=== PATIENT | male | born 1955 | race Caucasian/White ===

== ENCOUNTER 2016-06-04 01:34 | Emergency (ER) | payer MEDICARE ==
[2015-11-24 08:19] VITALS: BMI 25.8
[~2016-06-04 01:34] MED LIST: ATARAX 25 MG TA25 MG PO; CARAFATE1 G/10 ML PO; DIFLUCAN100 MG PO; HYDROCODONE-APA1 TAB PO; IPRAT-ALBUT 0.5-3 ML UPD; KENALOG 0.1 % O15 GM TOPICAL; MUCINEX DM ER1 EAC1 PO; NICODERM C1 PATCH .1 TRANSDERM; PERCOCET 10/3251 TA1 PO; PROAIR HFA8.5 GM INH; PROTONIX40 MG PO; SINGULAIR10 MG PO; SORIATANE10 MG PO; SORIATANE25 MG PO; SYMBICORT 16010.2 GM INH; TEMOVATE 0.05%15 G1 TOPICAL; TESSALON PERLE100 MG PO; VIBRAMYCIN 100100 MG PO
[2016-06-04 02:29] LABS: BASOPHILS 0.3 % (0.0-2.0); EOSINOPHILS 1.1 % (0-7); HEMATOCRIT 42.7 % (42.0-54.0); HEMOGLOBIN 13.9 g/dL (13.5-17.5); IMMATURE GRANULOCYTES 0.5 % (0-5); LYMPHOCYTES 20.4 % (15-50); MCH 29.9 pg (26.0-34.0); MCHC 32.6 g/dL (31.0-37.0); MCV 91.8 fL (80.0-100.0); MEAN PLATELET VOLUME 9.1 fL (7.4-10.4); MONOCYTES 7.1 % (2-11); NEUTROPHILS 70.6 % (40-80); PLATELET COUNT 311 10x3/uL (130-400); RBC 4.65 10x6/uL (4.20-6.10); RDW 14.4 % (11.5-14.5); WBC 11.6 10x3/uL (4.8-10.8)
[2016-06-04 02:38] LABS: ALBUMIN 3.4 g/dL (3.4-5.0); ANION GAP 7.5 mmol/L (8-16); BILIRUBIN - TOTAL 0.4 mg/dL (0.2-1.3); CALCIUM 8.6 mg/dL (8.5-10.1); CARBON DIOXIDE 33.4 mmol/L (21.0-32.0); CREATININE - SERUM 1.2 mg/dL (0.6-1.3); POTASSIUM - SERUM 3.9 mmol/L (3.5-5.1); PROTEIN - SERUM 7.8 g/dL (6.4-8.2)
== END 2016-06-04 02:52 | disposition home or self-care (01) ==
LOC: D.ER 01:34
PROVIDERS: Emergency Medicine
DX: J44.1 Chronic obstructive pulmonary disease with (acute) exacerbation (principal); E78.5 Hyperlipidemia, unspecified

== ENCOUNTER 2016-06-18 11:30 | Emergency (ER) | payer MEDICARE ==
[2015-11-24 08:19] VITALS: BMI 25.8
== END 2016-06-18 14:40 | disposition home or self-care (01) ==
LOC: D.ER 11:30
DX: S90.02XA Contusion of left ankle, initial encounter (principal); W20.8XXA Other cause of strike by thrown, projected or falling object, initial encounter; Y93.89 Activity, other specified; Y92.019 Unspecified place in single-family (private) house as the place of occurrence of the external cause; S93.402A Sprain of unspecified ligament of left ankle, initial encounter; J44.9 Chronic obstructive pulmonary disease, unspecified; E78.5 Hyperlipidemia, unspecified

== ENCOUNTER → 2016-07-26 09:09 | Outpatient (CLI) | payer MEDICARE ==
[2015-11-24 08:19] VITALS: BMI 25.8
== END | disposition home or self-care (01) ==
LOC: D.CT 09:00
DX: J44.9 Chronic obstructive pulmonary disease, unspecified (principal); Z87.891 Personal history of nicotine dependence

== ENCOUNTER → 2016-08-13 09:28 | Outpatient (CLI) | payer MEDICARE ==
[2015-11-24 08:19] VITALS: BMI 25.8
== END | disposition home or self-care (01) ==
LOC: D.RT 09:28
DX: J45.909 Unspecified asthma, uncomplicated (principal)

== ENCOUNTER 2016-12-19 10:28 | Day surgery (SDC) | payer MEDICARE ==
[~2016-12-19] VITALS: Ht 177.8 cm; Wt 94.5 kg
[2016-12-19 12:04] VITALS: BP 122/71; Ht 177.8 cm; Wt 94.5 kg
--- NOTE | 2016-12-19 12:58 | NUR ---
DILATED ESOPHAGUS TO 18MM
--- NOTE | 2016-12-19 15:50 | NUR ---
1400 DISCHARGE INSTRUCTIONS COMPLETE. PRESCRIPTIONS FOR PROTONIX, CARAFATE, AND FLUCANZOLE GIVEN. PT HAS NO QUESTIONS OR CONCERNS. ESCORTED OUT BY VOLUNTEER.
--- NOTE | 2016-12-23 08:17 | OP ---
PATIENT NAME: KONRAD ROSENBERG MEDICAL RECORD: [id number] :55 LOCATION:[facility] ADMISSION DATE: SURGEON: RENEA HERBERT DO DATE OF OPERATION: 12/19/2016 PROCEDURE: EGD with biopsies and balloon dilation. INDICATIONS FOR PROCEDURE: Dysphagia, heartburn, hunger pain, nausea. SCOPE: Olympus video gastroscope. MEDICATIONS: Propofol 160 mg IV per anesthesia. ESTIMATED BLOOD LOSS: Minimal. COMPLICATIONS: None. FINDINGS: Informed consent was given. The patient was made comfortable with the above medication. After reaching an adequate level of sedation by slow IV push, the patient was placed on his left side. The endoscope was then advanced under direct visualization through the mouth to the second portion of the duodenum. In the oropharynx and upper esophagus, there was noted to be Summer. The endoscope was advanced beyond this site where the middle esophagus appeared normal. In the distal esophagus down to the GE junction, there was evidence of severe erosive LA class D reflux induced esophagitis with ulcerations present. There was also a stricture associated with the distal esophagus down at the GE junction. The scope was easily passed through this site, but upon withdrawal of the scope, balloon dilation was performed at this site up to a maximum of 18 mm in diameter successfully. The endoscope was advanced beyond the GE junction into the stomach and retroflexed to view the cardia, where a small sliding hiatal hernia was present. The fundus and body of the stomach appeared normal. In the antrum and prepyloric region, there was some erythema and atrophy of the mucosa consistent with possible gastritis. Biopsies were taken to submit for histology and to rule out H. pylori. The endoscope was advanced beyond the pylorus into the duodenum where there was some inflammation, granularity, and erythema. There were also some polypoid appearing sites. Biopsies were taken of this site with cold forceps to submit for histology. The scope was advanced beyond the bulb into the second portion, which appeared normal. The endoscope was then withdrawn from the patient. The patient tolerated the procedure well and there were no complications. IMPRESSION: 1. Oral and esophageal candidiasis. 2. LA class D reflux induced esophagitis with ulcerations present. 3. Esophageal stricture, dilated to 18 mm. 4. Small sliding hiatal hernia. 5. Gastritis. 6. Duodenitis with polypoid lesions, biopsies taken. PLAN AND RECOMMENDATIONS: 1. Discharge home when recovery parameters are met. 2. Continue current diet. 3. Continue current medications. 4. Fluconazole 100 mg daily times 21 days. 5. Protonix or equivalent PPI at 40 mg daily for 8 weeks. OPERATIVE REPORT [id number] KONRAD ROSENBERG 6. Repeat EGD as needed for dysphagia. 7. Follow up biopsy specimen results. 8. Treat if indicated for H. pylori. TRANSINT:[id number] Voice Confirmation ID: [id number] DOCUMENT ID: [id number] RENEA HERBERT DO at 0817 CC: [id number] DICTATION DATE: 12/19/16 1307 HAND II BLOCKER: 12/19/16 1517 [facility] 12/19/16 [id number] [place] [address]
== END 2016-12-19 14:00 | disposition home or self-care (01) ==
LOC: D.OPS 10:28
DX: R13.10 Dysphagia, unspecified (principal); R11.0 Nausea; K21.0 Gastro-esophageal reflux disease with esophagitis; K22.2 Esophageal obstruction; K44.9 Diaphragmatic hernia without obstruction or gangrene; K29.70 Gastritis, unspecified, without bleeding; K29.80 Duodenitis without bleeding; B37.81 Candidal esophagitis; Z01.812 Encounter for preprocedural laboratory examination; J44.9 Chronic obstructive pulmonary disease, unspecified; G47.30 Sleep apnea, unspecified; J45.909 Unspecified asthma, uncomplicated

== ENCOUNTER 2016-12-30 08:36 | Day surgery (SDC) | payer MEDICARE ==
[~2016-12-30] VITALS: Ht 177.8 cm; Wt 95.5 kg
[2016-12-30] MEDS ORDERED: BIAXIN 500 MG500 MG (09:36)
[2016-12-30 09:56] VITALS: BP 106/55; Ht 177.8 cm; Wt 95.5 kg
[2016-12-30 10:53] LABS: BASOPHILS 0.2 % (0-2); EOSINOPHILS 2.3 % (0-7); HEMATOCRIT 41.3 % (42.0-54.0); HEMOGLOBIN 13.7 g/dL (13.5-17.5); IMMATURE GRANULOCYTES 0.7 % (0-5); LYMPHOCYTES 18.3 % (15-50); MCH 29.9 pg (26.0-34.0); MCHC 33.2 g/dL (31.0-37.0); MCV 90.2 fL (80.0-100.0); MEAN PLATELET VOLUME 9.2 fL (7.4-10.4); MONOCYTES 9.9 % (2-11); NEUTROPHILS 68.6 % (40-80); PLATELET COUNT 318 10x3/uL (130-400); RBC 4.58 10x6/uL (4.20-6.10); RDW 14.8 % (11.5-14.5); WBC 11.8 10x3/uL (4.8-10.8)
[2016-12-30 11:08] LABS: CALC OSMOLALITY 280 mosm/kg (275-300); CALCIUM 8.9 mg/dL (8.5-10.1); CARBON DIOXIDE 29.6 mmol/L (21.0-32.0); CHLORIDE - SERUM 104 mmol/L (98-107); GLUCOSE 125 mg/dL (74-106); POTASSIUM - SERUM 4.3 mmol/L (3.5-5.1); SODIUM 140 mmol/L (136-145); UREA NITROGEN 16 mg/dL (7-18); eGFR NON AFRICAN AMERICAN 81 mL/min (90-120)
--- NOTE | 2016-12-30 11:25 | NUR ---
1122-TATTOO COLON WITH 10CC NIKO INK VIA INJECTOR NEEDLE.
--- NOTE | 2016-12-30 12:07 | NUR ---
1150 DR. HERBERT ROUNDS 1155 PT STATES IS CLOSTROPHOBIC AND CANNOT DO CT UNLESS IS KNOCKED OUT. DR. HERBERT NOTIFED OF THIS AND STATES HOLD ON CT UNTILL SEEN BY DR. GABRIEL AND SEE WHAT HE STATES ABOUT THIS. PT INSISTS ON EATING. FL DIET SERVED.
--- NOTE | 2016-12-30 12:09 | NUR ---
1158 DR. CAMARGO OFFICE NOTIFIED OF REFERRAL AND ROOM NUMBER.
--- NOTE | 2016-12-31 16:20 | OP ---
PATIENT NAME: KONRAD ROSENBERG MEDICAL RECORD: [id number] :55 [facility] DATE: SURGEON: RENEA HERBERT DO DATE OF OPERATION: 12/30/2016 PROCEDURE: Colonoscopy with polypectomy, submucosal injection with tattoo and biopsies. INDICATIONS FOR PROCEDURE: Change in bowel habits. SCOPE: [employer] video pediatric colonoscope. MEDICATIONS: Propofol 400 mg IV per anesthesia. Prep quality is inadequate. ESTIMATED BLOOD LOSS: Less than 2 mL. COMPLICATIONS: None. FINDINGS: Informed consent was given. The patient was made comfortable with the above medication. After reaching an adequate level of sedation by slow IV push, the patient was placed on his left side. Digital rectal examination was performed and was normal other than evidence of prior intervention involving the rectum. The endoscope was then advanced under direct visualization through the rectum to the cecum with visualization of the appendiceal orifice and ileocecal valve. As stated above, the prep was inadequate for this examination and the mucosa could not be evaluated fully. Of note, there were 4 separate polyps visualized as well as a larger mass/tumor in the colon. Two of the polyps were located in the transverse colon and were benign-appearing and sessile. They ranged in size from 4-6 mm in diameter and were removed using hot snare. The other 2 polyps were located in the sigmoid colon and were benign-appearing and sessile. They were measured approximately 4-5 mm in diameter and were removed in 1 piece using a hot snare. The tumor itself was located at approximately 15 cm in the rectosigmoid junction. It could be visualized from the anal verge. It was a large infiltrating semi-pedunculated mass, which measured approximately 3 cm in size. It was felt to be too large and infiltrative to remove using a hot snare. For this reason, multiple biopsies were taken and tattoo was placed proximally and distally for localization. The scope was then withdrawn from the patient. The patient tolerated the procedure well and there were no complications. IMPRESSION: 1. Rectosigmoid mass/tumor at 15 cm status post biopsy and submucosal tattooing. 2. Sigmoid polyps times 2 removed with a hot snare. 3. Transverse polyp times 2 removed with a hot snare. 4. Diverticulosis. PLAN AND RECOMMENDATIONS: 1. Discharge home when recovery parameters are met. 2. Follow up biopsy specimen results. 3. CT abdomen and pelvis with contrast. 4. Referral to surgery for resection. 5. A repeat colonoscopy will need to be performed within 6 months of removal of OPERATIVE REPORT [id number] KONRAD ROSENBERG the tumor to clear the rest of colon. TRANSINT:[id number] Voice Confirmation ID: [id number] DOCUMENT ID: [id number] RENEA HERBERT DO at 1620 CC: [id number] DICTATION DATE: 12/30/16 1136 VERTICAL PUNCH OPERATOR: 12/30/16 1742 [facility] 12/30/16 [facility] [address] [place] [address]
== END 2016-12-30 13:25 | disposition home or self-care (01) ==
LOC: D.OPS 08:36
PROVIDERS: Anesthesiology
DX: D12.7 Benign neoplasm of rectosigmoid junction (principal); D12.5 Benign neoplasm of sigmoid colon; K63.5 Polyp of colon; K57.30 Diverticulosis of large intestine without perforation or abscess without bleeding; Z01.812 Encounter for preprocedural laboratory examination

== ENCOUNTER → 2017-01-03 07:34 | Outpatient (CLI) | payer MEDICARE ==
[2016-12-30 09:56] VITALS: BMI 30.1
[~2017-01-03 07:34] MED LIST changes: +BIAXIN 500 MG500 MG
== END | disposition home or self-care (01) ==
LOC: D.CT 07:34
DX: D49.0 Neoplasm of unspecified behavior of digestive system (principal)

== ENCOUNTER → 2017-02-25 08:53 | Day surgery (SDC) | payer MEDICARE ==
[2017-02-25 11:39] VITALS: BP 145/75; BMI 30.1
[2017-02-25 11:41] LABS: HEMATOCRIT 41.7 % (42.0-54.0); HEMOGLOBIN 13.6 g/dL (13.5-17.5); MCH 29.7 pg (26.0-34.0); MCHC 32.6 g/dL (31.0-37.0); MEAN PLATELET VOLUME 9.4 fL (7.4-10.4); RBC 4.58 10x6/uL (4.20-6.10); RDW 14.4 % (11.5-14.5); WBC 9.6 10x3/uL (4.8-10.8)
[2017-02-25 12:25] LABS: CALC OSMOLALITY 273 mosm/kg (275-300); CALCIUM 8.6 mg/dL (8.5-10.1); CARBON DIOXIDE 27.3 mmol/L (21.0-32.0); CHLORIDE - SERUM 103 mmol/L (98-107); GLUCOSE 104 mg/dL (74-106); POTASSIUM - SERUM 3.6 mmol/L (3.5-5.1); SODIUM 138 mmol/L (136-145); UREA NITROGEN 8 mg/dL (7-18); eGFR NON AFRICAN AMERICAN 81 mL/min (90-120)
--- NOTE | 2017-02-25 14:55 | NUR ---
PT REC'D TO ROOM VIA STRETCHER FROM PACU. AWAKE, BUT DROWSY. WATER PROVIDED.
--- NOTE | 2017-02-25 15:16 | NUR ---
O2 DECREASED TO 1L. WILL MONITOR.
--- NOTE | 2017-02-25 15:25 | NUR ---
PT AMBULATED TO BR, PASSED LARGE AMT OF GAS.
--- NOTE | 2017-02-25 15:49 | NUR ---
TOLERATED FULL LIQ DIET.
--- NOTE | 2017-02-25 16:01 | NUR ---
PT C/O ROSA. COFFEE PROVIDED.
--- NOTE | 2017-02-25 16:18 | NUR ---
D/C INSTRUCTIONS EXPLAINED TO PT. VOICED UNDERSTANDING. COPIES OF ALL GIVEN TO PT. D/C'D HOME VIA W/C TO PRIVATE CAR.
--- NOTE | 2017-02-27 14:00 | OP ---
PATIENT NAME: KONRAD ROSENBERG MEDICAL RECORD: [id number] :55 LOCATION:[facility] ADMISSION DATE: SURGEON: RUBIN GABRIEL MD DATE OF OPERATION: 02/25/2017 PREOPERATIVE DIAGNOSIS: Rectosigmoid polypoid mass. POSTOPERATIVE DIAGNOSIS: Mid rectal polypoid mass. PROCEDURES: 1. Total colonoscopy to cecum. 2. Piecemeal snare polypectomy. 3. Epinephrine injection through a sclerotherapy needle. 4. Cold endoscopic biopsies of the base of the polyp. 5. Treatment of the base of the polyp with the argon plasma building construction inspector and then placement of 3 endoscopic clips for hemostasis. OPERATIVE COURSE: The patient was conveyed to the operating room electively on 02/25/2017. General anesthesia was induced by the anesthesia staff. The patient was placed in the Marc position. A digital rectal examination was performed. The area around the anus was macerated and indurated. A colonoscope was inserted through the anus. It was easily advanced to the cecum. Upon withdrawal, I irrigated and aspirated extensively. The prep was adequate. The pullback was greater than a 30-minute pullback. The polypoid mass was identified. It was just above the lowest valve of Castaneda. It was at about 10 or 11 cm from the anal verge. To aid in hemostasis and see if we could get a lift on the polyp, I advanced a sclerotherapy needle. Through the sclerotherapy needle, I injected epinephrine submucosally. I did get a good lift on the entire polyp. The sclerotherapy needle was removed. Utilizing the snare polypectomy device, I performed a piecemeal snare polypectomy, probably taking out 4 or 5 pieces of the polyp and these were all grasped with the endoscopic retrieval net and withdrawn out through the anus. I readvanced the colonoscope. The base of the polyp was removed utilizing the cold endoscopic biopsy forceps. One side eliminated all of the polyp that I could identify. I cauterized the submucosa with the argon plasma building construction inspector utilizing the right colon setting in the forced mode. In order to reinforce the area and also hemostasis, 3 endoscopic clips were placed across this ulcerated area. There was no further bleeding. A retroflexed view was obtained in the rectum. I then unretroflexed the scope and removed it under direct vision. I will see the patient in my office in 2-3 weeks. It is very likely the patient will require another argon plasma coagulation therapy session in 6 months to 1 year unless a full thickness malignancy is identified and then of course he would require chemotherapy and radiation. TRANSINT:[id number] Voice Confirmation ID: [id number] DOCUMENT ID: [id number] OPERATIVE REPORT [id number] KONRAD ROSENBERG, RUBIN CLARK at 1400 CC: MECHELLE WEINSTEIN M.D. and RENEA HERBERT DO [id number] DICTATION DATE: 02/25/17 1432 DIESEL ENGINE SPECIALIST: 02/25/17 1555 [facility] 02/25/17 [facility] [address] [place] [address]
--- NOTE | 2017-02-27 14:00 | HP ---
PATIENT: KONRAD ROSENBERG MEDICAL RECORD: [id number] ACCOUNT: [id number] LOCATION:[facility] : 55 ADMISSION DATE: 02/25/17 HISTORY AND PHYSICAL EXAMINATION PRINCIPLE DIAGNOSIS: Complex colon polyp. HISTORY OF PRESENT ILLNESS: The patient has a rectosigmoid mass, that is tubulovillous adenoma, with high-grade dysplasia. I am going to plan for a polypectomy and if the mass is unable to be removed endoscopically, at least some deep biopsies so that we can determine whether the mass represents a malignancy or not. The risks, possible complications, and alternatives to procedure were explained to the patient. He elects to proceed. ALLERGIES: PENICILLIN AND ASPIRIN. HOME MEDICATIONS: Singulair, Atarax, DuoNeb, [place], Biaxin. SOCIAL HISTORY: Former smoker. PAST MEDICAL AND SURGICAL HISTORY: Gastroesophageal reflux, asthma, COPD. REVIEW OF SYSTEMS: Negative for CVA or seizures. Negative for diabetes or thyroid problems. Negative for renal disease or hepatitis. PHYSICAL EXAMINATION: GENERAL: The patient does not appear acutely ill. He does not appear chronically ill. VITAL SIGNS: Reviewed. HEAD: External ears appear normal. EYES: Extraocular movements are intact. NECK: Trachea is midline. CHEST: No intercostal retractions. PULMONARY: Nonlabored. No stridor. ABDOMEN: Nontender. 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 PLAN: Colonoscopy, polypectomy, and probable use of the argon plasma nurse behavioral health care in this process. TRANSINT:[id number] Voice Confirmation ID: [id number] DOCUMENT ID: [id number] HISTORY AND PHYSICAL [id number] SHAKIRAKONRAD RUBIN GABRIEL MD at 1400 CC: MECHELLE WEINSTEIN M.D. and RENEA HERBERT DO [id number] DICTATION DATE: 02/25/17 1440 MERCANTILE REPORTER: 02/25/17 1517 [facility] 02/25/17 [address] [place] [address]
== END | disposition home or self-care (01) ==
LOC: D.OPS 08:53 → D.PAN 10:00 → D.OPS 10:30
PROVIDERS: Anesthesiology
DX: K63.5 Polyp of colon (principal); J45.909 Unspecified asthma, uncomplicated; J44.9 Chronic obstructive pulmonary disease, unspecified; K21.9 Gastro-esophageal reflux disease without esophagitis; Z01.812 Encounter for preprocedural laboratory examination

== ENCOUNTER 2017-03-05 14:37 | Emergency (ER) | payer MEDICARE ==
[2017-02-25 11:39] VITALS: BMI 30.1
== END 2017-03-05 16:54 | disposition home or self-care (01) ==
LOC: D.ER 14:37
DX: M25.511 Pain in right shoulder (principal); M51.36 Other intervertebral disc degeneration, lumbar region; J44.9 Chronic obstructive pulmonary disease, unspecified; F17.200 Nicotine dependence, unspecified, uncomplicated

== ENCOUNTER → 2017-03-20 13:28 | Outpatient (CLI) | payer MEDICARE ==
[2017-02-25 11:39] VITALS: BMI 30.1
== END | disposition home or self-care (01) ==
LOC: D.CT 03-18 09:00
DX: S46.911A Strain of unspecified muscle, fascia and tendon at shoulder and upper arm level, right arm, initial encounter (principal); X58.XXXA Exposure to other specified factors, initial encounter; Y93.89 Activity, other specified; Y92.029 Unspecified place in mobile home as the place of occurrence of the external cause

== ENCOUNTER 2017-06-09 12:35 | Emergency (ER) | payer MEDICARE ==
[2017-02-25 11:39] VITALS: BMI 30.1
== END 2017-06-09 15:40 | disposition home or self-care (01) ==
LOC: D.ER 12:35
DX: K59.00 Constipation, unspecified (principal); J44.9 Chronic obstructive pulmonary disease, unspecified

== ENCOUNTER → 2017-07-11 09:45 | Outpatient (CLI) | payer MEDICARE ==
[2017-02-25 11:39] VITALS: BMI 30.1
[2017-07-11 10:22] LABS: ALBUMIN 3.1 g/dL (3.4-5.0); BILIRUBIN - DIRECT 0.08 mg/dL (0.00-0.30); BILIRUBIN - INDIRECT 0.4 mg/dL (0.00-1.00); BILIRUBIN - TOTAL 0.48 mg/dL (0.2-1.3); PROTEIN - SERUM 7.6 g/dL (6.4-8.2)
== END | disposition home or self-care (01) ==
LOC: D.LAB 07-07 09:30 → D.US 07-07 10:00
PROVIDERS: Internal Medicine Gastroenterology
DX: K76.0 Fatty (change of) liver, not elsewhere classified (principal)

== ENCOUNTER → 2017-07-28 08:01 | Outpatient (CLI) | payer MEDICARE ==
[2017-02-25 11:39] VITALS: BMI 30.1
[~2017-07-28 08:01] MED LIST changes: +CLEOCIN HCL300 MG PO; +MIRALAX17 GM PO; +NEURONTIN 300300 MG PO; +RESTASIS EYE DR30 EA EACH EYE
== END | disposition home or self-care (01) ==
LOC: D.NM 08:01
DX: K83.8 Other specified diseases of biliary tract (principal); R10.13 Epigastric pain

== ENCOUNTER → 2017-08-14 10:25 | Outpatient (CLI) | payer MEDICARE ==
[2017-02-25 11:39] VITALS: BMI 30.1
== END | disposition home or self-care (01) ==
LOC: D.RT 08-13 13:00 → D.RAD 08-13 14:00 → D.RT 10:25
DX: J45.909 Unspecified asthma, uncomplicated (principal)

== ENCOUNTER 2017-09-08 07:21 | Day surgery (SDC) | payer MEDICARE ==
[~2017-09-08] VITALS: Ht 177.8 cm; Wt 95.3 kg
--- NOTE | ~2017-09-08 | OP ---
PATIENT NAME: KONRAD ROSENBERG MEDICAL RECORD: [id number] :55 LOCATION:D.[facility] ADMISSION DATE: SURGEON: RUBIN GABRIEL MD DATE OF OPERATION: 09/08/2017 PREOPERATIVE DIAGNOSIS: History of tubulovillous adenoma of the rectum with high-grade dysplasia. POSTOPERATIVE DIAGNOSES: 1. 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 2. Active diverticulitis within the sigmoid colon. 3. Inadequate colonic prep; however, the rectum was prepped enough where I could adequately see the area of interest. PROCEDURES: 1. Total colonoscopy to cecum. 2. Biopsies of the polypoid scar and then retreatment with the argon plasma telescope repairer utilizing the right colon setting in the forced mode. OPERATIVE COURSE: The patient was conveyed to the operating room electively on 09/08/2017. General anesthesia was induced by the anesthesia staff. The patient was placed in the Marc position. A digital rectal examination was performed. A colonoscope was inserted through the anus. It was easily advanced to the cecum. The prep was inadequate. I slowly withdrew the endoscope. I irrigated and aspirated extensively. The pullback was greater than a 13-minute pullback. I utilized a normal imaging as well as narrow band imaging. I noted the tattooed areas within the rectum. There were 2 sets of tattoos. This scar was between the 2 sets of tattoos. I biopsied the scar utilizing the cold endoscopic biopsy forceps and then retreated the entire area with the argon plasma telescope repairer utilizing the right colon setting in the forced mode. A retroflexed view was obtained in the rectum. I then unretroflexed the scope and removed it under direct vision. I plan to see the patient in my office in 2-3 weeks. If there has been no regrowth of the polypoid tissue on the biopsies, then I will likely elect to return the patient's endoscopic care back over to his form tamping machine operator. TRANSINT:[id number] Voice Confirmation ID: [id number] DOCUMENT ID: [id number] RUBIN GABRIEL MD at 1158 CC: YVROSE MCGUIRE MD, MECHELLE WEINSTEIN and MINNIE GARDNER [id number] DICTATION DATE: 09/08/17 1251 CLIENT ARCHITECT: 09/08/[address] [facility] 09/08/17 [id number] [place]
[~2017-09-08 07:21] MED LIST changes: -CLEOCIN HCL300 MG PO; -MIRALAX17 GM PO; -NEURONTIN 300300 MG PO; -RESTASIS EYE DR30 EA EACH EYE
[2017-09-08] MEDS ORDERED: NEURONTIN 300300 MG PO (08:32)
[2017-09-08 08:33] VITALS: BP 125/74; Ht 177.8 cm; Wt 95.3 kg
[2017-09-08] MEDS ORDERED: MIRALAX17 GM PO (08:56)
[2017-09-08] MEDS ORDERED: KENALOG 0.1 % O15 GM TOPICAL (08:56)
[2017-09-08] MEDS ORDERED: RESTASIS EYE DR30 EA EACH EYE (08:57)
[2017-09-08] MEDS ORDERED: CLEOCIN HCL300 MG PO (08:58)
[2017-09-08 09:13] LABS: HEMOGLOBIN 14.9 g/dL (13.5-17.5); MCH 29.7 pg (26.0-34.0); MCHC 33.1 g/dL (31.0-37.0); MCV 89.6 fL (80.0-100.0); MEAN PLATELET VOLUME 9.5 fL (7.4-10.4); RBC 5.02 10x6/uL (4.20-6.10); RDW 13.8 % (11.5-14.5); WBC 12.4 10x3/uL (4.8-10.8)
[2017-09-08 09:21] LABS: ANION GAP 15.8 mmol/L (8-16); CALCIUM 8.9 mg/dL (8.5-10.1); CARBON DIOXIDE 27.4 mmol/L (21.0-32.0); CREATININE - SERUM 1.1 mg/dL (0.6-1.3); POTASSIUM - SERUM 4.2 mmol/L (3.5-5.1)
== END 2017-09-08 14:00 | disposition home or self-care (01) ==
LOC: D.OPS 07:21 → D.PAN 10:00 → D.OPS 10:00 → D.PAN 11:00 → D.OPS 14:00
PROVIDERS: Anesthesiology
DX: D12.8 Benign neoplasm of rectum (principal); K57.92 Diverticulitis of intestine, part unspecified, without perforation or abscess without bleeding; I10 Essential (primary) hypertension; J44.9 Chronic obstructive pulmonary disease, unspecified; G47.30 Sleep apnea, unspecified; K21.9 Gastro-esophageal reflux disease without esophagitis; Z01.812 Encounter for preprocedural laboratory examination

== ENCOUNTER 2017-09-15 11:05 | Day surgery (SDC) | payer MEDICARE ==
[~2017-09-15] VITALS: Ht 177.8 cm; Wt 94.1 kg
--- NOTE | ~2017-09-15 | OP ---
PATIENT NAME: KONRAD ROSENBERG MEDICAL RECORD: [id number] :55 LOCATION:[facility] ADMISSION DATE: SURGEON: RENEA HERBERT DO DATE OF OPERATION: 09/15/2017 PROCEDURE: EGD with biopsies and balloon dilation. INDICATIONS FOR PROCEDURE: Dysphagia, hunger pain, heartburn, epigastric pain. SCOPE: Olympus video gastroscope. MEDICATIONS: Propofol 270 mg IV per anesthesia. ESTIMATED BLOOD LOSS: Minimal. COMPLICATIONS: None. FINDINGS: Informed consent was given. The patient was made comfortable with the above medication. After reaching an adequate level of sedation by slow IV push, the patient was placed on his left side. The endoscope was advanced under direct visualization through the mouth to the second portion of the duodenum. The upper third of the esophagus appeared normal. Starting in the middle and distal thirds of the esophagus, there were multiple esophageal ulcers which were mixed superficial type and deeper, cratered type. There was evidence of acid reflux up to the middle third of the esophagus. Multiple biopsies were taken with cold forceps of the ulcers to submit for histopathology. As the endoscope reached the distal esophagus and down to the GE junction, there was some stenosis noted. There was also evidence of LA class C reflux-induced esophagitis. Cold forceps biopsies were taken at the GE junction and a CRE balloon was placed through the endoscope with dilation sequentially from 13-1/2 mm up to 15-1/2 mm successfully. The endoscope was advanced beyond the GE junction and retroflexed to view the cardia and fundus. The patient does have a small sliding hiatal hernia. Throughout the entire stomach, there was patchy erythema, congestion, and friability consistent with gastritis. Multiple cold forceps biopsies were taken to submit for histology and to rule out H. pylori. The endoscope was advanced into the duodenum. The bulb of the duodenum did have some erythema and friability, but the endoscope was passed into the second portion of the duodenum and appearances were normal. The endoscope was then withdrawn from the patient. The patient tolerated the procedure well and there were no complications. IMPRESSION: 1. LA class C, reflux-induced esophagitis. 2. Multiple esophageal ulcerations of mix superficial and deep type. 3. Esophageal stenosis at the GE junction, dilated to 15-1/2 mm. 4. Gastritis with biopsies pending. PLAN AND RECOMMENDATIONS: 1. Discharge home when recovery parameters are met. 2. Follow up biopsy specimen results. 3. GERD diet and reflux precautions. 4. Start Carafate suspension 1 gram per 10 mL p.o. q.a.c. and at bedtime times 2 weeks. 5. Start pantoprazole 40 mg daily times 6 weeks, then reduce to 20 mg daily thereafter. OPERATIVE REPORT [id number] KONRAD ROSENBERG 6. Repeat EGD in 8-10 weeks to document healing of ulcerations with further biopsies and dilation if indicated. TRANSINT:[id number] Voice Confirmation ID: [id number] DOCUMENT ID: [id number] RENEA HERBERT DO at 0911 CC: [id number] DICTATION DATE: 09/15/17 1314 CUSTOMER SECURITY CLERK: 09/15/17 1345 [facility] 09/15/17 [id number] [place] [address]
[~2017-09-15 11:05] MED LIST changes: +CLEOCIN HCL300 MG PO; +MIRALAX17 GM PO; +NEURONTIN 300300 MG PO; +RESTASIS EYE DR30 EA EACH EYE
[2017-09-15 11:41] VITALS: Ht 177.8 cm; Wt 94.1 kg
[2017-09-15 12:25] LABS: BASOPHILS 0.4 % (0-2); EOSINOPHILS 4.5 % (0-7); HEMATOCRIT 39.5 % (42.0-54.0); IMMATURE GRANULOCYTES 1.7 % (0-5); LYMPHOCYTES 27.4 % (15-50); MCH 29.3 pg (26.0-34.0); MCHC 32.9 g/dL (31.0-37.0); MCV 89.2 fL (80.0-100.0); MEAN PLATELET VOLUME 9.1 fL (7.4-10.4); MONOCYTES 9.1 % (2-11); NEUTROPHILS 56.9 % (40-80); PLATELET COUNT 340 10x3/uL (130-400); RBC 4.43 10x6/uL (4.20-6.10); RDW 14.1 % (11.5-14.5); WBC 10.2 10x3/uL (4.8-10.8)
[2017-09-15 12:49] LABS: CALC OSMOLALITY 279 mosm/kg (275-300); CALCIUM 8.6 mg/dL (8.5-10.1); CARBON DIOXIDE 24.1 mmol/L (21.0-32.0); CHLORIDE - SERUM 105 mmol/L (98-107); GLUCOSE 107 mg/dL (74-106); SODIUM 141 mmol/L (136-145); UREA NITROGEN 10 mg/dL (7-18); eGFR NON AFRICAN AMERICAN 80 mL/min (90-120)
== END 2017-09-15 14:04 | disposition home or self-care (01) ==
LOC: D.OPS 11:05
PROVIDERS: Anesthesiology
DX: R13.10 Dysphagia, unspecified (principal); R10.13 Epigastric pain; K21.0 Gastro-esophageal reflux disease with esophagitis; K22.2 Esophageal obstruction; K29.70 Gastritis, unspecified, without bleeding; K22.10 Ulcer of esophagus without bleeding; I10 Essential (primary) hypertension; J44.9 Chronic obstructive pulmonary disease, unspecified; Z01.812 Encounter for preprocedural laboratory examination

== ENCOUNTER → 2017-10-30 07:36 | Outpatient (CLI) | payer MEDICARE ==
[2017-09-15 11:41] VITALS: BMI 29.7
[~2017-10-30 07:36] MED LIST changes: +AUGMENTIN 875-11 TAB PO; +DIFLUCAN200 MG PO; +ELIQUIS2.5 MG PO; +GLUCOPHAGE500 MG PO; +LINEZOLID600 MG PO; +Levaquin PREMIX IV; +MUCINEX600 MG PO; +STERAPRED DS 1010 MG PO; +ZOFRAN ODT4 MG/UDTAB PO; +ZOFRAN4 MG PO
== END | disposition home or self-care (01) ==
LOC: D.MRI 10-24 08:00
DX: M84.351A Stress fracture, right femur, initial encounter for fracture (principal); X58.XXXA Exposure to other specified factors, initial encounter

== ENCOUNTER 2017-10-31 09:21 | Emergency (ER) | payer MEDICARE ==
[~2017-10-31] VITALS: Ht 177.8 cm; Wt 94.1 kg
[~2017-10-31 09:21] MED LIST changes: -AUGMENTIN 875-11 TAB PO; -DIFLUCAN200 MG PO; -ELIQUIS2.5 MG PO; -GLUCOPHAGE500 MG PO; -LINEZOLID600 MG PO; -Levaquin PREMIX IV; -MUCINEX600 MG PO; -STERAPRED DS 1010 MG PO; -ZOFRAN ODT4 MG/UDTAB PO; -ZOFRAN4 MG PO
[2017-10-31 09:35] VITALS: Ht 177.8 cm; Wt 94.1 kg
[2017-10-31 10:32] LABS: BASOPHILS 0.1 % (0-2); HEMATOCRIT 46.9 % (42.0-54.0); HEMOGLOBIN 15.5 g/dL (13.5-17.5); IMMATURE GRANULOCYTES 0.3 % (0-5); LYMPHOCYTES 11.5 % (15-50); MCH 29.4 pg (26.0-34.0); MCV 88.8 fL (80.0-100.0); MONOCYTES 5.7 % (2-11); NEUTROPHILS 75.4 % (40-80); PLATELET COUNT 278 10x3/uL (130-400); RBC 5.28 10x6/uL (4.20-6.10); RDW 14.8 % (11.5-14.5); WBC 11.7 10x3/uL (4.8-10.8)
[2017-10-31 10:51] LABS: ALBUMIN 3.2 g/dL (3.4-5.0); ANION GAP 13.1 mmol/L (8-16); BILIRUBIN - TOTAL 0.52 mg/dL (0.2-1.3); CALCIUM 9.3 mg/dL (8.5-10.1); CARBON DIOXIDE 28.5 mmol/L (21.0-32.0); CREATININE - SERUM 1.2 mg/dL (0.6-1.3); POTASSIUM - SERUM 3.6 mmol/L (3.5-5.1); PROTEIN - SERUM 8.9 g/dL (6.4-8.2)
[2017-10-31] MEDS ORDERED: CLEOCIN HCL300 MG PO (11:13)
[2017-10-31] MEDS ORDERED: ZOFRAN ODT4 MG/UDTAB PO (11:13)
[2017-10-31 12:32] VITALS: BP 117/66
[2017-11-01] MEDS ORDERED: AUGMENTIN 875-11 TAB PO (06:48)
[2017-11-01] MEDS ORDERED: ZOFRAN4 MG PO (06:49)
[2017-11-01] MEDS ORDERED: SORIATANE25 MG PO (09:56)
[2017-11-01] MEDS ORDERED: SORIATANE10 MG PO (09:56)
[2017-11-01] MEDS ORDERED: PROTONIX40 MG PO (11:36)
== END 2017-10-31 12:30 | disposition home or self-care (01) ==
LOC: D.ER 09:21
PROVIDERS: Family Medicine
DX: L03.811 Cellulitis of head [any part, except face] (principal); J44.9 Chronic obstructive pulmonary disease, unspecified; J45.909 Unspecified asthma, uncomplicated; Z99.81 Dependence on supplemental oxygen

== ENCOUNTER 2017-11-01 06:34 | Inpatient (IN) | payer MEDICARE ==
[~2017-11-01] VITALS: Ht 177.8 cm; Wt 92.7 kg
--- NOTE | ~2017-11-01 | EC ---
PATIENT:KONRAD ROSENBERG DATE OF SERVICE: 11/01/17 SEX: M MEDICAL RECORD: [id number] DATE OF : 55 LOCATION:D.M2 D.210 AGE OF PATIENT: 62 ADMISSION DATE: 11/01/17 REFERRING PHYSICIAN: INTERPRETING PHYSICIAN: EVELINA BURCIAGA MD ECHOCARDIOGRAM REPORT ECHO CHARGES 4 ECHO COMPLETE Date: 11/04 CLINICAL DIAGNOSIS: ASSESS FOR VEGATATION, MRSA IN BLOOD ECHOCARDIOGRAPHIC MEASUREMENTS (adult normal given) AC root (d.<3.7cm) 3.8 cm LV Septum d (<1.2 cm> 1.6 cm Valve Excursion 1.9 cm LV Septum (systole) 1.7 cm Left Atria (s.<4.0cm> 3.3 cm LVPW d(<1.2cm) 1.7 cm RV (d.<2.3cm) 4.4 cm LVPW (sytole) 1.8 cm LV diastole(<5.6CM) 5.0 cm MV E-F(>70mm/sec) cm LV systole 3.8 cm LVOT Diameter 2.2 cm MV exc.(>10mm) 1.1 cm Est.ejection fraction (50-75%) % DOPPLER: LVIT cm/sec A 103 cm/sec E 94.0 cm/sec LA cm/sec RVSP 39 mmHg LVOT 126 cm/sec AOP1/2T m/s Asc. Ao 204 cm/sec RVOT 80 cm/sec RA cm/sec PA 150 cm/sec AV Gradient Peak 16.70mmHg AV Mean 8.86 mmHg AV Area 2.8 cm MV Gradient Peak 4.30 mmHg MV Mean 1.72 mmHg MV Area cm COMMENTS: Armoured Car Escort: Alfredo DIAZ Furnace Combination Analyst: 2 Dr. Nowak TAPE# PACS Pericardial Effusion N DATE OF SERVICE: 11/04/2017 Echocardiogram FINDINGS: 1. Left ventricular chamber size is within normal limits. Left ventricular systolic function is normal. Overall ejection fraction estimated at 60%. 2. Left atrium is within normal limits at 3.3 cm. Right atrium and right ventricular chamber sizes are mildly dilated. 3. Valvular structure have normal structure and motion. There is no evidence ECHOCARDIOGRAM REPORT [id number] KONRAD ROSENBERG of endocarditis. 4. Doppler interrogation only reveals mild mitral regurgitation, mild tricuspid regurgitation, no other valvular insufficiency or stenosis and pulmonary systolic pressure is estimated at 39 mmHg. 5. No evidence of pericardial effusion or left ventricular thrombus. TRANSINT:[id number] Voice Confirmation ID: [id number] DOCUMENT ID: [id number] EVELINA BURCIAGA MD at 1710 CC: [id number] DICTATION DATE: 11/04/17 1003 FIREPROOF DOOR MAKER: 11/04/17 1119 ADM [id number] [place] [address]
--- NOTE | ~2017-11-01 | CN ---
PATIENT NAME:KONRAD PEDRO MEDICAL RECORD: [id number] : 55 LOCATION:[facility] D.2103 ADMIT DATE: 11/01/17 ACCOUNT: [id number] CONSULTING PHYSICIAN: RAGHAVENDRA CARRION MD REFERRING PHYSICIAN: ALICIA CUEVAS MD DATE OF CONSULTATION: 11/03/2017 REASON FOR CONSULTATION: Management of care. HISTORY: Mr. 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 He has been managed outpatient with chronic relapses of infections and has received Rocephin shots IM, Cipro, Bactrim, Diflucan intermittently in the past. The patient has also been given cortisone injections to manage inflammation and control. The patient is known to have worst flares in summertime due to lack of air conditioning control and heat management. The patient presented to our clinic flaring and needed hospitalization and came to [facility] for blood cultures and skin cultures. He is currently on pain management with morphine and IV antibiotics, awaiting blood cultures. The patient states minimal improvement in condition and skin is burning on his chest. I believe he presented to the Emergency Room and they thought he could have secondary herpes or zoster infection and was placed on IV acyclovir. 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 IMPRESSION: Darier's with secondary infection. Agree with antibiotic management. I would also add Diflucan IV at this time to cover him for yeast infections. I would change all topical cortisones to ointment formation, not creams; and order him to have clobetasol ointment to use twice to three times a day to affected areas that are raw and burning. We will defer pain management to primary team and we will follow him conservatively. I believe, after he gets infections under control, we will be able to discharge. TRANSINT:[id number] Voice Confirmation ID: [id number] DOCUMENT ID: [id number] RAGHAVENDRA CARRION MD CC: [id number] DICTATION DATE: 11/03/17 1226 COMPUTER SALESPERSON RETAIL: 11/03/17 1406 ADM IN [id number] [place], [place] [id number]
[~2017-11-01 06:34] MED LIST changes: +ZOFRAN ODT4 MG/UDTAB PO
[2017-11-01] MEDS ORDERED: AUGMENTIN 875-11 TAB PO (06:48)
[2017-11-01] MEDS ORDERED: ZOFRAN4 MG PO (06:49)
[2017-11-01 07:46] LABS: BASOPHILS 0.1 % (0-2); EOSINOPHILS 8.6 % (0-7); HEMATOCRIT 43.7 % (42.0-54.0); HEMOGLOBIN 14.5 g/dL (13.5-17.5); IMMATURE GRANULOCYTES 0.3 % (0-5); LYMPHOCYTES 9.6 % (15-50); MCH 29.4 pg (26.0-34.0); MCHC 33.2 g/dL (31.0-37.0); MCV 88.6 fL (80.0-100.0); MEAN PLATELET VOLUME 8.7 fL (7.4-10.4); MONOCYTES 7.2 % (2-11); NEUTROPHILS 74.2 % (40-80); PLATELET COUNT 270 10x3/uL (130-400); RBC 4.93 10x6/uL (4.20-6.10); RDW 14.8 % (11.5-14.5); WBC 10.4 10x3/uL (4.8-10.8)
[2017-11-01 08:02] LABS: BILIRUBIN - TOTAL 0.6 mg/dL (0.2-1.3); CALCIUM 9.2 mg/dL (8.5-10.1); CARBON DIOXIDE 30.9 mmol/L (21.0-32.0); CREATININE - SERUM 1.2 mg/dL (0.6-1.3); PROTEIN - SERUM 7.5 g/dL (6.4-8.2)
[2017-11-01 08:03] LABS: ANION GAP 11.3 mmol/L (8-16); POTASSIUM - SERUM 4.2 mmol/L (3.5-5.1)
[2017-11-01] MEDS ORDERED: SORIATANE25 MG PO (09:56)
[2017-11-01] MEDS ORDERED: SORIATANE10 MG PO (09:56)
[2017-11-01 10:29] VITALS: BP 106/59; BMI 29.7
[2017-11-01] MEDS ORDERED: PROTONIX40 MG PO (11:36)
[2017-11-01 12:11] VITALS: Ht 177.8 cm; Wt 92.7 kg
[2017-11-01 15:47] VITALS: BP 112/63
[2017-11-01 20:30] VITALS: BP 103/52
[2017-11-02 00:30] VITALS: BP 98/56
[2017-11-02 04:30] VITALS: BP 114/59
[2017-11-02 06:33] LABS: ALBUMIN 2.5 g/dL (3.4-5.0); ANION GAP 13.9 mmol/L (8-16); BILIRUBIN - TOTAL 0.3 mg/dL (0.2-1.3); CREATININE - SERUM 1.4 mg/dL (0.6-1.3); POTASSIUM - SERUM 3.9 mmol/L (3.5-5.1); PROTEIN - SERUM 7.6 g/dL (6.4-8.2)
[2017-11-02 07:09] LABS: BASOPHILS 0.1 % (0-2); EOSINOPHILS 0 % (0-7); HEMATOCRIT 39.8 % (42.0-54.0); HEMOGLOBIN 13.1 g/dL (13.5-17.5); IMMATURE GRANULOCYTES 0.4 % (0-5); LYMPHOCYTES 5.1 % (15-50); MCH 28.7 pg (26.0-34.0); MCHC 32.9 g/dL (31.0-37.0); MCV 87.1 fL (80.0-100.0); MONOCYTES 4.3 % (2-11); NEUTROPHILS 90.1 % (40-80); PLATELET COUNT 301 10x3/uL (130-400); RBC 4.57 10x6/uL (4.20-6.10); RDW 14.1 % (11.5-14.5); WBC 10.6 10x3/uL (4.8-10.8)
[2017-11-02 07:49] VITALS: BP 109/52
[2017-11-02 11:50] VITALS: BP 125/53
[2017-11-02 15:56] VITALS: BP 108/53
[2017-11-02 20:30] VITALS: BP 103/50
[2017-11-03 00:30] VITALS: BP 99/45
[2017-11-03 04:30] VITALS: BP 104/60
[2017-11-03 06:46] LABS: BASOPHILS 0.1 % (0-2); EOSINOPHILS 0 % (0-7); HEMATOCRIT 35.2 % (42.0-54.0); HEMOGLOBIN 11.7 g/dL (13.5-17.5); IMMATURE GRANULOCYTES 0.5 % (0-5); MCHC 33.2 g/dL (31.0-37.0); MCV 87.1 fL (80.0-100.0); MEAN PLATELET VOLUME 9.1 fL (7.4-10.4); MONOCYTES 5.5 % (2-11); NEUTROPHILS 88.9 % (40-80); PLATELET COUNT 332 10x3/uL (130-400); RBC 4.04 10x6/uL (4.20-6.10); RDW 14.4 % (11.5-14.5)
[2017-11-03 06:57] LABS: ALBUMIN 2.4 g/dL (3.4-5.0); ANION GAP 13.3 mmol/L (8-16); BILIRUBIN - TOTAL 0.16 mg/dL (0.2-1.3); CALCIUM 9.1 mg/dL (8.5-10.1); CARBON DIOXIDE 27.6 mmol/L (21.0-32.0); CREATININE - SERUM 1.2 mg/dL (0.6-1.3); POTASSIUM - SERUM 3.9 mmol/L (3.5-5.1); PROTEIN - SERUM 6.9 g/dL (6.4-8.2)
[2017-11-03 07:00] LABS: WBC 15.3 10x3/uL (4.8-10.8)
[2017-11-03 09:03] VITALS: BP 110/55
[2017-11-03 12:39] VITALS: BP 113/60
[2017-11-03 16:14] VITALS: BP 98/56
[2017-11-03 20:00] VITALS: BP 122/69
[2017-11-04 05:28] LABS: BASOPHILS 0.1 % (0-2); EOSINOPHILS 0 % (0-7); HEMATOCRIT 36.6 % (42.0-54.0); HEMOGLOBIN 11.8 g/dL (13.5-17.5); IMMATURE GRANULOCYTES 1.3 % (0-5); LYMPHOCYTES 5.5 % (15-50); MCH 28.6 pg (26.0-34.0); MCHC 32.2 g/dL (31.0-37.0); MCV 88.8 fL (80.0-100.0); MEAN PLATELET VOLUME 8.7 fL (7.4-10.4); MONOCYTES 6.9 % (2-11); NEUTROPHILS 86.2 % (40-80); PLATELET COUNT 323 10x3/uL (130-400); RBC 4.12 10x6/uL (4.20-6.10); RDW 14.7 % (11.5-14.5); WBC 14.1 10x3/uL (4.8-10.8)
[2017-11-04 05:50] LABS: ALBUMIN 2.4 g/dL (3.4-5.0); ANION GAP 7.9 mmol/L (8-16); BILIRUBIN - TOTAL 0.1 mg/dL (0.2-1.3); CALCIUM 8.6 mg/dL (8.5-10.1); CARBON DIOXIDE 29.4 mmol/L (21.0-32.0); CREATININE - SERUM 1.1 mg/dL (0.6-1.3); POTASSIUM - SERUM 4.3 mmol/L (3.5-5.1); PROTEIN - SERUM 6.8 g/dL (6.4-8.2)
[2017-11-04 06:17] VITALS: BP 118/73
[2017-11-04 07:00] VITALS: BP 140/69
[2017-11-04 11:00] VITALS: BP 120/71
[2017-11-04 21:53] VITALS: BP 127/52
[2017-11-05 00:49] VITALS: BP 103/56
[2017-11-05 05:06] LABS: BASOPHILS 0.1 % (0-2); EOSINOPHILS 0 % (0-7); HEMATOCRIT 37.2 % (42.0-54.0); IMMATURE GRANULOCYTES 1.1 % (0-5); LYMPHOCYTES 4.1 % (15-50); MCH 28.6 pg (26.0-34.0); MCHC 32.3 g/dL (31.0-37.0); MCV 88.6 fL (80.0-100.0); MEAN PLATELET VOLUME 8.8 fL (7.4-10.4); MONOCYTES 5.3 % (2-11); NEUTROPHILS 89.4 % (40-80); PLATELET COUNT 300 10x3/uL (130-400); RDW 14.8 % (11.5-14.5)
[2017-11-05 05:17] VITALS: BP 119/73
[2017-11-05 05:25] LABS: ALBUMIN 2.3 g/dL (3.4-5.0); ALKALINE PHOSPHATASE 89 U/L (46-116); ALT (SGPT) 13 U/L (10-68); CALC OSMOLALITY 285 mosm/kg (275-300); CALCIUM 8.6 mg/dL (8.5-10.1); CARBON DIOXIDE 31.6 mmol/L (21.0-32.0); CHLORIDE - SERUM 103 mmol/L (98-107); GLUCOSE 256 mg/dL (74-106); POTASSIUM - SERUM 4.7 mmol/L (3.5-5.1); PROTEIN - SERUM 6.6 g/dL (6.4-8.2); SODIUM 138 mmol/L (136-145); UREA NITROGEN 15 mg/dL (7-18); eGFR NON AFRICAN AMERICAN 80 mL/min (90-120)
[2017-11-05 09:11] VITALS: BP 113/72
[2017-11-05 12:35] VITALS: BP 117/89
[2017-11-05 20:00] VITALS: BP 138/78
[2017-11-06] VITALS: BP 142/75
[2017-11-06 04:00] VITALS: BP 150/75
[2017-11-06 05:37] LABS: BASOPHILS 0.2 % (0-2); EOSINOPHILS 0 % (0-7); HEMATOCRIT 35.9 % (42.0-54.0); HEMOGLOBIN 11.7 g/dL (13.5-17.5); IMMATURE GRANULOCYTES 8.1 % (0-5); LYMPHOCYTES 6.7 % (15-50); MCHC 32.6 g/dL (31.0-37.0); MCV 89.1 fL (80.0-100.0); MONOCYTES 5.1 % (2-11); NEUTROPHILS 79.9 % (40-80); PLATELET COUNT 260 10x3/uL (130-400); RBC 4.03 10x6/uL (4.20-6.10); RDW 14.8 % (11.5-14.5); WBC 13.1 10x3/uL (4.8-10.8)
[2017-11-06 06:41] LABS: ALBUMIN 2.2 g/dL (3.4-5.0); ALKALINE PHOSPHATASE 90 U/L (46-116); ALT (SGPT) 14 U/L (10-68); CALC OSMOLALITY 286 mosm/kg (275-300); CALCIUM 8.8 mg/dL (8.5-10.1); CARBON DIOXIDE 29.1 mmol/L (21.0-32.0); CHLORIDE - SERUM 101 mmol/L (98-107); CREATININE - SERUM 0.9 mg/dL (0.6-1.3); GLUCOSE 290 mg/dL (74-106); POTASSIUM - SERUM 4.9 mmol/L (3.5-5.1); PROTEIN - SERUM 6.6 g/dL (6.4-8.2); SODIUM 137 mmol/L (136-145); UREA NITROGEN 18 mg/dL (7-18); eGFR NON AFRICAN AMERICAN > 90 mL/min (90-120)
[2017-11-06 08:06] VITALS: BP 122/73
[2017-11-06 11:44] VITALS: BP 123/65
[2017-11-06 15:39] VITALS: BP 136/61
[2017-11-06 20:00] VITALS: BP 116/59
[2017-11-07] VITALS: BP 139/74
[2017-11-07 04:00] VITALS: BP 153/80
[2017-11-07 08:15] VITALS: BP 141/85
[2017-11-07 11:46] VITALS: BP 127/62
[2017-11-07 11:52] LABS: HEMATOCRIT 36.8 % (42.0-54.0); MCHC 32.6 g/dL (31.0-37.0); MCV 88.9 fL (80.0-100.0); MEAN PLATELET VOLUME 9.1 fL (7.4-10.4); RBC 4.14 10x6/uL (4.20-6.10); RDW 14.9 % (11.5-14.5); WBC 14.8 10x3/uL (4.8-10.8)
[2017-11-07 11:59] LABS: PLATELET COUNT 322 10x3/uL (130-400)
[2017-11-07 12:48] LABS: LYMPHOCYTES 9 % (15-50); MONOCYTES 8 % (2-11); NEUTROPHILS 77 % (40-80); PLATELET ESTIMATE NORMAL
[2017-11-07] MEDS ORDERED: TEMOVATE 0.05%15 G1 TOPICAL (13:48)
[2017-11-07] MEDS ORDERED: STERAPRED DS 1010 MG PO (13:49)
[2017-11-07] MEDS ORDERED: LINEZOLID600 MG PO (14:35)
[2017-11-07] MEDS ORDERED: DIFLUCAN200 MG PO (14:35)
== END 2017-11-07 15:17 | disposition home or self-care (01) | DRG 602 ==
LOC: D.ER 06:34 → D.EDHOLD 07:53 → D.M2 07:53
PROVIDERS: Emergency Medicine; Internal Medicine Nephrology
DX: L03.211 Cellulitis of face (principal); J18.9 Pneumonia, unspecified organism; E87.1 Hypo-osmolality and hyponatremia; N17.9 Acute kidney failure, unspecified; J44.0 Chronic obstructive pulmonary disease with (acute) lower respiratory infection; J44.1 Chronic obstructive pulmonary disease with (acute) exacerbation; M87.851 Other osteonecrosis, right femur; Q82.8 Other specified congenital malformations of skin; G62.9 Polyneuropathy, unspecified; F41.8 Other specified anxiety disorders; K21.9 Gastro-esophageal reflux disease without esophagitis; Z87.891 Personal history of nicotine dependence

== ENCOUNTER → 2017-11-27 18:56 | Outpatient (CLI) | payer MEDICARE ==
[2017-11-01 12:11] VITALS: BMI 29.7
[~2017-11-27 18:56] MED LIST changes: +AUGMENTIN 875-11 TAB PO; +DIFLUCAN200 MG PO; +ELIQUIS2.5 MG PO; +GLUCOPHAGE500 MG PO; +LINEZOLID600 MG PO; +Levaquin PREMIX IV; +MUCINEX600 MG PO; +STERAPRED DS 1010 MG PO; +ZOFRAN4 MG PO
== END | disposition home or self-care (01) ==
LOC: D.LABREF 18:56
DX: M16.11 Unilateral primary osteoarthritis, right hip (principal); Z11.8 Encounter for screening for other infectious and parasitic diseases

== ENCOUNTER 2017-12-03 10:00 | Inpatient (IN) | payer MEDICARE ==
[~2017-12-03] VITALS: Ht 177.8 cm; Wt 92.7 kg
--- NOTE | ~2017-12-03 | MORECARE ---
CASE MANAGEMENT DISCHARGE SUMMARY PATIENT: KONRAD PEDRO UNIT: [id number] ADM DATE: 12/10/17 AGE: 62 : 55 SEX: M ROOM/BED: D.2211 AUTHOR: ESTEBAN, METAL HANDLER PHYSICIAN: REFERRING PHYSICIAN: EMELY PARSONS MD DATE OF SERVICE: 12/10/17 Discharge Plan Patient Name: KONRAD PEDRO Facility: [facility]:[place] : 1955 Planned Disposition: Inpatient Rehab Anticipated Discharge Date: 12/16/17 Discharge Date: 12/16/2017 Expected LOS: 6 Initial Reviewer: [email or web address] Initial Review Date: 12/16/2017 Generated: 12/18/17 10:56 am Comments DCP- Discharge Planning Updated by [email or web address]: Seema Schmid on 12/16/17 11:[address] Patient Name: KONRAD PEDRO Admission Status: Elective Accout number: [id number] Admission Date: 12-10-2017 : 1955 Admission Diagnosis:UNILATERAL PRIMARY OSTEOARTHRITIS, RIGHT HIP Attending: EMELY PARSONS Current LOS: 6 Anticipated DC Date: 12-16-2017 Planned Disposition: Inpatient Rehab Primary Insurance: MEDICARE A & B Discharge Planning Comments: CM met with patient about dc planning. Patient plans to be admitted to inpatient rehab here today and then to home when dc'd from rehab. States home environment is safe. Does not verbalize any needs other than rehab at this time. CM will continue to follow and assist as needed with dc planning/needs. Clinical Data Manager: Seema Schmid DCPIA - Discharge Planning Initial Assessment Updated by [email or web address]: Seema Schmid on 12/16/17 12:24 pm * Is the patient Alert and Oriented? Yes * How many steps to enterexit or inside your home? * PCP [facility] * [facility] * Preadmission Environment Home with Family * ADLs Independent * Equipment Oxygen * List name and contact numbers for known caregivers / representatives who currently or will assist patient after discharge: Kemi Pedro, Son, [phone] * Verbal permission to speak to the caregivers and representatives has been obtained from the patient. Yes * Community resources currently utilized None * Additional services required to return to the preadmission environment? Yes * Can the patient safely return to the preadmission environment? No * Has this patient been hospitalized within the prior 30 days at any hospital? No Coverage Notice Reviewer: [email or web address] Mikayla Schmid Notice Issued Date-Time: 12/16/2017 12:19 Notice Type: IM Discharge Notice Notice Delivered To: Patient Relationship to Patient: Self Breakdown Mill Operator Name: Delivery Method: HAND - Hand Delivered Martha Days: Prior Verbal Notification: Recipient Understood Notice: Yes Recipient Signature: Yes Med Rec Note Co-signed by Attending: Coverage Notice Comment: Patient Name: KONRAD PEDRO Page [phone] All edits/amendments must be made on the electronic document DICTATION DATE: 12/18/17954 CLINICAL SPECIALIST VASCULAR: 12/18/1755 RPT#: [id number] DC DATE:12/16/17 STATUS: DIS IN [facility] [address] [place] [address] END OF REPORT
[~2017-12-03 10:00] MED LIST changes: -ELIQUIS2.5 MG PO; -GLUCOPHAGE500 MG PO; -Levaquin PREMIX IV; -MUCINEX600 MG PO
[2017-12-03 11:32] LABS: BASOPHILS 0.5 % (0-2); EOSINOPHILS 1.8 % (0-7); HEMATOCRIT 33.6 % (42.0-54.0); HEMOGLOBIN 11.4 g/dL (13.5-17.5); IMMATURE GRANULOCYTES 0.3 % (0-5); LYMPHOCYTES 16.2 % (15-50); MCH 31.8 pg (26.0-34.0); MCHC 33.9 g/dL (31.0-37.0); MCV 93.6 fL (80.0-100.0); MEAN PLATELET VOLUME 11.3 fL (7.4-10.4); MONOCYTES 7.9 % (2-11); NEUTROPHILS 73.3 % (40-80); PLATELET COUNT 138 10x3/uL (130-400); RBC 3.59 10x6/uL (4.20-6.10); RDW 17.5 % (11.5-14.5); WBC 6.1 10x3/uL (4.8-10.8)
[2017-12-03 11:41] LABS: CALC OSMOLALITY 278 mosm/kg (275-300); CARBON DIOXIDE 30.4 mmol/L (21.0-32.0); CHLORIDE - SERUM 100 mmol/L (98-107); CREATININE - SERUM 0.9 mg/dL (0.6-1.3); POTASSIUM - SERUM 3.7 mmol/L (3.5-5.1); SODIUM 137 mmol/L (136-145); UREA NITROGEN 14 mg/dL (7-18); eGFR NON AFRICAN AMERICAN > 90 mL/min (90-120)
[2017-12-03 11:43] LABS: GLUCOSE 168 mg/dL (74-106)
[2017-12-03 11:56] LABS: APTT 24.3 SECONDS (22.8-39.4); INR 0.95 (0.85-1.17); PROTIME 12.3 SECONDS (11.6-15.0)
[2017-12-03 11:58] LABS: APPEARANCE CLEAR (CLEAR); COLOR YELLOW (YELLOW)
[2017-12-03 11:59] LABS: BACTERIA NONE SEEN /hpf (NONE SEEN); BILIRUBIN NEGATIVE (NEGATIVE); EPITHELIAL CELLS 0-5 /hpf (0-5); GLUCOSE 500 mg/dL (NEGATIVE); HYALINE CAST 0-5 /lpf (NONE SEEN); KETONE NEGATIVE (NEGATIVE); MUCUS <1+ /lpf (NONE SEEN); NITRITE NEGATIVE (NEGATIVE); PROTEIN TRACE mg/dL (NEGATIVE); RED CELLS - URINE OCC /hpf (0-5); UROBILINOGEN NORMAL (NORMAL); WHITE CELLS - URINE OCC /hpf (0-5)
[2017-12-10 09:45] VITALS: BP 134/87; BMI 29.3
[2017-12-10 15:41] VITALS: BP 139/95
[2017-12-10 16:06] VITALS: BP 144/74; Ht 177.8 cm; Wt 92.7 kg
[2017-12-10 19:48] VITALS: BP 124/72
[2017-12-10 23:54] VITALS: BP 121/73
[2017-12-11 04:00] VITALS: BP 121/66
[2017-12-11 06:05] LABS: HEMATOCRIT 36.9 % (42.0-54.0); HEMOGLOBIN 11.9 g/dL (13.5-17.5); MCH 29.2 pg (26.0-34.0); MCHC 32.2 g/dL (31.0-37.0); MCV 90.7 fL (80.0-100.0); MEAN PLATELET VOLUME 9.6 fL (7.4-10.4); RBC 4.07 10x6/uL (4.20-6.10); RDW 15.9 % (11.5-14.5); WBC 14.6 10x3/uL (4.8-10.8)
[2017-12-11 09:50] VITALS: BP 125/74
[2017-12-11 13:45] VITALS: BP 123/80
[2017-12-11 18:26] VITALS: BP 141/66
[2017-12-11 22:24] VITALS: BP 146/80
[2017-12-12 06:19] VITALS: BP 111/45
[2017-12-12 06:37] LABS: HEMATOCRIT 35.4 % (42.0-54.0); HEMOGLOBIN 11.1 g/dL (13.5-17.5); MCH 28.9 pg (26.0-34.0); MCHC 31.4 g/dL (31.0-37.0); MCV 92.2 fL (80.0-100.0); MEAN PLATELET VOLUME 9.5 fL (7.4-10.4); RBC 3.84 10x6/uL (4.20-6.10); RDW 16.1 % (11.5-14.5); WBC 15.8 10x3/uL (4.8-10.8)
[2017-12-12 08:09] VITALS: BP 109/71
[2017-12-12 08:36] LABS: CALC OSMOLALITY 273 mosm/kg (275-300); CALCIUM 8.6 mg/dL (8.5-10.1); CARBON DIOXIDE 34.8 mmol/L (21.0-32.0); CHLORIDE - SERUM 97 mmol/L (98-107); GLUCOSE 176 mg/dL (74-106); POTASSIUM - SERUM 4.4 mmol/L (3.5-5.1); SODIUM 135 mmol/L (136-145); UREA NITROGEN 12 mg/dL (7-18); eGFR NON AFRICAN AMERICAN 80 mL/min (90-120)
[2017-12-12 12:47] VITALS: BP 107/70
[2017-12-12 12:48] LABS: CKMB 1.7 U/L (0.0-3.6); TROPONIN-I < 0.017 ng/mL (0.000-0.060)
[2017-12-12 12:52] LABS: CREATINE KINASE 2975 UL (21-232)
[2017-12-12 15:58] VITALS: BP 119/66
[2017-12-12 17:46] LABS: CKMB 0.9 U/L (0.0-3.6)
[2017-12-12 17:53] LABS: CREATINE KINASE 2468 UL (21-232); TROPONIN-I < 0.017 ng/mL (0.000-0.060)
[2017-12-12 18:17] LABS: APPEARANCE HAZY (CLEAR); BILIRUBIN NEGATIVE (NEGATIVE); COLOR DK YELLOW (YELLOW); GLUCOSE 100 mg/dL (NEGATIVE); KETONE NEGATIVE (NEGATIVE); NITRITE NEGATIVE (NEGATIVE); PROTEIN 1+ mg/dL (NEGATIVE); UROBILINOGEN NORMAL (NORMAL)
[2017-12-12 18:19] LABS: BACTERIA FEW /hpf (NONE SEEN); WHITE CELLS - URINE 0-5 /hpf (0-5)
[2017-12-12 20:54] VITALS: BP 131/79
[2017-12-12 23:40] LABS: CKMB 0.7 U/L (0.0-3.6); CREATINE KINASE 1952 UL (21-232); TROPONIN-I < 0.017 ng/mL (0.000-0.060)
[2017-12-13 00:33] VITALS: BP 130/64
[2017-12-13 03:52] VITALS: BP 124/70
[2017-12-13 05:28] LABS: BASOPHILS 0.2 % (0-2); EOSINOPHILS 0.3 % (0-7); HEMATOCRIT 33.3 % (42.0-54.0); HEMOGLOBIN 10.7 g/dL (13.5-17.5); IMMATURE GRANULOCYTES 1.8 % (0-5); LYMPHOCYTES 8.1 % (15-50); MCH 29.2 pg (26.0-34.0); MCHC 32.1 g/dL (31.0-37.0); MEAN PLATELET VOLUME 9.1 fL (7.4-10.4); MONOCYTES 7.4 % (2-11); NEUTROPHILS 82.2 % (40-80); PLATELET COUNT 223 10x3/uL (130-400); RBC 3.66 10x6/uL (4.20-6.10); RDW 15.7 % (11.5-14.5); WBC 13.1 10x3/uL (4.8-10.8)
[2017-12-13 05:48] LABS: ALKALINE PHOSPHATASE 104 U/L (46-116); ALT (SGPT) 40 U/L (10-68); BILIRUBIN - TOTAL 0.51 mg/dL (0.2-1.3); CALC OSMOLALITY 266 mosm/kg (275-300); CALCIUM 8.7 mg/dL (8.5-10.1); CARBON DIOXIDE 32.7 mmol/L (21.0-32.0); CHLORIDE - SERUM 96 mmol/L (98-107); CREATININE - SERUM 0.8 mg/dL (0.6-1.3); GLUCOSE 195 mg/dL (74-106); POTASSIUM - SERUM 3.9 mmol/L (3.5-5.1); PROTEIN - SERUM 6.5 g/dL (6.4-8.2); SODIUM 131 mmol/L (136-145); UREA NITROGEN 10 mg/dL (7-18); eGFR NON AFRICAN AMERICAN > 90 mL/min (90-120)
[2017-12-13 08:49] VITALS: BP 116/69
[2017-12-13 11:28] VITALS: BP 110/65
[2017-12-13 20:30] VITALS: BP 117/57
[2017-12-14 04:30] VITALS: BP 107/71
[2017-12-14 05:31] LABS: BASOPHILS 0.2 % (0-2); EOSINOPHILS 0.6 % (0-7); HEMATOCRIT 31.7 % (42.0-54.0); HEMOGLOBIN 10.1 g/dL (13.5-17.5); IMMATURE GRANULOCYTES 1.5 % (0-5); LYMPHOCYTES 7.7 % (15-50); MCH 29.1 pg (26.0-34.0); MCHC 31.9 g/dL (31.0-37.0); MCV 91.4 fL (80.0-100.0); MEAN PLATELET VOLUME 9.1 fL (7.4-10.4); MONOCYTES 9.5 % (2-11); NEUTROPHILS 80.5 % (40-80); PLATELET COUNT 237 10x3/uL (130-400); RBC 3.47 10x6/uL (4.20-6.10); RDW 15.6 % (11.5-14.5); WBC 10.8 10x3/uL (4.8-10.8)
[2017-12-14 06:09] LABS: ALKALINE PHOSPHATASE 98 U/L (46-116); ALT (SGPT) 34 U/L (10-68); CALC OSMOLALITY 276 mosm/kg (275-300); CALCIUM 8.5 mg/dL (8.5-10.1); CARBON DIOXIDE 32.5 mmol/L (21.0-32.0); CHLORIDE - SERUM 99 mmol/L (98-107); CREATININE - SERUM 0.7 mg/dL (0.6-1.3); GLUCOSE 190 mg/dL (74-106); POTASSIUM - SERUM 4.2 mmol/L (3.5-5.1); PROTEIN - SERUM 5.6 g/dL (6.4-8.2); SODIUM 137 mmol/L (136-145); UREA NITROGEN 8 mg/dL (7-18); VANCOMYCIN - TROUGH 8.8 ug/mL (10.0-20.0); eGFR NON AFRICAN AMERICAN > 90 mL/min (90-120)
[2017-12-14 09:10] VITALS: BP 104/70
[2017-12-14 14:32] VITALS: BP 118/76
[2017-12-14 17:00] VITALS: BP 115/72
[2017-12-14 20:42] VITALS: BP 127/76
[2017-12-15 05:02] VITALS: BP 1300/78
[2017-12-15 05:48] LABS: BASOPHILS 0.4 % (0-2); EOSINOPHILS 0.4 % (0-7); HEMATOCRIT 31.8 % (42.0-54.0); HEMOGLOBIN 10.2 g/dL (13.5-17.5); IMMATURE GRANULOCYTES 3.5 % (0-5); LYMPHOCYTES 11.1 % (15-50); MCH 29.1 pg (26.0-34.0); MCHC 32.1 g/dL (31.0-37.0); MCV 90.9 fL (80.0-100.0); MEAN PLATELET VOLUME 9.2 fL (7.4-10.4); MONOCYTES 11.6 % (2-11); WBC 10.3 10x3/uL (4.8-10.8)
[2017-12-15 05:56] LABS: PLATELET COUNT 287 10x3/uL (130-400)
[2017-12-15 06:09] LABS: ALKALINE PHOSPHATASE 100 U/L (46-116); ALT (SGPT) 28 U/L (10-68); BILIRUBIN - TOTAL 0.43 mg/dL (0.2-1.3); CHLORIDE - SERUM 99 mmol/L (98-107); CREATININE - SERUM 0.7 mg/dL (0.6-1.3); GLUCOSE 166 mg/dL (74-106); POTASSIUM - SERUM 4.4 mmol/L (3.5-5.1); SODIUM 134 mmol/L (136-145); eGFR NON AFRICAN AMERICAN > 90 mL/min (90-120)
[2017-12-15 06:21] LABS: CALC OSMOLALITY 270 mosm/kg (275-300); UREA NITROGEN 11 mg/dL (7-18)
[2017-12-15 09:12] VITALS: BP 115/68
[2017-12-15 22:19] VITALS: BP 121/71
[2017-12-16 05:00] VITALS: BP 118/87
[2017-12-16 06:24] LABS: BASOPHILS 0.4 % (0-2); EOSINOPHILS 0.3 % (0-7); HEMATOCRIT 32.2 % (42.0-54.0); HEMOGLOBIN 10.4 g/dL (13.5-17.5); IMMATURE GRANULOCYTES 4.6 % (0-5); LYMPHOCYTES 12.8 % (15-50); MCH 29.2 pg (26.0-34.0); MCHC 32.3 g/dL (31.0-37.0); MCV 90.4 fL (80.0-100.0); MEAN PLATELET VOLUME 8.7 fL (7.4-10.4); MONOCYTES 11.6 % (2-11); NEUTROPHILS 70.3 % (40-80); PLATELET COUNT 304 10x3/uL (130-400); RBC 3.56 10x6/uL (4.20-6.10); RDW 16.1 % (11.5-14.5)
[2017-12-16 06:28] LABS: WBC 12.9 10x3/uL (4.8-10.8)
[2017-12-16 06:52] LABS: ALBUMIN 2.2 g/dL (3.4-5.0); ALKALINE PHOSPHATASE 86 U/L (46-116); ALT (SGPT) 26 U/L (10-68); BILIRUBIN - TOTAL 0.35 mg/dL (0.2-1.3); CALCIUM 8.9 mg/dL (8.5-10.1); CARBON DIOXIDE 31.2 mmol/L (21.0-32.0); CHLORIDE - SERUM 99 mmol/L (98-107); CREATININE - SERUM 0.8 mg/dL (0.6-1.3); GLUCOSE 153 mg/dL (74-106); POTASSIUM - SERUM 4.1 mmol/L (3.5-5.1); SODIUM 137 mmol/L (136-145); eGFR NON AFRICAN AMERICAN > 90 mL/min (90-120)
[2017-12-16 06:55] LABS: CALC OSMOLALITY 277 mosm/kg (275-300); UREA NITROGEN 14 mg/dL (7-18)
[2017-12-16 08:37] VITALS: BP 124/70
[2017-12-16] MEDS ORDERED: ELIQUIS2.5 MG PO (09:07)
[2017-12-16] MEDS ORDERED: PERCOCET 10/3251 TA1 PO (09:07)
[2017-12-16] MEDS ORDERED: MUCINEX600 MG PO (11:11)
[2017-12-16] MEDS ORDERED: TESSALON PERLE100 MG PO (11:11)
[2017-12-16] MEDS ORDERED: GLUCOPHAGE500 MG PO (11:11)
[2017-12-16] MEDS ORDERED: PROTONIX40 MG PO (11:13)
[2017-12-16] MEDS ORDERED: Levaquin PREMIX IV (11:14)
[2017-12-16 12:29] VITALS: BP 126/76
== END 2017-12-16 16:32 | DRG 469 ==
LOC: D.SDCHOLD 12-10 10:00 → D.MS 12-10 11:35 → D.SDCHOLD 12-10 11:35 → D.MS 12-10 14:43
PROVIDERS: Anesthesiology; Family Medicine; Orthopaedic Surgery
PROC: 0SR90JA Replacement of Right Hip Joint with Synthetic Substitute, Uncemented, Open Approach (ICD-10-PCS; principal; 2017-12-10 11:00)
DX: M16.11 Unilateral primary osteoarthritis, right hip (principal); J69.0 Pneumonitis due to inhalation of food and vomit; J96.01 Acute respiratory failure with hypoxia; M90.551 Osteonecrosis in diseases classified elsewhere, right thigh; E87.1 Hypo-osmolality and hyponatremia; J44.9 Chronic obstructive pulmonary disease, unspecified; F32.9 Major depressive disorder, single episode, unspecified; F41.9 Anxiety disorder, unspecified; K21.9 Gastro-esophageal reflux disease without esophagitis; G62.9 Polyneuropathy, unspecified; Z87.891 Personal history of nicotine dependence; Z99.81 Dependence on supplemental oxygen; D64.9 Anemia, unspecified; E11.9 Type 2 diabetes mellitus without complications

== ENCOUNTER 2017-12-16 16:56 | Inpatient (IN) | payer MEDICARE ==
[~2017-12-16] VITALS: Ht 177.8 cm; Wt 92.5 kg
--- NOTE | ~2017-12-16 | RHP ---
PATIENT: KONRAD ROSENBERG MEDICAL RECORD: [id number] ACCOUNT: [id number] LOCATION: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 HISTORY OF PRESENT ILLNESS: The patient admitted to inpatient rehab secondary to a joint replacement of his right femoral head, had avascular necrosis and collapse. He is status post a right JIM. He is a 62-year-old gentleman. He is admitted to [facility] for avascular necrosis to his right hip with femoral head collapse and underwent a right JIM on 12/10/2017. PAST MEDICAL HISTORY: Includes pneumonia, COPD, home O2 dependence, ulcers, former tobacco use, depression, anxiety, he had postop complications including postop fever, aspiration pneumonia, hypoxic respiratory failure requiring increased O2, dysphagia with pureed diet, normocytic anemia, UTI, new-onset diabetes with hyperglycemia, increased pain, self-care deficit and immobility, continues on telemetry with 4 liters of O2. He needs further diabetic teaching to offset his hyperglycemia. He lives at home with his , was independent with ADLs and mobility. Currently set up for max assist for ADLs and [id number] assist with mobility. He and his hope for him to return back home at his prior level of functioning or better. COMORBIDITIES: In this patient include UTI, aspiration pneumonia, normocytic anemia, new-onset diabetes, COPD, postop fever, dysphagia, postop pain, avascular necrosis, anxiety, gastroesophageal reflux disease, peripheral neuropathy, chronic obstructive pulmonary disease, hyponatremia, acute kidney injury, nicotine dependence with withdrawal, depression, chronic respiratory failure and hyperglycemia. PAST MEDICAL HISTORY: Significant for numbness and tingling or neuropathy, sinus problems, asthma, pneumonia, home O2 dependence. He has had skin cancer in his left leg, acid reflux, ulcers, depression, anxiety, former tobacco use, arthritis, chronic back pain, multiple fractures to his upper and lower extremities, keratosis and follicularis. PAST SURGICAL HISTORY: Includes colon resection; foot, arm and extremity surgery, and he had neck surgery, skin cancer and a gangrenous area to his stomach. ALLERGIES: PENICILLIN AND ASPIRIN. CURRENT MEDICATIONS: He is on Levaquin 750 every 24 hours, Protonix 40 mg daily, metformin 500 mg b.i.d. with meals, he is on a low-resistant sliding scale Humalog, he is on Ventolin updrafts as needed, Mucinex 1200 mg b.i.d., Neurontin 300 mg b.i.d., he is on clobetasol as needed, he is on Advair 2 puffs b.i.d. of the /, he is on Tessalon Perles 100 mg t.i.d., Eliquis 2.5 mg b.i.d., Kenalog p.r.n., Percocet 10/325 one tab every 4 hours p.r.n., and hydroxyzine or Atarax 25 mg q.i.d. p.r.n. itch or rash. HABITS: Does have a history of tobacco use. HISTORY AND PHYSICAL [id number] KONRAD ROSENBERG FAMILY HISTORY: Noncontributory. SOCIAL HISTORY: The patient hopes to return back home and get back to his prior level of functioning. REVIEW OF SYSTEMS: GENERAL: He does complain of little weakness and fatigue. HEENT: Denies cold, cough, or congestion. CARDIOVASCULAR: Denies chest pain. PHYSICAL EXAMINATION: VITAL SIGNS: Stable, afebrile. GENERAL: An elderly gentleman in no acute distress, alert upon exam. HEENT: Normocephalic and atraumatic. Mucosa moist. NECK: Supple. No lymphadenopathy. LUNGS: Clear at this time. HEART: Regular rate and rhythm. ABDOMEN: Benign. EXTREMITIES: No clubbing, cyanosis or edema. Postop swelling appears normal. NEUROLOGIC: He does have noted neuropathy. LABORATORY DATA: Admit UA did show trace blood and some trace leukocyte esterase. ASSESSMENT: This 62-year-old gentleman admitted to the rehab with a working diagnosis of avascular necrosis of his hip, status post total hip arthroplasty. The patient has potential to make improvement. We instituted the following multidisciplinary therapies including, but not limited to physical, occupational, respiratory, speech, nutritional services, prosthetics and orthotics. Given his complex medical condition as well as risks for more complications, rehabilitation services cannot be provided at a low level of care such as retirement facility. PLAN: 1. Admit to [facility] for intensive inpatient therapy to include the following disciplines: A. Physical therapy to improve gait, all transfer skills and bed mobility to a modified independent level. B. Occupational therapy to a modified independent level. C. Case management to assist with discharge planning and placement options. D. Nutrition to assist with nutritional needs. E. Rehabilitation nursing to assist in monitoring the patient's underlying medical conditions and to assist with any type of bowel or bladder management. 2. The patient current medication and medical care will be continued. 3. The patient will be placed on standard fall precautions. 4. The patient's estimated length of stay is approximately 7 to 10 days. 5. Discuss this patient during care team staff meeting this week. TRANSINT:[id number] Voice Confirmation ID: [id number] DOCUMENT ID: [id number] JELLY notes whether there has been none or any medical/functional change since admission: - No change since prescreen. HISTORY AND PHYSICAL [id number] KONRAD ROSENBERG attests patient continues to be appropriate for IRF: - Continues to be appropriate. TEREZA ANDERSON MD at 1442 CC: [id number] DICTATION DATE: 12/17/17 0907 CHAIN BUILDER LOOM CONTROL: 12/17/[address] [facility] [address] [place] [id number]
[~2017-12-16 16:56] MED LIST changes: +ELIQUIS2.5 MG PO; +GLUCOPHAGE500 MG PO; +Levaquin PREMIX IV; +MUCINEX600 MG PO
[2017-12-16 18:04] VITALS: BP 134/68; BMI 29.3
[2017-12-16 19:00] VITALS: BP 108/67
[2017-12-17 01:09] LABS: APPEARANCE CLEAR (CLEAR); BILIRUBIN NEGATIVE (NEGATIVE); COLOR YELLOW (YELLOW); GLUCOSE NEGATIVE (NEGATIVE); KETONE NEGATIVE (NEGATIVE); NITRITE NEGATIVE (NEGATIVE); PROTEIN NEGATIVE (NEGATIVE); SPECIFIC GRAVITY 1.015 (1.005-1.020); UROBILINOGEN NORMAL (NORMAL)
[2017-12-17 01:11] LABS: BACTERIA NONE SEEN /hpf (NONE SEEN); EPITHELIAL CELLS 0-5 /hpf (0-5); RED CELLS - URINE 0-5 /hpf (0-5); WHITE CELLS - URINE 0-5 /hpf (0-5)
[2017-12-17 08:19] VITALS: BP 102/66
[2017-12-17 10:28] VITALS: Ht 177.8 cm; Wt 92.5 kg
[2017-12-17 19:00] VITALS: BP 112/72
[2017-12-18 08:25] VITALS: BP 111/65
[2017-12-18 19:00] VITALS: BP 126/63
[2017-12-19 06:15] LABS: BASOPHILS 0.5 % (0-2); EOSINOPHILS 1.3 % (0-7); HEMATOCRIT 32.3 % (42.0-54.0); HEMOGLOBIN 10.5 g/dL (13.5-17.5); LYMPHOCYTES 19.1 % (15-50); MCH 29.4 pg (26.0-34.0); MCHC 32.5 g/dL (31.0-37.0); MCV 90.5 fL (80.0-100.0); MEAN PLATELET VOLUME 8.5 fL (7.4-10.4); MONOCYTES 12.4 % (2-11); NEUTROPHILS 60.7 % (40-80); RBC 3.57 10x6/uL (4.20-6.10); RDW 15.7 % (11.5-14.5); WBC 10.3 10x3/uL (4.8-10.8)
[2017-12-19 06:20] LABS: PLATELET COUNT 398 10x3/uL (130-400)
[2017-12-19 06:33] LABS: CALC OSMOLALITY 283 mosm/kg (275-300); CALCIUM 9.1 mg/dL (8.5-10.1); CARBON DIOXIDE 32.3 mmol/L (21.0-32.0); CHLORIDE - SERUM 100 mmol/L (98-107); CREATININE - SERUM 0.8 mg/dL (0.6-1.3); GLUCOSE 135 mg/dL (74-106); POTASSIUM - SERUM 4.2 mmol/L (3.5-5.1); SODIUM 141 mmol/L (136-145); UREA NITROGEN 15 mg/dL (7-18); eGFR NON AFRICAN AMERICAN > 90 mL/min (90-120)
[2017-12-19 08:14] VITALS: BP 116/67
[2017-12-19 19:00] VITALS: BP 118/84
[2017-12-20 07:48] VITALS: BP 114/62
[2017-12-20 21:28] VITALS: BP 143/75
[2017-12-21 10:30] VITALS: BP 94/70
[2017-12-21 20:00] VITALS: BP 131/71
[2017-12-22 07:08] LABS: BASOPHILS 0.2 % (0-2); EOSINOPHILS 1.9 % (0-7); HEMOGLOBIN 10.3 g/dL (13.5-17.5); LYMPHOCYTES 14.3 % (15-50); MCH 29.2 pg (26.0-34.0); MCHC 32.2 g/dL (31.0-37.0); MCV 90.7 fL (80.0-100.0); MEAN PLATELET VOLUME 8.2 fL (7.4-10.4); MONOCYTES 5.8 % (2-11); NEUTROPHILS 76.8 % (40-80); PLATELET COUNT 404 10x3/uL (130-400); RBC 3.53 10x6/uL (4.20-6.10); RDW 15.8 % (11.5-14.5); WBC 10.8 10x3/uL (4.8-10.8)
[2017-12-22 07:22] LABS: CALC OSMOLALITY 274 mosm/kg (275-300); CALCIUM 9.3 mg/dL (8.5-10.1); CARBON DIOXIDE 31.9 mmol/L (21.0-32.0); CHLORIDE - SERUM 101 mmol/L (98-107); CREATININE - SERUM 0.8 mg/dL (0.6-1.3); GLUCOSE 133 mg/dL (74-106); SODIUM 137 mmol/L (136-145); UREA NITROGEN 9 mg/dL (7-18); eGFR NON AFRICAN AMERICAN > 90 mL/min (90-120)
[2017-12-22 08:00] VITALS: BP 115/59
[2017-12-22 19:00] VITALS: BP 132/63
[2017-12-23 08:22] VITALS: BP 107/50
[2017-12-23 19:00] VITALS: BP 128/67
[2017-12-24 07:25] LABS: BASOPHILS 0.5 % (0-2); EOSINOPHILS 1.1 % (0-7); HEMATOCRIT 32.5 % (42.0-54.0); HEMOGLOBIN 10.5 g/dL (13.5-17.5); LYMPHOCYTES 15.5 % (15-50); MCHC 32.3 g/dL (31.0-37.0); MCV 89.8 fL (80.0-100.0); MEAN PLATELET VOLUME 8.4 fL (7.4-10.4); MONOCYTES 6.8 % (2-11); NEUTROPHILS 75.1 % (40-80); PLATELET COUNT 456 10x3/uL (130-400); RBC 3.62 10x6/uL (4.20-6.10); RDW 15.4 % (11.5-14.5); WBC 10.5 10x3/uL (4.8-10.8)
[2017-12-24 07:42] LABS: CALC OSMOLALITY 276 mosm/kg (275-300); CALCIUM 9.3 mg/dL (8.5-10.1); CARBON DIOXIDE 31.1 mmol/L (21.0-32.0); CHLORIDE - SERUM 101 mmol/L (98-107); CREATININE - SERUM 0.8 mg/dL (0.6-1.3); GLUCOSE 129 mg/dL (74-106); SODIUM 138 mmol/L (136-145); UREA NITROGEN 9 mg/dL (7-18); eGFR NON AFRICAN AMERICAN > 90 mL/min (90-120)
[2017-12-24 08:16] VITALS: BP 112/52
[2017-12-24 19:00] VITALS: BP 140/75
[2017-12-25 08:00] VITALS: BP 147/64
[2017-12-25] MEDS ORDERED: PERCOCET 10/3251 TA1 PO (14:57)
== END 2017-12-25 16:00 | disposition home or self-care (01) | DRG 559 ==
LOC: D.REHAB 16:56
PROVIDERS: Emergency Medicine
DX: Z47.1 Aftercare following joint replacement surgery (principal); J69.0 Pneumonitis due to inhalation of food and vomit; M87.9 Osteonecrosis, unspecified; N39.0 Urinary tract infection, site not specified; F17.203 Nicotine dependence unspecified, with withdrawal; N17.9 Acute kidney failure, unspecified; J96.10 Chronic respiratory failure, unspecified whether with hypoxia or hypercapnia; E87.1 Hypo-osmolality and hyponatremia; Z96.641 Presence of right artificial hip joint; D64.9 Anemia, unspecified; J44.9 Chronic obstructive pulmonary disease, unspecified; R13.10 Dysphagia, unspecified; K21.9 Gastro-esophageal reflux disease without esophagitis; G62.9 Polyneuropathy, unspecified; E11.65 Type 2 diabetes mellitus with hyperglycemia; F41.8 Other specified anxiety disorders

== ENCOUNTER → 2018-03-23 08:24 | Outpatient (CLI) | payer MEDICARE ==
[2017-12-17 10:28] VITALS: BMI 29.2
== END | disposition home or self-care (01) ==
LOC: D.MRI 08:24
DX: M54.5 Low back pain (principal)

== ENCOUNTER 2018-05-26 14:34 | Emergency (ER) | payer MEDICARE ==
[~2018-05-26] VITALS: Ht 177.8 cm; Wt 83.9 kg
[2018-05-26 14:42] VITALS: Ht 177.8 cm; Wt 83.9 kg
[2018-05-26] MEDS ORDERED: ROBAXIN500 MG PO (16:54)
[2018-05-26 17:41] VITALS: BP 133/76
== END 2018-05-26 17:42 | disposition home or self-care (01) ==
LOC: D.ER 14:34
DX: J44.1 Chronic obstructive pulmonary disease with (acute) exacerbation (principal); M54.12 Radiculopathy, cervical region

== ENCOUNTER → 2018-08-10 08:51 | Outpatient (CLI) | payer MEDICARE ==
[2018-05-26 14:42] VITALS: BMI 29.2
[~2018-08-10 08:51] MED LIST changes: +ROBAXIN500 MG PO
== END | disposition home or self-care (01) ==
LOC: D.RT 08:51
PROVIDERS: ATTEND Internal Medicine Pulmonary Disease
DX: J45.909 Unspecified asthma, uncomplicated (principal)

== ENCOUNTER → 2018-12-10 09:26 | Outpatient (CLI) | payer MEDICARE ==
[2018-05-26 14:42] VITALS: BMI 29.2
== END | disposition home or self-care (01) ==
LOC: D.MRI 09:26
PROVIDERS: ATTEND Neurological Surgery
DX: M54.16 Radiculopathy, lumbar region (principal)

== ENCOUNTER 2019-03-11 05:40 | Day surgery (SDC) | payer MEDICARE ==
[2019-03-09 11:33] LABS: HEMATOCRIT 41.9 % (42.0-54.0); HEMOGLOBIN 13.7 g/dL (13.5-17.5); MCH 29.4 pg (26.0-34.0); MCHC 32.7 g/dL (31.0-37.0); MCV 89.9 fL (80.0-100.0); MEAN PLATELET VOLUME 8.6 fL (7.4-10.4); RBC 4.66 10x6/uL (4.20-6.10); RDW 13.6 % (11.5-14.5); WBC 6.7 10x3/uL (4.8-10.8)
[~2019-03-11] VITALS: Ht 177.8 cm; Wt 82.6 kg
[~2019-03-11 05:40] MED LIST changes: +HYDROCODON-ACE1 EA10 PO; +VITAMIN D250000 UNIT PO
[2019-03-11] MEDS ORDERED: FLUTICASONE PRO16 GM NASAL (05:58)
[2019-03-11] MEDS ORDERED: ZANAFLEX4 MG PO (05:58)
[2019-03-11] MEDS ORDERED: CIPRO500 MG PO (05:59)
[2019-03-11 06:19] VITALS: BP 97/57; Ht 177.8 cm; Wt 82.6 kg
--- NOTE | 2019-03-11 10:21 | NUR ---
MEETS ANESTHESIA DISCHAGE CRITERIA
--- NOTE | 2019-03-11 16:02 | NUR ---
1032 PT ARRIVED TO ROOM 2511 ON ROOM AIR FROM PACU. BNC 2L/MIN STARTED AND O2 SAT CAME UP TO 94%. 1202 PT HAS RECEIVED UPDRAFT FROM RESPIRATORY THERAPIST. O2 SAT IS CURRENTLY AT 97% ON BNC 2L. TURNED OXYGEN OFF TO MONITOR OXYGEN SATS. 1225 O2 SAT IS 87%. BNC 2L/MIN BACK ON AND SAT INCREASED TO 95% PT C/O INCREASE BACK PAIN. 1226 NORCO GIVEN TO PT PER LAUREN BARRERA,RN 1315 PT RESTING AND STATES PAIN LEVEL HAS DECREASED FROM 7 OUT OF 10 TO 6 OUT OF 10 ON THE PAIN SCALE. BNC TURNED OFF AGAIN AND WILL MONITOR SATS. PT ASSISTED TO SITTING ON SIDE OF BED. ENCOURAGE TO COUGH AND DEEP BREATH. 1330 VSS AND O2 SAT AT 95% ON ROOM AIR. PT LUNGS HAVE MILD EXPIRATORY WHEEZING BILATERALLY. DENIES SOB AND STATES HE IS READY TO GO HOME. IV DC'D. CATHETER TIP INTACT. NO BLEEDING AT SITE. BANDAID APPLIED. PT STATES HE DOES WEAR OXYGEN AT HOME PRN. TAKES BREATHING TREATMENTS 4 TIMES PER DAY. HE WILL RESUME HOME INHALATION TREATMENTS.
--- NOTE | 2019-04-07 08:07 | OP ---
PATIENT NAME: KONRAD ROSENBERG MEDICAL RECORD: [id number] :55 LOCATION:[facility] ADMISSION DATE: SURGEON: AYAAN BENDER MD DATE OF OPERATION: 03/11/2019 PREOPERATIVE DIAGNOSES: Lumbar spinal stenosis and foraminal stenosis at left L4-L5. PROCEDURES: Lumbar laminotomy, medial facetectomy and foraminotomy L4-L5 left with METRx retractor. SURGEON: Ayaan Bender MD DESCRIPTION AND TECHNIQUE: After induction of general endotracheal anesthesia, the patient was rolled prone on Morris frame. Lumbar spine was prepped and draped in usual sterile fashion. Fluoroscopic x-ray and spinal needle localized the L4-L5 interspace on the left side. After infiltration of 1:100,000 epinephrine and 1% lidocaine, a stab incision was created with a #11 blade and series of dilators were used to advance a METRx retractor at the L4-L5 interspace on the left side. That was confirmed with fluoroscopic x-ray. A microscope and Midas Vamsi drill were used to perform a laminotomy, medial facetectomy and foraminotomy L4-L5 on the left. Hypertrophied ligamentum flavum was removed with Cloward rongeurs. Foraminotomy was extended further with Cloward rongeurs as well. Following this, the L4 and L5 nerve roots were decompressed well. Meticulous hemostasis was maintained throughout the wound. The wound was irrigated with copious amounts of Ancef irrigant solution. The retractor was removed. The fascia was closed with 2-0 Vicryl suture, the subdermal layer was closed with 3-0 Vicryl suture. The skin was closed with sue. A sterile dressing was applied to the wound. The patient was awakened in good condition, taken to recovery. All counts were reported as correct. Estimated blood loss was minimal. TRANSINT:[id number] Voice Confirmation ID: [id number] DOCUMENT ID: [id number] AYAAN BENDER MD at 0807 CC: [id number] DICTATION DATE: 04/01/19 1443 INVENTORY REPRESENTATIVE: 04/01/19 1528 [facility] 03/11/19 [place] [address]
== END 2019-03-11 13:38 | disposition home or self-care (01) ==
LOC: D.OPS 05:40 → D.PAN 07:30 → D.OPS 11:00
PROVIDERS: Anesthesiology; ATTEND Neurological Surgery
DX: M48.061 Spinal stenosis, lumbar region without neurogenic claudication (principal)

== ENCOUNTER 2019-04-18 19:22 | Inpatient (IN) | payer MEDICARE ==
[~2019-04-18] VITALS: Ht 177.8 cm; Wt 81.6 kg
--- NOTE | ~2019-04-18 | HEMODYNAMI ---
PATIENT:KONRAD ROSENBERG MEDICAL RECORD: [id number] : 55 [facility] [place] ADMISSION DATE: 04/18/19 Generatedon:04/22/201914:42 Patient name: KONRAD ROSENBERG Patient #: [id number] SSN: DO B: 1955 Date of study: 04/22/2019 Page: Of Hemodynamic Procedure Report Patient Data Patient Demographics Procedure consent was obtained First Name: KONRAD Gender: Male Last Name: SHAKIRA : 1955 [facility] Initial: JARRETT Age: 63 year(s) Patient #: [id number] Race: Unknown Additional ID: [id number] Contact details [address]: [address] [place] [address] State: [place] City: [place] Zip code: [address] Past Medical History Allergies Allergen Reaction Date Comments Reported Aspirin 04/22/2019 Penicillins 04/22/2019 Admission Admission Data Admission Date: 04/18/2019 Admission Time: 21:08 Room #: D.2214 Height (in.): 70 BSA: 2 (m2) Height (cm.): 177.8 BMI: 25.83 (kg/m2) Weight (lbs.): 180 Weight (kg.): 81.65 Procedure Procedure Types Cath Procedure Peripheral Cath Diagnostic Procedure Log Roller Peripheral Procedures Miscellaneous Aspiration/Injection (Joint) Procedure Description Procedure Date Procedure Date: 04/22/2019 Procedure Start Time: 14:26 Procedure Staff Name Function Jaleesa Erickson RT Bread Molder Davey Lopez MD Performing Physician KAITLIN MCGOVERN RT Bread Molder Procedure Data Cath Procedure Fluoroscopy Diagnostic fluoroscopy Total fluoroscopy Time: 0.4 time: 0.4 min min Diagnostic fluoroscopy Total fluoroscopy dose: 5 dose: 5 mGy mGy Hemodynamics Rest BSA: 2 (m2) O2 Consumption: Estimated: 272 (ml/min) O2 Consumption indexed: Estimated:136 (ml/min/m) Pre Cath Intra NCS Post Cath Procedure Log Time Note 14:06:40 Patient Height : 70 inches 14:06:45 Patient Weight : 180 lbs 14:07:14 Time tracking: Regular hours (M-F 7:00 - 5:00) 14:07:18 Signed procedure consent form obtained from patient. 14:: Pre-procedure instructions explained to patient. :: Pre-op teaching completed and patient verbalized understanding. 14:: Family unavailable. 14:07:30 Patient NPO since Lunch. 14:07:39 Is patient on blood thinner?Yes 14:07:44 ACC The patient was administered the following blood thiners within the last 24 hours: ACCLovenox 14:07:47 - 14:08:00 Left Hip was prepped with betadine and draped in sterile fashion. 14:08:02 - 14:08:17 Patient allergic to Aspirin 14:08:23 Patient allergic to Penicillins 14:08:28 - 14:08:38 SAFE-T PLUS MYELOGRAM TRAY opened to sterile field. 14:09:48 - 14:25:03 Physician arrived 14:25:04 --------ALL STOP TIME OUT------ 14:25:05 Final Timeout: patient, procedure, and site verified with staff and physician. All members of the team are in agreement. 14:26:03 Procedure started. 14:26:04 Full Disclosure recording started 14:26:13 Local anesthetic to Left Hip with Lidocaine 1% by Davey Lopez MD.INITIAL ACCESS ONLY 14:37:29 Procedure ended.(Physican Out) 14:39:12 Fluoroscopy time 00.40 minutes. 14:39:15 Fluoroscopy dose: 5 mGy 14:39:15 Flurop Dose total: 5 14:39:37 Post procedure instruction explained to patient.Patient verbalizes understanding. 14:39:39 Procedure and supply charges have been captured, reviewed, submitted an d are correct. 14:40:51 Post-op/insertion site Hip dressed using a Bandaid. 14:41:32 Patient transfered to Med/Surg with Bed. 14:41:33 End room use (Document Last) 14:41:47 Full Disclosure recording stopped Device Usage Item Name Manufacture Quantity Catalog Hospital Part Current Minimal Lot# / Number Charge Number Stock Stock Serial# Code SAFE-T CareFusion 1 [id number] PLUS MYELOGRAM TRAY Signature Audit [place] Stage Time Signature Unsigned Intra-Procedure 04/22/2019 KAITLIN MCGOVERN RT 2:42:37 PM (R) [facility] [address] [place] [address]
[~2019-04-18 19:22] MED LIST changes: +CIPRO500 MG PO; +FLUTICASONE PRO16 GM NASAL; +ZANAFLEX4 MG PO
[2019-04-18 20:21] LABS: HEMATOCRIT 50.1 % (42.0-54.0); HEMOGLOBIN 17.4 g/dL (13.5-17.5); MCH 29.1 pg (26.0-34.0); MCHC 34.7 g/dL (31.0-37.0); MCV 83.9 fL (80.0-100.0); MEAN PLATELET VOLUME 8.3 fL (7.4-10.4); PLATELET COUNT 472 10x3/uL (130-400); RBC 5.97 10x6/uL (4.20-6.10); RDW 12.8 % (11.5-14.5)
[2019-04-18 20:29] LABS: INR 1.09 (0.85-1.17); PROTIME 13.6 SECONDS (11.6-15.0)
[2019-04-18 20:30] LABS: APTT 41.2 SECONDS (22.8-39.4)
[2019-04-18 20:44] LABS: EOSINOPHILS 1 % (0-7); LYMPHOCYTES 6 % (15-50); MONOCYTES 8 % (2-11); NEUTROPHILS 84 % (40-80); PLATELET ESTIMATE NORMAL
[2019-04-18 20:49] VITALS: BP 119/77
[2019-04-18 20:50] LABS: ALBUMIN 3.9 g/dL (3.4-5.0); ALKALINE PHOSPHATASE 151 U/L (46-116); ALT (SGPT) 16 U/L (10-68); BILIRUBIN - TOTAL 0.77 mg/dL (0.2-1.3); CALCIUM 10.2 mg/dL (8.5-10.1); CARBON DIOXIDE 27.2 mmol/L (21.0-32.0); CKMB 1.3 U/L (0.0-3.6); CREATINE KINASE 102 UL (21-232); CREATININE - SERUM 0.9 mg/dL (0.6-1.3); GLUCOSE 130 mg/dL (74-106); LIPASE 605 U/L (73-393); POTASSIUM - SERUM 3.8 mmol/L (3.5-5.1); PRO BNP 291 pg/mL (0-125); PROTEIN - SERUM 9.4 g/dL (6.4-8.2); UREA NITROGEN 19 mg/dL (7-18); eGFR NON AFRICAN AMERICAN > 90 mL/min (90-120)
[2019-04-18 20:52] LABS: CALC OSMOLALITY 245 mosm/kg (275-300); TROPONIN-I < 0.017 ng/mL (0.000-0.060)
[2019-04-18 20:54] LABS: CHLORIDE - SERUM 81 mmol/L (98-107); SODIUM 120 mmol/L (136-145)
--- NOTE | 2019-04-18 23:00 | NUR ---
RECEIVED PT TO FLOOR FROM ER VIA STRETCHER. PT C/O RIGHT CHEST PAIN AND WANTED TO KNOW WHEN HE COULD HAVE PAIN MEDICINE. HOOKED PT UP TO OXYGEN AND IV FLUIDS. REVIEWED HOME MEDS AND HISTORY. NO OTHER NEEDS. WILL CONTINUE TO MONITOR.
[2019-04-19 00:30] VITALS: BP 135/89
--- NOTE | 2019-04-19 01:12 | NUR ---
PT C/O PAIN 8/10 AND NAUSEA. GAVE MORPHINE 2 MG AND ZOFRAN 4 MG IV PUSH. NO OTHER NEEDS. WILL REASSESS AND CONTINUE TO MONITOR.
[2019-04-19 01:23] VITALS: BP 135/89; BMI 25.8
[2019-04-19 08:45] VITALS: BP 133/84
--- NOTE | 2019-04-19 09:44 | NUR ---
MEDICATED AT THIS TIME WITH MORPHINE AND ZOFRAN FOR C/O PAIN AND NAUSEAT WITH PAIN RATING 9/10 ON PAIN SCALE. AND C/L IN REACH AT BEDSIDE.
[2019-04-19 10:43] LABS: BASOPHILS 0.1 % (0-2); EOSINOPHILS 0.4 % (0-7); HEMATOCRIT 45.3 % (42.0-54.0); HEMOGLOBIN 15.5 g/dL (13.5-17.5); IMMATURE GRANULOCYTES 0.4 % (0-5); LYMPHOCYTES 8.1 % (15-50); MCH 28.8 pg (26.0-34.0); MCHC 34.2 g/dL (31.0-37.0); MCV 84.2 fL (80.0-100.0); MEAN PLATELET VOLUME 8.3 fL (7.4-10.4); PLATELET COUNT 418 10x3/uL (130-400); RBC 5.38 10x6/uL (4.20-6.10); WBC 16.1 10x3/uL (4.8-10.8)
[2019-04-19 11:09] LABS: CALC OSMOLALITY 257 mosm/kg (275-300); CALCIUM 9.1 mg/dL (8.5-10.1); CHLORIDE - SERUM 91 mmol/L (98-107); CREATININE - SERUM 0.9 mg/dL (0.6-1.3); GLUCOSE 109 mg/dL (74-106); POTASSIUM - SERUM 3.8 mmol/L (3.5-5.1); PRO BNP 199 pg/mL (0-125); SODIUM 128 mmol/L (136-145); THYROID STIMULATING HORMONE 0.82 uIU/mL (0.36-3.74); eGFR NON AFRICAN AMERICAN > 90 mL/min (90-120)
[2019-04-19 11:10] LABS: UREA NITROGEN 12 mg/dL (7-18)
[2019-04-19 12:41] LABS: UDS - AMPHET NEGATIVE QUAL (NEGATIVE); UDS - BARB NEGATIVE QUAL (NEGATIVE); UDS - BENZO NEGATIVE QUAL (NEGATIVE); UDS - COCAINE NEGATIVE QUAL (NEGATIVE); UDS - OPIATE POSITIVE QUAL (NEGATIVE); UDS - PCP NEGATIVE QUAL (NEGATIVE); UDS - THC NEGATIVE QUAL (NEGATIVE)
[2019-04-19 13:05] VITALS: Ht 177.8 cm; Wt 81.6 kg
[2019-04-19 13:23] VITALS: BP 123/75
[2019-04-19 14:29] LABS: APPEARANCE CLEAR (CLEAR); BILIRUBIN NEGATIVE (NEGATIVE); COLOR YELLOW (YELLOW); GLUCOSE NEGATIVE (NEGATIVE); KETONE LARGE mg/dL (NEGATIVE); NITRITE NEGATIVE (NEGATIVE); PROTEIN 1+ mg/dL (NEGATIVE); SPECIFIC GRAVITY 1.025 (1.005-1.020); UROBILINOGEN NORMAL (NORMAL)
[2019-04-19 14:30] LABS: AMORPHOUS SEDIMENT <1+ /lpf (NONE SEEN); BACTERIA MODERATE /hpf (NEGATIVE); EPITHELIAL CELLS 0-5 /hpf (0-5); GRANULAR CAST OCC /lpf (NONE SEEN); HYALINE CAST 0-5 /lpf (NONE SEEN); MUCUS <1+ /lpf (NONE SEEN); RED CELLS - URINE NONE SEEN /hpf (0-5); WHITE CELLS - URINE OCC /hpf (NEGATIVE)
--- NOTE | 2019-04-19 14:38 | NUR ---
I have reviewed this patient and I concur with the Shift Assessment completed by the Licensed Practical Nurse today this shift.
[2019-04-19 16:46] VITALS: BP 138/78
--- NOTE | 2019-04-19 19:20 | NUR ---
PT SITTING UP IN BED WITHOUT DISTRESS, AOX4. IV LEFT AC INFUSING NS @ 50. O2 2L/NC. INFORMED PT HE IS NPO, VERBALIZED UNDERSTANDING. DENIES NEEDS AT THIS TIME. CL IN REACH, WILL CTM
[2019-04-19 19:30] VITALS: BP 119/65
--- NOTE | 2019-04-19 21:40 | NUR ---
CALLED [facility]U AMEZQUITA APN WITH POSITIVE BC. ORDER FOR LEVAQUIN CHANGE FROM PO TO IV
--- NOTE | 2019-04-19 22:30 | NUR ---
PT STATES HE IS HAVING NAUSEA WITH PAIN IN ABD 01/26. GAVE MORPHINE AND ZOFRAN. DENIES OTHER NEEDS. CL IN REACH, WILL CTM
[2019-04-20 00:30] VITALS: BP 117/70
--- NOTE | 2019-04-20 02:40 | NUR ---
PT STATES HE IS HAVING NAUSEA AND ABD PAIN 9/10. GAVE ZOFRAN AND MORPHINE ORDERED. DENIES OTHER NEEDS. CL IN REACH, WILL CTM
[2019-04-20 05:00] VITALS: BP 130/78
--- NOTE | 2019-04-20 07:39 | NUR ---
PATIENT RECIEVED FROM PREVIOUS NURSE RESTING WITH NO NEEDS VOICED, RESPIRATIONS NONLABORED, NAUSEA WITH VOMITING, NPO FOR NOW. CL IN REACH
[2019-04-20 08:05] VITALS: BP 117/59
[2019-04-20 08:19] LABS: BASOPHILS 0.1 % (0-2); EOSINOPHILS 0.1 % (0-7); HEMATOCRIT 47.5 % (42.0-54.0); HEMOGLOBIN 15.8 g/dL (13.5-17.5); IMMATURE GRANULOCYTES 0.3 % (0-5); LYMPHOCYTES 3.3 % (15-50); MCH 28.4 pg (26.0-34.0); MCHC 33.3 g/dL (31.0-37.0); MCV 85.3 fL (80.0-100.0); MEAN PLATELET VOLUME 8.7 fL (7.4-10.4); MONOCYTES 2.6 % (2-11); NEUTROPHILS 93.6 % (40-80); PLATELET COUNT 375 10x3/uL (130-400); RBC 5.57 10x6/uL (4.20-6.10); RDW 13.2 % (11.5-14.5); WBC 13.3 10x3/uL (4.8-10.8)
[2019-04-20 08:43] LABS: CALC OSMOLALITY 271 mosm/kg (275-300); CALCIUM 9.8 mg/dL (8.5-10.1); CHLORIDE - SERUM 97 mmol/L (98-107); GLUCOSE 139 mg/dL (74-106); SODIUM 135 mmol/L (136-145); UREA NITROGEN 12 mg/dL (7-18)
[2019-04-20 08:45] LABS: CREATININE - SERUM 0.6 mg/dL (0.6-1.3); POTASSIUM - SERUM 4.7 mmol/L (3.5-5.1); eGFR NON AFRICAN AMERICAN > 90 mL/min (90-120)
--- NOTE | 2019-04-20 11:47 | NUR ---
PATIENT REFUSES MRI AND CT OF HEAD AND NECK DUE TO FEAR OF SMALL SPACES. EXPLAINED IN DETAIL WHAT WOULD OCCUR DURING SCAN AND PATIENT CONTINUES TO REFUSE
[2019-04-20 12:27] VITALS: BP 129/74
--- NOTE | 2019-04-20 14:40 | MORECARE ---
CASE MANAGEMENT DISCHARGE SUMMARY PATIENT: KONRAD ROSENBERG UNIT: [id number] ADM DATE: 04/18/19 AGE: 63 : 55 SEX: M ROOM/BED: D.2214 AUTHOR: ZEENAT,DOC PHYSICIAN: REFERRING PHYSICIAN: ASHU BASSETT MD DATE OF SERVICE: 04/20/19 Discharge Plan Patient Name: KONRAD ROSENBERG Facility: [facility]:[place] : 1955 Planned Disposition: Home Anticipated Discharge Date: Discharge Date: Expected LOS: Initial Reviewer: [email or web address] Initial Review Date: 04/18/2019 Generated: 04/20/19 3:40 pm Comments DCP- Discharge Planning Updated by [email or web address]: Chelo Casarez on 04/20/19 1:[address] Patient Name: KONRAD ROSENBERG Admission Status: ER Accout number: [id number] Admission Date: 04-18-2019 : 1955 Admission Diagnosis: Attending: ASHU BASSETT Current LOS: 2 Anticipated DC Date: Planned Disposition: Home Primary Insurance: MEDICARE A & B Discharge Planning Comments: CM met with patient to complete initial dc planning assessment. CM educated patient on the CM role and verbal consent given by patient to complete assessment. Patient lives at home with his girlfriend where he is independent with his care. At discharge patient plans to return home and feels this is a safe discharge. Carola will be his after school driver home. CM discussed availability of home health, rehab services, and medical equipment. He has O2 at night and a nebulizer that he gets from [facility]. MARCO A for [facility] signed and placed in chart. Patient denied known discharge needs at this time. CM will continue to follow and will assist as needed with dc plans/needs. Superintendent Quarry: Chelo Casarez DCPIA - Discharge Planning Initial Assessment Updated by [email or web address]: Chelo Casarez on 04/20/19 2:31 pm * Is the patient Alert and Oriented? Yes * How many steps to enter\exit or inside your home? * PCP [facility] * Pharmacy [facility] * Preadmission Environment Home with Family * ADLs Independent * Equipment Nebulizer Oxygen * List name and contact numbers for known caregivers / representatives who currently or will assist patient after discharge: CAROLA (YOGHURT MAKER)- * Verbal permission to speak to the caregivers and representatives has been obtained from the patient. N/A * Community resources currently utilized None * Additional services required to return to the preadmission environment? No * Can the patient safely return to the preadmission environment? Yes * Has this patient been hospitalized within the prior 30 days at any hospital? No Coverage Notice Reviewer: [email or web address] Mikayla Casarez Notice Issued Date-Time: 04/20/2019 9:15 Notice Type: Patient Choice Letter Notice Delivered To: Patient Relationship to Patient: Director Of Pediatric Rehabilitation Name: Delivery Method: HAND - Hand Delivered Martha Days: Prior Verbal Notification: Recipient Understood Notice: Yes Recipient Signature: Yes Med Rec Note Co-signed by Attending: Coverage Notice Comment: Patient Name: KONRAD ROSENBERG Page [phone] at 1440 All edits/amendments must be made on the electronic document DICTATION DATE: 04/20/19 1440 LOGGING CREW FOREMAN: ANNY 04/20/19 1440 RPT#: [id number] DC DATE: STATUS: ADM IN [facility] [address] [place] [address] END OF REPORT
--- NOTE | 2019-04-20 15:50 | NUR ---
IV RESITED TO RIGHT FOREARM X1 STICK 22G, PATIENT TOLERATED WELL.
--- NOTE | 2019-04-20 15:56 | NUR ---
PATIENT TO GI LAB FOR EGD AT THIS TIME
--- NOTE | 2019-04-20 17:20 | NUR ---
1719 BALLOON DILITATION 11 TO 12
--- NOTE | 2019-04-20 17:32 | NUR ---
1732 REPORT PHONED TO ALICIA REPORT TO ORDER FL DIET FOR TODAY SINCE DILATION OCCURED.
--- NOTE | 2019-04-20 17:57 | NUR ---
PATIENT RECIEVED FROM GI WITH V/S STABLE AWAKE AND ORIENTED.
[2019-04-20 18:02] VITALS: BP 149/82
[2019-04-20 19:30] VITALS: BP 123/65
--- NOTE | 2019-04-20 19:30 | NUR ---
PT SITTING UP IN BED WITHOUT DISTRESS, AOX4. IV RIGHT FA INFUSING NS @ 50. O2 2L/NC. STATES PAIN IN ABD IS MUCH BETTER TODAY. TOLERATING FULL LIQUIDS. DENIES NEEDS AT THIS TIME. CL IN REACH, WILL CTM
[2019-04-21 00:30] VITALS: BP 130/70
[2019-04-21 05:00] VITALS: BP 116/71
[2019-04-21 05:03] LABS: BASOPHILS 0.1 % (0-2); EOSINOPHILS 0.1 % (0-7); HEMOGLOBIN 14.5 g/dL (13.5-17.5); IMMATURE GRANULOCYTES 0.4 % (0-5); LYMPHOCYTES 9.5 % (15-50); MCH 28.6 pg (26.0-34.0); MCV 86.8 fL (80.0-100.0); MEAN PLATELET VOLUME 8.6 fL (7.4-10.4); MONOCYTES 11.9 % (2-11); RBC 5.07 10x6/uL (4.20-6.10); RDW 13.3 % (11.5-14.5); WBC 13.5 10x3/uL (4.8-10.8)
[2019-04-21 05:16] LABS: PLATELET COUNT 488 10x3/uL (130-400)
[2019-04-21 05:19] LABS: CALC OSMOLALITY 281 mosm/kg (275-300); CALCIUM 9.7 mg/dL (8.5-10.1); CHLORIDE - SERUM 101 mmol/L (98-107); GLUCOSE 125 mg/dL (74-106); MAGNESIUM - SERUM 2.2 mg/dL (1.8-2.4); PHOSPHOROUS 2.5 mg/dL (2.5-4.9); SODIUM 141 mmol/L (136-145); UREA NITROGEN 13 mg/dL (7-18)
[2019-04-21 05:20] LABS: POTASSIUM - SERUM 3.6 mmol/L (3.5-5.1); eGFR NON AFRICAN AMERICAN 80 mL/min (90-120)
[2019-04-21 08:11] VITALS: BP 125/80
--- NOTE | 2019-04-21 09:59 | NUR ---
NUTRITION F/U PT TOLERATING FULL LIQUID DIET. SWALLOW STUDY TODAY. WILL PROVIDE DIET PER SPEECH THERAPY RECS, MONITOR PO INTAKE. RD FOLLOWING
[2019-04-21 12:30] VITALS: BP 16/79
--- NOTE | 2019-04-21 14:53 | NUR ---
PATIENT ASSISTED TO RESTROOM WITH BM NOTED. PATIENT IS TOLERATING FULL LIQUID DIET AND WILL ADVANCE TO REGULAR AT DINNER. PAIN CONTROLED WITH MORPHINE.
[2019-04-21 17:10] VITALS: BP 139/62
[2019-04-21 21:57] VITALS: BP 126/71
--- NOTE | 2019-04-22 02:26 | NUR ---
alert and orented able to voice needs and want sto staff. IV to right fa with ns at 50ml/hr. telemetry in place. call light and water in reach no s/s of distress.
[2019-04-22 06:49] VITALS: BP 162/80
[2019-04-22 07:15] LABS: CALC OSMOLALITY 276 mosm/kg (275-300); CALCIUM 9.3 mg/dL (8.5-10.1); CARBON DIOXIDE 31.5 mmol/L (21.0-32.0); CHLORIDE - SERUM 102 mmol/L (98-107); CREATININE - SERUM 0.8 mg/dL (0.6-1.3); GLUCOSE 126 mg/dL (74-106); PHOSPHOROUS 2.8 mg/dL (2.5-4.9); SODIUM 138 mmol/L (136-145); UREA NITROGEN 11 mg/dL (7-18); eGFR NON AFRICAN AMERICAN > 90 mL/min (90-120)
[2019-04-22 08:30] LABS: HEMATOCRIT 41.6 % (42.0-54.0); HEMOGLOBIN 13.6 g/dL (13.5-17.5); LYMPHOCYTES 7.5 % (15-50); MCH 28.1 pg (26.0-34.0); MCHC 32.7 g/dL (31.0-37.0); MEAN PLATELET VOLUME 8.6 fL (7.4-10.4); NEUTROPHILS 88.4 % (40-80); PLATELET COUNT 405 10x3/uL (130-400); RBC 4.84 10x6/uL (4.20-6.10); RDW 12.6 % (11.5-14.5)
[2019-04-22 08:31] LABS: WBC 6.6 10x3/uL (4.8-10.8)
[2019-04-22 09:32] VITALS: BP 120/89
--- NOTE | 2019-04-22 10:00 | NUR ---
ALERT AND ORIENTED. LUNGS CLEAR BILATERALLY. HEART SOUNDS S1 AND S2 HEARD IN ALL BRUSH. BOWEL SOUNDS ACTIVE X 4. SKIN INTACT WITHOUT REDNESS. IV TO RFA PATENT WITHOUT REDNESS. TELEMETRY IN PLACE SHOWING 87 NORMAL SINUS. DENIES NEEDS. BED LOW. CALL FARRIS AND PERSONAL ITEMS IN REACH. WILL CONTINUE TO MONITOR.
--- NOTE | 2019-04-22 13:31 | NUR ---
Nutrition follow-up: Diet advanced to mechanical soft diet PO intake good; pt tolerating at this time. RDN following.
--- NOTE | 2019-04-22 13:37 | NUR ---
SPOKE WITH PERLA IN SPECIALS WHO STATES TAKING PATIENT FOR I AND D OF LEFT HIP. STATES WILL PUT IN ORDERS FOR CONSENT.
--- NOTE | 2019-04-22 13:55 | NUR ---
CONSENTS SIGNED FOR LEFT HIP ASPIRATION. PATIENT TAKEN FOR PROCEDURE.
[2019-04-22 14:02] VITALS: BP 104/76
--- NOTE | 2019-04-22 14:45 | NUR ---
PATIENT RETURNED FROM LEFT HIP ASPIRATION. NO SEDATION WAS USED. ONLY LIDOCAINE.
--- NOTE | 2019-04-22 15:34 | NUR ---
RESTING IN BED. DENIES NEEDS. WILL CONTINUE TO MONITOR.
--- NOTE | 2019-04-22 16:51 | NUR ---
SITTING IN CHAIR AT BEDSIDE. DENIES NEEDS. WILL CONTINUE TO MONITOR.
--- NOTE | 2019-04-22 18:06 | NUR ---
SITTING IN CHAIR AT BEDSIDE. DENIES NEEDS. IV TO RFA PATENT WITHOUT REDNESS. CALL FARRIS AND PERSONAL ITEMS IN REACH.
[2019-04-22 18:48] VITALS: BP 113/69
[2019-04-22 20:00] VITALS: BP 112/57
--- NOTE | 2019-04-22 23:36 | NUR ---
PT RESTING IN BED. ALERT AND ORIENTED. NO SIGNS OF DISTRESS. BREATHING EVEN AND UNLABORED. IV SITE RT FA DRESSING CLEAN DRY AND INTACT. NO SIGNS OF INFECTON. BOWEL SOUNDS ACTIVE. LUNG SOUNDS DIMINISHED. GENERLIZED DRY SCALY RED CHRONIC RASH. 2LO2 NASAL CANNULA. WILL CONTINUE PLAN OF CARE. CALL LIGHT IN REACH. BED LOWERED AND LOCKED. BED RAILS UPX1.
[2019-04-23] VITALS: BP 127/69
--- NOTE | 2019-04-23 02:08 | NUR ---
I have reviewed this patient and I concur with the Shift Assessment completed by the Licensed Practical Nurse today this shift.
[2019-04-23 04:00] VITALS: BP 122/67
[2019-04-23 07:06] LABS: CALC OSMOLALITY 279 mosm/kg (275-300); CALCIUM 8.9 mg/dL (8.5-10.1); CARBON DIOXIDE 31.4 mmol/L (21.0-32.0); CHLORIDE - SERUM 104 mmol/L (98-107); CREATININE - SERUM 0.7 mg/dL (0.6-1.3); GLUCOSE 105 mg/dL (74-106); MAGNESIUM - SERUM 1.9 mg/dL (1.8-2.4); PHOSPHOROUS 3.5 mg/dL (2.5-4.9); POTASSIUM - SERUM 3.5 mmol/L (3.5-5.1); SODIUM 141 mmol/L (136-145); UREA NITROGEN 11 mg/dL (7-18); eGFR NON AFRICAN AMERICAN > 90 mL/min (90-120)
--- NOTE | 2019-04-23 07:29 | NUR ---
ALERT AND ORIENTED. LUNGS CLEAR BILATERALLY. O2 IN PLACE AT 2L NC. HEART SOUNDS S1 AND S2 HEARD IN ALL BRUSH. BOWEL SOUNDS ACTIVE X 4. SKIN INTACT WITHOUT REDNESS. IV TO RFA PATENT WITHOUT REDNESS. BED LOW. CALL FARRIS AND PERSONAL ITEMS IN REACH. WILL CONTINUE TO MONITOR.
[2019-04-23 08:12] VITALS: BP 125/65
[2019-04-23 08:37] LABS: BASOPHILS 0.2 % (0-2); EOSINOPHILS 0.8 % (0-7); HEMATOCRIT 26.8 % (42.0-54.0); HEMOGLOBIN 8.5 g/dL (13.5-17.5); IMMATURE GRANULOCYTES 0.4 % (0-5); LYMPHOCYTES 26.9 % (15-50); MCH 27.7 pg (26.0-34.0); MCHC 31.7 g/dL (31.0-37.0); MCV 87.3 fL (80.0-100.0); MEAN PLATELET VOLUME 8.5 fL (7.4-10.4); MONOCYTES 13.4 % (2-11); NEUTROPHILS 58.3 % (40-80); PLATELET COUNT 170 10x3/uL (130-400); RBC 3.07 10x6/uL (4.20-6.10); RDW 13.2 % (11.5-14.5); WBC 5.2 10x3/uL (4.8-10.8)
[2019-04-23 10:01] LABS: BASOPHILS 0.2 % (0-2); EOSINOPHILS 0.8 % (0-7); IMMATURE GRANULOCYTES 0.4 % (0-5); LYMPHOCYTES 26.1 % (15-50); MCH 28.4 pg (26.0-34.0); MCHC 32.6 g/dL (31.0-37.0); MEAN PLATELET VOLUME 8.5 fL (7.4-10.4); MONOCYTES 11.2 % (2-11); NEUTROPHILS 61.3 % (40-80); RDW 13.3 % (11.5-14.5)
[2019-04-23 10:03] LABS: HEMATOCRIT 39.6 % (42.0-54.0); HEMOGLOBIN 12.9 g/dL (13.5-17.5); PLATELET COUNT 438 10x3/uL (130-400); RBC 4.55 10x6/uL (4.20-6.10)
--- NOTE | 2019-04-23 13:06 | NUR ---
RESTING IN BED. AT BEDSIDE. DENIES NEEDS. WILL CONTINUE TO MONITOR.
[2019-04-23 13:11] VITALS: BP 118/65
--- NOTE | 2019-04-23 13:20 | MORECARE ---
CASE MANAGEMENT DISCHARGE SUMMARY PATIENT: KONRAD ROSENBERG UNIT: [id number] ADM DATE: 04/18/19 AGE: 63 : 55 SEX: M ROOM/BED: D.2214 AUTHOR: ZEENATDOC PHYSICIAN: REFERRING PHYSICIAN: ASHU BASSETT MD DATE OF SERVICE: 04/23/19 Discharge Plan Patient Name: KONRAD ROSENBERG Facility: [facility]:[place] : 1955 Planned Disposition: Home Anticipated Discharge Date: Discharge Date: Expected LOS: Initial Reviewer: [email or web address] Initial Review Date: 04/18/2019 Generated: 04/23/19 2:20 pm Comments DCP- Discharge Planning Updated by [email or web address]: Chelo Casarez on 04/23/19 12:[address] PATIENT TO BE DSICHARGED HOME TODAY, IMM SERVED AND EXPLAINED. HE HAS A WALKER AT BEDSIDE AND STATED HE HAS ALL DME HE NEEDS. HE DECLINED HH AND THE DECLINATION WAS SIGNED. CM TO FOLLOW AND ASSIST NEEDED. AT BEDSIDE DCP- Discharge Planning Updated by [email or web address]: Chelo Casarez on 04/20/19 1:[address] Patient Name: KONRAD ROSENBERG Admission Status: ER Accout number: [id number] Admission Date: 04-18-2019 : 1955 Admission Diagnosis: Attending: ASHU BASSETT Current LOS: 2 Anticipated DC Date: Planned Disposition: Home Primary Insurance: MEDICARE A & B Discharge Planning Comments: CM met with patient to complete initial dc planning assessment. CM educated patient on the CM role and verbal consent given by patient to complete assessment. Patient lives at home with his girlfriend where he is independent with his care. At discharge patient plans to return home and feels this is a safe discharge. Carola will be his armored car guard and driver home. CM discussed availability of home health, rehab services, and medical equipment. He has O2 at night and a nebulizer that he gets from [facility]. Patient denied known discharge needs at this time. CM will continue to follow and will assist as needed with dc plans/needs. Power System Engineer: Chelo Casarez DCPIA - Discharge Planning Initial Assessment Updated by [id number]: Chelo Casarez on 04/20/19 2:31 pm * Is the patient Alert and Oriented? Yes * How many steps to enter\exit or inside your home? * PCP JS * Pharmacy [facility] * Preadmission Environment Home with Family * ADLs Independent * Equipment Nebulizer Oxygen * List name and contact numbers for known caregivers / representatives who currently or will assist patient after discharge: CAROLA (SHIPPING AND RECEIVING ASSOCIATE)- * Verbal permission to speak to the caregivers and representatives has been obtained from the patient. N/A * Community resources currently utilized None * Additional services required to return to the preadmission environment? No * Can the patient safely return to the preadmission environment? Yes * Has this patient been hospitalized within the prior 30 days at any hospital? No Coverage Notice Reviewer: [email or web address] Mikayla Casarez Notice Issued Date-Time: 04/20/2019 9:15 Notice Type: Patient Choice Letter Notice Delivered To: Patient Relationship to Patient: Ms Sql Server Developer Name: Delivery Method: HAND - Hand Delivered Martha Days: Prior Verbal Notification: Recipient Understood Notice: Yes Recipient Signature: Yes Med Rec Note Co-signed by Attending: Coverage Notice Comment: Reviewer: [email or web address] Mikayla Casarez Notice Issued Date-Time: 04/23/2019 13:10 Notice Type: IM Discharge Notice Notice Delivered To: Patient Relationship to Patient: Ms Sql Server Developer Name: Delivery Method: HAND - Hand Delivered Martha Days: Prior Verbal Notification: Recipient Understood Notice: Yes Recipient Signature: Yes Med Rec Note Co-signed by Attending: Coverage Notice Comment: Last DP export: 04/20/19 1:40 p Patient Name: KONRAD ROSENBERG Page 45788 at 1320 All edits/amendments must be made on the electronic document DICTATION DATE: 04/23/19 1320 PURCHASE PRICE ANALYST: ANNY 04/23/19 1320 RPT#: [id number] DC DATE: STATUS: ADM IN [facility] [address] [place] [address] END OF REPORT
[2019-04-23] MEDS ORDERED: LEVOFLOXACIN500 MG PO (14:44)
[2019-04-23] MEDS ORDERED: PROTONIX40 MG PO ×2 (14:45→14:48)
[2019-04-23] MEDS ORDERED: CARAFATE1 G PO (14:46)
--- NOTE | 2019-04-23 15:45 | NUR ---
DISCHARGE EDUCATION PROVIDED BOTH WRITTEN AND VERBAL. VERBALIZED UNDERSTANDING. AT BEDSIDE. VERBALIZED UNDERSTANDING. FLU SHOT GIVEN PER REQUEST. IV REMOVED FROM RFA WITH TIP INTACT. PATIENT DISCHARGED HOME WITH WITH ALL BELONGINGS.
--- NOTE | 2019-04-25 16:22 | MORECARE ---
CASE MANAGEMENT DISCHARGE SUMMARY PATIENT: KONRAD ROSENBERG UNIT: [id number] ADM DATE: 04/18/19 AGE: 63 : 55 SEX: M ROOM/BED: D.2214 AUTHOR: ZEENATDOC PHYSICIAN: REFERRING PHYSICIAN: ASHU BASSETT MD DATE OF SERVICE: 04/25/19 Discharge Plan Patient Name: KONRAD ROSENBERG Facility: [facility]:[place] : 1955 Planned Disposition: Home Anticipated Discharge Date: Discharge Date: 04/23/2019 Expected LOS: Initial Reviewer: [email or web address] Initial Review Date: 04/18/2019 Generated: 04/25/19 5:22 pm DCP- Discharge Planning Updated by [email or web address]: Chelo Casarez on 04/23/19 12:[address] PATIENT TO BE DSICHARGED HOME TODAY, IMM SERVED AND EXPLAINED. HE HAS A WALKER AT BEDSIDE AND STATED HE HAS ALL DME HE NEEDS. HE DECLINED HH AND THE DECLINATION WAS SIGNED. CM TO FOLLOW AND ASSIST NEEDED. AT BEDSIDE DCP- Discharge Planning Updated by [id number]: Chelo Casarez on 04/20/19 1:[address] Patient Name: KONRAD ROSENBERG Admission Status: ER Accout number: [id number] Admission Date: 04-18-2019 : 1955 Admission Diagnosis: Attending: ASHU BASSETT Current LOS: 2 Anticipated DC Date: Planned Disposition: Home Primary Insurance: MEDICARE A & B Discharge Planning Comments: CM met with patient to complete initial dc planning assessment. CM educated patient on the CM role and verbal consent given by patient to complete assessment. Patient lives at home with his girlfriend where he is independent with his care. At discharge patient plans to return home and feels this is a safe discharge. Carola will be his jeep driver home. CM discussed availability of home health, rehab services, and medical equipment. He has O2 at night and a nebulizer that he gets from [facility]. MARCO A for [employer] signed and placed in chart. Patient denied known discharge needs at this time. CM will continue to follow and will assist as needed with dc plans/needs. Reinsurance Accountant: Chelo Casarez DCPIA - Discharge Planning Initial Assessment Updated by [email or web address]: Chelo Casarez on 04/20/19 2:31 pm * Is the patient Alert and Oriented? Yes * How many steps to enter\exit or inside your home? * PCP JS * Pharmacy [facility] * Preadmission Environment Home with Family * ADLs Independent * Equipment Nebulizer Oxygen * List name and contact numbers for known caregivers / representatives who currently or will assist patient after discharge: CAROLA (SOCK DRIER)- * Verbal permission to speak to the caregivers and representatives has been obtained from the patient. N/A * Community resources currently utilized None * Additional services required to return to the preadmission environment? No * Can the patient safely return to the preadmission environment? Yes * Has this patient been hospitalized within the prior 30 days at any hospital? No Coverage Notice Reviewer: [email or web address] Mikayla Casarez Notice Issued Date-Time: 04/20/2019 9:15 Notice Type: Patient Choice Letter Notice Delivered To: Patient Relationship to Patient: Crack Off Person Name: Delivery Method: HAND - Hand Delivered Martha Days: Prior Verbal Notification: Recipient Understood Notice: Yes Recipient Signature: Yes Med Rec Note Co-signed by Attending: Coverage Notice Comment: Reviewer: [email or web address] Mikayla Casarez Notice Issued Date-Time: 04/23/2019 13:10 Notice Type: IM Discharge Notice Notice Delivered To: Patient Relationship to Patient: Crack Off Person Name: Delivery Method: HAND - Hand Delivered Martha Days: Prior Verbal Notification: Recipient Understood Notice: Yes Recipient Signature: Yes Med Rec Note Co-signed by Attending: Coverage Notice Comment: Last DP export: 04/23/19 12:20 p Patient Name: KONRAD ROSENBERG Page 13220 at 1622 All edits/amendments must be made on the electronic document DICTATION DATE: 04/25/191621 DRY WALL INSTALLER: ANNY 04/25/19 1622 RPT#: [id number] DC DATE:04/23/19 STATUS: DIS IN [facility] [address] [place] [address] END OF REPORT
--- NOTE | 2019-04-29 10:39 | EC ---
PATIENT:KONRAD ROSENBERG DATE OF SERVICE: 04/18/19 SEX: M MEDICAL RECORD: [id number] DATE OF : [birth year] LOCATION:D.MS [place] AGE OF PATIENT: 63 ADMISSION DATE: 04/18/19 REFERRING PHYSICIAN: INTERPRETING PHYSICIAN: EVELINA HOLLAND MD ECHOCARDIOGRAM REPORT ECHO CHARGES 4 ECHO COMPLETE Date: 04/19/19 CLINICAL DIAGNOSIS: LVF ECHOCARDIOGRAPHIC MEASUREMENTS (adult normal given) AC root (d.<3.7cm) 2.6 cm LV Septum d (<1.2 cm> 1.6 cm Valve Excursion 1.6 cm LV Septum (systole) 1.7 cm Left Atria (s.<4.0cm> 3.3 cm LVPW d(<1.2cm) 1.0 cm RV (d.<2.3cm) 3.6 cm LVPW (sytole) 1.2 cm LV diastole(<5.6CM) 4.3 cm MV E-F(>70mm/sec) cm LV systole 3.3 cm LVOT Diameter 1.9 cm MV exc.(>10mm) cm Est.ejection fraction (50-75%) % DOPPLER: LVIT cm/sec A 71 cm/sec E 55 cm/sec LA cm/sec RVSP 32.2 mmHg LVOT 105 cm/sec AOP1/2T m/s Asc. Ao 144 cm/sec RVOT 49 cm/sec RA cm/sec PA 65 cm/sec AV Gradient Peak 8.3 mmHg AV Mean 3.7 mmHg AV Area 1.9 cm MV Gradient Peak 2.6 mmHg MV Mean 1.5 mmHg MV Area cm COMMENTS: Geological Engineering Teacher: Mirela [facility] Director New Product: 1 Dr. Holland TAPE# PACS Pericardial Effusion N DATE OF SERVICE: 04/19/2019 ECHOCARDIOGRAM FINDINGS: 1. Left ventricular chamber size is within normal limits. Left ventricular systolic function is normal. Overall ejection fraction estimated at 55%. 2. Left atrium is within normal limits. Right atrium and right ventricular chamber sizes are mildly dilated. 3. Valvular structures have normal structure and motion. ECHOCARDIOGRAM REPORT [id number] KONRAD ROSENBERG 4. Doppler interrogation reveals no significant valvular insufficiency or stenosis. Pulmonary systolic pressure is normal estimated at 32 mmHg. 5. No evidence of pericardial effusion or left ventricular thrombus. TRANSINT:[id number] Voice Confirmation ID: [id number] DOCUMENT ID: [id number] EVELINA HOLLAND MD at 1039 CC: [id number] DICTATION DATE: 04/19/191737 SIX HORSE HITCH DRIVER: 04/19/19 1844 DIS IN 04/23/19 [place] [id number] [place] [id number]
== END 2019-04-23 15:59 | disposition home or self-care (01) | DRG 380 ==
LOC: D.ER 19:22 → D.MS 21:08 → D.SDCHOLD 04-19 11:08 → D.MS 04-19 11:08
PROVIDERS: Emergency Medicine; Internal Medicine Gastroenterology; ADMIT Internal Medicine Nephrology; ATTEND Internal Medicine Nephrology
PROC: 0DB48ZX Excision of Esophagogastric Junction, Via Natural or Artificial Opening Endoscopic, Diagnostic (ICD-10-PCS; 2019-04-20)
PROC: 0D748ZZ Dilation of Esophagogastric Junction, Via Natural or Artificial Opening Endoscopic (ICD-10-PCS; 2019-04-20)
PROC: 0DB98ZX Excision of Duodenum, Via Natural or Artificial Opening Endoscopic, Diagnostic (ICD-10-PCS; principal; 2019-04-20 16:00)
DX: K22.10 Ulcer of esophagus without bleeding (principal); E43 Unspecified severe protein-calorie malnutrition; J44.1 Chronic obstructive pulmonary disease with (acute) exacerbation; E87.1 Hypo-osmolality and hyponatremia; N39.0 Urinary tract infection, site not specified; J96.11 Chronic respiratory failure with hypoxia; M87.850 Other osteonecrosis, pelvis; K21.0 Gastro-esophageal reflux disease with esophagitis; Z99.81 Dependence on supplemental oxygen; R63.4 Abnormal weight loss; Z68.25 Body mass index [BMI] 25.0-25.9, adult; Q82.8 Other specified congenital malformations of skin; E86.0 Dehydration; K29.70 Gastritis, unspecified, without bleeding; K29.80 Duodenitis without bleeding; K22.2 Esophageal obstruction

== ENCOUNTER 2019-04-27 11:57 | Inpatient (IN) | payer MEDICARE ==
[~2019-04-27] VITALS: Ht 177.8 cm; Wt 82.7 kg
[~2019-04-27 11:57] MED LIST changes: +CARAFATE1 G PO; +LEVOFLOXACIN500 MG PO
[2019-04-28] MEDS ORDERED: CIPRO500 MG PO (10:49)
[2019-04-28 11:31] LABS: BASOPHILS 0.3 % (0-2); EOSINOPHILS 4.2 % (0-7); HEMATOCRIT 42.1 % (42.0-54.0); HEMOGLOBIN 13.5 g/dL (13.5-17.5); IMMATURE GRANULOCYTES 1.3 % (0-5); LYMPHOCYTES 14.5 % (15-50); MCH 28.2 pg (26.0-34.0); MCHC 32.1 g/dL (31.0-37.0); MCV 88.1 fL (80.0-100.0); MEAN PLATELET VOLUME 8.1 fL (7.4-10.4); MONOCYTES 13.1 % (2-11); NEUTROPHILS 66.6 % (40-80); PLATELET COUNT 450 10x3/uL (130-400); RBC 4.78 10x6/uL (4.20-6.10); RDW 13.3 % (11.5-14.5); WBC 11.1 10x3/uL (4.8-10.8)
[2019-04-28 11:44] LABS: CALC OSMOLALITY 279 mosm/kg (275-300); CALCIUM 9.5 mg/dL (8.5-10.1); CHLORIDE - SERUM 101 mmol/L (98-107); CREATININE - SERUM 0.8 mg/dL (0.6-1.3); GLUCOSE 112 mg/dL (74-106); POTASSIUM - SERUM 4.3 mmol/L (3.5-5.1); SODIUM 139 mmol/L (136-145); UREA NITROGEN 16 mg/dL (7-18); eGFR NON AFRICAN AMERICAN > 90 mL/min (90-120)
[2019-04-28 12:20] LABS: APTT 30.5 SECONDS (22.8-39.4); INR 1.05 (0.85-1.17); PROTIME 13.2 SECONDS (11.6-15.0)
[2019-04-28 12:29] LABS: APPEARANCE CLEAR (CLEAR); BILIRUBIN NEGATIVE (NEGATIVE); COLOR DK YELLOW (YELLOW); GLUCOSE NEGATIVE (NEGATIVE); KETONE NEGATIVE (NEGATIVE); NITRITE NEGATIVE (NEGATIVE); PROTEIN TRACE mg/dL (NEGATIVE); UROBILINOGEN NORMAL (NORMAL)
[2019-05-05 05:42] VITALS: BMI 25.8
--- NOTE | 2019-05-05 07:58 | NUR ---
NOTIFIED FAMILY THAT SURGERY HAS NOT STARTED YET DUE TO SURGEON DELAY. WILL NOTIFY WHEN PROCEDURE STARTS.
--- NOTE | 2019-05-05 09:16 | NUR ---
PATIENT PRESENTED TO OR WITH SKIN BREAKDOWN ON LEFT FLANK, LEFT INNER GROIN REGION, SCALP, AND TOPS OF EARS BILAT. UNKNOWN ORIGIN OF BREAKDOWN. MINIMAL BLOOD PRESENT AND SKIN IS CRACKED AND APPEARS DRY AND FLAKING.
--- NOTE | 2019-05-05 10:23 | NUR ---
POSTOPERATIVE, ASSESMENT WAS PERFORMED AND ADDITIONAL SKIN BREAKDOWN NOTED ON SACRAL REGION. ASSESSMENT PERFORMED WITH PACU NURSE AND SHE STATED THAT SHE WOULD CONSULT WOUNDCARE ONCE PATIENT WAS TRANSFERED TO THE FLOOR.
--- NOTE | 2019-05-05 10:28 | NUR ---
PT HAS MULTIPLE SKIN BROKE DOWN AREAS. BUTTOCKS HAS STAGE 2 PRESSURE ULCER. BACK HAS SKIN TEAR THAT APPEARS TO BE A TYPE OF RASH OR MAYBE POSSIBLE PRESSURE ULCER WELL. L.GROIN SLIGHT SKIN IRRITATION. HEELS BOGGY AND RED. WILL PASS ON IN REPORT FOR WOUND CARE NURSE TO ASSESS AND TREAT PER RECCOMENDATIONS.
[2019-05-05 11:13] VITALS: BP 116/71
--- NOTE | 2019-05-05 11:19 | NUR ---
RECEIVED PATIENT FROM RECOVERY, VIA BED ACCOMPANIED BY FAMILY AND STAFF. ALERT AND ORIENTED. C/O PAIN. NO S/S OF ACUTE DISTRESS NOTED. LEFT TOTAL HIP REPLACEMENT, DRESSING C/D/I. VITALS STABLE. OXYGEN ON 4L NC. IV TO RIGHT AC, SL. SITE PATENT WITHOUT REDNESS OR SWELLING. DENIES ANY NEEDS AT THIS TIME. CALL LIGHT IN REACH. WILL CONTINUE TO MONITOR.
[2019-05-05 12:00] VITALS: BP 113/71
--- NOTE | 2019-05-05 16:32 | OP ---
PATIENT NAME: KONRAD ROSENBERG MEDICAL RECORD: [id number] :55 LOCATION:D.MS [place]11 ADMISSION DATE:05/05/19 SURGEON: EVITA COBB MD DATE OF OPERATION: 05/05/2019 PREOPERATIVE DIAGNOSIS: Avascular necrosis of the left hip. POSTOPERATIVE DIAGNOSIS: Avascular necrosis of the left hip. PROCEDURE: Left total hip arthroplasty. SURGEON: Evita Cobb MD CREATIVE ART THERAPIST: PRIYANKA Dixon INTRAOPERATIVE COMPLICATIONS: None. SUMMARY OF PATHOLOGIC FINDINGS: The patient had complete collapse of the left femoral head consistent with preoperative radiographs and MRIs. IMPLANTS USED: Marmarth Trident II cup size 56, Accolade II stem size 6, standard Biolox ceramic with a Trident X3 0 degree polyethylene insert, alpha code F 36 mm. ESTIMATED BLOOD LOSS: 100 cc. OPERATIVE SUMMARY IN DETAIL: After obtaining the appropriate preoperative orthopedic surgery consent as well as anesthetic consultation, evaluation and clearance, the patient was brought to the operating room and placed on the operating table in supine position. After the appropriate timeout was taken and agreed upon by all, the hip was prepped and draped in routine sterile fashion. Curvilinear incision made over the greater trochanter, taken down along the IT band, which was split in line with the fibers of IT band to reveal the gluteus medius and minimus. These were reflected anteriorly and a T-type incision was made and the hip capsule saved for later reapproximation. Hip was dislocated. Femoral neck cut was made using the femoral neck cutting guide for the Accolade system. The head was extracted and the acetabulum was exposed. Circumferential labrectomy was followed by reaming to a size 55 for a size 56 Trident cup. A 56 Trident II cup was put in the appropriate position with excellent capture and no need for further fixation. Polyethylene was snapped into place and checked to be sure it was secure. Attention was then turned to the proximal femur. Serial and sequential reaming and broaching were done to a size 6, size 6 Accolade TMZF stem was put into place. Trials were undertaken. It was felt that the standard was the most appropriate. Biolox was tamped into place on the Hernandez taper. The hip was then reduced, taken through range of motion and found to be stable in all planes. Intraoperative radiographs were taken and showed good position and placement with good limb length equality. Wound was copiously irrigated, filled with a gram of vancomycin and a gram of tobramycin. Hip capsule was closed with #2 Ethibond followed by reapproximation of gluteus medius minimus back to the greater trochanter in a transosseous fashion using #5 Ethibond. IT band was closed with #2 Ethibond done by Santhosh Holloway followed by irrigation and closure of the skin with #1 Vicryl followed by skin sue. Sterile dressings were applied. The patient was awakened and taken to recovery room in stable condition. All final needle and sponge counts were correct. OPERATIVE REPORT [id number] KONRAD ROSENBERG TRANSINT:[id number] Voice Confirmation ID: [id number] DOCUMENT ID: [id number] JORDYN CLARK, EVITA IMN at 1632 CC: [id number] DICTATION DATE: 05/05/19 1042 SCALPING MACHINE OPERATOR: 05/05/19 1402 ADM IN [facility] [address] [place] [id number]
[2019-05-05 17:03] VITALS: BP 127/68
--- NOTE | 2019-05-05 19:46 | NUR ---
LYING IN BED WITH TV ON, ABLE TO VOICE ALL NEEDS. DENIES PAIN AT THIS TIME. WILL NOTE ANY CHANGE.
--- NOTE | 2019-05-05 19:55 | NUR ---
REQUESTED PAIN MEDICATION. GIVEN PER MAR. WILL NOTE ANY CHANGE.
[2019-05-05 20:00] VITALS: BP 135/77
[2019-05-06] VITALS: BP 119/69
--- NOTE | 2019-05-06 01:30 | NUR ---
I have reviewed this patient and I concur with the Shift Assessment completed by the Licensed Practical Nurse today this shift.
[2019-05-06 04:00] VITALS: BP 117/61
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
[2019-05-06 06:31] LABS: HEMATOCRIT 38.6 % (42.0-54.0); HEMOGLOBIN 12.1 g/dL (13.5-17.5); MCH 27.6 pg (26.0-34.0); MCHC 31.3 g/dL (31.0-37.0); MCV 88.1 fL (80.0-100.0); MEAN PLATELET VOLUME 8.4 fL (7.4-10.4); RBC 4.38 10x6/uL (4.20-6.10); RDW 13.4 % (11.5-14.5); WBC 18.5 10x3/uL (4.8-10.8)
--- NOTE | 2019-05-06 07:10 | NUR ---
ALERT AND ORIENTED, RESTING IN BED EYES OPEN. NO C/O PAIN. NO S/S OF ACUTE DISTRESS NOTED. POD #1 LEFT HIP, DRESSING C/D/I. ON 2L O2, NC. IV TO RIGHT AC, 1/2 NS INFUSING @ 100ML/HR. SITE PATENT WITHOUT REDNESS OR SWELLING. UP WITH PHYSICAL THERAPY. DENIES ANY NEEDS AT THIS TIME. CALL LIGHT IN REACH. WILL CONTINUE TO MONITOR.
[2019-05-06 08:00] VITALS: BP 124/50
[2019-05-06 12:00] VITALS: BP 99/54
--- NOTE | 2019-05-06 16:42 | NUR ---
Rehab Note- Acute Inpatient Rehab prescreen order received. The patient is a good inpatient rehab candidate. He is POD #1, will follow at this time. Will accept the patient when he is medically stable and ready for discharge from the acute hospital to [facility] Acute INpatient Rehab if in agreeance. Will follow at this time. Thank you for this referral! Mary Lou Becerril RN Clinical Liaison, [facility] Rehab
[2019-05-06 17:04] VITALS: BP 102/58
--- NOTE | 2019-05-06 18:52 | NUR ---
ALERT AND ORIENTED, RESTING IN BED WITH EYES OPEN. NO C/O PAIN. NO S/S OF ACUTE DISTRESS NOTED. CALL LIGHT IN REACH. WILL CONTINUE TO MONITOR.
--- NOTE | 2019-05-06 19:16 | NUR ---
LYING IN BED WITH MUSIC PLAYING, PLEASANT MOOD AND AFFECT. ASKS FOR PAIN MEDICINE WHEN ITS AVAILABLE. ABLE TO VOICE ALL NEEDS. WILL NOTE ANY CHANGE.
[2019-05-06 20:00] VITALS: BP 127/72
[2019-05-07] VITALS: BP 131/64
--- NOTE | 2019-05-07 02:33 | NUR ---
I have reviewed this patient and I concur with the Shift Assessment completed by the Licensed Practical Nurse today this shift.
[2019-05-07 04:00] VITALS: BP 96/50
--- NOTE | 2019-05-07 04:23 | NUR ---
HAS RESTED WELL THIS SHIFT, REQUESTED PAIN MEDICATION AT 2100 AND 0000, BOTH ADMINISTRATIONS PER MAR WERE DEEMED EFFECTIVE. NO S/S OF ANY ACUTE DISTRESS NOTED. WILL NOTE ANY CHANGE.
[2019-05-07 06:34] LABS: HEMATOCRIT 34.6 % (42.0-54.0); HEMOGLOBIN 10.7 g/dL (13.5-17.5); MCH 27.4 pg (26.0-34.0); MCHC 30.9 g/dL (31.0-37.0); MCV 88.7 fL (80.0-100.0); MEAN PLATELET VOLUME 8.3 fL (7.4-10.4); RBC 3.9 10x6/uL (4.20-6.10); RDW 13.9 % (11.5-14.5)
[2019-05-07 07:02] LABS: WBC 11.7 10x3/uL (4.8-10.8)
--- NOTE | 2019-05-07 07:45 | NUR ---
OT NOTE: DOS 05/06/19 PT COMPLETED BED MOB TASKS WITH MIN-MOD A. PT COMPLETED HYGIENE TASKS WITH MOD A. ALEXX BETH COTA
[2019-05-07 09:02] VITALS: BP 102/60
--- NOTE | 2019-05-07 12:54 | NUR ---
OT NOTE: PT COMPLETED SUPINE TO SIT WITH CGA-MIN A, PT COMPLETED SIT TO STAND WITH CGA-MIN A. PT COMPLETED ADL MOB TO CHAIR WITH CGA. PT COMPLETED MOB WITH CGA. PT COMPLETED UE AROM AX FOR INCREASED I WITH WALKER MANAGEMENT. PT COMPLETED FACE WASH AND SELF FEEDING WITH SET UP. [phone] ; [phone] ALEXX BETH COTA
[2019-05-07 13:25] VITALS: BP 119/74
--- NOTE | 2019-05-07 15:26 | MORECARE ---
CASE MANAGEMENT DISCHARGE SUMMARY PATIENT: KONRAD ROSENBERG JARRETT UNIT: [id number] ADM DATE: 05/05/19 AGE: 63 : 55 SEX: M ROOM/BED: D.2211 AUTHOR: MIKO EPPERSON PHYSICIAN: REFERRING PHYSICIAN: EVITA COBB MD DATE OF SERVICE: 05/07/19 Discharge Plan Patient Name: KONRAD ROSENBERG [facility] : 1955 Planned Disposition: Inpatient Rehab Anticipated Discharge Date: Discharge Date: Expected LOS: Initial Reviewer: [email or web address] Initial Review Date: 05/05/2019 Generated: 05/07/19 4:25 pm DCPIA - Discharge Planning Initial Assessment Updated by [email or web address]: Chelo Casarez on 05/07/19 3:24 pm * Is the patient Alert and Oriented? Yes * PCP JS * Pharmacy [facility] * Preadmission Environment Home with Family * ADLs Independent * Equipment Nebulizer Oxygen Walker * List name and contact numbers for known caregivers / representatives who currently or will assist patient after discharge: HAN * Verbal permission to speak to the caregivers and representatives has been obtained from the patient. N/A * Community resources currently utilized None * Additional services required to return to the preadmission environment? Yes * Can the patient safely return to the preadmission environment? No * Has this patient been hospitalized within the prior 30 days at any hospital? Yes Patient Name: KONRAD ROSENBERG Page 20462 at 1526 All edits/amendments must be made on the electronic document DICTATION DATE: 05/07/191525 ENROLLMENT SERVICES DEAN: ANNY 05/07/19 152 RPT#: [id number] DC DATE: STATUS: ADM IN [facility] [address] [place] [address] END OF REPORT
--- NOTE | 2019-05-07 15:34 | MORECARE ---
CASE MANAGEMENT DISCHARGE SUMMARY PATIENT: KONRAD ROSENBERG UNIT: [id number] ADM DATE: 05/05/19 AGE: 63 : 55 SEX: M ROOM/BED: D.2211 AUTHOR: MIKO EPPERSON PHYSICIAN: REFERRING PHYSICIAN: EVITA COBB MD DATE OF SERVICE: 05/07/19 Discharge Plan Patient Name: KONRAD ROSENBERG Facility: [facility]:[place] : 1955 Planned Disposition: Inpatient Rehab Anticipated Discharge Date: Discharge Date: Expected LOS: Initial Reviewer: [email or web address] Initial Review Date: 05/05/2019 Generated: 05/07/19 4:34 pm Comments DCP- Discharge Planning Updated by [email or web address]: Chelo Casarez on 05/07/19 2:[address] Patient Name: KONRAD ROSENBERG Admission Status: Elective Accout number: [id number] Admission Date: 05-05-2019 : 1955 Admission Diagnosis: Attending: EVITA COBB Current LOS: 2 Anticipated DC Date: Planned Disposition: Inpatient Rehab Primary Insurance: MEDICARE A & B Discharge Planning Comments: CM met with patient to complete initial dc planning assessment. CM educated patient on the CM role and verbal consent given by patient to complete assessment. Patient lives at home with his girlfriend where he is independent with his care. At discharge patient plans to go to inpatient rehab at [facility] and feels this is a safe discharge. CM discussed medical equipment. He has a walker, home O2, nebulizer ([facility]) MARCO A signed for inpatient rehab at [facility]. Patient denied known discharge needs at this time. CM will continue to follow and will assist as needed with dc plans/needs Agricultural Lender: Chelo Casarez DCPIA - Discharge Planning Initial Assessment Updated by [email or web address]: Chelo Casarez on 05/07/19 3:24 pm * Is the patient Alert and Oriented? Yes * PCP JS * Pharmacy [facility] * Preadmission Environment Home with Family * ADLs Independent * Equipment Nebulizer Oxygen Walker * List name and contact numbers for known caregivers / representatives who currently or will assist patient after discharge: HAN * Verbal permission to speak to the caregivers and representatives has been obtained from the patient. N/A * Community resources currently utilized None * Additional services required to return to the preadmission environment? Yes * Can the patient safely return to the preadmission environment? No * Has this patient been hospitalized within the prior 30 days at any hospital? Yes Coverage Notice Reviewer: [id number] Mikayla Casarez Notice Issued Date-Time: 05/07/2019 15:15 Notice Type: Patient Choice Letter Notice Delivered To: Patient Relationship to Patient: Director Of Dance Name: Delivery Method: - Martha Days: Prior Verbal Notification: Recipient Understood Notice: Recipient Signature: Med Rec Note Co-signed by Attending: Coverage Notice Comment: Last DP export: 05/07/19 2:26 Patient Name: KONRAD ROSENBERG Page [phone] at 1534 All edits/amendments must be made on the electronic document DICTATION DATE: 05/07/194 IN HOME SALES REPRESENTATIVE: ANNY 05/07/19 1534 RPT#: [id number] DC DATE: STATUS: ADM IN [facility] [address] [place] [address] END OF REPORT
[2019-05-07] MEDS ORDERED: PERCOCET 10-321 EAC1 PO (15:44)
[2019-05-07] MEDS ORDERED: ELIQUIS2.5 MG PO (15:44)
[2019-05-07 16:28] VITALS: Ht 177.8 cm; Wt 82.7 kg
--- NOTE | 2019-05-07 17:13 | NUR ---
REPORT CALLED TO QUIQUE HESTER ON REHAB. PATIENT EATING AND THEN WILL GO DONE. CALL MARIA DEL CARMEN HAJI.
--- NOTE | 2019-05-10 12:24 | MORECARE ---
CASE MANAGEMENT DISCHARGE SUMMARY PATIENT: KONRAD ROSENBERG UNIT: [id number] ADM DATE: 05/05/19 AGE: 63 : 55 SEX: M ROOM/BED: D.2211 AUTHOR: ZEENATDOC PHYSICIAN: REFERRING PHYSICIAN: EVITA COBB MD DATE OF SERVICE: 05/10/19 Discharge Plan Patient Name: KONRAD ROSENBERG Facility: [facility]:[place] : 1955 Planned Disposition: Inpatient Rehab Anticipated Discharge Date: Discharge Date: 05/07/2019 Expected LOS: Initial Reviewer: [email or web address] Initial Review Date: 05/05/2019 Generated: 05/10/19 1:24 pm Comments DCP- Discharge Planning Updated by [id number]: Chelo Casarez on 05/07/19 2:[address] Patient Name: KONRAD ROSENBERG Admission Status: Elective Accout number: [id number] Admission Date: 05-05-2019 : 1955 Admission Diagnosis: Attending: EVITA OCBB Current LOS: 2 Anticipated DC Date: Planned Disposition: Inpatient Rehab Primary Insurance: MEDICARE A & B Discharge Planning Comments: CM met with patient to complete initial dc planning assessment. CM educated patient on the CM role and verbal consent given by patient to complete assessment. Patient lives at home with his girlfriend where he is independent with his care. At discharge patient plans to go to inpatient rehab at [facility] and feels this is a safe discharge. CM discussed medical equipment. He has a walker, home O2, nebulizer ([facility]) MARCO A signed for inpatient rehab at [facility]. Patient denied known discharge needs at this time. CM will continue to follow and will assist as needed with dc plans/needs Cable Splicer Helper: Chelo Casarez DCPIA - Discharge Planning Initial Assessment Updated by [email or web address]: Chelo Casarez on 05/07/19 3:24 pm * Is the patient Alert and Oriented? Yes * PCP JS * Pharmacy [facility] * Preadmission Environment Home with Family * ADLs Independent * Equipment Nebulizer Oxygen Walker * List name and contact numbers for known caregivers / representatives who currently or will assist patient after discharge: HAN * Verbal permission to speak to the caregivers and representatives has been obtained from the patient. N/A * Community resources currently utilized None * Additional services required to return to the preadmission environment? Yes * Can the patient safely return to the preadmission environment? No * Has this patient been hospitalized within the prior 30 days at any hospital? Yes Coverage Notice Reviewer: [id number] Mikayla Casarez Notice Issued Date-Time: 05/07/2019 15:15 Notice Type: Patient Choice Letter Notice Delivered To: Patient Relationship to Patient: Dry Paste Supervisor Name: Delivery Method: - Martha Days: Prior Verbal Notification: Recipient Understood Notice: Recipient Signature: Med Rec Note Co-signed by Attending: Coverage Notice Comment: Last DP export: 05/07/19 2:34 Patient Name: KONRAD ROSENBERG Page [phone] at 1224 All edits/amendments must be made on the electronic document DICTATION DATE: 05/10/194 SURFACE MOUNT TECHNOLOGY OPERATOR: ANNY 05/10/19 1224 RPT#: [id number] DC DATE:05/07/19 STATUS: DIS IN [facility] [address] [place] [address] END OF REPORT
== END 2019-05-07 17:44 | DRG 470 ==
LOC: D.SDCHOLD 05-03 10:00 → D.MS 05-05 05:00 → D.SDCHOLD 05-05 07:30 → D.MS 05-05 10:29
PROVIDERS: ADMIT Orthopaedic Surgery; ATTEND Orthopaedic Surgery
PROC: 0SRB0J9 Replacement of Left Hip Joint with Synthetic Substitute, Cemented, Open Approach (ICD-10-PCS; principal; 2019-05-05 07:30)
DX: M87.852 Other osteonecrosis, left femur (principal); M25.552 Pain in left hip; J44.9 Chronic obstructive pulmonary disease, unspecified

== ENCOUNTER 2019-05-07 16:25 | Inpatient (IN) | payer MEDICARE ==
[~2019-05-07] VITALS: Ht 177.8 cm; Wt 79.4 kg
[~2019-05-07 16:25] MED LIST changes: +PERCOCET 10-321 EAC1 PO
--- NOTE | 2019-05-07 18:45 | NUR ---
BEDSIDE REPORT COMPLETE. PT LYING IN BED WATCHING TV. DENIES ANY NEEDS. C/O LEFT HIP PAIN WILL ADMINISTER NEXT AVAILABLE PAIN MEDICATION AT 2100. ORIENTED TO ROOM, BATHROOM, FUNCTIONS OF REMOTE. LEFT HIP DRESSING C/D/I. CONTINUES ON 2L VIA NC AT HS. CL IN REACH. FALL PRECAUTIONS IN PLACE. WILL CONTINUE TO MONITOR
[2019-05-08 01:12] VITALS: BP 110/62; BMI 25.1
--- NOTE | 2019-05-08 01:24 | NUR ---
QUIET HOURS. PT LYING IN BED SUPINE EYES CLOSED RESTING QUIETLY. RR EVEN AND UNLABORED. CL IN REACH
--- NOTE | 2019-05-08 04:22 | NUR ---
PT LYING IN BED ON RIGHT SIDE EYES CLOSED RESTING. RR EVEN AND UNLABORED. CL IN REACH
[2019-05-08 07:40] LABS: BASOPHILS 0.3 % (0-2); EOSINOPHILS 4.7 % (0-7); HEMOGLOBIN 11.3 g/dL (13.5-17.5); IMMATURE GRANULOCYTES 0.5 % (0-5); LYMPHOCYTES 14.7 % (15-50); MCH 27.8 pg (26.0-34.0); MCHC 31.4 g/dL (31.0-37.0); MCV 88.7 fL (80.0-100.0); MEAN PLATELET VOLUME 8.4 fL (7.4-10.4); NEUTROPHILS 68.8 % (40-80); PLATELET COUNT 353 10x3/uL (130-400); RBC 4.06 10x6/uL (4.20-6.10); RDW 13.9 % (11.5-14.5); WBC 10.8 10x3/uL (4.8-10.8)
[2019-05-08 07:48] LABS: CALC OSMOLALITY 275 mosm/kg (275-300); CALCIUM 9.4 mg/dL (8.5-10.1); CARBON DIOXIDE 34.9 mmol/L (21.0-32.0); CHLORIDE - SERUM 98 mmol/L (98-107); CREATININE - SERUM 0.8 mg/dL (0.6-1.3); GLUCOSE 108 mg/dL (74-106); POTASSIUM - SERUM 4.1 mmol/L (3.5-5.1); SODIUM 138 mmol/L (136-145); UREA NITROGEN 10 mg/dL (7-18); eGFR NON AFRICAN AMERICAN > 90 mL/min (90-120)
[2019-05-08 08:00] VITALS: BP 108/68
--- NOTE | 2019-05-08 08:00 | NUR ---
PATIENT IS ALERT/ORIENT. CALL LIGHT WITHIN REACH. VOICES NO NEEDS AT THIS TIME. WILL CONTINUE WITH PLAN OF CARE
--- NOTE | 2019-05-08 10:52 | NUR ---
PATIENT WORKING WITH OCCUPATIONAL THERAPIST. BEING ASST WITH A SHOWER. LINENS ON BED CHANGED WHILE PATIENT IN SHOWER
[2019-05-08 12:19] VITALS: Ht 177.8 cm; Wt 79.4 kg
--- NOTE | 2019-05-08 13:06 | NUR ---
PRN PAIN MEDICATION GIVEN PER PATIENT REQUEST
[2019-05-08 18:45] VITALS: BP 116/60
--- NOTE | 2019-05-08 18:45 | NUR ---
BEDSIDE REPORT COMPLETE. PT LYING IN BED WATCHING TV. ALERT AND ORIENTED X4. DENIES ANY NEEDS OR PAIN. RR EVEN AND UNLABORED. VS STABLE. SHIFT ASSESSMENT COMPLETE. CL IN REACH. FALL PRECAUTIONS IN PLACE. WILL CONTINUE TO MONITOR
--- NOTE | 2019-05-09 01:08 | NUR ---
QUIET HOURS. PT LYING IN BED SUPINE EYES CLOSED RESTING QUIETLY. RR EVEN AND UNLABORED. CONTINUES ON 2L VIA NC. CL IN REACH
--- NOTE | 2019-05-09 06:28 | NUR ---
PT LYING IN BED EYES CLOSED RESTING QUIETLY. RR EVEN AND UNLABORED. CL IN REACH.
[2019-05-09 08:00] VITALS: BP 112/65
--- NOTE | 2019-05-09 08:00 | NUR ---
SHIFT ASSMT COMPLETED.STATES PAIN LEVEL INCREASING .BREAKFAST GIVEN.
--- NOTE | 2019-05-09 12:00 | NUR ---
EATING LUNCH.CL IN REACH.
--- NOTE | 2019-05-09 16:00 | NUR ---
MAURICIO THERAPY TODAY.RESTING QUIETLY.
[2019-05-09 19:10] VITALS: BP 107/66
--- NOTE | 2019-05-09 19:10 | NUR ---
BEDSIDE REPORT COMPLETE. PT LYING IN BED EYES CLOSED RESTING. EASILY AROUSED WITH VERBAL STIMULI. DENIES ANY NEEDS OR PAIN. RR EVEN AND UNLABORED. VS STABLE. SHIFT ASSESSMENT COMPLETE. CL IN REACH. FALL PRECAUTIONS IN PLACE. WILL CONTINUE TO MONITOR
--- NOTE | 2019-05-09 23:36 | NUR ---
QUIET HOURS. PT LYING IN BED SUPINE EYES CLOSED RESTING QUIETLY. RR EVEN AND UNLABORED. CONTINUES ON 2L VIA NC. CL IN REACH
--- NOTE | 2019-05-10 03:37 | NUR ---
PT LYING IN BED EYES CLOSED RESTING QUIETLY. RR EVEN AND UNLABORED. CL IN REACH
--- NOTE | 2019-05-10 06:39 | NUR ---
SITTING UP IN BED AWAKE AND ALERT. DENIES ANY NEEDS. CL IN REACH
--- NOTE | 2019-05-10 08:27 | NUR ---
ALERT AND ORIENTED. SITTING IN WC EATING BREAKFAST. NO C/O PAIN CL IN REACH.
[2019-05-10 09:12] VITALS: BP 145/84
--- NOTE | 2019-05-10 13:05 | NUR ---
PARTICIPATED IN THERAPY TODAY. SITTING IN WC FOR LUNCH. FAMILY IN ROOM. CL IN REACH. NO C/O PAIN AT THIS TIME.
--- NOTE | 2019-05-10 14:00 | NUR ---
Nutrition Follow-up: Diet: Regular PO intake: 75-100% x last 6 meals. Reports good appetite. Last BM: 05/10/19. WT: 175# (05/08/19) Meds reviewed. No new labs. Continue current nutrition regimen. RD following.
--- NOTE | 2019-05-10 14:24 | NUR ---
SHOWER GIVEN TODAY PER OT.
--- NOTE | 2019-05-10 15:57 | NUR ---
NO CHANGE IN ASSESSMENT. VISITOR AT BS. CL IN REACH.
[2019-05-10 19:25] VITALS: BP 131/75
--- NOTE | 2019-05-10 19:26 | NUR ---
PT RESTING IN BED WITH EYES OPEN. ALERT AND ORIENTED X 3. DRESSING TO LEFT HIP IS CDI. NO DRAINAGE NOTED. SR'S ARE UP X 2 IN BED. CALL LIGHT AND BEDSIDE TABLE ARE WITHIN EASY REACH.
--- NOTE | 2019-05-10 22:07 | NUR ---
RESTING IN BED WITH EYES CLOSED.
--- NOTE | 2019-05-11 01:36 | NUR ---
I have reviewed this patient and I concur with the Shift Assessment completed by the Licensed Practical Nurse today this shift.
--- NOTE | 2019-05-11 04:28 | NUR ---
RESTING IN BED WITH EYES CLOSED.
--- NOTE | 2019-05-11 08:05 | NUR ---
IN THERAPY EATING BREAKFAST IN WC.
--- NOTE | 2019-05-11 10:36 | NUR ---
PATIENT ADMITTED TO REHAB FROM ACUTE FLOOR. DR. WEINSTEIN IS HIS PCP. DME AT HOME IS A WALKER, O2 AND A NEBULIZER FROM [facility]. DISCHARGE PLANS ARE FOR PATIENT TO RETURN HOME WITH HIS FAMILY. WILL CONTINUE TO FOLLOW WITH PATIENT.
--- NOTE | 2019-05-11 11:00 | NUR ---
CARE TEAM MEETING : PATIENT IS NEW TO UNIT AND WILL BE RA AT NEXT MEETING. WILL CONTINUE TO FOLLOW WITH PATIENT
--- NOTE | 2019-05-11 16:21 | NUR ---
RESTING WO DISTRESS. C/O BACK, L ABD PAIN. MESSAGE LEFT FOR DR ANDERSON.
--- NOTE | 2019-05-11 19:52 | NUR ---
GREETED PATIENT AND CLEANED PATIENTS BED FROM EMESIS. O2 AT 2L VIA NC. RESPIRATIONS EVEN. NO S/S OF DISTRESS. CALL LIGHT IN REACH. DENIES ANY NEEDS AT THIS TIME.
[2019-05-11 20:00] VITALS: BP 72/44
--- NOTE | 2019-05-11 20:26 | NUR ---
RAPID RESPONSE CALLED DUE TO PATIENTS CONDITION.
--- NOTE | 2019-05-11 20:53 | NUR ---
SPOKE WITH DR. ANDERSON CONCERNING PATIENTS STATUS. DR. ANDERSON SPOKE WITH LANG LOMBARDO ICU NURSE ABOUT PATIENTS STATUS AND GAVE TELEPHONIC ORDERS.
--- NOTE | 2019-05-11 20:59 | NUR ---
RAPID RESPONSE CALLED. STAT LABS OBTAINED. ABG. CHEST XR. DR ANDERSON NOTIFIED. CTA CHEST ORDER OBTAINED. WILL NOTIFY WITH RESULTS. DR ANDERSON OKAYED BP LOW LONG A SYMPTOMATIC. WILL CONTINUE TO MONITOR.
[2019-05-11 21:05] LABS: BASOPHILS 0.2 % (0-2); EOSINOPHILS 0.4 % (0-7); HEMATOCRIT 37.1 % (42.0-54.0); HEMOGLOBIN 11.9 g/dL (13.5-17.5); IMMATURE GRANULOCYTES 1.1 % (0-5); LYMPHOCYTES 6.5 % (15-50); MCH 27.7 pg (26.0-34.0); MCHC 32.1 g/dL (31.0-37.0); MCV 86.5 fL (80.0-100.0); MEAN PLATELET VOLUME 8.4 fL (7.4-10.4); MONOCYTES 8.6 % (2-11); NEUTROPHILS 83.2 % (40-80); PLATELET COUNT 390 10x3/uL (130-400); RBC 4.29 10x6/uL (4.20-6.10); RDW 13.7 % (11.5-14.5); WBC 18.8 10x3/uL (4.8-10.8)
[2019-05-11 21:14] LABS: ANION GAP 14.7 mmol/L (8-16); CALCIUM 9.6 mg/dL (8.5-10.1); CARBON DIOXIDE 29.6 mmol/L (21.0-32.0); CREATININE - SERUM 1.8 mg/dL (0.6-1.3); POTASSIUM - SERUM 4.3 mmol/L (3.5-5.1)
[2019-05-11 21:20] LABS: ALBUMIN 2.8 g/dL (3.4-5.0); BILIRUBIN - TOTAL 0.88 mg/dL (0.2-1.3); PROTEIN - SERUM 6.9 g/dL (6.4-8.2)
--- NOTE | 2019-05-11 21:37 | NUR ---
PT. TAKEN FROM UNIT FOR CT SCAN.
--- NOTE | 2019-05-11 22:00 | NUR ---
PT. BACK TO UNIT FROM CT. WAITING FOR RESULTS. PT. ALERT AND ORIENTATED X 4.
[2019-05-11 22:20] VITALS: BP 94/54
--- NOTE | 2019-05-11 22:26 | NUR ---
PTS. CURRENT VITALS - T-98.3, BP 94/54, RR-19, P-121, SPO2 88. RESPIRATORY ON UNIT TO GIVE BREATHING TREATMENT.
[2019-05-12] MEDS ORDERED: LUNESTA1 MG PO (01:35)
[2019-05-12] MEDS ORDERED: ZOFRAN4 MG PO (01:36)
[2019-05-12] MEDS ORDERED: MIRALAX17 GM PO (01:37)
[2019-05-12] MEDS ORDERED: SORIATANE10 MG PO (01:41)
--- NOTE | 2019-05-12 04:45 | NUR ---
SPOKE WITH PTS. SON AND INFORMED HIM THAT PATIENT HAD BEEN TRANSFERRED TO ACUTE FLOOR ROOM 2229.
--- NOTE | 2019-05-13 10:07 | NUR ---
DUE TO SHARIF IN MEDICAL CONDITION PATIENT DISCHARGED FROM REHAB AND ADMITTED TO ACUTE FLOOR ON 05/12/19
--- NOTE | 2019-05-17 10:22 | RHP ---
PATIENT: KONRAD ROSENBERG MEDICAL RECORD: [id number] ACCOUNT: [id number] LOCATION:[facility] : 55 ADMISSION DATE: 05/07/19 REHABILITATION HISTORY AND PHYSICAL EXAMINATION POST ADMISSION PHYSICIAN EXAMINATION The patient was seen and evaluated on 05/08/2019, but no H&P was left at that time. HISTORY OF PRESENT ILLNESS: The patient is a 63-year-old gentleman admitted secondary to left hip avascular necrosis and arthroplasty. 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 He had arthroplasty done on 05/05/2019. The patient had routine followup, progressed with ortho pathways, Eliquis for DVT prophylaxis, did have some leukocytosis during his stay. He has been followed in the past for COPD. He is O2 dependent. He has had extensive abdominal surgery secondary to gangrenous type problems. He did have an EGD done on 04/20/2019, which showed a severe erosive esophagitis with ulcerations of esophageal stenosis at the GE junction. He is a former tobacco user. Denies any alcohol or illicit drugs, got a pretty bad history of dysphagia, MRSA bacteremia. Prior to surgery, he was living independently with a girlfriend, who is disabled and he will not be able to care for her during this time. He has been in the rehab previously with his right hip replacement and had a very good outcome, requiring intensive therapy to get back there. COMORBIDITIES: Include COPD, peripheral neuropathy, cervical radiculopathy at C5 and C7, dysphagia, and leukocytosis. PAST MEDICAL HISTORY: Significant for dysphagia, MRSA bacteremia, immune disorders, cataracts, gastrectomy, hip replacement in the past. PAST SURGICAL HISTORY: Includes partial gastrectomy. He has had some colon surgery in the past. He has had a debridement of the left leg cancer and some abdominal surgeries. ALLERGIES: PENICILLIN AND ASPIRIN. CURRENT MEDICATIONS: Include vitamin D 50,000 units weekly. He is on Protonix 40 mg b.i.d., Kenalog to apply b.i.d. p.r.n., Carafate 1 g q.a.c. and at bedtime, Singulair 10 mg at bedtime, Neurontin 300 mg q.i.d., Eliquis 2.5 mg b.i.d., polyethylene glycol 17 grams in 8 ounces of water daily, Zanaflex 4 mg q.6 hours p.r.n., Percocet 10/325 one tab q.4 hours p.r.n., DuoNeb updrafts as needed and Flonase nasal spray daily. HABITS: No current alcohol or tobacco use. FAMILY HISTORY: Noncontributory. SOCIAL HISTORY: The patient hopes to return back home and get back to his prior level of functioning. REVIEW OF SYSTEMS: GENERAL: Does complain of some weakness and fatigue. HEENT: Denies cold, cough, or congestion. CARDIOVASCULAR: He denies chest pain. HISTORY AND PHYSICAL [id number] KONRAD ROSENBERG PHYSICAL EXAMINATION: VITAL SIGNS: Stable, afebrile. GENERAL: A well-developed elderly gentleman, in no acute distress, alert upon exam. HEENT: Normocephalic and atraumatic. Mucosa moist. NECK: Supple. No lymphadenopathy. LUNGS: Clear at this time with no wheeze, rhonchi or rales. HEART: Regular rate and rhythm. No murmurs, rubs or gallops. ABDOMEN: Soft, benign, and nondistended. Positive bowel sounds times 4. He does have noted surgical excoriations and changes from previous abdominal surgeries. EXTREMITIES: No clubbing, cyanosis or edema. His postop area appears good. NEUROLOGIC: Mainly intact. LABORATORY DATA: Admit white count is 10.8, H&H of 11 and 36, and platelet count was noted to be 353. Sodium is 138, potassium 4.1, BUN and creatinine of 10 and 0.8, and blood sugar is noted to be 108. ASSESSMENT: This is a 63-year-old gentleman admitted to the rehab with a working diagnosis of status post arthroplasty after avascular necrosis of his left hip. The patient continued to make improvement. We instituted the following multidisciplinary therapies including, but not limited to physical, occupational, respiratory, speech, nutritional services, prosthetics and orthotics. Given his complex medical condition and risk for more complications, rehabilitation services cannot be provided at a low level of care such as skilled nurse facility. PLAN: 1. Admit to [facility] rehab for an intensive inpatient therapy to include the following disciplines: A. Physical therapy to improve gait, all transfer skills and bed mobility to a modified independent level. B. Occupational therapy to improve activities of daily living to a modified independent level. C. Case management to assist with discharge planning and placement options. D. Nutrition to assist with nutritional needs. E. Rehabilitation nursing to assist in monitoring the patient's underlying medical conditions and to assist with any type of bowel or bladder management. 2. The patient's current medication and medical care will be continued. 3. The patient will be placed on standard fall precautions. 4. The patient's estimated length of stay is approximately 7-10 days. 5. We will discuss this patient during care team staff meeting this week, which will be tomorrow and I will see again in the a.m. TRANSINT:[id number] Voice Confirmation ID: [id number] DOCUMENT ID: [id number] JELLY notes whether there has been none or any medical/functional change since admission: - JELLY attests patient continues to be appropriate for IRF: - HISTORY AND PHYSICAL [id number] KONRAD ROSENBERG,AYAAN STARKS MD at 1022 CC: [id number] DICTATION DATE: 05/10/19 0848 CORE DRILLER HELPER: 05/10/19 1005 DIS IN 05/12/19 [facility] [address] [place] [address]
== END 2019-05-12 01:46 | disposition short-term general hospital (02) | DRG 560 ==
LOC: D.REHAB 16:25
PROVIDERS: ADMIT Emergency Medicine; ATTEND Emergency Medicine
DX: Z47.1 Aftercare following joint replacement surgery (principal); M87.9 Osteonecrosis, unspecified; Z96.642 Presence of left artificial hip joint; J44.9 Chronic obstructive pulmonary disease, unspecified; G62.9 Polyneuropathy, unspecified; M54.12 Radiculopathy, cervical region; R13.10 Dysphagia, unspecified; D72.829 Elevated white blood cell count, unspecified

== ENCOUNTER 2019-05-11 23:38 | Inpatient (IN) | payer MEDICARE ==
[~2019-05-11] VITALS: Ht 177.8 cm; Wt 81.6 kg
[2019-05-12] MEDS ORDERED: LUNESTA1 MG PO (01:35)
[2019-05-12] MEDS ORDERED: ZOFRAN4 MG PO (01:36)
[2019-05-12] MEDS ORDERED: MIRALAX17 GM PO (01:37)
[2019-05-12] MEDS ORDERED: SORIATANE10 MG PO (01:41)
[2019-05-12 03:08] VITALS: BP 117/55; BMI 25.8
[2019-05-12 06:08] LABS: BASOPHILS 0.2 % (0-2); EOSINOPHILS 0.6 % (0-7); HEMATOCRIT 34.1 % (42.0-54.0); HEMOGLOBIN 11.1 g/dL (13.5-17.5); IMMATURE GRANULOCYTES 1.3 % (0-5); LYMPHOCYTES 6.6 % (15-50); MCHC 32.6 g/dL (31.0-37.0); MCV 85.9 fL (80.0-100.0); MEAN PLATELET VOLUME 8.3 fL (7.4-10.4); MONOCYTES 7.5 % (2-11); NEUTROPHILS 83.8 % (40-80); PLATELET COUNT 382 10x3/uL (130-400); RBC 3.97 10x6/uL (4.20-6.10); RDW 13.9 % (11.5-14.5); WBC 19.4 10x3/uL (4.8-10.8)
[2019-05-12 06:30] LABS: ANION GAP 11.8 mmol/L (8-16); CALCIUM 9.4 mg/dL (8.5-10.1); CARBON DIOXIDE 30.8 mmol/L (21.0-32.0); MAGNESIUM - SERUM 1.9 mg/dL (1.8-2.4); POTASSIUM - SERUM 4.6 mmol/L (3.5-5.1)
[2019-05-12 06:32] LABS: CREATININE - SERUM 1.3 mg/dL (0.6-1.3)
[2019-05-12 11:37] VITALS: BP 84/44
[2019-05-12 17:29] VITALS: BP 115/54
[2019-05-12 20:37] LABS: APPEARANCE CLEAR (CLEAR); BILIRUBIN NEGATIVE (NEGATIVE); COLOR YELLOW (YELLOW); GLUCOSE NEGATIVE (NEGATIVE); KETONE NEGATIVE (NEGATIVE); NITRITE NEGATIVE (NEGATIVE); PROTEIN NEGATIVE (NEGATIVE); UROBILINOGEN NORMAL (NORMAL)
[2019-05-13] VITALS: BP 102/55
[2019-05-13 06:52] LABS: CALC OSMOLALITY 276 mosm/kg (275-300); CALCIUM 9.6 mg/dL (8.5-10.1); CARBON DIOXIDE 30.2 mmol/L (21.0-32.0); CHLORIDE - SERUM 101 mmol/L (98-107); GLUCOSE 101 mg/dL (74-106); MAGNESIUM - SERUM 2.1 mg/dL (1.8-2.4); POTASSIUM - SERUM 4.1 mmol/L (3.5-5.1); SODIUM 138 mmol/L (136-145); eGFR NON AFRICAN AMERICAN 80 mL/min (90-120)
[2019-05-13 06:53] LABS: UREA NITROGEN 15 mg/dL (7-18)
[2019-05-13 07:28] LABS: BASOPHILS 0.1 % (0-2); EOSINOPHILS 2.1 % (0-7); HEMATOCRIT 32.7 % (42.0-54.0); HEMOGLOBIN 10.4 g/dL (13.5-17.5); IMMATURE GRANULOCYTES 0.5 % (0-5); LYMPHOCYTES 5.2 % (15-50); MCH 27.5 pg (26.0-34.0); MCHC 31.8 g/dL (31.0-37.0); MCV 86.5 fL (80.0-100.0); MEAN PLATELET VOLUME 8.3 fL (7.4-10.4); MONOCYTES 6.3 % (2-11); NEUTROPHILS 85.8 % (40-80); PLATELET COUNT 415 10x3/uL (130-400); RBC 3.78 10x6/uL (4.20-6.10); RDW 13.7 % (11.5-14.5); WBC 15.5 10x3/uL (4.8-10.8)
--- NOTE | 2019-05-13 08:00 | NUR ---
ASSESSMENT PER FLOW SHEET. PT IS WITHOUT DISTRESS.CALL LIGHT IN REACH
[2019-05-13 08:49] VITALS: BP 109/76
[2019-05-13 12:47] VITALS: BP 101/65
[2019-05-13 13:27] VITALS: Ht 177.8 cm; Wt 81.6 kg
[2019-05-13 16:48] VITALS: BP 106/68
--- NOTE | 2019-05-13 17:01 | NUR ---
OT NOTE: PT COMPLETED UB HYGIENE TASKS WITH SETUP. PT COMPLETED BED MOB TASKS WITH MIN A. PT COMPLETED UE AROM EXS. [phone] THANK YOU, WILLIAM FONTAINE
--- NOTE | 2019-05-13 19:32 | NUR ---
REMAINS WITHOUT DISTRESS.WITHOUT CHANGE.CONT PLAN OF CARE
--- NOTE | 2019-05-13 20:00 | NUR ---
ALET RESTING IN BED, DENIES PAIN OR NEEDS AT THIS TIME, SEE SHIFT ASSESSMENT, CALL LIGHT IN REACH
[2019-05-14 00:30] VITALS: BP 110/64
[2019-05-14 05:00] VITALS: BP 118/70
[2019-05-14 06:15] LABS: BASOPHILS 0.1 % (0-2); HEMATOCRIT 33.9 % (42.0-54.0); IMMATURE GRANULOCYTES 0.4 % (0-5); LYMPHOCYTES 5.3 % (15-50); MCH 28.3 pg (26.0-34.0); MCHC 32.4 g/dL (31.0-37.0); MCV 87.1 fL (80.0-100.0); MEAN PLATELET VOLUME 8.4 fL (7.4-10.4); MONOCYTES 5.2 % (2-11); PLATELET COUNT 478 10x3/uL (130-400); RBC 3.89 10x6/uL (4.20-6.10); RDW 13.7 % (11.5-14.5); WBC 13.7 10x3/uL (4.8-10.8)
[2019-05-14 06:42] LABS: CALC OSMOLALITY 278 mosm/kg (275-300); CARBON DIOXIDE 29.3 mmol/L (21.0-32.0); CHLORIDE - SERUM 102 mmol/L (98-107); CREATININE - SERUM 0.8 mg/dL (0.6-1.3); GLUCOSE 122 mg/dL (74-106); MAGNESIUM - SERUM 2.1 mg/dL (1.8-2.4); POTASSIUM - SERUM 4.3 mmol/L (3.5-5.1); SODIUM 140 mmol/L (136-145); eGFR NON AFRICAN AMERICAN > 90 mL/min (90-120)
[2019-05-14 06:43] LABS: UREA NITROGEN 11 mg/dL (7-18)
[2019-05-14 08:51] VITALS: BP 117/71
--- NOTE | 2019-05-14 09:28 | NUR ---
PT RESTING IN BED WATCHING TV. RESP EVEN AND UNLABORED. DOES BECOME SOB WITH EXERTION. REPORTS PAIN 5/10 AT THIS TIME. DISCUSSED NEXT DOSE DUE WITH PAIN MEDICATION. PT VOICES UNDERSTANDING. IV TO RIGHT FOREARM WITH NS @ KVO INFUSING VIA PUMP. SITE WITHOUT REDNESS OR EDEMA. O2 @ 7L HI [place] NC IN PLACE. DENIES FURTHER NEEDS AT THIS TIME. CL WITHIN REACH. ENCOURAGED TO CALL WITH NEEDS. CONTINUE POC
--- NOTE | 2019-05-14 10:49 | MORECARE ---
CASE MANAGEMENT DISCHARGE SUMMARY PATIENT: KONRAD ROSENBERG JARRETT UNIT: [id number] ADM DATE: 05/12/19 AGE: 63 : 55 SEX: M ROOM/BED: D.2230 AUTHOR: MIKO EPPERSON PHYSICIAN: REFERRING PHYSICIAN: AYAAN ANDERSON MD DATE OF SERVICE: 05/14/19 Discharge Plan Patient Name: KONRAD ROSENBERG [facility] [facility] 1955 Planned Disposition: Inpatient Rehab Anticipated Discharge Date: Discharge Date: Expected LOS: Initial Reviewer: [email or web address] Initial Review Date: 05/12/2019 Generated: 05/14/19 11:49 am DCPIA - Discharge Planning Initial Assessment Updated by [email or web address]: Chelo Casarez on 05/14/19 10:48 am * Is the patient Alert and Oriented? Yes * PCP JS * Pharmacy [facility] * Preadmission Environment Home with Family * ADLs Independent * Equipment Nebulizer Oxygen Walker * List name and contact numbers for known caregivers / representatives who currently or will assist patient after discharge: HAN * Verbal permission to speak to the caregivers and representatives has been obtained from the patient. N/A * Community resources currently utilized None * Additional services required to return to the preadmission environment? Yes * Can the patient safely return to the preadmission environment? No * Has this patient been hospitalized within the prior 30 days at any hospital? Yes Coverage Notice Reviewer: [id number] - Chelo Casarez Notice Issued Date-Time: 05/14/2019 8:45 Notice Type: Patient Choice Letter Notice Delivered To: Patient Relationship to Patient: Couture Dressmaker Name: Delivery Method: HAND - Hand Delivered Martha Days: Prior Verbal Notification: Recipient Understood Notice: Yes Recipient Signature: Yes Med Rec Note Co-signed by Attending: Coverage Notice Comment: lela [facility] and inpatient rehab at [facility] Patient Name: KONRAD ROSEBNERG Page [phone] at 1049 All edits/amendments must be made on the electronic document DICTATION DATE: 05/14/19 1049 ENTERPRISE RESOURCE PLANNER: ANNY 05/14/19 1049 RPT#: [id number] DC DATE: STATUS: ADM IN [facility] [address] [place] [address] END OF REPORT
--- NOTE | 2019-05-14 10:59 | MORECARE ---
CASE MANAGEMENT DISCHARGE SUMMARY PATIENT: KONRAD ROSENBERG UNIT: [id number] ADM DATE: 05/12/19 AGE: 63 : 55 SEX: M ROOM/BED: D.2230 AUTHOR: MIKO EPPERSON PHYSICIAN: REFERRING PHYSICIAN: AYAAN ANDERSON MD DATE OF SERVICE: 05/14/19 Discharge Plan Patient Name: KONRAD ROSENBERG Facility: [facility]:[place] : 1955 Planned Disposition: Inpatient Rehab Anticipated Discharge Date: Discharge Date: Expected LOS: Initial Reviewer: [email or web address] Initial Review Date: 05/12/2019 Generated: 05/14/19 11:58 am Comments DCP- Discharge Planning Updated by [id number]: Chelo Casarez on 05/14/19 9:[address] Patient Name: KONRAD ROSENBERG Admission Status: Elective Accout number: [id number] Admission Date: 05-12-2019 : 1955 Admission Diagnosis:SEPSIS, UNSPECIFIED ORGANISM Attending: TEREZA ANDERSON Current LOS: 2 Anticipated DC Date: Planned Disposition: Inpatient Rehab Primary Insurance: MEDICARE A & B Discharge Planning Comments: CM met with patient to complete initial dc planning assessment. CM educated patient on the CM role and verbal consent given by patient to complete assessment. Patient lives at home with his girlfriend. He was currently admitted in [facility] Inpatient rehab, and plans to return there at hi. When discharged from inpatient rehab patient plans to return home and feels this is a safe discharge. CM discussed availability medical equipment. Patient has a walker, home o2 and nebulizer from [facility]. LELA was signed for both inpatient rehab and [facility]. Patient denied known discharge needs at this time. CM will continue to follow and will assist as needed with dc plans/needs. Digital Learning Platforms Manager: Chelo Casarez DCPIA - Discharge Planning Initial Assessment Updated by [email or web address]: Chelo Casarez on 05/14/19 10:48 am * Is the patient Alert and Oriented? Yes * PCP JS * Pharmacy [facility] * Preadmission Environment Home with Family * ADLs Independent * Equipment Nebulizer Oxygen Walker * List name and contact numbers for known caregivers / representatives who currently or will assist patient after discharge: HAN * Verbal permission to speak to the caregivers and representatives has been obtained from the patient. N/A * Community resources currently utilized None * Additional services required to return to the preadmission environment? Yes * Can the patient safely return to the preadmission environment? No * Has this patient been hospitalized within the prior 30 days at any hospital? Yes Coverage Notice Reviewer: [email or web address] Mikayla Casarez Notice Issued Date-Time: 05/14/2019 8:45 Notice Type: Patient Choice Letter Notice Delivered To: Patient Relationship to Patient: Epidemiology Intern Name: Delivery Method: HAND - Hand Delivered Martha Days: Prior Verbal Notification: Recipient Understood Notice: Yes Recipient Signature: Yes Med Rec Note Co-signed by Attending: Coverage Notice Comment: lela anguiano and inpatient rehab at [facility] Last DP export: 05/14/19 9:50 Patient Name: KONRAD ROSENBERG Page [phone] at 1059 All edits/amendments must be made on the electronic document DICTATION DATE: 05/14/191057 SALES ENGINEER ACCOUNT MANAGER: ANNY 05/14/19 1058 RPT#: [id number] DC DATE: STATUS: ADM IN [facility] [address] [place] [address] END OF REPORT
--- NOTE | 2019-05-14 11:37 | NUR ---
OT NOTE: ASSISTED PT WITH COMPLETING SHOWER. REQUIRED USE OF SHOWER BENCH AND GRAB BARS. PT WAS ABLE TO MANIPULATE HH SHOWER AFTER TEMP SETTING WAS PERFORMED. PT ABLE TO WASH ALL OF UPPER BODY AND PERINEAL AREA.. REQUIRED ASSIST WITH BACK, LOWER LEGS, AND FEET. MIN ASSIST TO DRY BODY. AFTER THOROUGH DRYING, APPLIED RX CREAM TO BACK. REQUIRED MOD ASSIST WITH LE DRESSING PT DID NOT HAVE ASSISTIVE DEVICE. SET UP WITH UE DRESSING. ABLE TO AMB IN ROOM WITH 02 AND USE OF RW. BALANCE WAS FAIR+..ENDURANCE IS FAIR WITH USE OF 02. PT MOTIVATED TO IMPROVE AND RETURN TO REHAB IN ORDER TO GO HOME. ZULEIKA COBURN, OTR/L
--- NOTE | 2019-05-14 11:43 | NUR ---
OT NOTE: ADDENDUM: [id number]
[2019-05-14 12:22] VITALS: BP 112/60
--- NOTE | 2019-05-14 16:57 | NUR ---
OT NOTE: PT COMPLETED BED MOB TASKS WITH CGA. PT COMPLETED EOB SITTING WITH SBA. PT COMPLETED HAND HYGIENE WITH SET UP. PT COMPLETED UE AROM AXS. [phone] THANK YOU,WILLIAM FONTAINE
[2019-05-14 17:02] VITALS: BP 121/65
--- NOTE | 2019-05-14 19:00 | NUR ---
BEDSIDE REPORT RECEIVED AND CARE OF PT ASSUMED. PT LYING IN LOW BENOIT'S POSITION WATCHING TV. IV TO LEFT FA PATENT WITH NS INFUSING AT KVO. TELEMETRY IN PLACE AND READING 108 SR W/ PVC'S. AT THIS ASSESSMENT. WILL MONITOR FOR NEEDS.
--- NOTE | 2019-05-14 20:41 | NUR ---
HS MEDICATIONS GIVEN. WILL CONTINUE TO MONITOR FOR NEEDS.
[2019-05-14 21:00] VITALS: BP 134/74
--- NOTE | 2019-05-14 22:23 | NUR ---
GAVE PERCOCET PO PER REQUEST FOR PAIN. WILL MONITOR FOR EFFECTIVENESS.
[2019-05-15 01:17] VITALS: BP 118/67
--- NOTE | 2019-05-15 02:25 | NUR ---
GAVE PERCOCET PER REQUEST FOR PAIN. ALSO GAVE SANDWICH TRAY PER REQUST. FAMILY MEMBER IS AT BEDSIDE.
[2019-05-15 04:50] VITALS: BP 108/60
[2019-05-15 06:21] LABS: BASOPHILS 0.1 % (0-2); EOSINOPHILS 0 % (0-7); HEMATOCRIT 34.3 % (42.0-54.0); IMMATURE GRANULOCYTES 0.9 % (0-5); LYMPHOCYTES 5.3 % (15-50); MCH 27.6 pg (26.0-34.0); MCHC 32.1 g/dL (31.0-37.0); MCV 86.2 fL (80.0-100.0); MEAN PLATELET VOLUME 8.3 fL (7.4-10.4); MONOCYTES 3.3 % (2-11); NEUTROPHILS 90.4 % (40-80); PLATELET COUNT 558 10x3/uL (130-400); RBC 3.98 10x6/uL (4.20-6.10); RDW 13.7 % (11.5-14.5)
[2019-05-15 06:48] LABS: CALC OSMOLALITY 279 mosm/kg (275-300); CALCIUM 9.7 mg/dL (8.5-10.1); CARBON DIOXIDE 29.1 mmol/L (21.0-32.0); CHLORIDE - SERUM 101 mmol/L (98-107); CREATININE - SERUM 0.9 mg/dL (0.6-1.3); GLUCOSE 166 mg/dL (74-106); MAGNESIUM - SERUM 2.1 mg/dL (1.8-2.4); POTASSIUM - SERUM 4.2 mmol/L (3.5-5.1); SODIUM 138 mmol/L (136-145); UREA NITROGEN 13 mg/dL (7-18); eGFR NON AFRICAN AMERICAN > 90 mL/min (90-120)
--- NOTE | 2019-05-15 09:00 | NUR ---
ALERT AND ORIENTED X4 WITH DYSPNEA NOTED WITH MINIMAL EXERTION. O2 4L HIFLOW N/C WITH CRACKLES NOTED TO BLQ POSTIOR AND WHEEZES TO BUQ POSTERIOR WITH NON PRODUCTIVE COUGH. PT. UP IN CHAIR AT THIS TIME AND ENCOURAGED TO USE CALL LIGHT FOR ASSSIT. TELEMETRY INTACT. RASH NOTED TO TRUNK AREA WITH KENALIG CREAM APPLIED.
[2019-05-15 09:01] VITALS: BP 120/71
[2019-05-15 12:51] VITALS: BP 101/55
[2019-05-15 17:01] VITALS: BP 118/77
--- NOTE | 2019-05-15 19:00 | NUR ---
BEDSIDE REPORT RECEIVED AND CARE OF PT ASSUMED. PT LYING IN SUPINE POSITION WATCHING TV. IV TO LEFT FA PATENT WITH NS INFUSING AT KVO. TELEMETRY IN USE. O2 IN USE VIA NC AT 4L. WILL MONITOR FOR NEEDS.
--- NOTE | 2019-05-15 21:01 | NUR ---
HS MEDICATIONS GIVEN. WILL CONTINUE TO MONITOR FOR NEEDS.
[2019-05-16 00:29] VITALS: BP 126/60
[2019-05-16 05:30] VITALS: BP 131/68
[2019-05-16 07:12] LABS: BASOPHILS 0.2 % (0-2); EOSINOPHILS 0 % (0-7); HEMATOCRIT 33.5 % (42.0-54.0); HEMOGLOBIN 10.6 g/dL (13.5-17.5); IMMATURE GRANULOCYTES 1.7 % (0-5); MCH 27.1 pg (26.0-34.0); MCHC 31.6 g/dL (31.0-37.0); MCV 85.7 fL (80.0-100.0); MEAN PLATELET VOLUME 8.2 fL (7.4-10.4); MONOCYTES 8.7 % (2-11); NEUTROPHILS 80.4 % (40-80); PLATELET COUNT 561 10x3/uL (130-400); RBC 3.91 10x6/uL (4.20-6.10); RDW 13.7 % (11.5-14.5); WBC 11.6 10x3/uL (4.8-10.8)
[2019-05-16 07:24] LABS: CALC OSMOLALITY 282 mosm/kg (275-300); CALCIUM 9.2 mg/dL (8.5-10.1); CARBON DIOXIDE 29.6 mmol/L (21.0-32.0); CHLORIDE - SERUM 103 mmol/L (98-107); CREATININE - SERUM 0.8 mg/dL (0.6-1.3); GLUCOSE 137 mg/dL (74-106); POTASSIUM - SERUM 4.6 mmol/L (3.5-5.1); SODIUM 140 mmol/L (136-145); UREA NITROGEN 18 mg/dL (7-18); eGFR NON AFRICAN AMERICAN > 90 mL/min (90-120)
--- NOTE | 2019-05-16 07:30 | NUR ---
AWAKE AND ALERT. ORIENTED X3. NO C/O AT THIS TIME. LUNGS ARE CLEAR BUT DIMINISHED IN LEFT SIDE. PRODUCTIVE COUGH NOTED. SKIN IS INTACT WTIHOUT REDNESS EXCEPT INCISION TO LEFT HIP WHICH IS CLEAN DRY AND WELL APPROXIMATED WITH CLIPS INTACT. IV TO LEFT FOREARM IS PATENT WTIHOUT REDNESS AT INSERTION SITE. DENIES NEEDS.
--- NOTE | 2019-05-16 08:18 | NUR ---
REQUESTED AND GIVEN ONE PERCOCET PO FOR C/O LEFT HIP PAIN LEVEL 7. WILL MONITOR.
[2019-05-16 09:06] VITALS: BP 119/74
--- NOTE | 2019-05-16 09:47 | NUR ---
ATE MOST OF BREAKFAST. KENALOG APPLIED TO RASH ON BACK. APPEARS TO BE DRYING AND LESS ANGRY LOOKING. WILL MONITOR.
--- NOTE | 2019-05-16 10:59 | NUR ---
AMBULATED IN HALLWAY WITH PT USING RW. DENIES NEEDS. UP IN CHIAR AT BEDSIDE.
--- NOTE | 2019-05-16 11:41 | NUR ---
REHAB NOTE - Patient chart reviewed. Dr. Luis notes that patient is not to be discharged to Rehab at this time. Rehab will continue to follow.
--- NOTE | 2019-05-16 12:06 | NUR ---
REQUESTED AND GIVEN ONE PERCOCET PO FOR C/O LEFT HIP PAIN LEVEL 8. WILL MONITOR.
--- NOTE | 2019-05-16 12:40 | NUR ---
SITTING UP ON SIDE OF BED EATING LUNCH. DENIES NEEDS.
[2019-05-16 16:12] VITALS: BP 110/61
--- NOTE | 2019-05-16 18:26 | NUR ---
ATE LESS THAN HALF OF DINNER TRAY. DENIES NEEDS. NO CHANGES NOTED.
--- NOTE | 2019-05-16 19:00 | NUR ---
BEDSIDE REPORT RECEIVED AND CARE OF PT ASSUMED. PT LYING IN SUPINE POSITION WATCHING TV. IV TO LEFT FA SALINE LOCKED. PT ASKING TO TAKE SHOWER TONIGHT. O2 IN USE VIA NC AT 4L HIGH FLOW NC. WILL MONITOR FOR NEEDS.
[2019-05-16 19:30] VITALS: BP 108/63
--- NOTE | 2019-05-16 20:30 | NUR ---
PT ASSISTED WITH TAKING SHOWER, AND ALL BEDDING AND GOWN CHANGED. APPLIED HS DOSE OF KENALOG CREAM TO BACK RASH.
--- NOTE | 2019-05-16 20:59 | NUR ---
HS MEDICATIONS GIVEN TO INCLUDE PERCOCET PO PER REQUEST FOR PAIN. WILL CONTINUE TO MONITOR FOR NEEDS.
[2019-05-17 00:30] VITALS: BP 134/63
[2019-05-17 05:26] LABS: BASOPHILS 0.2 % (0-2); EOSINOPHILS 0 % (0-7); HEMATOCRIT 33.3 % (42.0-54.0); HEMOGLOBIN 10.5 g/dL (13.5-17.5); IMMATURE GRANULOCYTES 4.7 % (0-5); LYMPHOCYTES 9.5 % (15-50); MCH 27.2 pg (26.0-34.0); MCHC 31.5 g/dL (31.0-37.0); MCV 86.3 fL (80.0-100.0); MEAN PLATELET VOLUME 8.3 fL (7.4-10.4); MONOCYTES 7.5 % (2-11); NEUTROPHILS 78.1 % (40-80); PLATELET COUNT 561 10x3/uL (130-400); RBC 3.86 10x6/uL (4.20-6.10); RDW 13.9 % (11.5-14.5); WBC 12.7 10x3/uL (4.8-10.8)
[2019-05-17 05:31] VITALS: BP 134/70
[2019-05-17 06:15] LABS: CALC OSMOLALITY 283 mosm/kg (275-300); CALCIUM 8.6 mg/dL (8.5-10.1); CARBON DIOXIDE 27.7 mmol/L (21.0-32.0); CHLORIDE - SERUM 103 mmol/L (98-107); CREATININE - SERUM 0.8 mg/dL (0.6-1.3); GLUCOSE 153 mg/dL (74-106); MAGNESIUM - SERUM 1.8 mg/dL (1.8-2.4); POTASSIUM - SERUM 4.2 mmol/L (3.5-5.1); SODIUM 140 mmol/L (136-145); UREA NITROGEN 18 mg/dL (7-18); eGFR NON AFRICAN AMERICAN > 90 mL/min (90-120)
--- NOTE | 2019-05-17 07:57 | NUR ---
ALERT AND ORIENTED. LUNGS CLEAR BILATERALLY. HEART SOUNDS S1 AND S2 HEARD IN ALL BRUSH. BOWEL SOUNDS ACTIVE X 4. RASH NOTED TO BACK. PATIENT STATES IS CHRONIC. KENALOG CREAM ON JUL. DENIES NEEDS. BED LOW. CALL FARRIS AND PERSONAL ITEMS IN REACH. WILL CONTINUE TO MONITOR.
[2019-05-17 08:14] VITALS: BP 124/73
--- NOTE | 2019-05-17 10:31 | NUR ---
RESTING IN BED. DENIES NEEDS. WILL CONTINUE TO MONITOR.
--- NOTE | 2019-05-17 11:23 | MORECARE ---
CASE MANAGEMENT DISCHARGE SUMMARY PATIENT: KONRAD ROSENBERG UNIT: [id number] ADM DATE: 05/12/19 AGE: 63 : 55 SEX: M ROOM/BED: D.2230 AUTHOR: MIKO EPPERSON PHYSICIAN: REFERRING PHYSICIAN: AYAAN ANDERSON MD DATE OF SERVICE: 05/17/19 Discharge Plan Patient Name: KONRAD ROSENBERG Facility: [facility]:[place] : 1955 Planned Disposition: Inpatient Rehab Anticipated Discharge Date: Discharge Date: Expected LOS: Initial Reviewer: [email or web address] Initial Review Date: 05/12/2019 Generated: 05/17/19 12:22 pm Comments DCP- Discharge Planning Updated by [email or web address]: Chelo Casarez on 05/17/19 10:[address] PATIENT TO DISCHARGE TO INPATIENT REHAB TODAY AT [facility] TO COMPLETE HIS PT. IMM SERVED AND EXPLAINED. AT BEDSIDE. PATIENT IS READY TO GO DOWN STAIRS DCP- Discharge Planning Updated by [id number]: Chelo Casarez on 05/14/19 9:[address] Patient Name: KONRAD ROSENBERG Admission Status: Elective Accout number: [id number] Admission Date: 05-12-2019 : 1955 Admission Diagnosis:SEPSIS, UNSPECIFIED ORGANISM Attending: TEREZA ANDERSON Current LOS: 2 Anticipated DC Date: Planned Disposition: Inpatient Rehab Primary Insurance: MEDICARE A & B Discharge Planning Comments: CM met with patient to complete initial dc planning assessment. CM educated patient on the CM role and verbal consent given by patient to complete assessment. Patient lives at home with his girlfriend. He was currently admitted in [facility] Inpatient rehab, and plans to return there at [place]. When discharged from inpatient rehab patient plans to return home and feels this is a safe discharge. CM discussed availability medical equipment. Patient has a walker, home o2 and nebulizer from [facility]. LELA was signed for both inpatient rehab and [facility]. Patient denied known discharge needs at this time. CM will continue to follow and will assist as needed with dc plans/needs. Inspector Printed Circuit Boards: Chelo Casarez DCPIA - Discharge Planning Initial Assessment Updated by [email or web address]: Chelo Casarez on 05/14/19 10:48 am * Is the patient Alert and Oriented? Yes * PCP JS * Pharmacy [facility] * Preadmission Environment Home with Family * ADLs Independent * Equipment Nebulizer Oxygen Walker * List name and contact numbers for known caregivers / representatives who currently or will assist patient after discharge: HAN * Verbal permission to speak to the caregivers and representatives has been obtained from the patient. N/A * Community resources currently utilized None * Additional services required to return to the preadmission environment? Yes * Can the patient safely return to the preadmission environment? No * Has this patient been hospitalized within the prior 30 days at any hospital? Yes Coverage Notice Reviewer: [id number] Mikayla Casarez Notice Issued Date-Time: 05/14/2019 8:45 Notice Type: Patient Choice Letter Notice Delivered To: Patient Relationship to Patient: Assembler [employer]aterp[employer] Spider Name: Delivery Method: HAND - Hand Delivered Martha Days: Prior Verbal Notification: Recipient Understood Notice: Yes Recipient Signature: Yes Med Rec Note Co-signed by Attending: Coverage Notice Comment: lela anguiano and inpatient rehab at [facility] Reviewer: [email or web address] Mikayla Casarez Notice Issued Date-Time: 05/17/2019 11:15 Notice Type: IM Discharge Notice Notice Delivered To: Patient Relationship to Patient: Assembler [employer] Spider Name: Delivery Method: HAND - Hand Delivered Martha Days: Prior Verbal Notification: Recipient Understood Notice: Yes Recipient Signature: Yes Med Rec Note Co-signed by Attending: Coverage Notice Comment: Last DP export: 05/14/19 9:59 Patient Name: KONRAD ROSENBERG Page 32377 at 1123 All edits/amendments must be made on the electronic document DICTATION DATE: 05/17/191121 X RAY TECHNICIAN: ANNY 05/17/191121 RPT#: [id number] DC DATE: STATUS: ADM IN [facility] [address] [place] [address] END OF REPORT
[2019-05-17 12:51] VITALS: BP 137/89
--- NOTE | 2019-05-17 13:45 | NUR ---
OT NOTE: PT ABLE TO AMB TO AND FROM BATHROOM WITH WALKER AND CGA; HYGIENE WITH SBA; GROOMING WITH SET UP; MOD ASSIST WITH LE DRESSING. PT EAGER TO RETURN TO IP REHAB IN ORDER TO IMPROVE AND RETURN HOME. EDUCATION ON SAFETY WITH WALKER MGMT WHILE MANEUVERING IN SMALL SPACES. PT REPORTS FEELING MUCH BETTER. ZULEIKA COBURN, OTR/L
--- NOTE | 2019-05-17 13:59 | NUR ---
CANNOT HANG VANC AT THIS TIME D/T 3 HOUR MERREM STILL RUNNING. DARION REYNA INFORMED THAT BED AVAILABLE IN REHAB FOR PATIENT BUT NO DC ORDER IN.
--- NOTE | 2019-05-17 14:30 | NUR ---
OT NOTE: PT DOING WELL AND EXHIBITED INCREASD FUNCTIONAL ABILITY. PT COMPLETED UB HYGIENE TASKS AT EOB WITH SET UP. PT COMPLETED ADL MOB WITH RW WITH CGA. PT COMPLETED BUE AROM AXS. [phone] THANK YOU, WILLIAM FONTAINE
[2019-05-17] MEDS ORDERED: MERREM 1 GM/NS 11 G1 IV (15:45)
[2019-05-17] MEDS ORDERED: PULMICORT0.5 MG/21 UPD (15:46)
[2019-05-17] MEDS ORDERED: VANCOMYCIN 1 GM/1 G1 IV (15:46)
[2019-05-17] MEDS ORDERED: MUCINEX600 MG PO (15:46)
[2019-05-17] MEDS ORDERED: TESSALON PERLE100 MG PO (15:47)
[2019-05-17] MEDS ORDERED: PREDNISONE10 MG PO (15:48)
--- NOTE | 2019-05-17 15:56 | NUR ---
TIME ADJUSTED FOR VANCOMYCIN D/T INTERFERENCE WITH 3 HOUR MERREM.
--- NOTE | 2019-05-17 16:14 | NUR ---
DR COBB PAGED TO SEE IF NEED TO REMOVED NOHELIA FROM LEFT HIP PRIOR TO DC TO REHAB.
--- NOTE | 2019-05-17 16:30 | NUR ---
SPOKE WITH JL ORLANDO WHO STATES REMOVE NOHELIA PRIOR TO DC TO REHAB.
--- NOTE | 2019-05-17 16:40 | NUR ---
DISCHARGE EDUCATION PROVIDED BOTH WRITTEN AND VERBAL. VERBALIZED UNDERSTANDING. DENIES FURTHER QUESTIONS. 11 NOHELIA REMOVED FROM LEFT HIP. REPORT CALLED TO [facility] IN REHAB. DENIES QUESTIONS. WILL TRANSFER TO REHAB UNIT.
--- NOTE | 2019-05-21 13:22 | MORECARE ---
CASE MANAGEMENT DISCHARGE SUMMARY PATIENT: KONRAD ROSENBERG UNIT: [id number] ADM DATE: 05/12/19 AGE: 63 : 55 SEX: M ROOM/BED: D.2230 AUTHOR: MIKO EPPERSON PHYSICIAN: REFERRING PHYSICIAN: AYAAN ANDERSON MD DATE OF SERVICE: 05/21/19 Discharge Plan Patient Name: KONRAD ROSENBERG Facility: [facility]:[place] : 1955 Planned Disposition: Inpatient Rehab Anticipated Discharge Date: Discharge Date: 05/17/2019 Expected LOS: 0 Initial Reviewer: [email or web address] Initial Review Date: 05/12/2019 Generated: 05/21/19 2:21 pm Comments DCP- Discharge Planning Updated by [id number]: Chelo Casarez on 05/17/19 10:[address] PATIENT TO DISCHARGE TO INPATIENT REHAB TODAY AT [facility] TO COMPLETE HIS PT. IMM SERVED AND EXPLAINED. AT BEDSIDE. PATIENT IS READY TO GO DOWN STAIRS DCP- Discharge Planning Updated by [email or web address]: Chelo Casarez on 05/14/19 9:[address] Patient Name: KONRAD ROSENBERG Admission Status: Elective Accout number: [id number] Admission Date: 05-12-2019 : 1955 Admission Diagnosis:SEPSIS, UNSPECIFIED ORGANISM Attending: TEREZA ANDERSON Current LOS: 2 Anticipated DC Date: Planned Disposition: Inpatient Rehab Primary Insurance: MEDICARE A & B Discharge Planning Comments: CM met with patient to complete initial dc planning assessment. CM educated patient on the CM role and verbal consent given by patient to complete assessment. Patient lives at home with his girlfriend. He was currently admitted in [facility] Inpatient rehab, and plans to return there at [place]. When discharged from inpatient rehab patient plans to return home and feels this is a safe discharge. CM discussed availability medical equipment. Patient has a walker, home o2 and nebulizer from [facility]. LELA was signed for both inpatient rehab and [facility]. Patient denied known discharge needs at this time. CM will continue to follow and will assist as needed with dc plans/needs. Chief Console Operator: Chelo Casarez DCPIA - Discharge Planning Initial Assessment Updated by [email or web address]: Chelo Casarez on 05/14/19 10:48 am * Is the patient Alert and Oriented? Yes * PCP JS * Pharmacy [facility] * Preadmission Environment Home with Family * ADLs Independent * Equipment Nebulizer Oxygen Walker * List name and contact numbers for known caregivers / representatives who currently or will assist patient after discharge: HAN * Verbal permission to speak to the caregivers and representatives has been obtained from the patient. N/A * Community resources currently utilized None * Additional services required to return to the preadmission environment? Yes * Can the patient safely return to the preadmission environment? No * Has this patient been hospitalized within the prior 30 days at any hospital? Yes Coverage Notice Reviewer: [email or web address] Mikayla Casarez Notice Issued Date-Time: 05/14/2019 8:45 Notice Type: Patient Choice Letter Notice Delivered To: Patient Relationship to Patient: Vinegar Maker Name: Delivery Method: HAND - Hand Delivered Martha Days: Prior Verbal Notification: Recipient Understood Notice: Yes Recipient Signature: Yes Med Rec Note Co-signed by Attending: Coverage Notice Comment: lela anguiano and inpatient rehab at [facility] Reviewer: [email or web address] Mikayla Casarez Notice Issued Date-Time: 05/17/2019 11:15 Notice Type: IM Discharge Notice Notice Delivered To: Patient Relationship to Patient: Vinegar Maker Name: Delivery Method: HAND - Hand Delivered Mratha Days: Prior Verbal Notification: Recipient Understood Notice: Yes Recipient Signature: Yes Med Rec Note Co-signed by Attending: Coverage Notice Comment: Last DP export: 05/17/19 10:23 Patient Name: KONRAD ROSENBERG Page 70395 at 1322 All edits/amendments must be made on the electronic document DICTATION DATE: 05/21/19 1321 MANAGER SERVICE DESK: ANNY 05/21/19 1321 RPT#: [id number] DC DATE:05/17/19 STATUS: DIS IN [facility] [address] [place] [address] END OF REPORT
== END 2019-05-17 17:01 | DRG 871 ==
LOC: D.MS 23:38
PROVIDERS: Internal Medicine Nephrology; ADMIT Emergency Medicine; ATTEND Emergency Medicine
DX: A41.9 Sepsis, unspecified organism (principal); J18.9 Pneumonia, unspecified organism; J96.21 Acute and chronic respiratory failure with hypoxia; J44.1 Chronic obstructive pulmonary disease with (acute) exacerbation; J44.0 Chronic obstructive pulmonary disease with (acute) lower respiratory infection; E87.1 Hypo-osmolality and hyponatremia; N17.9 Acute kidney failure, unspecified; Z99.81 Dependence on supplemental oxygen; Q82.8 Other specified congenital malformations of skin; I95.9 Hypotension, unspecified; D50.9 Iron deficiency anemia, unspecified

== ENCOUNTER 2019-05-17 13:03 | Inpatient (IN) | payer MEDICARE ==
[~2019-05-17] VITALS: Ht 177.8 cm; Wt 81.6 kg
[~2019-05-17 13:03] MED LIST changes: +LUNESTA1 MG PO
[2019-05-17] MEDS ORDERED: MERREM 1 GM/NS 11 G1 IV (15:45)
[2019-05-17] MEDS ORDERED: VANCOMYCIN 1 GM/1 G1 IV (15:46)
[2019-05-17] MEDS ORDERED: MUCINEX600 MG PO (15:46)
[2019-05-17] MEDS ORDERED: PULMICORT0.5 MG/21 UPD (15:46)
[2019-05-17] MEDS ORDERED: TESSALON PERLE100 MG PO (15:47)
[2019-05-17] MEDS ORDERED: PREDNISONE10 MG PO (15:48)
--- NOTE | 2019-05-17 19:00 | NUR ---
BEDSIDE REPORT COMPLETE. PT SITTING UP IN BED WATCHING TV. LEFT FOREARM IV INFUSING VANCOMYCIN 167ML/HR. NO SIGNS OF INFILTRATION NOTED. DRESSING C/D/I. CL IN REACH. FALL PRECAUTIONS IN PLACE. WILL CONTINUE TO MONITOR
[2019-05-17 21:14] VITALS: BP 131/64
[2019-05-17 23:52] VITALS: BP 131/64; BMI 25.8
--- NOTE | 2019-05-18 00:43 | NUR ---
QUIET HOURS. PT LYING IN BED WATCHING TV. DENIES ANY NEEDS OR PAIN. RR EVEN AND UNLABORED. CL IN REACH
--- NOTE | 2019-05-18 03:47 | NUR ---
PT LYING IN BED EYES CLOSED RESTING. RR EVEN AND UNLABORED. CL IN REACH.
--- NOTE | 2019-05-18 05:48 | NUR ---
PT SITTING UP IN BED VISITING WITH ROOMMATE. DENIES ANY NEEDS OR PAIN. LEFT FOREARM INFUSING MERREM 100ML/HR. NO SIGNS OF INFILTRATION NOTED. CL IN REACH
[2019-05-18 06:38] LABS: CALC OSMOLALITY 280 mosm/kg (275-300); CALCIUM 9.1 mg/dL (8.5-10.1); CARBON DIOXIDE 30.5 mmol/L (21.0-32.0); CHLORIDE - SERUM 103 mmol/L (98-107); CREATININE - SERUM 0.8 mg/dL (0.6-1.3); GLUCOSE 105 mg/dL (74-106); SODIUM 140 mmol/L (136-145); UREA NITROGEN 17 mg/dL (7-18); eGFR NON AFRICAN AMERICAN > 90 mL/min (90-120)
[2019-05-18 06:55] LABS: HEMATOCRIT 35.5 % (42.0-54.0); HEMOGLOBIN 11.2 g/dL (13.5-17.5); MCH 27.3 pg (26.0-34.0); MCHC 31.5 g/dL (31.0-37.0); MCV 86.6 fL (80.0-100.0); MEAN PLATELET VOLUME 8.3 fL (7.4-10.4); PLATELET COUNT 553 10x3/uL (130-400); RDW 14.1 % (11.5-14.5); WBC 11.7 10x3/uL (4.8-10.8)
--- NOTE | 2019-05-18 07:33 | NUR ---
PT RESTING IN BED WITH EYES OPEN CALL LIGHT IN REACH WILL MONITER
[2019-05-18 09:35] LABS: LYMPHOCYTES 21 % (15-50); MONOCYTES 14 % (2-11); NEUTROPHILS 62 % (40-80)
[2019-05-18 09:36] LABS: ANISOCYTOSIS OCC; PLATELET ESTIMATE INCREASED
--- NOTE | 2019-05-18 13:17 | NUR ---
CARE TEAM MEETING: PATIENT IS NEW TO UNIT AND WILL BE RA AT NEXT MEETING. WILL CONTINUE TO FOLLOW WITH PATIENT.
[2019-05-18 13:59] VITALS: Ht 177.8 cm; Wt 81.6 kg
--- NOTE | 2019-05-18 18:15 | NUR ---
PT RESTING IN BED WITH EYES OPEN WATCHING TV CALL LIGHT IN REACH WILL MONITER
--- NOTE | 2019-05-18 19:42 | NUR ---
PATIENT RECEIVED SITTING UP IN BED. ASSESSMENT & VITAL SIGNS DONE. NO C/O PAIN OR DISTRESS. BED LOW. CALL LIGHT WIHTIN REACH. ALARM ON. WILL CONTINUE TO MONITOR.
[2019-05-18 21:13] VITALS: BP 127/65
--- NOTE | 2019-05-19 00:22 | NUR ---
I have reviewed this patient and I concur with the Shift Assessment completed by the Licensed Practical Nurse today this shift.
--- NOTE | 2019-05-19 04:29 | NUR ---
PATIENT AWAKE. IV CATHETER FLUSHED & IS PATENT. VANCOMYCIN IV STARTED. BED LOW. CALL LIGHT WITHIN REACH. WILL CONTINUE TO MONITOR.
[2019-05-19 06:17] LABS: BASOPHILS 0.1 % (0-2); EOSINOPHILS 1.2 % (0-7); HEMOGLOBIN 11.1 g/dL (13.5-17.5); LYMPHOCYTES 27.2 % (15-50); MCH 27.3 pg (26.0-34.0); MCHC 31.7 g/dL (31.0-37.0); MCV 86.2 fL (80.0-100.0); MEAN PLATELET VOLUME 8.6 fL (7.4-10.4); MONOCYTES 13.7 % (2-11); NEUTROPHILS 50.8 % (40-80); PLATELET COUNT 557 10x3/uL (130-400); RBC 4.06 10x6/uL (4.20-6.10); RDW 14.4 % (11.5-14.5); WBC 10.4 10x3/uL (4.8-10.8)
[2019-05-19 06:29] LABS: CALC OSMOLALITY 280 mosm/kg (275-300); CALCIUM 8.8 mg/dL (8.5-10.1); CARBON DIOXIDE 30.2 mmol/L (21.0-32.0); CHLORIDE - SERUM 102 mmol/L (98-107); CREATININE - SERUM 0.8 mg/dL (0.6-1.3); GLUCOSE 114 mg/dL (74-106); POTASSIUM - SERUM 3.6 mmol/L (3.5-5.1); SODIUM 139 mmol/L (136-145); UREA NITROGEN 17 mg/dL (7-18); eGFR NON AFRICAN AMERICAN > 90 mL/min (90-120)
[2019-05-19 08:00] VITALS: BP 145/85
--- NOTE | 2019-05-19 08:00 | NUR ---
PT IN THERAPY GYM EATING BREAKFAST WITH OT TOLERATING WELL WILL MONITER
--- NOTE | 2019-05-19 19:32 | NUR ---
REPORT RECIEVED AND ROUNDING COMPLETE. PATIENT IS LAYING IN LOW FOWLERS POSITION. PAITENT IS WEAR NASAL CANNULA WITH 02 AT 2L. PATIENT HAS A LEFT FOREARM PIV. DAY NURSE ASKED ME TO DC BECAUSE HE NO LONGER HAS IV ABX. WILL DO THIS. PATIENT HAS A FRIEND AT BEDSIDE, PATIENT STATES HE HAS NO NEEDS AT THIS TIME. CALL LIGHT WITHIN REACH AND BED IN LOWEST LOCKED POSITION. PATIENT SHOWS NO S/SX OF DISTRESS AT THIS TIME. WILL CONTINUE TO MONITOR.
[2019-05-19 21:08] VITALS: BP 129/63
--- NOTE | 2019-05-19 21:16 | NUR ---
PIV REMOVED. CATH INTACTED NO BLEEDING NOTED. CALL LIGHT WITHIN REACH AND BED IN LOWEST LOCKED POSITION.
--- NOTE | 2019-05-19 21:32 | NUR ---
PATIENT ASKED FOR 2 VANILLA ICE CREAMS, GAVE THEM TO HIM. NO OTHER NEEDS AT THIS TIME. CALL LIGHT WITHIN REACH AND EBD IN LOWEST LOCKED POSITION.
--- NOTE | 2019-05-20 00:25 | NUR ---
I have reviewed this patient and I concur with the Shift Assessment completed by the Licensed Practical Nurse today this shift.
--- NOTE | 2019-05-20 06:25 | NUR ---
ASSISTED PATIENT WITH TAKING A SHOWER THIS MORNING. CHANGED LINENS, WHOLE BED. PATIENT BACK INTO BED AND RESTLIGN COMFORTABLY.
--- NOTE | 2019-05-20 07:32 | NUR ---
REPORT RECIEVED. PT SITTING UP IN BED. RR EVEN AND UNLABROED ON 2L NC. BED LOCKED AND IN LOWEST POSITION, CALL LIGHT WITHIN REACH. WILL CTM
[2019-05-20 08:00] VITALS: BP 125/70
[2019-05-20] MEDS ORDERED: PERCOCET 10-321 EAC1 PO (08:56)
[2019-05-20] MEDS ORDERED: PREDNISONE20 MG PO (08:58)
--- NOTE | 2019-05-20 08:59 | RHP ---
PATIENT: KONRAD ROSENBERG MEDICAL RECORD: [id number] ACCOUNT: [id number] LOCATION:[facility] : 55 ADMISSION DATE: 05/17/19 REHABILITATION HISTORY AND PHYSICAL EXAMINATION POST ADMISSION PHYSICIAN EXAMINATION DATE OF ADMISSION: 05/17/2019 ADMITTING DIAGNOSIS: Chronic obstructive pulmonary disease exacerbation. HISTORY OF PRESENT ILLNESS: The patient is a 63-year-old gentleman. 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 He presented to the ER with complaints of nausea and vomiting since Thanksgiving in left hip and leg pain, belly discomfort, weight loss. He was admitted to the rehab unit on 05/05/2019, but was discharged to [facility] after declining and pulmonary function on 05/12/2019. On 04/20/2019, he had an EGD that revealed severe erosive esophagitis with ulcerations, multiple superficial esophageal ulcerations. He had esophageal stenosis at his GE junction. He is a former use of tobacco use. He quit about 4 years ago, got a history of dysphagia. He currently required increased oxygen requirements. He is on IV Solu-Medrol, IV antibiotics, decondition, weakness, debility, impaired mobility, gait disturbance, acute pain, high fall risk and self-care deficits. These are all barriers to his discharge home. Prior to this recent surgery, he was living independently with a girlfriend who is disabled. He will not be able to care for him and that is also a barrier to his discharge. He is currently set up for max assist for ADLs, mod to max assist for mobility. He has been seen in the rehab previously with a right hip replacement, had very good outcome. He will require intensive therapy to get back to his prior level of functioning. COMORBIDITIES: In this patient include oropharyngeal dysphagia, microcytic anemia, pulmonary edema, pneumonia, COPD with exacerbation, chronic hypoxic respiratory failure, anemia, hyponatremia, Darier's disease, erosive esophagitis and ulcerations. He has got a history of gastritis, avascular necrosis, unexplained weight loss, esophageal stricture and gangrene. PAST MEDICAL HISTORY: Significant for allergy problems. He has had a history of dysphagia in the past. He has got a history of COPD, home O2 requirements, chronic pain, cataracts. PAST SURGICAL HISTORY: Includes colon surgery, cataract surgery, neck fusion. He has had a shoulder surgery, partial gastrectomy, right hip replaced, bilateral wound debridement and left leg cancer removed. ALLERGIES: PENICILLIN AND ASPIRIN. CURRENT MEDICATIONS: Include vitamin D, he is on 50,000 units weekly. He is on Floranex 460 mg daily, prednisone 40 mg daily. He is on Protonix 40 mg b.i.d. He is on vancomycin. He is on triamcinolone ointment as needed, Carafate 1 gm before every meal and at bedtime, Singulair 10 mg at bedtime, Merrem 1 gm every 8 hours. He is on Mucinex 1200 mg b.i.d., Neurontin 300 mg q.i.d., Lunesta 3 mg at bedtime, Tessalon Perles 100 mg t.i.d., Eliquis 2.5 mg b.i.d. He is on budesonide 0.5 mg b.i.d., albuterol updrafts q.i.d., Zanaflex 4 mg every 6 hours p.r.n., Percocet 10/325 one tab every 4 hours p.r.n., Zofran ODT 4 mg every 6 hours p.r.n., Flonase nasal spray 1 spray b.i.d., and polyethylene glycol 17 HISTORY AND PHYSICAL [id number] KONRAD ROSENBERG grams in 8 ounces of water daily. HABITS: No current alcohol or tobacco use, quit smoking approximately 4 years ago. FAMILY HISTORY: Noncontributory. SOCIAL HISTORY: The patient hopes to return back home and get back to his prior level of functioning. REVIEW OF SYSTEMS: GENERAL: Does complain of some weakness and fatigue. HEENT: Denies cold, cough, or congestion. CARDIOVASCULAR: He denies any chest pain. PHYSICAL EXAMINATION: VITAL SIGNS: Stable, afebrile. GENERAL: A well-developed elderly gentleman in no acute distress, alert upon exam. HEENT: Normocephalic and atraumatic. Mucosa moist. NECK: Supple, with no lymphadenopathy. LUNGS: Decreased breath sounds bilaterally with decreased air movement appreciated. CARDIOVASCULAR: Regular rate and rhythm. He does have a holosystolic murmur. ABDOMEN: Soft, benign, and nondistended. Positive bowel sounds times 4. EXTREMITIES: No clubbing, cyanosis or edema. NEUROLOGIC: He does have noted proximal muscle weakness. LABORATORY DATA: White count 11.7, H&H of 11 and 35, and platelet count is 553. His sodium is 140, potassium 4.0, BUN and creatinine of 17 and 0.8 and blood sugar is noted to be 105. ASSESSMENT: This is a 63-year-old gentleman admitted to the rehab with a working diagnosis of exacerbation of chronic obstructive pulmonary disease with need for IV antibiotics. The patient has potential to make improvement. We instituted the following multidisciplinary therapies including, but not limited to physical, occupational, respiratory, speech, nutritional services, prosthetics and orthotics. Given his complex medical condition and risk for more complications, rehabilitation services cannot be provided at a low level of care such as senior care facility. PLAN: 1. Admit to [facility] for intensive inpatient therapy to include the following disciplines; A. Physical therapy to improve gait, all transfer skills and bed mobility to a modified independent level. B. Occupational therapy to improve daily living to an independent level. C. Case management to assist with discharge planning and placement options. D. Nutrition to assist with nutritional needs. E. Rehabilitation nursing to assist in monitoring the patient's underlying medical conditions and to assist with any type of bowel or bladder management. 2. The patient's current medication and medical care will be continued. 3. The patient will be placed on standard fall precautions. 4. The patient's estimated length of stay is approximately 7-10 days. 5. We will discuss the patient during care team staff meeting at 9 this HISTORY AND PHYSICAL [id number] KONRAD ROSENBERG [facility]. TRANSINT:[id number] Voice Confirmation ID: [id number] DOCUMENT ID: [id number] JELLY notes whether there has been none or any medical/functional change since admission: - No change since prescreen. JELLY attests patient continues to be appropriate for IRF: - Continues to be appropriate. AYAAN ANDERSON MD at 0859 CC: [id number] DICTATION DATE: 05/18/19 0902 NURSE PRACTITIONER PHYSICIAN ASSISTANT: 05/18/19 1058 ADM IN [facility] [id number] [place] [address]
--- NOTE | 2019-05-20 10:55 | NUR ---
PATIENT DSICHARGING HOME TODAY WITH FAMILY. PATIENT DECLINES HOME HEALTH AT THIS TIME. NO NEW DME NEEDED. DR. WEINSTEIN 05/27/19 @ 10:00, DR. GOODMAN 07/06/19 @ 1:00. PATIENT CHOICE FORM DECLINING HOME HEALTH SIGNED, AND [facility]FM FORMS SIGNED, COPY GIVEN TO PATIENT AND FILED IN CHART. DISCHARGE INSTRUCTIONS FAXED TO PCP AND REVIEWED WITH PATIENT.
--- NOTE | 2019-05-20 12:16 | NUR ---
DC PAPERWORK GONE OVER AND SIGNED WITH PT. ALL QUESTIONS ANSWERED. MEDICATIONS CALLED INTO [facility] AT THIS TIME. PT GIVEN PAPER SCRIPT FOR NORCO AND PREDNISONE. ALL VALUBLES REMOVED FROM ROOM AND PT TAKIN TO FRONT ENTRANCE VIA WHEELCHAIR.
== END 2019-05-20 12:18 | disposition home or self-care (01) | DRG 190 ==
LOC: D.REHAB 13:03
PROVIDERS: ADMIT Emergency Medicine; ATTEND Emergency Medicine
DX: J44.1 Chronic obstructive pulmonary disease with (acute) exacerbation (principal); J18.9 Pneumonia, unspecified organism; A41.9 Sepsis, unspecified organism; J96.21 Acute and chronic respiratory failure with hypoxia; J81.1 Chronic pulmonary edema; E87.1 Hypo-osmolality and hyponatremia; K22.10 Ulcer of esophagus without bleeding; N17.9 Acute kidney failure, unspecified; R13.12 Dysphagia, oropharyngeal phase; D50.9 Iron deficiency anemia, unspecified; F41.9 Anxiety disorder, unspecified; R53.81 Other malaise; R53.1 Weakness; I95.9 Hypotension, unspecified

== ENCOUNTER 2019-07-27 16:51 | Inpatient (IN) | payer MEDICARE ==
[~2019-07-27] VITALS: Ht 177.8 cm; Wt 79.1 kg
[~2019-07-27 16:51] MED LIST changes: +MERREM 1 GM/NS 11 G1 IV; +PREDNISONE10 MG PO; +PREDNISONE20 MG PO; +PULMICORT0.5 MG/21 UPD; +VANCOMYCIN 1 GM/1 G1 IV
--- NOTE | 2019-07-27 17:40 | NUR ---
ARRIVES TO ROOM VIA WHEELCHAIR FROM ADMISSIONS. ALERT AND ORIENTED X4. AMBULATES TO BED GAIT STEADY. REFUSE SCDs DUE TO LT LEG PAIN 10/26. DARION LOVELACE NOTIFIED. NO SIGNS OF DISTRESS. O2 @ 2L. CONTINUE ADMISSION PROCESS AND SAFETY PRECAUTIONS. SUPPLIES FOR UA AT BEDSIDE.
[2019-07-27] MEDS ORDERED: HYDROCODON-ACE1 EA10 PO (17:46)
[2019-07-27 18:17] LABS: BASOPHILS 0.3 % (0-2); EOSINOPHILS 1.5 % (0-7); HEMATOCRIT 38.6 % (42.0-54.0); HEMOGLOBIN 12.5 g/dL (13.5-17.5); IMMATURE GRANULOCYTES 0.3 % (0-5); LYMPHOCYTES 16.2 % (15-50); MCH 27.5 pg (26.0-34.0); MCHC 32.4 g/dL (31.0-37.0); MEAN PLATELET VOLUME 8.4 fL (7.4-10.4); MONOCYTES 8.6 % (2-11); NEUTROPHILS 73.1 % (40-80); RBC 4.54 10x6/uL (4.20-6.10); RDW 14.6 % (11.5-14.5); WBC 13.2 10x3/uL (4.8-10.8)
[2019-07-27 18:19] LABS: PLATELET COUNT 330 10x3/uL (130-400)
[2019-07-27 18:23] VITALS: BP 141/72; BMI 25.0
[2019-07-27 18:36] LABS: ALBUMIN 3.2 g/dL (3.4-5.0); ALKALINE PHOSPHATASE 86 U/L (30-120); ALT (SGPT) 11 U/L (10-68); BILIRUBIN - TOTAL 0.47 mg/dL (0.2-1.3); CALC OSMOLALITY 271 mosm/kg (275-300); CHLORIDE - SERUM 98 mmol/L (98-107); GLUCOSE 114 mg/dL (74-106); POTASSIUM - SERUM 3.6 mmol/L (3.5-5.1); PROTEIN - SERUM 7.6 g/dL (6.4-8.2); SODIUM 136 mmol/L (136-145); UREA NITROGEN 10 mg/dL (7-18); eGFR NON AFRICAN AMERICAN 80 mL/min (90-120)
--- NOTE | 2019-07-27 20:00 | NUR ---
PT IN BED, AAO X 3, RESP EVEN AND UNLABORED. SKIN WARM AND DRY TO TOUCH. URINE COLEECTED FOR UA, FLU A AND B COLLECTED AND SENT TO LAB, PT C/O LEFT HIP PAIN AT THIS TIME.
[2019-07-27 21:59] LABS: BILIRUBIN NEGATIVE (NEGATIVE); GLUCOSE NEGATIVE (NEGATIVE); KETONE NEGATIVE (NEGATIVE); NITRITE NEGATIVE (NEGATIVE); UROBILINOGEN NORMAL (NORMAL)
[2019-07-28 00:37] VITALS: BP 138/64
--- NOTE | 2019-07-28 01:38 | NUR ---
I have reviewed this patient and I concur with the Shift Assessment completed by the Licensed Practical Nurse today this shift.
[2019-07-28 05:30] LABS: BASOPHILS 0.2 % (0-2); EOSINOPHILS 0 % (0-7); HEMATOCRIT 38.8 % (42.0-54.0); HEMOGLOBIN 12.6 g/dL (13.5-17.5); IMMATURE GRANULOCYTES 0.2 % (0-5); LYMPHOCYTES 10.2 % (15-50); MCH 27.3 pg (26.0-34.0); MCHC 32.5 g/dL (31.0-37.0); MCV 84.2 fL (80.0-100.0); MEAN PLATELET VOLUME 8.6 fL (7.4-10.4); NEUTROPHILS 88.4 % (40-80); PLATELET COUNT 364 10x3/uL (130-400); RBC 4.61 10x6/uL (4.20-6.10); RDW 14.5 % (11.5-14.5)
[2019-07-28 05:49] LABS: APTT 37.3 SECONDS (22.8-39.4)
[2019-07-28 05:50] LABS: D-DIMER-QUANTITATIVE 0.82 ug/mLFEU (0.20-0.54)
[2019-07-28 05:55] LABS: CARBON DIOXIDE 28.3 mmol/L (21.0-32.0); CREATININE - SERUM 1.2 mg/dL (0.6-1.3); MAGNESIUM - SERUM 1.8 mg/dL (1.8-2.4)
[2019-07-28 06:01] VITALS: BP 129/66
[2019-07-28 06:06] LABS: POTASSIUM - SERUM 4.3 mmol/L (3.5-5.1)
--- NOTE | 2019-07-28 11:50 | NUR ---
PT MADE NPO FOR CT CHEST.
--- NOTE | 2019-07-28 11:56 | NUR ---
I have reviewed this patient and I concur with the Shift Assessment completed by the Licensed Practical Nurse today this shift.
[2019-07-28 12:01] VITALS: BP 131/67
--- NOTE | 2019-07-28 13:30 | NUR ---
SADAF VASCULAR ACCESS NURSE INSERTED. LEFT WRIST 20G IV.
--- NOTE | 2019-07-28 14:22 | NUR ---
PT WAS UNABLE TO DO CT SCAN BECAUSE HE WS TOO CLAUSTRAPHOBIC. PAGED DR. GOODMAN.
[2019-07-28 14:24] VITALS: BMI 24.9
[2019-07-28 15:00] VITALS: Ht 177.8 cm; Wt 79.1 kg
--- NOTE | 2019-07-28 15:00 | NUR ---
DR. GOODMAN STATES PT WILL GO FOR CT [facility] TOMORROW AND GET ATIVAN BEFORE HAND.
[2019-07-28 16:28] VITALS: BP 136/74
[2019-07-28 16:52] LABS: % SATURATION 8 % (15-55); IRON 30 ug/dl (35-150); TOTAL IRON BIND CAPACITY 343 ug/dl (260-445); UNSAT IRON BIND CAPACITY 313 ug/dl (150-375)
[2019-07-28 20:00] VITALS: BP 134/68
[2019-07-29 00:30] VITALS: BP 114/64
--- NOTE | 2019-07-29 03:31 | NUR ---
RESTING WITH EYES CLOSED, RESPERATIONS EVEN, NO S/S DISTRESS NOTED.
--- NOTE | 2019-07-29 03:35 | NUR ---
I have reviewed this patient and I concur with the Shift Assessment completed by the Licensed Practical Nurse today this shift.
[2019-07-29 04:00] VITALS: BP 125/71
[2019-07-29 05:54] LABS: CALC OSMOLALITY 284 mosm/kg (275-300); CALCIUM 9.1 mg/dL (8.5-10.1); CARBON DIOXIDE 26.7 mmol/L (21.0-32.0); CHLORIDE - SERUM 103 mmol/L (98-107); GLUCOSE 184 mg/dL (74-106); MAGNESIUM - SERUM 2.1 mg/dL (1.8-2.4); PHOSPHOROUS 2.8 mg/dL (2.5-4.9); POTASSIUM - SERUM 4.1 mmol/L (3.5-5.1); SODIUM 139 mmol/L (136-145); eGFR NON AFRICAN AMERICAN 80 mL/min (90-120)
[2019-07-29 06:00] LABS: BASOPHILS 0 % (0-2); EOSINOPHILS 0 % (0-7); HEMATOCRIT 38.2 % (42.0-54.0); IMMATURE GRANULOCYTES 0.3 % (0-5); LYMPHOCYTES 5.9 % (15-50); MCH 26.7 pg (26.0-34.0); MCHC 31.4 g/dL (31.0-37.0); MCV 85.1 fL (80.0-100.0); MEAN PLATELET VOLUME 8.7 fL (7.4-10.4); MONOCYTES 5.8 % (2-11); PLATELET COUNT 396 10x3/uL (130-400); RBC 4.49 10x6/uL (4.20-6.10); RDW 14.8 % (11.5-14.5); UREA NITROGEN 19 mg/dL (7-18)
[2019-07-29 06:01] LABS: WBC 11.6 10x3/uL (4.8-10.8)
[2019-07-29 09:35] VITALS: BP 116/58
[2019-07-29 13:42] VITALS: BP 132/69
[2019-07-29 18:32] VITALS: BP 143/67
[2019-07-29 20:00] VITALS: BP 147/64
[2019-07-30] VITALS: BP 145/80
--- NOTE | 2019-07-30 03:05 | NUR ---
I have reviewed this patient and I concur with the Shift Assessment completed by the Licensed Practical Nurse today this shift.
[2019-07-30 04:00] VITALS: BP 94/43
[2019-07-30 06:34] LABS: BASOPHILS 0.1 % (0-2); EOSINOPHILS 0 % (0-7); HEMATOCRIT 35.8 % (42.0-54.0); HEMOGLOBIN 11.5 g/dL (13.5-17.5); IMMATURE GRANULOCYTES 0.5 % (0-5); LYMPHOCYTES 3.7 % (15-50); MCH 27.5 pg (26.0-34.0); MCHC 32.1 g/dL (31.0-37.0); MCV 85.6 fL (80.0-100.0); MEAN PLATELET VOLUME 8.8 fL (7.4-10.4); NEUTROPHILS 88.7 % (40-80); PLATELET COUNT 398 10x3/uL (130-400); RBC 4.18 10x6/uL (4.20-6.10); RDW 15.1 % (11.5-14.5)
[2019-07-30 06:42] LABS: WBC 16.4 10x3/uL (4.8-10.8)
[2019-07-30 07:00] LABS: CALC OSMOLALITY 283 mosm/kg (275-300); CALCIUM 8.8 mg/dL (8.5-10.1); CARBON DIOXIDE 29.1 mmol/L (21.0-32.0); CHLORIDE - SERUM 105 mmol/L (98-107); CREATININE - SERUM 0.9 mg/dL (0.6-1.3); GLUCOSE 177 mg/dL (74-106); MAGNESIUM - SERUM 2.1 mg/dL (1.8-2.4); PHOSPHOROUS 2.8 mg/dL (2.5-4.9); POTASSIUM - SERUM 4.4 mmol/L (3.5-5.1); SODIUM 140 mmol/L (136-145); UREA NITROGEN 16 mg/dL (7-18); eGFR NON AFRICAN AMERICAN > 90 mL/min (90-120)
[2019-07-30 09:10] VITALS: BP 152/79
--- NOTE | 2019-07-30 12:30 | NUR ---
Nutrition Follow-up: Eating well. Diet: Cardiac PO intake: 75-100% Wt: 174# (07/28) Last BM: 07/29 Labs noted: Glu 177 Meds noted: Folate, Protonix, Carafate, Solumedrol -Glu remains elevated; may consider carb consistent diet. -Monitor wt; noted daily wts ordered. -RD following.
[2019-07-30 12:54] VITALS: BP 157/74
--- NOTE | 2019-07-30 17:12 | MORECARE ---
CASE MANAGEMENT DISCHARGE SUMMARY PATIENT: KONRAD ROSENBERG JARRETT UNIT: [id number] ADM DATE: 07/27/19 AGE: 63 : 55 SEX: M ROOM/BED: D.2127 AUTHOR: MIKO EPPERSON PHYSICIAN: REFERRING PHYSICIAN: MECHELLE WEINSTEIN MD DATE OF SERVICE: 07/30/19 Discharge Plan Patient Name: KONRAD ROSENBERG [facility] [facility] 1955 Planned Disposition: Anticipated Discharge Date: Discharge Date: Expected LOS: Initial Reviewer: [email or web address] Initial Review Date: 07/27/2019 Generated: 07/30/19 6:11 pm Patient Name: KONRAD ROSENBERG Page [phone] at 1712 All edits/amendments must be made on the electronic document DICTATION DATE: 07/30/191710 AUTOMOTIVE ELECTRICAL FITTER: ANNY 07/30/191710 RPT#: [id number] DC DATE: STATUS: ADM IN [facility] [address] [place] [address] END OF REPORT
[2019-07-30 17:50] VITALS: BP 152/78
--- NOTE | 2019-07-30 19:15 | NUR ---
RECEIVED REPORT, WILL ASSUME CARE OF PT, COMPLAINS OF PAIN, WILL PROVIDE NORCO ORDER, BED IS LOW, SRX2, CALL LIGHT IN REACH, WILL CONTINUE PLAN OF CARE
[2019-07-30 20:30] VITALS: BP 128/68
[2019-07-31 00:30] VITALS: BP 147/73
[2019-07-31 04:30] VITALS: BP 142/77
[2019-07-31 06:29] LABS: BASOPHILS 0 % (0-2); EOSINOPHILS 0 % (0-7); HEMATOCRIT 34.6 % (42.0-54.0); HEMOGLOBIN 11.1 g/dL (13.5-17.5); IMMATURE GRANULOCYTES 0.6 % (0-5); LYMPHOCYTES 7.3 % (15-50); MCH 27.6 pg (26.0-34.0); MCHC 32.1 g/dL (31.0-37.0); MCV 86.1 fL (80.0-100.0); MEAN PLATELET VOLUME 8.5 fL (7.4-10.4); MONOCYTES 8.8 % (2-11); NEUTROPHILS 83.3 % (40-80); PLATELET COUNT 363 10x3/uL (130-400); RBC 4.02 10x6/uL (4.20-6.10)
[2019-07-31 06:30] LABS: WBC 11.2 10x3/uL (4.8-10.8)
[2019-07-31 06:34] LABS: CALC OSMOLALITY 283 mosm/kg (275-300); CALCIUM 9.2 mg/dL (8.5-10.1); CARBON DIOXIDE 29.9 mmol/L (21.0-32.0); CHLORIDE - SERUM 104 mmol/L (98-107); CREATININE - SERUM 0.9 mg/dL (0.6-1.3); GLUCOSE 156 mg/dL (74-106); MAGNESIUM - SERUM 2.3 mg/dL (1.8-2.4); POTASSIUM - SERUM 4.2 mmol/L (3.5-5.1); SODIUM 139 mmol/L (136-145); eGFR NON AFRICAN AMERICAN > 90 mL/min (90-120)
[2019-07-31 06:41] LABS: UREA NITROGEN 21 mg/dL (7-18)
--- NOTE | 2019-07-31 07:35 | NUR ---
RECIEVED REPORT. PATIENT IS AWAKE AND ALERT. RESTING IN BED. PATIENT DENIES ANY NEEDS AT THIS TIME.
--- NOTE | 2019-07-31 07:37 | NUR ---
RECIEVED REPORT. PATIENT IS ALERT AND AWAKE. DENIES ANY NEEDS AT THIS TIME.
[2019-07-31 08:58] VITALS: BP 122/57
--- NOTE | 2019-07-31 09:55 | NUR ---
IV IN LEFT FOREARM INFILTRATED. REMOVED WITH CATHETER INTACT.
--- NOTE | 2019-07-31 11:27 | NUR ---
22 G PLACED IN LEFT FA, PATIENT TOLERATED. RESPIRATORY STATES THAT PATIENT NEEDS PORTABLE O2, AND DR GOODMAN IS AWARE. PATIENT REFUSED TO HAVE PORTABLE O2.
[2019-07-31 12:20] VITALS: BP 146/66
--- NOTE | 2019-07-31 13:02 | NUR ---
CALLED DARION MOYA FOR SERJIO AND TOLD HER THAT THE PATIENT WANTS TO BE DISCHARGED NOW. SHE SAID SHE WAS CONCERNED ABOUT HIS SKIN AND HIS LEG. I TOLD THE PATIENT, AND HE SAID HE MUST BE DISCHARGED. AND THAT HIS SKIN IS FINE, AND HIS LEG IS FINE. THAT HE HAS KERITOSIS FLICUALOSIS AND THAT HIS SKIN IS FINE. THIS IS HIS NORMAL AND THAT HE DISCUSSED WITH DR BASSETT YESTERDAY AND SERJIO TOLD HIM THAT IF DR GOODMAN SIGNED OFF, HE WOULD LISANDRO OFF. SO I PAGED NITA AGAIN TO DISCUSS FURTHER.
[2019-07-31] MEDS ORDERED: FOLATE0.4 MG PO (15:28)
[2019-07-31] MEDS ORDERED: VIBRAMYCIN 100100 MG PO (15:29)
[2019-07-31] MEDS ORDERED: STERAPRED DS 1010 MG PO (15:29)
--- NOTE | 2019-07-31 15:29 | MORECARE ---
CASE MANAGEMENT DISCHARGE SUMMARY PATIENT: KONRAD ROSENBERG JARRETT UNIT: [id number] ADM DATE: 07/27/19 AGE: 63 : 55 SEX: M ROOM/BED: D.2127 AUTHOR: MIKO EPPERSON PHYSICIAN: REFERRING PHYSICIAN: MECHELLE WEINSTEIN MD DATE OF SERVICE: 07/31/19 Discharge Plan Patient Name: KONRAD ROSENBERG [facility] [facility] 1955 Planned Disposition: Anticipated Discharge Date: Discharge Date: Expected LOS: Initial Reviewer: [email or web address] Initial Review Date: 07/27/2019 Generated: 07/31/19 4:29 pm External Providers External Provider: Cecilia Next Contact Date: Service Request Date: Service Type: Resolution: Reviewer: Comments: Last DP export: 07/30/19 4:11 p Patient Name: KONRAD ROSENBERG Page 16313 at 1529 All edits/amendments must be made on the electronic document DICTATION DATE: 07/31/19 1529 SENIOR SOLUTIONS ENGINEER: DM 07/31/19 1529 RPT#: [id number] DC DATE: STATUS: ADM IN [facility] [address] [place] [address] END OF REPORT
--- NOTE | 2019-07-31 15:42 | MORECARE ---
CASE MANAGEMENT DISCHARGE SUMMARY PATIENT: KONRAD ROSENBERG UNIT: [id number] ADM DATE: 07/27/19 AGE: 63 : 55 SEX: M ROOM/BED: D.0059 AUTHOR: ZEENATDOC PHYSICIAN: REFERRING PHYSICIAN: MECHELLE WEINSTEIN MD DATE OF SERVICE: 07/31/19 Discharge Plan Patient Name: KONRAD ROSENBERG [facility] [facility] 1955 Planned Disposition: Anticipated Discharge Date: Discharge Date: Expected LOS: Initial Reviewer: [id number] Initial Review Date: 07/27/2019 Generated: 07/31/19 4:42 pm Comments DCP- Discharge Planning Updated by [id number]: Seema Schmid on 07/31/19 2:[address] Patient Name: KONRAD ROSENBERG Admission Status: Urgent Accout number: [id number] Admission Date: 07-27-2019 : 1955 Admission Diagnosis: Attending: MECHELLE WEINSTEIN Current LOS: 4 Anticipated DC Date: Planned Disposition: Primary Insurance: MEDICARE A & B Discharge Planning Comments: Catherine ROSENBERG provided verbal consent to discuss current and ongoing needs with/in the presence of his spouse. PATIENT HAS HOME 02 AND NEBS THROUGH [facility]. IMM SIGNED. PATIENT PLANS TO DISCHARGE TO HOME TODAY. CM TO FOLLOW AND ASSIST NEEDED. [facility] WANTS SHOWER CHAIR IF INSURANCE COVERS. I AM FAXING OVER ORDER TO [facility]. Mop Maker: Seema MANLEY - Discharge Planning Initial Assessment Updated by [id number]: Seema Schmid on 07/31/19 3:37 pm * ADLs Independent * Other Equipment 02, nebs, cane, walker-dme South African home patient * Community resources currently utilized None * Additional services required to return to the preadmission environment? No * Can the patient safely return to the preadmission environment? Yes * Has this patient been hospitalized within the prior 30 days at any hospital? No External Providers [facility] Next Contact Date: Service Request Date: Service Type: Resolution: Reviewer: Comments: Coverage Notice Reviewer: [id number] - Seema Schmid Notice Issued Date-Time: 07/31/2019 15:36 Notice Type: IM Discharge Notice Notice Delivered To: Patient Relationship to Patient: Distributor Sales Consultant Name: Delivery Method: HAND - Hand Delivered Martha Days: Prior Verbal Notification: Recipient Understood Notice: Yes Recipient Signature: Yes Med Rec Note Co-signed by Attending: Coverage Notice Comment: Reviewer: [id number] Mikayla Schmid Notice Issued Date-Time: 07/31/2019 15:40 Notice Type: Patient Choice Letter Notice Delivered To: Patient Relationship to Patient: Self Distributor Sales Consultant Name: Delivery Method: HAND - Hand Delivered Martha Days: Prior Verbal Notification: Recipient Understood Notice: Yes Recipient Signature: Med Rec Note Co-signed by Attending: Coverage Notice Comment: DME [facility]. HAS O2 CURRENTLY THROUGH THEM. Last DP export: 07/31/19 2:29 p Patient Name: KONRAD ROSENBERG Page [phone] at 1542 All edits/amendments must be made on the electronic document DICTATION DATE: 07/31/19 154 RN HEMODIALYSIS CHARGE: ANNY 07/31/191541 RPT#: [id number] DC DATE: STATUS: ADM IN [facility] [address] [place] [address] END OF REPORT
--- NOTE | 2019-07-31 15:47 | NUR ---
SPOKE WITH PT RE PRESCRIPTIONS HIS PHARMACY IS CLOSED. HE REPORTS HE HAS ANTIBIOTICS AT HOME. ADVISED HE DIDN'T NEED TO WAIT UNTIL FRIDAY FOR STEROIDS. HE AGREED TO LET ME CALL IN TO [facility] [address].
--- NOTE | 2019-07-31 15:52 | MORECARE ---
CASE MANAGEMENT DISCHARGE SUMMARY PATIENT: KONRAD ROSENBERG UNIT: [id number] ADM DATE: 07/27/19 AGE: 63 : 55 SEX: M ROOM/BED: D.9362 AUTHOR: ZEENATDOC PHYSICIAN: REFERRING PHYSICIAN: MECHELLE WEINSTEIN MD DATE OF SERVICE: 07/31/19 Discharge Plan Patient Name: KONRAD ROSENBERG [facility] [facility] 1955 Planned Disposition: Anticipated Discharge Date: Discharge Date: Expected LOS: Initial Reviewer: [id number] Initial Review Date: 07/27/2019 Generated: 07/31/19 4:51 pm Comments DCP- Discharge Planning Updated by [id number]: Seema Schmid on 07/31/19 2:[address] Patient Name: KONRAD ROSENBERG Admission Status: Urgent Accout number: [id number] Admission Date: 07-27-2019 : 1955 Admission Diagnosis: Attending: MECHELLE WEINSTEIN Current LOS: 4 Anticipated DC Date: Planned Disposition: Primary Insurance: MEDICARE A & B Discharge Planning Comments: Catherine ROSENBERG provided verbal consent to discuss current and ongoing needs with/in the presence of his spouse. PATIENT HAS HOME 02 AND NEBS THROUGH [facility]. IMM SIGNED. PATIENT PLANS TO DISCHARGE TO HOME TODAY. CM TO FOLLOW AND ASSIST NEEDED. [facility] WANTS SHOWER CHAIR IF INSURANCE COVERS. I AM FAXING OVER ORDER TO [facility]. Horologist Apprentice: Seema MANLEY - Discharge Planning Initial Assessment Updated by [email or web address]: Seema Schmid on 07/31/19 3:37 pm * ADLs Independent * Other Equipment 02, nebs, cane, walker-dme Argentine home patient * Community resources currently utilized None * Additional services required to return to the preadmission environment? No * Can the patient safely return to the preadmission environment? Yes * Has this patient been hospitalized within the prior 30 days at any hospital? No Coverage Notice Reviewer: [id number] - Seema Schmid Notice Issued Date-Time: 07/31/2019 15:36 Notice Type: IM Discharge Notice Notice Delivered To: Patient Relationship to Patient: Strategic Client Executive Name: Delivery Method: HAND - Hand Delivered Martha Days: Prior Verbal Notification: Recipient Understood Notice: Yes Recipient Signature: Yes Med Rec Note Co-signed by Attending: Coverage Notice Comment: Reviewer: [id number] Mikayla Schmid Notice Issued Date-Time: 07/31/2019 15:40 Notice Type: Patient Choice Letter Notice Delivered To: Patient Relationship to Patient: Self Strategic Client Executive Name: Delivery Method: HAND - Hand Delivered Martha Days: Prior Verbal Notification: Recipient Understood Notice: Yes Recipient Signature: Med Rec Note Co-signed by Attending: Coverage Notice Comment: DME [facility]. HAS O2 CURRENTLY THROUGH THEM. Last DP export: 07/31/19 2:42 p Patient Name: KONRAD ROSENBERG Page 17143 at 1552 All edits/amendments must be made on the electronic document DICTATION DATE: 07/31/19 155 ELEVATOR MECHANIC: ANNY 07/31/191550 RPT#: [id number] DC DATE: STATUS: ADM IN [facility] [address] [place] [address] END OF REPORT
--- NOTE | 2019-07-31 15:59 | MORECARE ---
CASE MANAGEMENT DISCHARGE SUMMARY PATIENT: KONRAD ROSENBERG UNIT: [id number] ADM DATE: 07/27/19 AGE: 63 : 55 SEX: M ROOM/BED: D.8889 AUTHOR: ZEENATDOC PHYSICIAN: REFERRING PHYSICIAN: MECHELLE WEINSTEIN MD DATE OF SERVICE: 07/31/19 Discharge Plan Patient Name: KONRAD ROSENBERG [facility] : 1955 Planned Disposition: Anticipated Discharge Date: Discharge Date: Expected LOS: Initial Reviewer: [id number] Initial Review Date: 07/27/2019 Generated: 07/31/19 4:59 pm Comments DCP- Discharge Planning Updated by [email or web address]: Seema Schmid on 07/31/19 2:[address] Patient Name: KONRAD ROSENBERG Admission Status: Urgent Accout number: [id number] Admission Date: 07-27-2019 : 1955 Admission Diagnosis: Attending: MECHELLE WEINSTEIN Current LOS: 4 Anticipated DC Date: Planned Disposition: Primary Insurance: MEDICARE A & B Discharge Planning Comments: Catherine ROSENBERG provided verbal consent to discuss current and ongoing needs with/in the presence of his spouse. PATIENT HAS HOME 02 AND NEBS THROUGH [facility]. IMM SIGNED. PATIENT PLANS TO DISCHARGE TO HOME TODAY. CM TO FOLLOW AND ASSIST NEEDED. [facility] WANTS SHOWER CHAIR IF INSURANCE COVERS. I AM FAXING OVER ORDER TO [facility]. Engineering Executive: Seema MANLEY - Discharge Planning Initial Assessment Updated by [id number]: Seema Schmid on 07/31/19 3:37 pm * ADLs Independent * Other Equipment 02, nebs, cane, walker-dme Azerbaijani home patient * Community resources currently utilized None * Additional services required to return to the preadmission environment? No * Can the patient safely return to the preadmission environment? Yes * Has this patient been hospitalized within the prior 30 days at any hospital? No Coverage Notice Reviewer: [id number] - Seema Schmid Notice Issued Date-Time: 07/31/2019 15:36 Notice Type: IM Discharge Notice Notice Delivered To: Patient Relationship to Patient: Supervisor Blood Donor Recruiters Name: Delivery Method: HAND - Hand Delivered Martha Days: Prior Verbal Notification: Recipient Understood Notice: Yes Recipient Signature: Yes Med Rec Note Co-signed by Attending: Coverage Notice Comment: Reviewer: [id number] Mikayla Schmid Notice Issued Date-Time: 07/31/2019 15:40 Notice Type: Patient Choice Letter Notice Delivered To: Patient Relationship to Patient: Self Supervisor Blood Donor Recruiters Name: Delivery Method: HAND - Hand Delivered Martha Days: Prior Verbal Notification: Recipient Understood Notice: Yes Recipient Signature: Med Rec Note Co-signed by Attending: Coverage Notice Comment: DME [facility]. HAS O2 CURRENTLY THROUGH THEM. Last DP export: 07/31/19 2:52 p Patient Name: KONRAD ROSENBERG Page 55815 at 1559 All edits/amendments must be made on the electronic document DICTATION DATE: 07/31/19 155 GIZZARD SKIN REMOVER: ANNY 07/31/19 1559 RPT#: [id number] DC DATE: STATUS: ADM IN [facility] [address] [place] [address] END OF REPORT
--- NOTE | 2019-07-31 16:13 | MORECARE ---
CASE MANAGEMENT DISCHARGE SUMMARY PATIENT: KONRAD ROSENBERG UNIT: [id number] ADM DATE: 07/27/19 AGE: 63 : 55 SEX: M ROOM/BED: D.3386 AUTHOR: ZEENATDOC PHYSICIAN: REFERRING PHYSICIAN: MECHELLE WEINSTEIN MD DATE OF SERVICE: 07/31/19 Discharge Plan Patient Name: KONRAD ROSENBERG [facility] [facility] 1955 Planned Disposition: Anticipated Discharge Date: Discharge Date: Expected LOS: Initial Reviewer: [id number] Initial Review Date: 07/27/2019 Generated: 07/31/19 5:13 pm Comments DCP- Discharge Planning Updated by [id number]: Seema Schmid on 07/31/19 3:[address] Patient Name: KONRAD ROSENBERG Admission Status: Urgent Accout number: [id number] Admission Date: 07-27-2019 : 1955 Admission Diagnosis: Attending: MECHELLE WEINSTEIN Current LOS: 4 Anticipated DC Date: Planned Disposition: Primary Insurance: MEDICARE A & B Discharge Planning Comments: Catherine ROSENBERG provided verbal consent to discuss current and ongoing needs with/in the presence of his spouse. PATIENT HAS HOME 02 AND NEBS THROUGH [facility]. IMM SIGNED. PATIENT PLANS TO DISCHARGE TO HOME TODAY. CM TO FOLLOW AND ASSIST NEEDED. [facility] WANTS SHOWER CHAIR IF INSURANCE COVERS. I AM FAXING OVER ORDER TO [facility]. Teachers Assistant: Seema Appended by Seema Schmid on 07/31/2019 16:09 CDT: I FAXED PORT O2 ORDER TO [facility] AND CALLED. DCPIA - Discharge Planning Initial Assessment Updated by [id number]: Seema Schmid on 07/31/19 3:37 pm * ADLs Independent * Other Equipment 02, nebs, cane, walker-dme Brazilian home patient * Community resources currently utilized None * Additional services required to return to the preadmission environment? No * Can the patient safely return to the preadmission environment? Yes * Has this patient been hospitalized within the prior 30 days at any hospital? No Coverage Notice Reviewer: [id number] - Seema Schmid Notice Issued Date-Time: 07/31/2019 15:36 Notice Type: IM Discharge Notice Notice Delivered To: Patient Relationship to Patient: Extrusion Former Name: Delivery Method: HAND - Hand Delivered Martha Days: Prior Verbal Notification: Recipient Understood Notice: Yes Recipient Signature: Yes Med Rec Note Co-signed by Attending: Coverage Notice Comment: Reviewer: [id number] Mikayla Schmid Notice Issued Date-Time: 07/31/2019 15:40 Notice Type: Patient Choice Letter Notice Delivered To: Patient Relationship to Patient: Self Extrusion Former Name: Delivery Method: HAND - Hand Delivered Martha Days: Prior Verbal Notification: Recipient Understood Notice: Yes Recipient Signature: Med Rec Note Co-signed by Attending: Coverage Notice Comment: DME [facility]. HAS O2 CURRENTLY THROUGH THEM. Last DP export: 07/31/19 2:59 p Patient Name: KONRAD ROSENBERG Page 50182 at 1613 All edits/amendments must be made on the electronic document DICTATION DATE: 07/31/19 1613 LINUX DEVELOPER: ANNY 07/31/19 1613 RPT#: [id number] DC DATE: STATUS: ADM IN [facility] [address] [place] [address] END OF REPORT
--- NOTE | 2019-07-31 16:24 | NUR ---
PATIENT IS BEING DISCHARGED.DISCHARGE TEACHING DONE AND PAPERS SIGNED. WAITING ON PORTABLE O2 TO GET HERE. [facility] CASE MANAGEMENT PUT IN A REQUEST FOR A SHOWER CHAIR.
--- NOTE | 2019-07-31 16:40 | MORECARE ---
CASE MANAGEMENT DISCHARGE SUMMARY PATIENT: KONRAD ROSENBERG UNIT: [id number] ADM DATE: 07/27/19 AGE: 63 : 55 SEX: M ROOM/BED: D.8532 AUTHOR: ZEENAT,DOC PHYSICIAN: REFERRING PHYSICIAN: MECHELLE WEINSTEIN MD DATE OF SERVICE: 07/31/19 Discharge Plan Patient Name: KONRAD ROSENBERG Facility: [facility]:[place] : 1955 Planned Disposition: Anticipated Discharge Date: Discharge Date: Expected LOS: Initial Reviewer: [email or web address] Initial Review Date: 07/27/2019 Generated: 07/31/19 5:40 pm Comments DCP- Discharge Planning Updated by [email or web address]: Seema Schmid on 07/31/19 3:[address] Patient Name: KONRAD ROSENBERG Admission Status: Urgent Accout number: [id number] Admission Date: 07-27-2019 : 1955 Admission Diagnosis: Attending: MECHELLE WEINSTEIN Current LOS: 4 Anticipated DC Date: Planned Disposition: Primary Insurance: MEDICARE A & B Discharge Planning Comments: Catherine ROSENBERG provided verbal consent to discuss current and ongoing needs with/in the presence of his spouse. PATIENT HAS HOME 02 AND NEBS THROUGH [facility]. IMM SIGNED. PATIENT PLANS TO DISCHARGE TO HOME TODAY. CM TO FOLLOW AND ASSIST NEEDED. [facility] WANTS SHOWER CHAIR IF INSURANCE COVERS. I AM FAXING OVER ORDER TO [facility]. Family Counselor: Seema Appended by Seema Schmid on 07/31/2019 16:09 CDT: I FAXED PORT O2 ORDER TO [facility] AND CALLED. Appended by Seema Schmid on 07/31/2019 16:39 CDT: [facility] CALLED AND THEY WILL BRING PORTABLE O2 TO PATIENT'S ROOM. MAY BE HOUR OR SO BEFORE HE GETS HERE. DCPIA - Discharge Planning Initial Assessment Updated by [id number]: Seema Schmid on 07/31/19 3:37 pm * ADLs Independent * Other Equipment 02, nebs, cane, walker-dme Ethiopian home patient * Community resources currently utilized None * Additional services required to return to the preadmission environment? No * Can the patient safely return to the preadmission environment? Yes * Has this patient been hospitalized within the prior 30 days at any hospital? No Coverage Notice Reviewer: [id number] Mikayla Schmid Notice Issued Date-Time: 07/31/2019 15:36 Notice Type: IM Discharge Notice Notice Delivered To: Patient Relationship to Patient: Telepathist Name: Delivery Method: HAND - Hand Delivered Martha Days: Prior Verbal Notification: Recipient Understood Notice: Yes Recipient Signature: Yes Med Rec Note Co-signed by Attending: Coverage Notice Comment: Reviewer: [id number] Mikayla Schmid Notice Issued Date-Time: 07/31/2019 15:40 Notice Type: Patient Choice Letter Notice Delivered To: Patient Relationship to Patient: Self Telepathist Name: Delivery Method: HAND - Hand Delivered Martha Days: Prior Verbal Notification: Recipient Understood Notice: Yes Recipient Signature: Med Rec Note Co-signed by Attending: Coverage Notice Comment: DME [facility]. HAS O2 CURRENTLY THROUGH THEM. Last DP export: 07/31/19 3:13 p Patient Name: KONRAD ROSENBERG Page 95834 at 1640 All edits/amendments must be made on the electronic document DICTATION DATE: 07/31/19 1640 AIR DIRECTOR: ANNY 07/31/19 [facility] RPT#: [id number] DC DATE: STATUS: ADM IN [address] [place] [address] END OF REPORT
--- NOTE | 2019-07-31 18:17 | NUR ---
REMOVED IV WITH CATHETER INTACT. PATIENT IS GOING DOWNSTAIRS BY WHEELCHAIR. HE IS GOING HOME WITH A FAMILY MEMBER. ALL PATIENT BELONINGS ARE GOING HOME WITH THE PATIENT.
--- NOTE | 2019-08-01 17:09 | MORECARE ---
CASE MANAGEMENT DISCHARGE SUMMARY PATIENT: KONRAD ROSENBERG UNIT: [id number] ADM DATE: 07/27/19 AGE: 63 : 55 SEX: M ROOM/BED: D.6897 AUTHOR: ZEENAT,DOC PHYSICIAN: REFERRING PHYSICIAN: MECHELLE WEINSTEIN MD DATE OF SERVICE: 08/01/19 Discharge Plan Patient Name: KONRAD ROSENBERG Facility: [facility]:[place] : 1955 Planned Disposition: Anticipated Discharge Date: Discharge Date: 07/31/2019 Expected LOS: Initial Reviewer: [id number] Initial Review Date: 07/27/2019 Generated: 08/01/19 6:08 pm Comments DCP- Discharge Planning Updated by [id number]: Seema Schmid on 07/31/19 3:[address] Patient Name: KONRAD ROSENBERG Admission Status: Urgent Accout number: [id number] Admission Date: 07-27-2019 : 1955 Admission Diagnosis: Attending: MECHELLE WEINSTEIN Current LOS: 4 Anticipated DC Date: Planned Disposition: Primary Insurance: MEDICARE A & B Discharge Planning Comments: Catherine ROSENBERG provided verbal consent to discuss current and ongoing needs with/in the presence of his spouse. PATIENT HAS HOME 02 AND NEBS THROUGH [facility]. IMM SIGNED. PATIENT PLANS TO DISCHARGE TO HOME TODAY. CM TO FOLLOW AND ASSIST NEEDED. [facility] WANTS SHOWER CHAIR IF INSURANCE COVERS. I AM FAXING OVER ORDER TO [facility]. Teacher Ballet: Seema Appended by Seema Schmid on 07/31/2019 16:09 CDT: I FAXED PORT O2 ORDER TO [facility] AND CALLED. Appended by Seema Schmid on 07/31/2019 16:39 CDT: [facility] CALLED AND THEY WILL BRING PORTABLE O2 TO PATIENT'S ROOM. MAY BE HOUR OR SO BEFORE HE GETS HERE. DCPIA - Discharge Planning Initial Assessment Updated by [id number]: Seema Schmid on 07/31/19 3:37 pm * ADLs Independent * Other Equipment 02, nebs, cane, walker-dme Uruguayan home patient * Community resources currently utilized None * Additional services required to return to the preadmission environment? No * Can the patient safely return to the preadmission environment? Yes * Has this patient been hospitalized within the prior 30 days at any hospital? No Coverage Notice Reviewer: [id number] Mikayla Schmid Notice Issued Date-Time: 07/31/2019 15:36 Notice Type: IM Discharge Notice Notice Delivered To: Patient Relationship to Patient: Slug Press Operator Name: Delivery Method: HAND - Hand Delivered Martha Days: Prior Verbal Notification: Recipient Understood Notice: Yes Recipient Signature: Yes Med Rec Note Co-signed by Attending: Coverage Notice Comment: Reviewer: [id number] Mikayla Schmid Notice Issued Date-Time: 07/31/2019 15:40 Notice Type: Patient Choice Letter Notice Delivered To: Patient Relationship to Patient: Self Slug Press Operator Name: Delivery Method: HAND - Hand Delivered Martha Days: Prior Verbal Notification: Recipient Understood Notice: Yes Recipient Signature: Med Rec Note Co-signed by Attending: Coverage Notice Comment: DME [facility]. HAS O2 CURRENTLY THROUGH THEM. Last DP export: 07/31/19 3:40 p Patient Name: KONRAD ROSENBERG Page 58055 at 1709 All edits/amendments must be made on the electronic document DICTATION DATE: 08/01/191707 DONKEY RIDE OPERATOR: ANNY 08/01/191707 RPT#: [id number] DC DATE:07/31/19 STATUS: DIS IN [facility] [address] [place] [address] END OF REPORT
--- NOTE | 2019-08-02 08:13 | MORECARE ---
CASE MANAGEMENT DISCHARGE SUMMARY PATIENT: KONRAD ROSENBERG UNIT: [id number] ADM DATE: 07/27/19 AGE: 63 : 55 SEX: M ROOM/BED: D.3741 AUTHOR: ZEENAT,DOC PHYSICIAN: REFERRING PHYSICIAN: MECHELLE WEINSTEIN MD DATE OF SERVICE: 08/02/19 Discharge Plan Patient Name: KONRAD ROSENBERG Facility: [facility]:[place] : 1955 Planned Disposition: Home Anticipated Discharge Date: 07/31/19 Discharge Date: 07/31/2019 Expected LOS: 4 Initial Reviewer: [id number] Initial Review Date: 07/27/2019 Generated: 08/02/19 9:13 am Comments DCP- Discharge Planning Updated by [email or web address]: Seema Schmid on 07/31/19 3:[address] Patient Name: KONRAD ROSENBERG Admission Status: Urgent Accout number: [id number] Admission Date: 07-27-2019 : 1955 Admission Diagnosis: Attending: MECHELLE WEINSTEIN Current LOS: 4 Anticipated DC Date: Planned Disposition: Primary Insurance: MEDICARE A & B Discharge Planning Comments: Catherine ROSENBERG provided verbal consent to discuss current and ongoing needs with/in the presence of his spouse. PATIENT HAS HOME 02 AND NEBS THROUGH [facility]. IMM SIGNED. PATIENT PLANS TO DISCHARGE TO HOME TODAY. CM TO FOLLOW AND ASSIST NEEDED. [facility] WANTS SHOWER CHAIR IF INSURANCE COVERS. I AM FAXING OVER ORDER TO [facility]. Security Control Room Officer: Seema Appended by Seema Schmid on 07/31/2019 16:09 CDT: I FAXED PORT O2 ORDER TO [facility] AND CALLED. Appended by Seema Schmid on 07/31/2019 16:39 CDT: [facility] CALLED AND THEY WILL BRING PORTABLE O2 TO PATIENT'S ROOM. MAY BE HOUR OR SO BEFORE HE GETS HERE. DCPIA - Discharge Planning Initial Assessment Updated by [id number]: Seema Schmid on 07/31/19 3:37 pm * ADLs Independent * Other Equipment 02, nebs, cane, walker-dme Honduran home patient * Community resources currently utilized None * Additional services required to return to the preadmission environment? No * Can the patient safely return to the preadmission environment? Yes * Has this patient been hospitalized within the prior 30 days at any hospital? No Coverage Notice Reviewer: [id number] Mikayla Schmid Notice Issued Date-Time: 07/31/2019 15:36 Notice Type: IM Discharge Notice Notice Delivered To: Patient Relationship to Patient: Asphalt Coater Name: Delivery Method: HAND - Hand Delivered Martha Days: Prior Verbal Notification: Recipient Understood Notice: Yes Recipient Signature: Yes Med Rec Note Co-signed by Attending: Coverage Notice Comment: Reviewer: [id number] Mikayla Schmid Notice Issued Date-Time: 07/31/2019 15:40 Notice Type: Patient Choice Letter Notice Delivered To: Patient Relationship to Patient: Self Asphalt Coater Name: Delivery Method: HAND - Hand Delivered Martha Days: Prior Verbal Notification: Recipient Understood Notice: Yes Recipient Signature: Med Rec Note Co-signed by Attending: Coverage Notice Comment: DME [facility]. HAS O2 CURRENTLY THROUGH THEM. Last DP export: 08/01/19 4:09 p Patient Name: KONRAD ROSENBERG Page 95328 at 0813 All edits/amendments must be made on the electronic document DICTATION DATE: 08/02/19812 FOREST FIRE MANAGEMENT OFFICER: ANNY 08/02/19812 RPT#: [id number] DC DATE:07/31/19 STATUS: DIS IN [facility] [address] [place] [address] END OF REPORT
== END 2019-07-31 18:25 | disposition home or self-care (01) | DRG 193 ==
LOC: D.M2 16:51 → D.SDCHOLD 07-30 14:39 → D.M2 07-30 14:39
PROVIDERS: Internal Medicine Nephrology; ADMIT Family Medicine; ATTEND Family Medicine
DX: J18.9 Pneumonia, unspecified organism (principal); J96.01 Acute respiratory failure with hypoxia; K22.10 Ulcer of esophagus without bleeding; L03.116 Cellulitis of left lower limb; D64.9 Anemia, unspecified; I10 Essential (primary) hypertension; M54.16 Radiculopathy, lumbar region; E78.5 Hyperlipidemia, unspecified; K29.70 Gastritis, unspecified, without bleeding; J43.9 Emphysema, unspecified; Q82.8 Other specified congenital malformations of skin; Z87.891 Personal history of nicotine dependence

== ENCOUNTER 2019-10-05 20:12 | Emergency (ER) | payer MEDICARE ==
[~2019-10-05] VITALS: Ht 177.8 cm; Wt 81.8 kg
[~2019-10-05 20:12] MED LIST changes: +FOLATE0.4 MG PO
[2019-10-05 20:32] VITALS: Ht 177.8 cm; Wt 81.8 kg
[2019-10-05 22:10] VITALS: BP 171/89
== END 2019-10-05 22:10 | disposition home or self-care (01) ==
LOC: D.ER 20:12
DX: M25.532 Pain in left wrist (principal); S62.102A Fracture of unspecified carpal bone, left wrist, initial encounter for closed fracture; J44.9 Chronic obstructive pulmonary disease, unspecified; K21.9 Gastro-esophageal reflux disease without esophagitis; W19.XXXA Unspecified fall, initial encounter; Y93.9 Activity, unspecified; Y92.9 Unspecified place or not applicable

== ENCOUNTER 2019-10-18 11:30 | Day surgery (SDC) | payer MEDICARE ==
[~2019-10-18] VITALS: Ht 177.8 cm; Wt 81.6 kg
--- NOTE | ~2019-10-18 | OP ---
PATIENT NAME: KONRAD ROSENBERG MEDICAL RECORD: [id number] :55 LOCATION:D.OPS ADMISSION DATE: SURGEON: EVITA COBB MD DATE OF OPERATION: 10/18/2019 PREOPERATIVE DIAGNOSIS: Displaced distal radius fracture of the right wrist. POSTOPERATIVE DIAGNOSIS: Displaced distal radius fracture of the right wrist. PROCEDURE: 1. Open reduction and internal fixation of right distal radius fracture. 2. Carpal tunnel release. SURGEON: Evita Cobb MD ANESTHESIA: General. INTRAOPERATIVE COMPLICATIONS: None. SUMMARY OF PATHOLOGIC FINDINGS: The patient had a very nicely reduced fracture after manipulation and reduction under fluoroscopic guidance. A plate was thusly applied after the appropriate approach. OPERATIVE SUMMARY IN DETAIL: After obtaining the appropriate preoperative orthopedic surgery consent as well as anesthetic consultation, evaluation and clearance, the patient was brought to the operating room and placed on the operating table in supine position. After adequate general laryngeal mask airway was administered, tourniquet was placed on the proximal aspect of the right upper extremity. Right upper extremity was then then prepped and draped in routine sterile fashion. The arm was elevated and exsanguinated, tourniquet was inflated to 250 mmHg. After the appropriate timeout was taken and agreed upon by all reduction maneuver was performed, resulting in a more anatomic alignment of the patient's volar tilt as well as a radial angle of inclination and radial height. A curvilinear incision was made in keeping with the volar approach of Cordell. Formal carpal tunnel release was performed with good visualization of the median nerve. All hematoma in the carpal canal was removed. Further approach down to the level of fracture was seen. The fracture was visualized and again held in reduction. Plate was then put into place using fluoroscopic guidance. Serial and sequential drill and fill was used with both locking and compression screws until final fixation was achieved. Final radiographs were taken and submitted for radiologist review on both AP and lateral planes. Having completed this, the wound was irrigated and closed by PRIYANKA Dixon using 2-0 Vicryl followed by 4-0 Prolene in running fashion. Sterile dressings were applied. The patient was awakened, taken to recovery room in stable condition. All final needle and sponge counts were correct. TRANSINT:[id number] Voice Confirmation ID: [id number] DOCUMENT ID: [id number] OPERATIVE REPORT [id number] KONRAD ROSENBERG MD, JAMES KEVIN CC: [id number] DICTATION DATE: 10/29/19 1157 RATTAN WORKER: 10/29/19 1243 DEP SDC 10/18/19 [facility] [address] [place] [address]
[2019-10-18 12:15] VITALS: BP 127/101; Ht 177.8 cm; Wt 81.6 kg
[2019-10-18] MEDS ORDERED: HYDROCODON-ACE1 EA10 PO (14:47)
--- NOTE | 2019-10-18 17:00 | NUR ---
DC INSTRUCTIONS GIVEN TO PT. STATES UNDERSTANDING. DC'D IV CATH FULLY INTACT. WILL DC. SHORTLY.
--- NOTE | 2019-10-18 17:12 | NUR ---
PT LEFT UNIT VIA WC AT 1712
== END 2019-10-18 17:12 | disposition home or self-care (01) ==
LOC: D.OPS 11:30 → D.PAN 14:15 → D.OPS 14:15
PROVIDERS: ATTEND Orthopaedic Surgery
DX: M25.532 Pain in left wrist (principal); S52.502A Unspecified fracture of the lower end of left radius, initial encounter for closed fracture; J44.9 Chronic obstructive pulmonary disease, unspecified; K21.9 Gastro-esophageal reflux disease without esophagitis; F17.200 Nicotine dependence, unspecified, uncomplicated; I10 Essential (primary) hypertension; X58.XXXA Exposure to other specified factors, initial encounter

== ENCOUNTER → 2020-01-11 08:56 | Outpatient (CLI) | payer MEDICARE ==
[2019-10-18 12:15] VITALS: BMI 25.8
== END | disposition home or self-care (01) ==
LOC: D.LAB 08:56
PROVIDERS: ATTEND Internal Medicine Pulmonary Disease
DX: Z13.9 Encounter for screening, unspecified (principal)

== ENCOUNTER → 2020-01-14 15:25 | Outpatient (CLI) | payer MEDICARE ==
[2019-10-18 12:15] VITALS: BMI 25.8
== END | disposition home or self-care (01) ==
LOC: D.RT 12-20 13:00
PROVIDERS: ATTEND Internal Medicine Pulmonary Disease
DX: J44.9 Chronic obstructive pulmonary disease, unspecified (principal)

== ENCOUNTER 2020-01-26 20:22 | Inpatient (IN) | payer MEDICARE ==
[~2020-01-26] VITALS: Ht 177.8 cm; Wt 88.0 kg
[2020-01-26] VITALS (9 sets, daily range): BP systolic 69–84; BP diastolic 42–65
--- NOTE | ~2020-01-26 | EC ---
PATIENT:KONRAD ROSENBERG DATE OF SERVICE: 01/27/20 SEX: M MEDICAL RECORD: [id number] DATE OF : 55 LOCATION:D.MS Doe AGE OF PATIENT: 64 ADMISSION DATE: 01/27/20 REFERRING PHYSICIAN: INTERPRETING PHYSICIAN: LA GUTIERREZ MD ECHOCARDIOGRAM REPORT ECHO CHARGES 5 ECHO LIMITED Date: 01/30/20 CLINICAL DIAGNOSIS: GPC BACTEREMIA,DYSPNEA ASSESS FOR VEGATATION ECHOCARDIOGRAPHIC MEASUREMENTS (adult normal given) AC root (d.<3.7cm) 3.2 cm LV Septum d (<1.2 cm> 1.2 cm Valve Excursion 1.5 cm LV Septum (systole) 1.3 cm Left Atria (s.<4.0cm> 3.3 cm LVPW d(<1.2cm) 1.0 cm RV (d.<2.3cm) 2.6 cm LVPW (sytole) 1.3 cm LV diastole(<5.6CM) 4.0 cm MV E-F(>70mm/sec) cm LV systole 2.9 cm LVOT Diameter 2.0 cm MV exc.(>10mm) 1.5 cm Est.ejection fraction (50-75%) % DOPPLER: LVIT cm/sec A 37 cm/sec E 60 cm/sec LA cm/sec RVSP 47 mmHg LVOT 101 cm/sec AOP1/2T m/s Asc. Ao 116 cm/sec RVOT cm/sec RA cm/sec PA cm/sec AV Gradient Peak 5.4 mmHg AV Mean 3.7 mmHg AV Area 2.7 cm MV Gradient Peak 3.6 mmHg MV Mean 1.4 mmHg MV Area cm COMMENTS: Electric Switch Tester: 2 TANGELA DIAZ Clinical Trial Associate: 3 Dr. Tompkins TAPE# PACS Pericardial Effusion N DATE OF SERVICE: 01/31/2020 This is a limited study includes 2D, color flow. No LVH. LV internal dimension is normal. Wall motion normal. EF greater than or equal to 55%. Aortic valve is tricuspid with good valve excursion. No evidence of vegetation. Left atrium appears normal. Mitral valve appears normal with no prolapse. Trace MR, no evidence of vegetation. Right sided chambers, right atrium probably upper limits of normal to mildly dilated. Tricuspid valve is well visualized with no evidence of vegetation. ECHOCARDIOGRAM REPORT [id number] KONRAD ROSENBERG TRANSINT:[id number] Voice Confirmation ID: [id number] DOCUMENT ID: [id number] LA GUTIERREZ MD CC: [id number] DICTATION DATE: 01/31/20 101 COATING MIXER TENDER: 01/31/20 1140 ADM IN [facility] [id number] [place] [address]
--- NOTE | 2020-01-26 21:15 | NUR ---
BLOOD CULTURE DRAWN
[2020-01-26 21:28] LABS: BASOPHILS 0.2 % (0-2); EOSINOPHILS 0.1 % (0-7); HEMATOCRIT 47.6 % (42.0-54.0); HEMOGLOBIN 15.5 g/dL (13.5-17.5); IMMATURE GRANULOCYTES 0.5 % (0-5); LYMPHOCYTES 18.3 % (15-50); MCH 29.9 pg (26.0-34.0); MCHC 32.6 g/dL (31.0-37.0); MCV 91.7 fL (80.0-100.0); MEAN PLATELET VOLUME 9.4 fL (7.4-10.4); MONOCYTES 5.3 % (2-11); NEUTROPHILS 75.6 % (40-80); PLATELET COUNT 296 10x3/uL (130-400); RBC 5.19 10x6/uL (4.20-6.10); RDW 15.2 % (11.5-14.5); WBC 8.8 10x3/uL (4.8-10.8)
[2020-01-26 21:45] LABS: APTT 39.6 SECONDS (22.8-39.4); INR 1.07 (0.85-1.17); PROTIME 13.9 SECONDS (11.6-15.0)
[2020-01-26 22:01] LABS: UDS - AMPHET NEGATIVE QUAL (NEGATIVE); UDS - BARB NEGATIVE QUAL (NEGATIVE); UDS - BENZO NEGATIVE QUAL (NEGATIVE); UDS - COCAINE NEGATIVE QUAL (NEGATIVE); UDS - OPIATE NEGATIVE QUAL (NEGATIVE); UDS - PCP NEGATIVE QUAL (NEGATIVE); UDS - THC NEGATIVE QUAL (NEGATIVE)
[2020-01-26 22:08] LABS: KETONE NEGATIVE (NEGATIVE); NITRITE NEGATIVE (NEGATIVE); UROBILINOGEN NORMAL (NORMAL)
[2020-01-26 22:09] LABS: BILIRUBIN NEGATIVE (NEGATIVE)
[2020-01-26 22:15] LABS: BACTERIA FEW /hpf (NONE SEEN); WHITE CELLS - URINE 0-5 /hpf (0-5)
[2020-01-26 22:22] LABS: D-DIMER-QUANTITATIVE 11.28 ug/mLFEU (0.20-0.54)
[2020-01-26 23:06] LABS: CALC OSMOLALITY 284 mosm/kg (275-300); CALCIUM 9.7 mg/dL (8.5-10.1); CARBON DIOXIDE 16.3 mmol/L (21.0-32.0); CHLORIDE - SERUM 100 mmol/L (98-107); CREATININE - SERUM 5.7 mg/dL (0.6-1.3); GLUCOSE 148 mg/dL (74-106); POTASSIUM - SERUM 4.4 mmol/L (3.5-5.1); SODIUM 136 mmol/L (136-145); UREA NITROGEN 40 mg/dL (7-18); eGFR NON AFRICAN AMERICAN 11 mL/min (90-120)
[2020-01-26 23:23] LABS: ALBUMIN 3.6 g/dL (3.4-5.0); ALKALINE PHOSPHATASE 75 U/L (30-120); ALT (SGPT) 29 U/L (10-68); BILIRUBIN - TOTAL 0.77 mg/dL (0.2-1.3); CKMB 0.7 U/L (0.0-3.6); CREATINE KINASE 377 UL (21-232); MAGNESIUM - SERUM 1.6 mg/dL (1.8-2.4); PRO BNP 1856 pg/mL (0-125); PROTEIN - SERUM 8.7 g/dL (6.4-8.2)
[2020-01-26 23:27] LABS: TROPONIN-I 0.192 ng/mL (0.000-0.060)
[2020-01-27] VITALS (34 sets, daily range): BP systolic 98–142; BP diastolic 62–123; Ht 177.8 cm; Wt 88.0 kg
--- NOTE | 2020-01-27 01:35 | NUR ---
LEVOPHED INFUSING AT 10MCG/HR UPON TRANSFER TO ICU
[2020-01-27 05:25] LABS: BASOPHILS 0.2 % (0-2); EOSINOPHILS 0 % (0-7); HEMATOCRIT 43.6 % (42.0-54.0); IMMATURE GRANULOCYTES 0.4 % (0-5); LYMPHOCYTES 4.5 % (15-50); MCH 29.2 pg (26.0-34.0); MCHC 32.1 g/dL (31.0-37.0); MEAN PLATELET VOLUME 9.1 fL (7.4-10.4); MONOCYTES 3.7 % (2-11); NEUTROPHILS 91.2 % (40-80); RBC 4.79 10x6/uL (4.20-6.10); RDW 15.1 % (11.5-14.5)
[2020-01-27 05:49] LABS: PLATELET COUNT 223 10x3/uL (130-400); WBC 14.1 10x3/uL (4.8-10.8)
[2020-01-27 06:24] LABS: ERYTHROCYTE SEDIMENTATION RATE 52 mm/hr (0-20)
[2020-01-27 06:40] LABS: ALBUMIN 2.9 g/dL (3.4-5.0); ALKALINE PHOSPHATASE 60 U/L (30-120); BILIRUBIN - TOTAL 0.59 mg/dL (0.2-1.3); CALC OSMOLALITY 292 mosm/kg (275-300); CALCIUM 8.4 mg/dL (8.5-10.1); CARBON DIOXIDE 16.4 mmol/L (21.0-32.0); CHLORIDE - SERUM 104 mmol/L (98-107); CKMB 2.6 U/L (0.0-3.6); CREATINE KINASE 432 UL (21-232); CREATININE - SERUM 5.6 mg/dL (0.6-1.3); FERRITIN 468 ng/mL (3-244); GLUCOSE 173 mg/dL (74-106); MAGNESIUM - SERUM 1.5 mg/dL (1.8-2.4); PHOSPHOROUS 4.5 mg/dL (2.5-4.9); PRO BNP 1432 pg/mL (0-125); PROTEIN - SERUM 6.9 g/dL (6.4-8.2); SODIUM 139 mmol/L (136-145); THYROID STIMULATING HORMONE 1.16 uIU/mL (0.36-3.74); UREA NITROGEN 43 mg/dL (7-18); VANCOMYCIN - RANDOM 12.8 ug/mL (10.0-20.0); eGFR NON AFRICAN AMERICAN 11 mL/min (90-120)
[2020-01-27 06:43] LABS: ALT (SGPT) 83 U/L (10-68)
[2020-01-27 06:44] LABS: TROPONIN-I 0.323 ng/mL (0.000-0.060)
[2020-01-27 07:06] LABS: C-REACTIVE PROTEIN 38.9 mg/dL (0.0-0.9)
--- NOTE | 2020-01-27 19:15 | NUR ---
REPORT GIVEN BY EVA RN
--- NOTE | 2020-01-27 19:30 | NUR ---
PT CALLING OUT TO BE TAKEN OFF THE BEDPAN. HE STATES HE HAS BEEN ON IT A LONG TIME. THERE IS A MOD AMOUNT GREENISH BROWN LIQUID STOOL. PT WAS CLEANED UP FROM UPPER BACK TO THIGHS WITH BED BATH WIPES. HIS BOTTOM, BACK, KYE AREA AND THIGHS ARE COVERED IN A MAROOM RED RASH AND IT HURTS THE PT BADLY. SKIN BARRIER PLACED IN THESE AREAS. PT HAS A RIGHT IJ CENTRAL LINE WITH NS INFUSING AT 50 ML/HR. HE HAS A GOMEZ CATHETER. GOMEZ CARE WAS DONE WHEN PT WAS BEING CLEANED UP. HE IS DRAINING CLEAR YELLOW URINE. HEIS BP HAS BEEN WNL. PT IS BEGGING FOR SOME WATER. I GAVE HIM A SMALL GLASS OF ICE WATER AND HE IS SIPPING IT SLOWLY TO TRY TO PREVENT ANY MORE VOMITING. HIS BARFF BAG IS BESIDE HIM. O2 AT 2L BY NASAL CANNULA. PT CAN TURN HIMSELF WELL. HE IS ALERT AND ORIENTED.
--- NOTE | 2020-01-27 21:00 | NUR ---
IN PT ROOM TO GIVE HIM HIS MEDS. HE IS INTERESTED IN KNOWING WHAT HE IS GETTING. I WENT THROUGH THE ENTIRE LIST WITH HIM AND ANSWERED ANY QUESTIONS. PT HAS HAD A SECOND LOOSE STOOL. IT WAS LIQUID AND PROBABLY LESS THAN 10 ML. PT HAS HAD ANOTHER CUP OF ICE WATER WITHOUT ANY N/V.
--- NOTE | 2020-01-27 23:00 | NUR ---
IN PT ROOM TO GIVE MEDS. HE IS SLEEPING SOUNDLY AT THIS TIME. MEDS WERE IV MEDS SO I DID NOT WAKE HIM. O2 CONT, GOMEZ DRAIN WELL, CONT TO COUGH.
--- NOTE | 2020-01-27 23:10 | NUR ---
PT WOKE UP AND CALLED FOR ME. HE STATES HE IS BURNING UP. HIS TEMP WAS TAKEN AND IT WAS 97.4. I REMOVED MOST HIS COVERS AND HE STATES THAT HELPED ALOT.
[2020-01-28] VITALS: BP 146/88
--- NOTE | 2020-01-28 00:21 | NUR ---
PT BED WAS JUST CLEANED. PT CONT TO HAVE LIQUID DIARRHEA. BATH GIVEN. SOON I FINISHED WITH PUTTING NEW PADS ON, PT ASKED FOR THE BED WOODSON.
--- NOTE | 2020-01-28 00:41 | NUR ---
PT IS OFF THE BEDPAN. HE HAD MAYBE 5ML OF LQUID STOOL. HE STATES IT FELT LIKE ALOT MORE THAN THAT. BUTT PASTE WAS REAPPLIED. PAPER PADS CHANGED. PT ASKED FOR A WET WASH CLOTH "IN CASE I VOMIT". HE DENIES ANY N/V AT THIS TIME. HE STATES HIS NERVES ARE BAD AND ASKED IF HE HAD ANY MEDS FOR THAT.
--- NOTE | 2020-01-28 03:00 | NUR ---
BED CHANGED AGAIN. STOOL IS NOT LIQUID BEFORE BUT SLIGHTLY THICKER. PADS CHANGED.
[2020-01-28 05:05] LABS: BASOPHILS 0.1 % (0-2); EOSINOPHILS 0 % (0-7); HEMOGLOBIN 11.8 g/dL (13.5-17.5); IMMATURE GRANULOCYTES 0.3 % (0-5); LYMPHOCYTES 5.5 % (15-50); MCH 28.9 pg (26.0-34.0); MCHC 32.8 g/dL (31.0-37.0); MEAN PLATELET VOLUME 9.5 fL (7.4-10.4); MONOCYTES 4.5 % (2-11); NEUTROPHILS 89.6 % (40-80); PLATELET COUNT 223 10x3/uL (130-400); RBC 4.08 10x6/uL (4.20-6.10); RDW 14.8 % (11.5-14.5); WBC 11.1 10x3/uL (4.8-10.8)
[2020-01-28 05:07] LABS: MCV 88.2 fL (80.0-100.0)
[2020-01-28 05:28] LABS: ALBUMIN 2.6 g/dL (3.4-5.0); BILIRUBIN - TOTAL 0.23 mg/dL (0.2-1.3); CALCIUM 8.2 mg/dL (8.5-10.1); CARBON DIOXIDE 18.6 mmol/L (21.0-32.0); CREATININE - SERUM 4.3 mg/dL (0.6-1.3); MAGNESIUM - SERUM 1.8 mg/dL (1.8-2.4); PHOSPHOROUS 4.4 mg/dL (2.5-4.9); PROTEIN - SERUM 7.1 g/dL (6.4-8.2)
[2020-01-28 05:30] LABS: ANION GAP 17.3 mmol/L (8-16); POTASSIUM - SERUM 3.9 mmol/L (3.5-5.1)
--- NOTE | 2020-01-28 06:31 | NUR ---
WOKE PT UP TO CHECK HIS PADS. THEY WERE DIRTY AND WERE CHANGED. THE PT THEN ASKED FOR THE BEDPAN. HE HAD A MOD AMT OF A THICKER CONSISTENCY STOOL THAN LIQUID. THE PT WAS CLEANED UP AND BUTT PASTE APPLIED. THE REDNESS IS SO MUCH BETTER THAN IT WAS LAST EVENING WHEN I CAME ON. PT HAS NO NEW C/O. HE UNDERSTANDING THAT RESTING HIS GUT DID HELP HIM. HE HAS HAD NO VOMITING THIS SHIFT. HE IS STILL TAKING WATER WELL. PT STILL COUGHING ALOT. THIS COUGH HAS BEEN NON PRODUCTIVE TO THIS POINT.
[2020-01-28 07:00] VITALS: BP 123/77
--- NOTE | 2020-01-28 07:20 | NUR ---
Shift report received. PT asleep. Arouses to voice. Able to answer questions appropriately. On 6L O2 via high flow nc. RIJ with NS at 50ml/hr. Chester catheter in place with concentrated yellow urine. Redness noted to groin and buttocks. Safety measures in place. Will continue to monitor.
--- NOTE | 2020-01-28 09:00 | NUR ---
Bed waldrop provided at this time. Small amount of dark green, liquid stool. Barrier cream applied to buttocks and groin at this time. Pulled up and repositioned for comfort. Will continue to monitor.
--- NOTE | 2020-01-28 10:11 | NUR ---
Nutrition follow-up: Pt receiving a consistent CHO diet; po intake ~30% of breakfast this am. Pt with N/V last night; loose stools Labs reviewed Wt: 194# NS @ 50 ml/hr RDN following.
--- NOTE | 2020-01-28 10:58 | NUR ---
PT IN ROOM. PT IS RED ON CHEST, BACK, BUTTOCK, AND GROIN AREA. SOME SCRATCHES ON RIGHT BUTTOCK AND MID CHEST. RONCHI HEARD IN RIGHT UPPER LOBE. 6 L HIGH FLOW. PT BOWEL SOUNDS HYPERACTIVE ALL QUADS. PEDAL AND RADIAL PULSES PALP. S1, S2 HEARD. POSSE ALARM ON. NON SKID SOCKS APPLIED. PT PLACED ON FALL PRECAUTIONS. GAVE PT REQUESTED AND RECEIVED A BEDPAN. CL IN REACH. REQUESTED PRIVACY ON BEDPAN WHICH WAS GIVEN. CALLED ICU TO BRING PT WALLET OVER TO HIM. TM
[2020-01-28 12:31] VITALS: BP 121/68
--- NOTE | 2020-01-28 12:50 | NUR ---
SPOKE WITH ICU ABOUT PT MEDICATIONS THAT SENT WITH AMBULANCE AND ER SUPPOSEDLY SENT TO ICU WITH PT.
[2020-01-28] MEDS ORDERED: LIPITOR20 MG PO (12:59)
[2020-01-28] MEDS ORDERED: SORIATANE10 MG PO (13:00)
[2020-01-28] MEDS ORDERED: SORIATANE25 MG PO (13:00)
[2020-01-28] MEDS ORDERED: CIPRO500 MG PO (13:01)
[2020-01-28] MEDS ORDERED: GABAPENTIN300 MG PO (13:02)
[2020-01-28] MEDS ORDERED: OMEPRAZOLE40 MG PO (13:03)
[2020-01-28] MEDS ORDERED: SINGULAIR10 MG PO (13:03)
[2020-01-28] MEDS ORDERED: MOBIC7.5 MG PO (13:04)
[2020-01-28 17:31] VITALS: BP 132/73
[2020-01-28 22:24] VITALS: BP 117/62
[2020-01-29 06:14] VITALS: BP 110/64
[2020-01-29 08:17] LABS: BASOPHILS 0.1 % (0-2); EOSINOPHILS 0 % (0-7); HEMATOCRIT 32.9 % (42.0-54.0); IMMATURE GRANULOCYTES 0.5 % (0-5); LYMPHOCYTES 7.7 % (15-50); MCH 29.2 pg (26.0-34.0); MCHC 33.4 g/dL (31.0-37.0); MCV 87.3 fL (80.0-100.0); MEAN PLATELET VOLUME 9.4 fL (7.4-10.4); MONOCYTES 11.3 % (2-11); NEUTROPHILS 80.4 % (40-80); PLATELET COUNT 223 10x3/uL (130-400); RBC 3.77 10x6/uL (4.20-6.10); WBC 10.8 10x3/uL (4.8-10.8)
[2020-01-29 08:34] LABS: ALBUMIN 2.7 g/dL (3.4-5.0); ANION GAP 16.7 mmol/L (8-16); BILIRUBIN - TOTAL 0.24 mg/dL (0.2-1.3); CALCIUM 8.4 mg/dL (8.5-10.1); CARBON DIOXIDE 18.2 mmol/L (21.0-32.0); CREATININE - SERUM 3.2 mg/dL (0.6-1.3); MAGNESIUM - SERUM 1.8 mg/dL (1.8-2.4); PHOSPHOROUS 4.5 mg/dL (2.5-4.9); POTASSIUM - SERUM 3.9 mmol/L (3.5-5.1); PROTEIN - SERUM 6.6 g/dL (6.4-8.2)
[2020-01-29 09:50] VITALS: BP 110/60
--- NOTE | 2020-01-29 12:33 | NUR ---
PATIENT IN BED. WAITING ON LUNCH. DENIES PAIN OR NEEDS AT THIS TIME. BED LOW POSITION, CALL LIGHT IN REACH. WILL CONTINUE TO MONITOR.
[2020-01-29 16:00] VITALS: BP 123/69
[2020-01-29 21:14] VITALS: BP 147/69
--- NOTE | 2020-01-29 22:40 | NUR ---
PT HAD BED BATH AND LINEN CHANGE. C/O GENERALIZED PAIN 11/25. GAVE MORPHINE 2 MG IV PUSH AND SCHEDULED MEDS. APPLIED PRESCRIBED CREAMS TO CHEST, BACK, GROIN AND BUTTOCKS. APPLIED BUTT PASTE TO BUTTOCKS PER PT REQUEST. NO OTHER NEEDS. WILL REASSESS AND CONTINUE TO MONITOR.
[2020-01-30 01:21] VITALS: BP 108/70
[2020-01-30 06:17] VITALS: BP 124/66
[2020-01-30 06:23] LABS: BASOPHILS 0.3 % (0-2); EOSINOPHILS 0.5 % (0-7); HEMATOCRIT 32.7 % (42.0-54.0); HEMOGLOBIN 10.9 g/dL (13.5-17.5); LYMPHOCYTES 13.8 % (15-50); MCH 29.2 pg (26.0-34.0); MCHC 33.3 g/dL (31.0-37.0); MCV 87.7 fL (80.0-100.0); MEAN PLATELET VOLUME 9.1 fL (7.4-10.4); MONOCYTES 13.7 % (2-11); NEUTROPHILS 70.7 % (40-80); PLATELET COUNT 211 10x3/uL (130-400); RBC 3.73 10x6/uL (4.20-6.10); RDW 15.3 % (11.5-14.5); WBC 10.9 10x3/uL (4.8-10.8)
[2020-01-30 07:13] LABS: ALBUMIN 2.6 g/dL (3.4-5.0); BILIRUBIN - TOTAL 0.23 mg/dL (0.2-1.3); CALCIUM 8.7 mg/dL (8.5-10.1); CARBON DIOXIDE 19.9 mmol/L (21.0-32.0); MAGNESIUM - SERUM 1.8 mg/dL (1.8-2.4); PHOSPHOROUS 3.9 mg/dL (2.5-4.9); PROTEIN - SERUM 6.5 g/dL (6.4-8.2)
[2020-01-30 07:15] LABS: ANION GAP 16.4 mmol/L (8-16); POTASSIUM - SERUM 3.3 mmol/L (3.5-5.1)
[2020-01-30 08:00] VITALS: BP 115/69
--- NOTE | 2020-01-30 08:02 | NUR ---
RESTING IN BED WITH EYES CLOSED, BREATHING EVEN AND NONLABORED WITH NO CURRENT S/S OF DISTRESS. IV LOCATED TO IJ RUNNING NS @ 50ML. CONT TO MONITOR.
[2020-01-30 12:18] VITALS: BP 136/83
[2020-01-30 16:26] VITALS: BP 124/70
--- NOTE | 2020-01-30 19:41 | NUR ---
PATIENT RESTING IN BED WITH NO S/S OF DISTRESS AND DENIES NEEDS AT THIS TIME. BED IN LOWEST POSITION AND CALL LIGHT WITHIN REACH. ENCOURAGED THE PATIENT TO CALL IF HE HAS NEEDS. WILL CONTINUE TO MONITOR.
--- NOTE | 2020-01-30 20:53 | NUR ---
ADMINISTERED MEDS PER ORDERS. SWITCHED PATIENT'S IV FLUIDS FROM RIGHT IJ TO RIGHT WRIST. REDNESS AND PAIN NOTED AT IV SITE. SWITCHED FLUIDS BACK TO RIGHT IJ AT THIS TIME.
[2020-01-30 22:11] VITALS: BP 125/75
[2020-01-31 01:38] VITALS: BP 124/67
[2020-01-31 05:43] VITALS: BP 120/75
[2020-01-31 05:59] LABS: BASOPHILS 0.2 % (0-2); EOSINOPHILS 4.1 % (0-7); HEMOGLOBIN 11.6 g/dL (13.5-17.5); IMMATURE GRANULOCYTES 2.4 % (0-5); LYMPHOCYTES 15.7 % (15-50); MCHC 32.2 g/dL (31.0-37.0); MEAN PLATELET VOLUME 9.2 fL (7.4-10.4); MONOCYTES 15.2 % (2-11); NEUTROPHILS 62.4 % (40-80); PLATELET COUNT 250 10x3/uL (130-400); RDW 15.6 % (11.5-14.5); WBC 9.9 10x3/uL (4.8-10.8)
[2020-01-31 06:28] LABS: ALBUMIN 2.6 g/dL (3.4-5.0); ANION GAP 10.8 mmol/L (8-16); BILIRUBIN - TOTAL 0.32 mg/dL (0.2-1.3); CALCIUM 8.5 mg/dL (8.5-10.1); CREATININE - SERUM 2.3 mg/dL (0.6-1.3); MAGNESIUM - SERUM 1.5 mg/dL (1.8-2.4); PHOSPHOROUS 3.7 mg/dL (2.5-4.9); POTASSIUM - SERUM 3.8 mmol/L (3.5-5.1); PROTEIN - SERUM 6.6 g/dL (6.4-8.2); VANCOMYCIN - RANDOM 16.6 ug/mL (10.0-20.0)
--- NOTE | 2020-01-31 06:45 | NUR ---
A&O RESTING IN BED. NO C/O PAIN. NO S/S OF ACUTE DISTRESS NOTED. ON CONTACT ISOLATION FOR STAPH IN BLOOD. GOMEZ CATHETER PRESENT. UP WITH PHYSICAL THERAPY. ON 3.5L O2, NC. RIGHT IJ, NS INFUSING @ 50ML/HR. SITE PATENT WITHOUT REDNESS OR SWELLING. DENIES ANY NEEDS AT THIS TIME. CALL LIGHT IN REACH. WILL CONTINUE TO MONITOR.
[2020-01-31 09:11] VITALS: BP 118/71
--- NOTE | 2020-01-31 13:26 | NUR ---
PATIENT IN ROOM. FAMILY AT BEDSIDE. NO SIGNS OF DISTRESS NOTED. DENIES PAIN OR NEEDS. WILL CONTINUE TO MONITOR.
[2020-01-31 16:04] VITALS: BP 102/68
--- NOTE | 2020-01-31 19:43 | NUR ---
PATIENT RESTING IN BED WITH NO S/S OF DISTRESS. I LET PATIENT KNOW THAT PHARMACY HAD BEEN CONTACTED FOR HIS CREAMS THAT HAD BEEN ORDERED. PATIENT DENIES OTHER NEEDS AT THIS TIME. BED IN LOWEST POSITION AND CALL LIGHT WITHIN REACH. ENCOURAGED THE PATIENT TO CALL IF HE HAS OTHER NEEDS. WILL CONTINUE TO MONITOR.
[2020-01-31 20:00] VITALS: BP 103/66
[2020-02-01] VITALS: BP 100/63
[2020-02-01 04:00] VITALS: BP 92/56
[2020-02-01 06:37] LABS: BASOPHILS 0.4 % (0-2); EOSINOPHILS 4.3 % (0-7); HEMATOCRIT 38.1 % (42.0-54.0); HEMOGLOBIN 12.5 g/dL (13.5-17.5); IMMATURE GRANULOCYTES 6.5 % (0-5); LYMPHOCYTES 15.1 % (15-50); MCH 29.5 pg (26.0-34.0); MCHC 32.8 g/dL (31.0-37.0); MCV 89.9 fL (80.0-100.0); MEAN PLATELET VOLUME 8.9 fL (7.4-10.4); NEUTROPHILS 64.7 % (40-80); RBC 4.24 10x6/uL (4.20-6.10); RDW 15.3 % (11.5-14.5)
[2020-02-01 06:47] LABS: PLATELET COUNT 311 10x3/uL (130-400)
[2020-02-01 07:01] LABS: ALBUMIN 2.7 g/dL (3.4-5.0); ANION GAP 12.2 mmol/L (8-16); BILIRUBIN - TOTAL 0.31 mg/dL (0.2-1.3); CALCIUM 8.4 mg/dL (8.5-10.1); CARBON DIOXIDE 22.8 mmol/L (21.0-32.0); CREATININE - SERUM 2.2 mg/dL (0.6-1.3); MAGNESIUM - SERUM 1.8 mg/dL (1.8-2.4); PHOSPHOROUS 3.8 mg/dL (2.5-4.9); PROTEIN - SERUM 6.9 g/dL (6.4-8.2); VANCOMYCIN - TROUGH 20.3 ug/mL (10.0-20.0)
[2020-02-01 08:36] VITALS: BP 102/64
--- NOTE | 2020-02-01 10:52 | NUR ---
PT ALERT X 4. BREATH SOUNDS CLEAR BILAT. MIDLINE TO RIGHT UPPER ARM, PATENT, DRESSING CDI. SCABS AND SORES ALL OVER. PT REPORTING PAIN OF 7/10, MEDICATED PER ORDERS, WILL CONTINUE TO MONITOR. BED LOW, CALL LIGHT IN REACH. NO OTHER NEEDS AT THIS TIME.
[2020-02-01 12:39] VITALS: BP 112/64
[2020-02-01 17:20] VITALS: BP 107/67
[2020-02-01 20:00] VITALS: BP 113/69
--- NOTE | 2020-02-01 20:00 | NUR ---
PT SITTING UP IN BED WITHOUT DISTRESS, AOX4. RIGHT UPPER ARM ML, INFUSING NS @ 50. O2 3L/NC. GOMEZ IN PLACE. SCABS/SORES ON BACK OF HEAD, NECK, BACK, GROUN AND RIGHT EAR. EXCORIATION TO BACK. CLEANED AREAS AND APPLIED OINTMENT AND CREAM ORDERED. STATES PAIN 11/25, GAVE NORCO ORDERED. DENIES OTHER NEEDS AT THIS TIME. CL IN REACH, WILL CTM
[2020-02-02] VITALS: BP 104/62
--- NOTE | 2020-02-02 01:30 | NUR ---
PT STATES PAIN 11/25, GAVE NORCO ORDERED. CL IN REACH, WILL CTM
[2020-02-02 04:00] VITALS: BP 117/62
[2020-02-02 06:33] LABS: HEMATOCRIT 35.7 % (42.0-54.0); HEMOGLOBIN 11.7 g/dL (13.5-17.5); MCH 29.4 pg (26.0-34.0); MCHC 32.8 g/dL (31.0-37.0); MCV 89.7 fL (80.0-100.0); MEAN PLATELET VOLUME 8.8 fL (7.4-10.4); PLATELET COUNT 352 10x3/uL (130-400); RBC 3.98 10x6/uL (4.20-6.10); RDW 14.9 % (11.5-14.5); WBC 17.4 10x3/uL (4.8-10.8)
[2020-02-02 06:52] LABS: ALBUMIN 2.6 g/dL (3.4-5.0); ANION GAP 13.2 mmol/L (8-16); BILIRUBIN - TOTAL 0.18 mg/dL (0.2-1.3); CALCIUM 8.7 mg/dL (8.5-10.1); CARBON DIOXIDE 22.9 mmol/L (21.0-32.0); CREATININE - SERUM 2.1 mg/dL (0.6-1.3); PROTEIN - SERUM 6.8 g/dL (6.4-8.2); VANCOMYCIN - RANDOM 26.1 ug/mL (10.0-20.0)
[2020-02-02 06:55] LABS: POTASSIUM - SERUM 5.1 mmol/L (3.5-5.1)
--- NOTE | 2020-02-02 08:00 | NUR ---
PATIENT IN BED WITH IV INTACT. NO COMPLAINTS OR SIGNS OF DISTRESS. CREAM APPLIED TO BACK, NECK, AND EARS AND BUTTOCKS. WILL CONTINUE TO MONITOR. CALL LIGHT WITHIN REACH.
[2020-02-02 08:50] VITALS: BP 115/67
[2020-02-02 12:11] LABS: LYMPHOCYTES 9 % (15-50); MONOCYTES 1 % (2-11); NEUTROPHILS 89 % (40-80); PLATELET ESTIMATE NORMAL; TEAR DROP CELLS OCC
[2020-02-02 12:44] VITALS: BP 128/66
--- NOTE | 2020-02-02 13:41 | MORECARE ---
CASE MANAGEMENT DISCHARGE SUMMARY PATIENT: KONRAD ROSENBERG JARRETT UNIT: [id number] ADM DATE: 01/26/20 AGE: 64 : 55 SEX: M ROOM/BED: D.2207 AUTHOR: MIKO EPPERSON PHYSICIAN: REFERRING PHYSICIAN: JAZ PAUL MD DATE OF SERVICE: 02/02/20 Discharge Plan Patient Name: KONRAD ROSENBERG Facility: [facility]:[place] : 1955 Planned Disposition: Home or Self Care Anticipated Discharge Date: Discharge Date: Expected LOS: Initial Reviewer: [email or web address] Initial Review Date: 01/27/2020 Generated: 02/02/20 2:40 pm Patient Name: KONRAD ROSENBERG Page [phone] at 1341 All edits/amendments must be made on the electronic document DICTATION DATE: 02/02/20 1340 JUNIOR SALES REPRESENTATIVE: ANNY 02/02/20 1340 RPT#: [id number] DC DATE: STATUS: ADM IN [facility] [address] [place] [address] END OF REPORT
--- NOTE | 2020-02-02 13:52 | MORECARE ---
CASE MANAGEMENT DISCHARGE SUMMARY PATIENT: KONRAD ROSENBERG UNIT: [id number] ADM DATE: 01/26/20 AGE: 64 : 55 SEX: M ROOM/BED: D.2207 AUTHOR: ZEENAT,DOC PHYSICIAN: REFERRING PHYSICIAN: JAZ PAUL MD DATE OF SERVICE: 02/02/20 Discharge Plan Patient Name: KONRAD ROSENBERG Facility: [facility]:[place] : 1955 Planned Disposition: Home or Self Care Anticipated Discharge Date: Discharge Date: Expected LOS: Initial Reviewer: [email or web address] Initial Review Date: 01/27/2020 Generated: 02/02/20 2:51 pm Comments DCP- Discharge Planning Updated by [email or web address]: Chelo Casarez on 02/02/20 12:[address] Patient Name: KONRAD ROSENBERG Admission Status: ER Accout number: [id number] Admission Date: 01-26-2020 : 1955 Admission Diagnosis:FEVER, UNSPECIFIED Attending: RUBY Current LOS: 7 Anticipated DC Date: Planned Disposition: Home or Self Care Primary Insurance: MEDICARE A & B Discharge Planning Comments: CM met with patient to complete initial dc planning assessment. CM educated patient on the CM role and verbal consent given by patient to complete assessment. Patient lives at home with his girlfriend where he is independent with his care. At discharge patient plans to return home and feels this is a safe discharge. CM discussed availability of home health, rehab services, and medical equipment. He has home O2 that he wears at night 2L ( he could not remember the company) He has a nebulizer and a walker at home. His girlfriend will be his local owner operator truck driver home & if his he needs anything else his son will come over. He does not want home health. Patient denied known discharge needs at this time. CM will continue to follow and will assist as needed with dc plans/needs Agriculture Instructor: Chelo Casarez DCPIA - Discharge Planning Initial Assessment Updated by [email or web address]: Chelo Casarez on 02/02/20 1:41 pm * Is the patient Alert and Oriented? Yes * How many steps to enter\exit or inside your home? * PCP JS * Pharmacy [facility] * Preadmission Environment Home with Family * ADLs Independent * Equipment Nebulizer Oxygen Rolling Walker * List name and contact numbers for known caregivers / representatives who currently or will assist patient after discharge: HAN HARMAN [phone] * Verbal permission to speak to the caregivers and representatives has been obtained from the patient. N/A * Community resources currently utilized None * Additional services required to return to the preadmission environment? No * Can the patient safely return to the preadmission environment? Yes * Has this patient been hospitalized within the prior 30 days at any hospital? No Last DP export: 02/02/20 12:40 p Patient Name: KONRAD ROSENBERG Page [phone] at 1352 All edits/amendments must be made on the electronic document DICTATION DATE: 02/02/20 1351 BALL MACHINE OPERATOR: ANNY 02/02/20 1351 RPT#: [id number] DC DATE: STATUS: ADM IN [facility] [address] [place] [address] END OF REPORT
[2020-02-02 16:57] VITALS: BP 131/70
--- NOTE | 2020-02-02 18:45 | NUR ---
PATIENT IN BED WITH IV INTACT. NO COMPLAINTS OR SIGNS OF DISTRESS. FAMILY AT BEDSIDE CALL LIGHT WITHIN REACH.
[2020-02-02 20:00] VITALS: BP 125/69
--- NOTE | 2020-02-02 20:00 | NUR ---
PT SITTING UP IN BED WITHOUT DISTRESS, AOX4. RIGHT UPPER ARM ML SL. FLUSHES EASILY. DRESSING CDI. O2 3L/NC. GOMEZ IN PLACE. PT STATES PAIN 11/25, GAVE NORCO ORDERED. FSBS 221, GAVE INSULIN PER SS, SEE MAR. ASSISTED PT WITH SHOWER, LINENS CHANGED. APPLIED CREAM AND OINTMENT AFTER SHOWER TO BACK, HEAD, EARS, UNDER ARMS, GROIN AND BUTTOCKS. DENIES OTHER NEEDS AT THIS TIME. CL IN REACH, WILL CTM
[2020-02-03] VITALS: BP 119/59
--- NOTE | 2020-02-03 03:19 | NUR ---
PT STATES PAIN 11/25, GAVE NORCO ORDERED. DENIES OTHER NEEDS, WILL CTM
[2020-02-03 04:00] VITALS: BP 115/66
[2020-02-03 06:08] LABS: ANION GAP 15.5 mmol/L (8-16); BILIRUBIN - TOTAL 0.18 mg/dL (0.2-1.3); CALCIUM 9.3 mg/dL (8.5-10.1); CREATININE - SERUM 2.2 mg/dL (0.6-1.3); MAGNESIUM - SERUM 2.1 mg/dL (1.8-2.4); POTASSIUM - SERUM 5.5 mmol/L (3.5-5.1); PROTEIN - SERUM 6.8 g/dL (6.4-8.2)
[2020-02-03 06:09] LABS: BASOPHILS 0.2 % (0-2); EOSINOPHILS 0 % (0-7); HEMATOCRIT 34.5 % (42.0-54.0); HEMOGLOBIN 11.1 g/dL (13.5-17.5); LYMPHOCYTES 6.4 % (15-50); MCH 29.1 pg (26.0-34.0); MCHC 32.2 g/dL (31.0-37.0); MCV 90.6 fL (80.0-100.0); MEAN PLATELET VOLUME 9.4 fL (7.4-10.4); MONOCYTES 8.4 % (2-11); RBC 3.81 10x6/uL (4.20-6.10); RDW 15.1 % (11.5-14.5); WBC 18.3 10x3/uL (4.8-10.8)
[2020-02-03 06:22] LABS: PLATELET COUNT 444 10x3/uL (130-400)
[2020-02-03 08:51] VITALS: BP 116/71
[2020-02-03 12:02] VITALS: BP 128/68
--- NOTE | 2020-02-03 14:21 | NUR ---
Nutrition follow-up: Pt receiving a renal diet with po intake 85, 75, 100% of meals 02/01. Labs reviewed; K still a little high +BM Wt: 194# PO intake continues to be good at this time RDN following.
--- NOTE | 2020-02-03 14:49 | NUR ---
PATIENT GOMEZ DC'D AT THIS TIME
[2020-02-03 16:49] VITALS: BP 118/69
[2020-02-03 18:08] LABS: AEROBE ID Final report (())
--- NOTE | 2020-02-03 18:45 | NUR ---
PATIENT IN BED WITH IV INTACT. NO COMPLAINTS. STATED HAS VOIDED TWICE WITH NO PROBLEMS AFTER GOMEZ REMOVAL. CALL LIGHT WITHIN REACH.
[2020-02-03 20:00] VITALS: BP 124/71
[2020-02-03 20:07] LABS: OVA + PARASITE EXAM Final report (())
[2020-02-04 04:00] VITALS: BP 113/68
[2020-02-04 05:21] LABS: BASOPHILS 0.2 % (0-2); EOSINOPHILS 0 % (0-7); HEMATOCRIT 31.8 % (42.0-54.0); HEMOGLOBIN 10.2 g/dL (13.5-17.5); IMMATURE GRANULOCYTES 11.3 % (0-5); LYMPHOCYTES 6.3 % (15-50); MCHC 32.1 g/dL (31.0-37.0); MCV 90.3 fL (80.0-100.0); MEAN PLATELET VOLUME 8.6 fL (7.4-10.4); MONOCYTES 12.6 % (2-11); NEUTROPHILS 69.6 % (40-80); PLATELET COUNT 463 10x3/uL (130-400); RBC 3.52 10x6/uL (4.20-6.10); RDW 15.1 % (11.5-14.5); WBC 14.9 10x3/uL (4.8-10.8)
[2020-02-04 05:46] LABS: ALBUMIN 2.6 g/dL (3.4-5.0); BILIRUBIN - TOTAL 0.17 mg/dL (0.2-1.3); CALCIUM 8.6 mg/dL (8.5-10.1); CARBON DIOXIDE 27.8 mmol/L (21.0-32.0); MAGNESIUM - SERUM 1.9 mg/dL (1.8-2.4); PROTEIN - SERUM 6.3 g/dL (6.4-8.2); VANCOMYCIN - RANDOM 18.5 ug/mL (10.0-20.0)
[2020-02-04 05:52] LABS: ANION GAP 10.8 mmol/L (8-16); POTASSIUM - SERUM 4.6 mmol/L (3.5-5.1)
[2020-02-04 08:51] VITALS: BP 126/69
[2020-02-04] MEDS ORDERED: MUCINEX600 MG PO (11:59)
[2020-02-04] MEDS ORDERED: TESSALON PERLE100 MG PO (11:59)
[2020-02-04] MEDS ORDERED: FLORAJEN3 CAPS460 MG PO (11:59)
[2020-02-04] MEDS ORDERED: TEMOVATE 0.05%15 G1 TOPICAL (12:00)
[2020-02-04] MEDS ORDERED: ZYVOX600 MG PO (12:03)
[2020-02-04] MEDS ORDERED: PREDNISONE10 MG PO (12:04)
[2020-02-04] MEDS ORDERED: Nizoral 2 % Cream TOPICAL (12:04)
--- NOTE | 2020-02-04 15:21 | NUR ---
DISCHARGED PATIENT HOME WITH FAMILY VIA WHEELCHAIR. DISCONTINUED MIDLINE, CATHETER TIP INTACT. PRESSURE DRESSING APPLIED. WENT OVER DISCHARGE INSTRUCTIONS WITH PATIENT AND SIGNIFICANT OTHER, VERBALIZED UNDERSTANDING. DENIES ANYTHING FURTHER.
--- NOTE | 2020-02-04 15:27 | NUR ---
PATIENT IN WHEELCHAIR,WITHOUT DISTRESS. LEAVING UNIT FOR DC HOME.
--- NOTE | 2020-02-04 17:00 | MORECARE ---
CASE MANAGEMENT DISCHARGE SUMMARY PATIENT: KONRAD ROSENBERG UNIT: [id number] ADM DATE: 01/26/20 AGE: 64 : 55 SEX: M ROOM/BED: D.2207 AUTHOR: ZEENATDOC PHYSICIAN: REFERRING PHYSICIAN: JAZ PAUL MD DATE OF SERVICE: 02/04/20 Discharge Plan Patient Name: KONRAD ROSENBERG Facility: [facility]:[place] : 1955 Planned Disposition: Home or Self Care Anticipated Discharge Date: 02/04/20 Discharge Date: 02/04/2020 Expected LOS: 9 Initial Reviewer: [email or web address] Initial Review Date: 01/27/2020 Generated: 02/04/20 6:00 pm Comments DCP- Discharge Planning Updated by [email or web address]: Chelo Casarez on 02/02/20 12:[address] Patient Name: KONRAD ROSENBERG Admission Status: ER Accout number: [id number] Admission Date: 01-26-2020 : 1955 Admission Diagnosis:FEVER, UNSPECIFIED Attending: RUBY Current LOS: 7 Anticipated DC Date: Planned Disposition: Home or Self Care Primary Insurance: MEDICARE A & B Discharge Planning Comments: CM met with patient to complete initial dc planning assessment. CM educated patient on the CM role and verbal consent given by patient to complete assessment. Patient lives at home with his girlfriend where he is independent with his care. At discharge patient plans to return home and feels this is a safe discharge. CM discussed availability of home health, rehab services, and medical equipment. He has home O2 that he wears at night 2L ( he could not remember the company) He has a nebulizer and a walker at home. His girlfriend will be his shuttle truck driver home & if his he needs anything else his son will come over. He does not want home health. Patient denied known discharge needs at this time. CM will continue to follow and will assist as needed with dc plans/needs Tree Feller: Chelo Casarez DCPIA - Discharge Planning Initial Assessment Updated by [email or web address]: Chelo Casarez on 02/02/20 1:41 pm * Is the patient Alert and Oriented? Yes * How many steps to enter\exit or inside your home? * PCP JS * Pharmacy [facility] * Preadmission Environment Home with Family * ADLs Independent * Equipment Nebulizer Oxygen Rolling Walker * List name and contact numbers for known caregivers / representatives who currently or will assist patient after discharge: HAN LONGONNELL [phone] * Verbal permission to speak to the caregivers and representatives has been obtained from the patient. N/A * Community resources currently utilized None * Additional services required to return to the preadmission environment? No * Can the patient safely return to the preadmission environment? Yes * Has this patient been hospitalized within the prior 30 days at any hospital? No Last DP export: 02/02/20 12:52 p Patient Name: KONRAD ROSENBERG Page [phone] at 1700 All edits/amendments must be made on the electronic document DICTATION DATE: 02/04/20 1700 CUSHION FILLER: ANNY 02/04/20 1700 RPT#: [id number] DC DATE:02/04/20 STATUS: DIS IN [facility] [address] [place] [address] END OF REPORT
--- NOTE | 2020-02-04 17:09 | MORECARE ---
CASE MANAGEMENT DISCHARGE SUMMARY PATIENT: KONRAD ROSENBERG UNIT: [id number] ADM DATE: 01/26/20 AGE: 64 : 55 SEX: M ROOM/BED: D.2207 AUTHOR: ZEENATDOC PHYSICIAN: REFERRING PHYSICIAN: JAZ PAUL MD DATE OF SERVICE: 02/04/20 Discharge Plan Patient Name: KONRAD ROSENBERG Facility: [facility]:[place] : 1955 Planned Disposition: Home or Self Care Anticipated Discharge Date: 02/04/20 Discharge Date: 02/04/2020 Expected LOS: 9 Initial Reviewer: [email or web address] Initial Review Date: 01/27/2020 Generated: 02/04/20 6:09 pm Comments DCP- Discharge Planning Updated by [email or web address]: Sinai Little on 02/04/20 4:[address] PATIENT HAS DECLINED HOME HEALTH. HE IS ANXIOUS TO BE DISCHARGED. PATIENT STATED HE HAD PORTABLE AND STATIONARY OXYGEN AT HOME TO THE RESPIRATORY THERAPISTGARDENIA. DCP- Discharge Planning Updated by [email or web address]: Chelo Casarez on 02/02/20 12:[address] Patient Name: KONRAD ROSENBERG Admission Status: ER Accout number: [id number] Admission Date: 01-26-2020 : 1955 Admission Diagnosis:FEVER, UNSPECIFIED Attending: RUBY Current LOS: 7 Anticipated DC Date: Planned Disposition: Home or Self Care Primary Insurance: MEDICARE A & B Discharge Planning Comments: CM met with patient to complete initial dc planning assessment. CM educated patient on the CM role and verbal consent given by patient to complete assessment. Patient lives at home with his girlfriend where he is independent with his care. At discharge patient plans to return home and feels this is a safe discharge. CM discussed availability of home health, rehab services, and medical equipment. He has home O2 that he wears at night 2L ( he could not remember the company) He has a nebulizer and a walker at home. His girlfriend will be his commercial driver's license driver home & if his he needs anything else his son will come over. He does not want home health. Patient denied known discharge needs at this time. CM will continue to follow and will assist as needed with dc plans/needs Fiberline Supervisor: Chelo Csaarez DCPIA - Discharge Planning Initial Assessment Updated by [email or web address]: Chelo Casarez on 02/02/20 1:41 pm * Is the patient Alert and Oriented? Yes * How many steps to enter\exit or inside your home? * PCP JS * Pharmacy [facility] * Preadmission Environment Home with Family * ADLs Independent * Equipment Nebulizer Oxygen Rolling Walker * List name and contact numbers for known caregivers / representatives who currently or will assist patient after discharge: HAN HARMAN [phone] * Verbal permission to speak to the caregivers and representatives has been obtained from the patient. N/A * Community resources currently utilized None * Additional services required to return to the preadmission environment? No * Can the patient safely return to the preadmission environment? Yes * Has this patient been hospitalized within the prior 30 days at any hospital? No Last DP export: 02/04/20 4:00 p Patient Name: KONRAD ROSENBERG Page [phone] at 1709 All edits/amendments must be made on the electronic document DICTATION DATE: 02/04/201708 BALLAST INSPECTOR: ANNY 02/04/201708 RPT#: [id number] DC DATE:02/04/20 STATUS: DIS IN [facility] [address] [place] [address] END OF REPORT
== END 2020-02-04 16:04 | disposition home or self-care (01) | DRG 871 ==
LOC: D.ER 20:22 → D.ICU 23:57 → D.MS 01-27 00:10 → D.ICU 01-27 00:10 → D.ER 01-27 00:10 → D.MS 01-28 10:36 → D.ICU 01-28 10:36 → D.MS 01-28 10:36
PROVIDERS: Emergency Medicine; Family Medicine; Internal Medicine Pulmonary Disease; ADMIT Family Medicine; ATTEND Family Medicine
PROC: 05HY33Z Insertion of Infusion Device into Upper Vein, Percutaneous Approach (ICD-10-PCS; principal; 2020-01-31)
DX: A41.9 Sepsis, unspecified organism (principal); J96.20 Acute and chronic respiratory failure, unspecified whether with hypoxia or hypercapnia; G93.41 Metabolic encephalopathy; L03.314 Cellulitis of groin; N17.9 Acute kidney failure, unspecified; M87.9 Osteonecrosis, unspecified; Q82.8 Other specified congenital malformations of skin; K21.9 Gastro-esophageal reflux disease without esophagitis; J44.9 Chronic obstructive pulmonary disease, unspecified; I10 Essential (primary) hypertension; E78.5 Hyperlipidemia, unspecified; F41.8 Other specified anxiety disorders; I25.10 Atherosclerotic heart disease of native coronary artery without angina pectoris; D64.9 Anemia, unspecified; E55.9 Vitamin D deficiency, unspecified; E83.42 Hypomagnesemia

== ENCOUNTER 2020-08-03 12:58 | Inpatient (IN) | payer MEDICARE, MEDICAID ==
[~2020-08-03] VITALS: Ht 177.8 cm; Wt 81.6 kg
[~2020-08-03 12:58] MED LIST changes: +FLORAJEN3 CAPS460 MG PO; +GABAPENTIN300 MG PO; +LIPITOR20 MG PO; +MOBIC7.5 MG PO; +Nizoral 2 % Cream TOPICAL; +OMEPRAZOLE40 MG PO; +ZYVOX600 MG PO
[2020-08-03 13:16] VITALS: BP 132/75
[2020-08-03 14:23] LABS: BASOPHILS 0.1 % (0-2); EOSINOPHILS 0.1 % (0-7); HEMATOCRIT 34.4 % (42.0-54.0); LYMPHOCYTE ABS# 1.06 10x3/uL (1.32-3.57); LYMPHOCYTES 7.8 % (15-50); MCH 28.2 pg (26.0-34.0); MCV 88.2 fL (80.0-100.0); MEAN PLATELET VOLUME 9.3 fL (7.4-10.4); MONOCYTES 3.6 % (2-11); NEUTROPHIL ABS# 11.85 10x3/uL (1.78-5.38); NEUTROPHILS 87.4 % (40-80); RDW 14.3 % (11.5-14.5); WBC 13.6 10x3/uL (4.8-10.8)
[2020-08-03 14:26] LABS: PLATELET COUNT 275 10x3/uL (130-400)
[2020-08-03 14:28] LABS: CALC OSMOLALITY 283 mosm/kg (275-300); CALCIUM 9.5 mg/dL (8.5-10.1); CARBON DIOXIDE 29.8 mmol/L (21.0-32.0); CHLORIDE - SERUM 97 mmol/L (98-107); CREATININE - SERUM 1.2 mg/dL (0.6-1.3); POTASSIUM - SERUM 4.4 mmol/L (3.5-5.1); SODIUM 135 mmol/L (136-145); UREA NITROGEN 18 mg/dL (7-18); eGFR NON AFRICAN AMERICAN 65 mL/min (90-120)
[2020-08-03 14:32] LABS: ALBUMIN 2.6 g/dL (3.4-5.0); ALKALINE PHOSPHATASE 123 U/L (30-120); ALT (SGPT) 20 U/L (10-68); AMYLASE - SERUM 44 U/L (25-115); BILIRUBIN - TOTAL 0.42 mg/dL (0.2-1.3); LIPASE 155 U/L (73-393); PROTEIN - SERUM 7.9 g/dL (6.4-8.2); TROPONIN-I < 0.017 ng/mL (0.000-0.060)
[2020-08-03 14:47] LABS: GLUCOSE 318 mg/dL (74-106)
[2020-08-03 15:10] VITALS: BP 134/77
[2020-08-03 15:15] LABS: CKMB 0.4 U/L (0.0-3.6); CREATINE KINASE 27 UL (21-232); TROPONIN-I < 0.017 ng/mL (0.000-0.060)
[2020-08-03 15:39] VITALS: BP 142/74; BMI 25.8
[2020-08-03 15:44] LABS: BILIRUBIN NEGATIVE (NEGATIVE); KETONE SMALL mg/dL (NEGATIVE); NITRITE NEGATIVE (NEGATIVE); UROBILINOGEN NORMAL mg/dL (< 2)
[2020-08-03 15:46] LABS: BACTERIA FEW HPF (NONE SEEN); SQUAMOUS EPITHELIAL NONE SEEN HPF (0-4); WHITE CELLS - URINE 0-5 HPF (0-1)
--- NOTE | 2020-08-03 19:48 | NUR ---
Assumed care of pt after report/Rounds. Pt is A&OX4 and verbalizes wants/needs clearly, appropriately and without hesitation. Does c/o ABD pain and would like to recieve PRN pain meds when available. Did discuss dosing schedule and offered warm blanket for now and, pt did verbalize some relief with same. In bed resting at this time. BSA but stomach remains ditended, tender and firm.
[2020-08-03 20:00] VITALS: BP 126/73
[2020-08-03 20:39] LABS: CKMB 0.3 U/L (0.0-3.6); CREATINE KINASE 19 UL (21-232)
[2020-08-03 20:44] LABS: TROPONIN-I < 0.017 ng/mL (0.000-0.060)
[2020-08-04] VITALS: BP 105/69
[2020-08-04 03:17] LABS: BASOPHILS 0.1 % (0-2); EOSINOPHILS 0.4 % (0-7); HEMATOCRIT 38.5 % (42.0-54.0); HEMOGLOBIN 12.3 g/dL (13.5-17.5); IMMATURE GRANULOCYTES 0.9 % (0-5); LYMPHOCYTE ABS# 1.57 10x3/uL (1.32-3.57); MCH 28.5 pg (26.0-34.0); MCHC 31.9 g/dL (31.0-37.0); MCV 89.1 fL (80.0-100.0); MEAN PLATELET VOLUME 10.6 fL (7.4-10.4); MONOCYTES 5.1 % (2-11); NEUTROPHIL ABS# 7.61 10x3/uL (1.78-5.38); NEUTROPHILS 77.5 % (40-80); PLATELET COUNT 224 10x3/uL (130-400); RBC 4.32 10x6/uL (4.20-6.10); RDW 14.6 % (11.5-14.5); WBC 9.8 10x3/uL (4.8-10.8)
[2020-08-04 03:25] LABS: ALBUMIN 2.4 g/dL (3.4-5.0); ALKALINE PHOSPHATASE 120 U/L (30-120); ALT (SGPT) 18 U/L (10-68); BILIRUBIN - TOTAL 0.47 mg/dL (0.2-1.3); CALCIUM 9.4 mg/dL (8.5-10.1); CARBON DIOXIDE 29.9 mmol/L (21.0-32.0); CHLORIDE - SERUM 99 mmol/L (98-107); CKMB 0.2 U/L (0.0-3.6); CREATINE KINASE 42 UL (21-232); CREATININE - SERUM 1.2 mg/dL (0.6-1.3); MAGNESIUM - SERUM 2.2 mg/dL (1.8-2.4); PHOSPHOROUS 3.3 mg/dL (2.5-4.9); POTASSIUM - SERUM 4.3 mmol/L (3.5-5.1); SODIUM 136 mmol/L (136-145); TROPONIN-I < 0.017 ng/mL (0.000-0.060); UREA NITROGEN 19 mg/dL (7-18); eGFR NON AFRICAN AMERICAN 65 mL/min (90-120)
[2020-08-04 03:30] LABS: CALC OSMOLALITY 278 mosm/kg (275-300); GLUCOSE 195 mg/dL (74-106)
[2020-08-04 04:00] VITALS: BP 137/76
--- NOTE | 2020-08-04 06:56 | NUR ---
PT ON 2LNC SPO2 80% INCREASED TO HF @ 8LPM, BREATHING TX GIVEN MOIST COUGH WITH SWALLOWED SECRETIONS SPO2 91% ON DEPARTURE NURSE NOTIFIED
--- NOTE | 2020-08-04 07:20 | NUR ---
PATIENT WITH AUDIBLE EXPIRATORY WHEEZES. SAT 90% ON 8LHFNC FROM 2L NC. SPOKE WITH LEAD APPLICATION ARCHITECT RADU AND ORDERS PLACED. PATIENT'S TEMP 101 AND HR 126 AFTER GETTING OFF PHONE WITH LEAD APPLICATION ARCHITECT. RAPID RESPONSE CALLED AND CARRIED OUT. PATIENT TO BE MOVED TO M2 PUI AND TO BE TESTED FOR COVID.
--- NOTE | 2020-08-04 07:31 | NUR ---
TEMP 101.0 TYLENOL GIVEN
--- NOTE | 2020-08-04 07:44 | NUR ---
REPORT CALLED TO MED 2 NURSE. DENIES FURTHER QUESTIONS. STATES PATIENT CAN GO TO ROOM 6190.
[2020-08-04 08:33] LABS: SARS-CoV-2 ANTIGEN NEGATIVE- SARS-COV-2 (NEGATIVE)
[2020-08-04 09:03] LABS: ERYTHROCYTE SEDIMENTATION RATE 115 mm/hr (0-20)
--- NOTE | 2020-08-04 10:44 | NUR ---
PATIENT'S HAN MADE AWARE OF SITUATION AND THAT PATIENT HAS BEEN MOVED TO [facility] 2.
[2020-08-04 10:47] VITALS: BP 111/62
[2020-08-04 13:15] VITALS: Ht 177.8 cm; Wt 81.6 kg
--- NOTE | 2020-08-04 17:10 | NUR ---
0900 RECEIVED PT FROM MED/SURG S/P RAPID RESPONSE FOR ALTERATION IN BREATHING STATUS. PT A&O X4. APPEARS TO BE IN SIGNIFICANT PAIN TO RLQ. O2 PER HFNC 9L. TACHY AT 120'S. O2 SAT 93%. SENIOR ENERGY TRADER SET UP & INFUSING PER ORDERS. ALLOWED ICE CHIPS. URINAL TO VOID.
--- NOTE | 2020-08-04 19:27 | NUR ---
BLADDER SCAN 148ML PT DENIES NEED TO VOID. URINE OUTPUT APPROX-350ML TODAY
[2020-08-04 19:40] VITALS: BP 83/50
[2020-08-04 23:32] VITALS: BP 105/58
[2020-08-05 04:31] VITALS: BP 104/59
--- NOTE | 2020-08-05 05:12 | NUR ---
PT ONLY C/O DURING THE NIGHT IS RLQ PAIN. PT JUMPS TO THE TOUCH. DIRECT SUPPORT SPECIALIST CONTINUES TO INFUSE ORDERED. URINE DARK. NO SOB OBSERVED. REMAINS ON 9L HFNC. CALL LIGHT IN REACH. WILL CPOC.
[2020-08-05 06:34] LABS: BASOPHILS 0.2 % (0-2); EOSINOPHILS 0.7 % (0-7); HEMATOCRIT 31.9 % (42.0-54.0); IMMATURE GRANULOCYTES 1.5 % (0-5); LYMPHOCYTE ABS# 0.91 10x3/uL (1.32-3.57); LYMPHOCYTES 7.4 % (15-50); MCH 28.2 pg (26.0-34.0); MCHC 30.7 g/dL (31.0-37.0); MEAN PLATELET VOLUME 8.9 fL (7.4-10.4); MONOCYTES 4.3 % (2-11); NEUTROPHIL ABS# 10.54 10x3/uL (1.78-5.38); NEUTROPHILS 85.9 % (40-80); PLATELET COUNT 241 10x3/uL (130-400); RBC 3.48 10x6/uL (4.20-6.10); RDW 15.1 % (11.5-14.5)
[2020-08-05 06:35] LABS: HEMOGLOBIN 9.8 g/dL (13.5-17.5); MCV 91.7 fL (80.0-100.0); WBC 12.3 10x3/uL (4.8-10.8)
[2020-08-05 07:16] LABS: ANION GAP 15.2 mmol/L (8-16); BILIRUBIN - TOTAL 0.98 mg/dL (0.2-1.3); CREATININE - SERUM 1.3 mg/dL (0.6-1.3); MAGNESIUM - SERUM 1.9 mg/dL (1.8-2.4); PHOSPHOROUS 3.9 mg/dL (2.5-4.9); POTASSIUM - SERUM 4.2 mmol/L (3.5-5.1); PROTEIN - SERUM 6.6 g/dL (6.4-8.2)
[2020-08-05 07:18] LABS: ALBUMIN 1.7 g/dL (3.4-5.0)
[2020-08-05 07:26] LABS: C-REACTIVE PROTEIN 188.8 mg/dL (0.0-0.9)
[2020-08-05 09:37] VITALS: BP 102/59
[2020-08-05 16:00] VITALS: BP 99/58
[2020-08-05 17:08] VITALS: BP 99/58
[2020-08-05 20:20] VITALS: BP 98/61
--- NOTE | 2020-08-05 22:34 | NUR ---
INITIAL ROUNDS COMPLETED AT 1920 HRS. PT DENIED ANY DISCOMOFRT. ASSESSMENT COMPLETED AT 1940 HRS. VSS. ALERT AND ORIENTED TO PERSON,PLACE AND TIME. OTOOLE. 02 9L HIGH FLOW O2. SR PER CM HR 100. IV TO RFA WITH NS AT 125CC/HR AND DILAUDID SILVER PLATER 0.2MG Q4HRS WITH 4MG Q4HR LO. ABD TENDER TO TOUCH. RASH NOTED TO BILAT GROIN, BACK OF HEAD AND NECK. PALPABLE PERIPHERAL PULSES. PM FSBS 141. GOOD EFORT WITH IS WITH PT RAECHING 1000 CC. PT CURRENTLY WATCHING TV. SR UP X2, CALL LIGHT WITHIN REACH AND BED ALARM ON.
[2020-08-06 00:13] VITALS: BP 117/67
--- NOTE | 2020-08-06 00:26 | NUR ---
PT RESTING WITH EYES CLOSED. RESP EVEN AND REGULAR. SR UP X2, CALL LIGHT WITHIN REACH.
--- NOTE | 2020-08-06 02:09 | NUR ---
PT RESTING WITH EYES CLOSED. RESP EVEN AND REGULAR. SR UP X2, CALL LIGHT WITHIN REACH.
[2020-08-06 03:34] VITALS: BP 102/60
--- NOTE | 2020-08-06 03:45 | NUR ---
PT RESTING WITH EYES CLOSED. RESP EVEN AND REGULAR. SR UP X2, CALL LIGHT WITHIN REACH.
[2020-08-06 06:00] LABS: BASOPHILS 0.2 % (0-2); EOSINOPHILS 1.6 % (0-7); HEMATOCRIT 30.3 % (42.0-54.0); HEMOGLOBIN 9.4 g/dL (13.5-17.5); LYMPHOCYTE ABS# 0.66 10x3/uL (1.32-3.57); LYMPHOCYTES 6.6 % (15-50); MCH 28.1 pg (26.0-34.0); MCV 90.4 fL (80.0-100.0); MONOCYTES 5.4 % (2-11); NEUTROPHIL ABS# 8.35 10x3/uL (1.78-5.38); NEUTROPHILS 84.2 % (40-80); PLATELET COUNT 234 10x3/uL (130-400); RBC 3.35 10x6/uL (4.20-6.10); RDW 14.9 % (11.5-14.5); WBC 9.9 10x3/uL (4.8-10.8)
[2020-08-06 06:28] LABS: ALBUMIN 1.6 g/dL (3.4-5.0); ALKALINE PHOSPHATASE 129 U/L (30-120); ALT (SGPT) 33 U/L (10-68); BILIRUBIN - TOTAL 0.58 mg/dL (0.2-1.3); CALCIUM 9.1 mg/dL (8.5-10.1); CARBON DIOXIDE 23.3 mmol/L (21.0-32.0); CHLORIDE - SERUM 105 mmol/L (98-107); GLUCOSE 143 mg/dL (74-106); MAGNESIUM - SERUM 1.9 mg/dL (1.8-2.4); POTASSIUM - SERUM 4.2 mmol/L (3.5-5.1); PROTEIN - SERUM 6.7 g/dL (6.4-8.2); SODIUM 137 mmol/L (136-145)
[2020-08-06 06:34] LABS: CALC OSMOLALITY 278 mosm/kg (275-300); CREATININE - SERUM 0.9 mg/dL (0.6-1.3); PHOSPHOROUS 2.8 mg/dL (2.5-4.9); UREA NITROGEN 21 mg/dL (7-18); eGFR NON AFRICAN AMERICAN 90 mL/min (90-120)
--- NOTE | 2020-08-06 06:44 | NUR ---
VSS THROUGHOUT NIGHT. SR/ST PER CM. PT STATED DILAUDID FILBERT GROWER CONTROLLED HIS PAIN. NEEDS MET; WILL CONTINUE TO MONITOR.
[2020-08-06 09:28] VITALS: BP 136/76
--- NOTE | 2020-08-06 10:38 | EC ---
PATIENT:KONRAD ROSENBERG DATE OF SERVICE: 08/03/20 SEX: M MEDICAL RECORD: [id number] DATE OF : 55 LOCATION:D.M2 D.210 AGE OF PATIENT: 64 ADMISSION DATE: 08/03/20 REFERRING PHYSICIAN: INTERPRETING PHYSICIAN: OZZY ROSENBERG MD ECHOCARDIOGRAM REPORT ECHO CHARGES 4 ECHO COMPLETE Date: 08/04/20 CLINICAL DIAGNOSIS: CHF ECHOCARDIOGRAPHIC MEASUREMENTS (adult normal given) AC root (d.<3.7cm) 3.8 cm LV Septum d (<1.2 cm> 1.2 cm Valve Excursion 2.3 cm LV Septum (systole) 1.4 cm Left Atria (s.<4.0cm> 4.2 cm LVPW d(<1.2cm) 1.1 cm RV (d.<2.3cm) 4.0 cm LVPW (sytole) 1.3 cm LV diastole(<5.6CM) 4.6 cm MV E-F(>70mm/sec) cm LV systole 3.4 cm LVOT Diameter 2.1 cm MV exc.(>10mm) cm Est.ejection fraction (50-75%) 55 % DOPPLER: LVIT cm/sec A 89 cm/sec E 62 cm/sec LA cm/sec RVSP 99 mmHg LVOT 127 cm/sec AOP1/2T m/s Asc. Ao 169 cm/sec RVOT 99 cm/sec RA 4.2 cm/sec PA 95 cm/sec AV Gradient Peak 11 mmHg AV Mean 7 mmHg AV Area 3.5 cm MV Gradient Peak 4 mmHg MV Mean 1 mmHg MV Area cm COMMENTS: Picture Frame Maker: Nicole SKINNER Conductor Pullman: 3 Dr. Tompkins TAPE# Pericardial Effusion Y DATE OF SERVICE: CLINICAL INDICATION: CHF. INTERPRETATION: Normal left ventricular chamber size and contractile function, ejection fraction 55% to 60%. FINDINGS: Left atrial chamber appears normal. Right atrium and right ventricular chamber size and function appears normal. Aortic valve appears normal. No aortic stenosis/regurgitation. Mitral valve appears normal. ECHOCARDIOGRAM REPORT [id number] KONRAD ROSENBERG Ixzhfpo-tv-[id number] mitral regurgitation. Tricuspid valve appears normal. Srimgzb-zz-fenn tricuspid regurgitation. Pulmonic valve appears normal. No pulmonary insufficiency. Trivial pericardial effusion (mostly posterior). IMPRESSION: Normal left ventricular chamber size and contractile function with ejection fraction of 55% to 60%. TRANSINT:[id number] Voice Confirmation ID: [id number] DOCUMENT ID: [id number] OZZY ROSENBERG MD at 1038 CC: [id number] DICTATION DATE: 08/05/20 1213 MASTER MECHANIC: 08/05/20 1519 ADM IN [facility] [address] [place] [address]
--- NOTE | 2020-08-06 12:55 | NUR ---
BACK FROM OR. HEMASPLIT CATHETER PLACD RO RIGHT THIGH. PRESSURE DRSG APPLIED TO SITE WITH SAND BAG TO HELP STOP BLEEDING TO SITE. WILL CONT TO MONITOR.
[2020-08-06 16:32] VITALS: BP 113/72
[2020-08-06 20:52] VITALS: BP 129/74
[2020-08-06 23:59] VITALS: BP 126/75
--- NOTE | 2020-08-07 00:47 | NUR ---
PT HAS BEEN RESTING COMFORTABLY, O2 DECREASED TO 7L HFNC. NO S/S OF DISTRESS OBSERVED. C/O OF HEADACHE EARLIER BUT DENIES FURTHER NEEDS NOW. CL IN REACH. WILL CTM.
--- NOTE | 2020-08-07 04:30 | NUR ---
PT O2 DECREASED TO 6L, PT SAT 98% NO S/S OF DISTRESS. PT TOLERATING WELL. CL IN REACH
[2020-08-07 05:27] VITALS: BP 130/74
--- NOTE | 2020-08-07 05:38 | NUR ---
PT TOLERATED CLEAR LIQUID DIET. DENIES BM SINCE ADMISSION. NO FURTHER NEEDS EXPRESSED.
[2020-08-07 05:43] LABS: BASOPHILS 0.2 % (0-2); EOSINOPHILS 1.7 % (0-7); HEMATOCRIT 32.1 % (42.0-54.0); HEMOGLOBIN 10.3 g/dL (13.5-17.5); IMMATURE GRANULOCYTES 2.5 % (0-5); LYMPHOCYTE ABS# 0.65 10x3/uL (1.32-3.57); MCH 28.5 pg (26.0-34.0); MCHC 32.1 g/dL (31.0-37.0); MCV 88.7 fL (80.0-100.0); MEAN PLATELET VOLUME 9.5 fL (7.4-10.4); MONOCYTES 4.8 % (2-11); NEUTROPHILS 83.8 % (40-80); PLATELET COUNT 239 10x3/uL (130-400); RBC 3.62 10x6/uL (4.20-6.10); RDW 14.7 % (11.5-14.5); WBC 9.3 10x3/uL (4.8-10.8)
[2020-08-07 05:57] LABS: ALBUMIN 1.7 g/dL (3.4-5.0); ALKALINE PHOSPHATASE 141 U/L (30-120); ALT (SGPT) 33 U/L (10-68); BILIRUBIN - TOTAL 0.35 mg/dL (0.2-1.3); CALCIUM 8.7 mg/dL (8.5-10.1); CARBON DIOXIDE 22.1 mmol/L (21.0-32.0); CHLORIDE - SERUM 103 mmol/L (98-107); CREATININE - SERUM 0.8 mg/dL (0.6-1.3); MAGNESIUM - SERUM 1.7 mg/dL (1.8-2.4); PHOSPHOROUS 2.3 mg/dL (2.5-4.9); PROTEIN - SERUM 5.9 g/dL (6.4-8.2); SODIUM 136 mmol/L (136-145); eGFR NON AFRICAN AMERICAN > 90 mL/min (90-120)
[2020-08-07 05:58] LABS: CALC OSMOLALITY 280 mosm/kg (275-300); GLUCOSE 236 mg/dL (74-106); UREA NITROGEN 14 mg/dL (7-18)
--- NOTE | 2020-08-07 06:08 | NUR ---
PT IN TEARS AFTER AM X-RAY. GUIDE PLANT BOLUS DOSE GIVEN PER ORDER
--- NOTE | 2020-08-07 07:25 | NUR ---
PT LYING IN BED. RESP EVEN AND UNLABORED. ALERT AND ORIENTED TO PERSON, PLACE, TIME, AND SITUATION. 6 L HFNC INTACT. RIGHT FA IV INFUSING NS @ 125 mL/HR AND DILAUDID CHAIN FORMING MACHINE OPERATOR 0.2 MG Q 4 HOURS WITH 4 MG Q 4 HOUR LO. ABD ROUND AND TENDER TO TOUCH. PT DENIES NEEDS AT THIS TIME. CALL LIGHT AND WATER WITHIN REACH. BED IN LOWEST POSITION. SIDE RAILS X2
[2020-08-07 08:00] VITALS: BP 129/73
[2020-08-07 12:08] VITALS: BP 119/71
--- NOTE | 2020-08-07 13:12 | NUR ---
Nutrition Follow-up Patient remains in droplet isolation at this time. Patient on HFNC with BiPAP PRN. Plans to advance diet as tolerated per MD notes from today. Diet: Clear Liquid PO intake: none recorded Last BM: none recorded since admit Wt: 180# (08/04/20) Meds noted: probiotics, abx, NS@125, SSI Labs noted: Glu 236(H), POC Glu 178(H), PO4 2.3(L), Mag 1.7(L), alb 1.7(L) Recommend: -Advanced diet as tolerated as soon as medically feasible. Patient has been on Clear Liquid diet for 4 days now. -If unable to advance diet past clear liquid within the next 24hrs, RD recommends nutrition support. -RD will follow-up 08/09/20.
[2020-08-07 15:00] VITALS: BP 129/72
[2020-08-07 19:28] VITALS: BP 128/73
[2020-08-08 00:29] VITALS: BP 116/72
[2020-08-08 03:26] VITALS: BP 127/72
--- NOTE | 2020-08-08 04:32 | NUR ---
Patient has had pain managed with the prescribed pain medication, he appeared to rest well through the night.
[2020-08-08 05:21] LABS: HEMATOCRIT 29.9 % (42.0-54.0); HEMOGLOBIN 9.6 g/dL (13.5-17.5); LYMPHOCYTES 9.9 % (15-50); MCH 28.5 pg (26.0-34.0); MCHC 32.1 g/dL (31.0-37.0); MCV 88.7 fL (80.0-100.0); MEAN PLATELET VOLUME 8.6 fL (7.4-10.4); NEUTROPHILS 85.2 % (40-80); PLATELET COUNT 296 10x3/uL (130-400); RBC 3.37 10x6/uL (4.20-6.10); WBC 9.5 10x3/uL (4.8-10.8)
[2020-08-08 05:22] LABS: ALKALINE PHOSPHATASE 258 U/L (30-120); ALT (SGPT) 32 U/L (10-68); BILIRUBIN - TOTAL 0.41 mg/dL (0.2-1.3); CALCIUM 8.8 mg/dL (8.5-10.1); CARBON DIOXIDE 24.7 mmol/L (21.0-32.0); CHLORIDE - SERUM 101 mmol/L (98-107); CREATININE - SERUM 0.9 mg/dL (0.6-1.3); MAGNESIUM - SERUM 1.6 mg/dL (1.8-2.4); PHOSPHOROUS 2.7 mg/dL (2.5-4.9); POTASSIUM - SERUM 3.5 mmol/L (3.5-5.1); PROTEIN - SERUM 6.7 g/dL (6.4-8.2); SODIUM 135 mmol/L (136-145); eGFR NON AFRICAN AMERICAN 90 mL/min (90-120)
[2020-08-08 05:33] LABS: ALBUMIN 1.6 g/dL (3.4-5.0); CALC OSMOLALITY 270 mosm/kg (275-300); GLUCOSE 141 mg/dL (74-106); UREA NITROGEN 9 mg/dL (7-18)
--- NOTE | 2020-08-08 07:14 | NUR ---
I educated patient about the need to wear scd's but he did not want them on
--- NOTE | 2020-08-08 07:42 | NUR ---
AM ROUNDING DONE WITH PATIENT RESTING WITH EYES CLOSED. AROUSED EASILY. ON 5L HIGH FLOW NASAL CANNULA. ON HEART MONITOR. LEFT AC SEENW TIH NS INFUSING AT 125 CC/HR ALONG WITH HOT SEALING MACHINE OPERATOR DILAUDID 0.2/08/20. IV SITE LOOKS GOOD. PATIENT REFUSED SCD'S EVEN THOUGH EDUCATED TO HELP WITH DVT'S. ON EP, K+ IS 3.5. MAG IS 1.6 WILL COVER PER PROTOCOL. CALL LIGHT IN REACH. WILL MONITOR.
[2020-08-08 08:00] VITALS: BP 120/71
--- NOTE | 2020-08-08 08:32 | NUR ---
40 MEQ POTASSIUM AND 400 MG ORAL MAG GIVEN PER PROTOCOL. WILL GIVE ADDITIONAL MAG AROUND 1230.
[2020-08-08 11:00] VITALS: BP 120/64
--- NOTE | 2020-08-08 13:29 | NUR ---
POTASSIUM REDRAW WITH RESULTS OF 3.6
[2020-08-08 15:00] VITALS: BP 118/74
--- NOTE | 2020-08-08 18:30 | NUR ---
DENIES NEEDS AT THIS TIME. WILL CONTINUE TO MONITOR, STILL PASSING FLATUS. NO BM
[2020-08-08 21:17] VITALS: BP 123/65
[2020-08-09 01:46] VITALS: BP 116/70
[2020-08-09 05:40] VITALS: BP 110/55
--- NOTE | 2020-08-09 05:54 | NUR ---
Pt is A&OX4. Did have rubs to BUL's on auscultation initially on assessment. Did clear to fine crackles with CDB exercises and IS use. Decreased IV fluids to 75ml t/o the night and VSS along with O2 needs remaining unchanged. Have discussed the importance of SCD's with pt and he is willing to try them again. Same has been applied. Wanted BG checked this AM early so he may snack on some sugar free jello, which he has also already had. Covered per SS order.Pt remains lying in bed resting at this time.
[2020-08-09 06:26] LABS: ALBUMIN 1.7 g/dL (3.4-5.0); ALKALINE PHOSPHATASE 231 U/L (30-120); ALT (SGPT) 25 U/L (10-68); CALC OSMOLALITY 276 mosm/kg (275-300); CALCIUM 9.2 mg/dL (8.5-10.1); CHLORIDE - SERUM 102 mmol/L (98-107); GLUCOSE 185 mg/dL (74-106); PROTEIN - SERUM 7.2 g/dL (6.4-8.2); SODIUM 137 mmol/L (136-145); UREA NITROGEN 8 mg/dL (7-18); eGFR NON AFRICAN AMERICAN 80 mL/min (90-120)
[2020-08-09 06:27] LABS: BASOPHILS 0.3 % (0-2); CARBON DIOXIDE 31.9 mmol/L (21.0-32.0); EOSINOPHILS 1.4 % (0-7); HEMATOCRIT 31.6 % (42.0-54.0); IMMATURE GRANULOCYTES 7.4 % (0-5); LYMPHOCYTE ABS# 1.05 10x3/uL (1.32-3.57); LYMPHOCYTES 7.3 % (15-50); MCH 28.2 pg (26.0-34.0); MCHC 31.6 g/dL (31.0-37.0); MEAN PLATELET VOLUME 8.5 fL (7.4-10.4); MONOCYTES 5.2 % (2-11); NEUTROPHILS 78.4 % (40-80); PLATELET COUNT 290 10x3/uL (130-400); POTASSIUM - SERUM 4.5 mmol/L (3.5-5.1); RBC 3.55 10x6/uL (4.20-6.10); RDW 14.9 % (11.5-14.5)
[2020-08-09 06:29] LABS: WBC 14.4 10x3/uL (4.8-10.8)
[2020-08-09 07:54] VITALS: BP 98/54
--- NOTE | 2020-08-09 08:11 | NUR ---
AM MEDS GIVEN PER EMAR. PT ENCOURAGED TO TCDB. PT USED INCENTIVE WHILE IN ROOM. RR EVEN NON LABORED, COARSE COUGH NOTED. PT STATES TO HAVE A PRODUCTIVE COUGH. IV INFUSING WITHOUT COMPLICATIONS. NO FURTHER NEEDS VOICED. CLWR.
--- NOTE | 2020-08-09 09:28 | NUR ---
REHAB PRESCREENING Rehab referral recieved and chart reviewed. This patient has [employer] which requires prior authorization for Acute Inpatient Rehab. He refused therapy yesterday. OT evaluation is pending. Rehab will continue to follow this patient for qualifying information to present to insurance provider. Thank you for this referral! Lolis Cornell, NEW CAR GET READY MECHANIC Rehab PD
[2020-08-09 11:32] VITALS: BP 107/64
--- NOTE | 2020-08-09 12:00 | NUR ---
NEW IV PLACED TO LEFT WRIST AREA D/T LEFT AC BEING ACCIDENTLY D/C PER PT DURING THERAPY.
--- NOTE | 2020-08-09 13:46 | NUR ---
PT GIVEN BED BATH WITH NURSING ADMIN'S AT THIS TIME. RASH AND SKIN PEELING NOTED TO PT BACKSIDE. PT STATES THIS IS A CHRONIC PROBLEM AND HAS CREAM AT BEDSIDE. HE STATES HE HAS HAD THIS "ALL HIS LIFE" AND IT WAS A "VITAMIN DEFICIENCY". NO PAIN REPORTED WITH CARE. NEW LINENS PLACED. PT TOLERATED BED BATH WELL.
--- NOTE | 2020-08-09 13:47 | NUR ---
Nutrition Follow-up: Diet: Benton/GI (upgraded from Full Liquid today) PO intake: 50% - 75% - 50% - 100% x last 4 meals. He states that his appetite is better and he felt like he was tolerating the full liquid diet well when I spoke with him this AM. Last BM: none recorded since admit Wt: 180# (08/04/20) Meds noted: miralax, probiotics, abx, NS@125, SSI, protonix Labs noted: Glu 185(H), POC Glu 240(H), alb 1.7(L) Recommend continue to advance diet as tolerated. Patient appetite/PO intake appears to be improving. RD will continue to monitor PO intake and wt trend. Recommend getting new weight. Will offer oral nutrition supplement if PO intake trends <65% average. RD will follow-up 08/14/20.
[2020-08-09 15:59] VITALS: BP 130/75
--- NOTE | 2020-08-09 18:57 | NUR ---
OT NOTE: PT COMPLETED SELF FEEDING WITH SETUP. PT BY SIDE. PT REQUIRED MAX A FOR POSITIONING AND BED MOB . PT HAD C/O PAIN. NURSING AWARE. PT COMPLETED FACE HYGIENE WITH SETUP. PT IS COOPERATIVE AND MOTIVATED. [phone] THANK YOU,WILLIAM FONTAINE
[2020-08-10 01:08] VITALS: BP 114/68
--- NOTE | 2020-08-10 01:22 | NUR ---
PT VOMITING YELLOWISH BILE SUBSTANCE. EMPTIED 700ML FROM VOMIT BAG. ABDOMEN FIRM AND DISTENDED. VSS. BED LOW CALL LIGHT WITHIN REACH. WILL CONTINUE TO MONITOR.
--- NOTE | 2020-08-10 02:25 | NUR ---
PT CONTINUOUSLY VOMITING DESPITE PRN ZOFRAN Q 6. UNABLE TO GET 2ND IV ON PT AFTER MULTIPAL ATTEMPTS BY SEVERAL NURSES. SHAY VASQUEZ. WILL CALL BHANU FOR ORDERS.
--- NOTE | 2020-08-10 02:26 | NUR ---
I have reviewed this patient and I concur with the Shift Assessment completed by the Licensed Practical Nurse today this shift.
--- NOTE | 2020-08-10 03:48 | NUR ---
DARION DRUMMOND PUT NEW ORDERES IN FOR PHENEGLAURA AND D/C SHAY CASTRO.
[2020-08-10 05:33] VITALS: BP 111/71
--- NOTE | 2020-08-10 05:57 | NUR ---
PT RESTING WITH EYES CLOSED AT THIS TIME. VSS. RR E/U. NO S/S OF DISTRESS AT THIS TIME. BED LOW CALL LIGHT W/IN REACH. WILL CONTINUE TO MONITOR.
[2020-08-10 08:18] VITALS: BP 108/60
[2020-08-10 08:36] LABS: BASOPHILS 0.4 % (0-2); EOSINOPHILS 1.7 % (0-7); HEMATOCRIT 29.9 % (42.0-54.0); HEMOGLOBIN 9.6 g/dL (13.5-17.5); IMMATURE GRANULOCYTES 8.9 % (0-5); LYMPHOCYTE ABS# 1.26 10x3/uL (1.32-3.57); LYMPHOCYTES 9.6 % (15-50); MCH 28.5 pg (26.0-34.0); MCHC 32.1 g/dL (31.0-37.0); MCV 88.7 fL (80.0-100.0); MEAN PLATELET VOLUME 8.5 fL (7.4-10.4); MONOCYTES 5.2 % (2-11); NEUTROPHIL ABS# 9.69 10x3/uL (1.78-5.38); NEUTROPHILS 74.2 % (40-80); PLATELET COUNT 301 10x3/uL (130-400); RBC 3.37 10x6/uL (4.20-6.10); RDW 14.8 % (11.5-14.5); WBC 13.1 10x3/uL (4.8-10.8)
[2020-08-10 08:52] LABS: CALC OSMOLALITY 280 mosm/kg (275-300); CALCIUM 8.8 mg/dL (8.5-10.1); CARBON DIOXIDE 32.7 mmol/L (21.0-32.0); CHLORIDE - SERUM 101 mmol/L (98-107); CREATININE - SERUM 0.8 mg/dL (0.6-1.3); GLUCOSE 203 mg/dL (74-106); POTASSIUM - SERUM 4.1 mmol/L (3.5-5.1); SODIUM 138 mmol/L (136-145); eGFR NON AFRICAN AMERICAN > 90 mL/min (90-120)
[2020-08-10 08:53] LABS: UREA NITROGEN 11 mg/dL (7-18)
[2020-08-10 08:58] LABS: ALBUMIN 1.8 g/dL (3.4-5.0); ALKALINE PHOSPHATASE 201 U/L (30-120); ALT (SGPT) 22 U/L (10-68); BILIRUBIN - TOTAL 0.24 mg/dL (0.2-1.3); PROTEIN - SERUM 6.2 g/dL (6.4-8.2)
--- NOTE | 2020-08-10 10:28 | NUR ---
OT NOTE: HOLD OT SERVICES PER NURSING.
--- NOTE | 2020-08-10 10:28 | NUR ---
PATIENT LYING SUPINE AAOX4, RESP EVEN AND NON LABORED, NO S/S 0F DISTRESS, PARIENT IS N/V WITH ABDOMINAL PAIN, IV MEDICATIONS ADMINISTERED WITH NO COMPLICATIONS, NO FURTHER NEEDS AT THIS TIME, CLIR, BLP
[2020-08-10 11:46] VITALS: BP 125/60
[2020-08-10 16:11] VITALS: BP 122/68
--- NOTE | 2020-08-10 18:32 | NUR ---
PATIENT LEFT THUMB IV WAS CAUSING IRRITATION AND TINGLING, PATIENT WANTED ANOTHER IV STARTED, RIGHT HAND 20G IV X1 STICK TOLERATED WITH NO COMPLICATIONS, NO FURTHER NEEDS AT THIS TIME, BERTHA MOORE
[2020-08-10 20:00] VITALS: BP 115/77
--- NOTE | 2020-08-10 21:30 | NUR ---
ASSESSENT COMPLETE, NO S/S OF DISTRESS. EDUCATION PERFORMED ON FLUTTER AND IS. PVU. CLIR. BED IN LOWEST POSITION. WILL CONT TO MONITOR.
--- NOTE | 2020-08-11 | NUR ---
SLEEPING RESTFULLY. CLIR. BED IN LOWEST POSITION. WILL CONT TO MONITOR.
[2020-08-11 04:00] VITALS: BP 125/81
[2020-08-11 05:33] LABS: BASOPHILS 0.2 % (0-2); HEMATOCRIT 30.6 % (42.0-54.0); HEMOGLOBIN 9.6 g/dL (13.5-17.5); IMMATURE GRANULOCYTES 6.1 % (0-5); LYMPHOCYTE ABS# 1.17 10x3/uL (1.32-3.57); LYMPHOCYTES 9.2 % (15-50); MCH 28.1 pg (26.0-34.0); MCHC 31.4 g/dL (31.0-37.0); MCV 89.5 fL (80.0-100.0); MEAN PLATELET VOLUME 8.3 fL (7.4-10.4); MONOCYTES 5.6 % (2-11); NEUTROPHIL ABS# 9.76 10x3/uL (1.78-5.38); NEUTROPHILS 76.9 % (40-80); PLATELET COUNT 353 10x3/uL (130-400); RBC 3.42 10x6/uL (4.20-6.10); WBC 12.7 10x3/uL (4.8-10.8)
[2020-08-11 06:00] LABS: ALBUMIN 1.8 g/dL (3.4-5.0); ALKALINE PHOSPHATASE 168 U/L (30-120); ALT (SGPT) 17 U/L (10-68); BILIRUBIN - TOTAL 0.23 mg/dL (0.2-1.3); CALC OSMOLALITY 274 mosm/kg (275-300); CALCIUM 9.1 mg/dL (8.5-10.1); CARBON DIOXIDE 31.6 mmol/L (21.0-32.0); CHLORIDE - SERUM 97 mmol/L (98-107); CREATININE - SERUM 0.8 mg/dL (0.6-1.3); GLUCOSE 176 mg/dL (74-106); MAGNESIUM - SERUM 1.7 mg/dL (1.8-2.4); PROTEIN - SERUM 7.3 g/dL (6.4-8.2); SODIUM 136 mmol/L (136-145); UREA NITROGEN 11 mg/dL (7-18); eGFR NON AFRICAN AMERICAN > 90 mL/min (90-120)
[2020-08-11 08:25] VITALS: BP 121/72
--- NOTE | 2020-08-11 09:17 | NUR ---
PATIENT LYING SUPINE AAOX4 RESP EVEN AND NON LABORED, NO S/ SOR DISTRESS, IV ANTIBIOTICS HUNG, PATIENT STILL HAS NOT HAD A BOWEL MOVEMENT IN A WEEK AND ABDOMEN IS FIRM AND TENDER, DR PATEL FOR INTERVENTION, NO FURTHER NEEDS AT THIS TIME, BERTHA MOORE
[2020-08-11 11:35] VITALS: BP 135/76
--- NOTE | 2020-08-11 12:46 | NUR ---
Nutrition Reassessment/Follow-up: Pt did not tolerate diet advancement (abd pain, N/V) and diet was downgraded back to clear liquids. Nursing reports no BM x 1 wk with firm & tender abdomen; enema was ordered. Diet: Clear Liquid No new wt; last wt: 180# (08/04) Labs noted: Glu 176, Mg 1.7, Alb 1.8 Meds noted: Miralax, Florajen, Protonix, Zofran, Humalog, NS @ 125, electrolyte protocol -Nutrition needs unchanged since initial assessment; no new wt available. -Encourage PO intake and honor food preferences within diet restrictions. -Offer clear Ensure with meals. -Need new wt. -RD follow-up: 08/14
[2020-08-11 14:51] VITALS: BP 128/76
--- NOTE | 2020-08-11 16:05 | NUR ---
PATIENT ADMINISTRED 2 FLEET ENEMAS 40 MIN APART, PATIENT HAD A LARGE BM AND IMPACTION REMOVED, PATIENT TOLERATED WELL AND FEELS BETTER, BERTHA MOORE
--- NOTE | 2020-08-11 16:13 | NUR ---
OT NOTE: NURSING GAVE CLEARANCE FOR PT PARTICIPATION WITH OT. PT DECLINED OT SERVICES THIS DAY. THANK YOU,WILLIAM FONTAINE
--- NOTE | 2020-08-11 18:00 | NUR ---
I have reviewed this patient and I concur with the Shift Assessment completed by the Licensed Practical Nurse today this shift.
--- NOTE | 2020-08-11 19:10 | NUR ---
REPORT RECEIVED, PT CARE ASSUMED. PT LYING IN BED WITH EYES CLOSED, NAD OBSERVED, AROUSES EASILY TO VOICE. DENIES ANY NEEDS AT THIS TIME. BED LOWEST, SRX2, CL WITHIN REACH. CPOC.
[2020-08-11 21:44] VITALS: BP 120/72
[2020-08-12 01:07] VITALS: BP 116/70
[2020-08-12 05:18] LABS: BASOPHILS 0.3 % (0-2); EOSINOPHILS 1.3 % (0-7); HEMATOCRIT 31.1 % (42.0-54.0); HEMOGLOBIN 9.9 g/dL (13.5-17.5); IMMATURE GRANULOCYTES 4.9 % (0-5); LYMPHOCYTE ABS# 1.09 10x3/uL (1.32-3.57); LYMPHOCYTES 7.6 % (15-50); MCH 28.4 pg (26.0-34.0); MCHC 31.8 g/dL (31.0-37.0); MCV 89.1 fL (80.0-100.0); MEAN PLATELET VOLUME 8.4 fL (7.4-10.4); MONOCYTES 5.4 % (2-11); NEUTROPHIL ABS# 11.57 10x3/uL (1.78-5.38); NEUTROPHILS 80.5 % (40-80); PLATELET COUNT 371 10x3/uL (130-400); RBC 3.49 10x6/uL (4.20-6.10); RDW 15.1 % (11.5-14.5); WBC 14.4 10x3/uL (4.8-10.8)
[2020-08-12 05:36] VITALS: BP 129/73
[2020-08-12 05:41] LABS: ALBUMIN 1.8 g/dL (3.4-5.0); ALKALINE PHOSPHATASE 140 U/L (30-120); ALT (SGPT) 13 U/L (10-68); BILIRUBIN - TOTAL 0.22 mg/dL (0.2-1.3); CALC OSMOLALITY 274 mosm/kg (275-300); CARBON DIOXIDE 28.5 mmol/L (21.0-32.0); CHLORIDE - SERUM 99 mmol/L (98-107); CREATININE - SERUM 0.8 mg/dL (0.6-1.3); GLUCOSE 162 mg/dL (74-106); MAGNESIUM - SERUM 1.8 mg/dL (1.8-2.4); POTASSIUM - SERUM 3.9 mmol/L (3.5-5.1); PROTEIN - SERUM 7.2 g/dL (6.4-8.2); SODIUM 136 mmol/L (136-145); UREA NITROGEN 9 mg/dL (7-18); eGFR NON AFRICAN AMERICAN > 90 mL/min (90-120)
--- NOTE | 2020-08-12 10:11 | NUR ---
PATIENT SEMI FOLWERS IN BED AAOX4, RESP EVEN AND NON LABORED, NO S/S IF DISTRESS, PATIENT STATES ABDOMEN PAIN HAS DECREASED SINCE BM YESTERDAY, MEDICATIONS ADMINISTERED WITH NO COMPLICATIONS, DISCUSSED PT COMINING IN TODAY AND PATIENT AGREED TO COMPLY, NO FURTHER NEEDS AT THIS TIME, BERTHA MOORE
[2020-08-12 10:27] VITALS: BP 130/78
[2020-08-12 12:21] VITALS: BP 127/65
--- NOTE | 2020-08-12 15:44 | NUR ---
I have reviewed this patient and I concur with the Shift Assessment completed by the Licensed Practical Nurse today this shift.
--- NOTE | 2020-08-12 17:14 | NUR ---
PATIENT IV STARTED X1 STICK TO RIGHT FOREARM, PATIENT TOLERATED WITH NO COMPLICATIONS.
[2020-08-12 22:03] VITALS: BP 133/85
[2020-08-13 04:41] VITALS: BP 119/71
--- NOTE | 2020-08-13 07:20 | NUR ---
RECIEVE REPORT. RESTING IN BED WITH EYES CLOSED. IV INFUSING ORDERED. NO SIGNS OF DISTRESS. CONTINUE PLAN OF CARE AND SAFETY PRECAUTIONS.
[2020-08-13 08:55] VITALS: BP 117/71
--- NOTE | 2020-08-13 10:42 | MORECARE ---
CASE MANAGEMENT DISCHARGE SUMMARY PATIENT: KONRAD ROSENBERG UNIT: [id number] ADM DATE: 08/03/20 AGE: 64 : 55 SEX: M ROOM/BED: D.2104 AUTHOR: ZEENAT,DOC PHYSICIAN: REFERRING PHYSICIAN: LA CARR MD DATE OF SERVICE: 08/13/20 Case Management Discharge Planning Summary CT Patient Name: KONRAD ROSENBERG Attending MD : TEENA- Medical Record: [id number] Encounter : [id number] Facility : [address] [place] [address] Admission Date : 114:11 Center Discharge Date : [address] [place] [address] Date of : DC Plan ID : [id number] Age/Sex/Martia : 64/ M/D Printed on : 08/13/20 10:41 CT DCP Review Details Anticipated D/C: Expected LOS : 0 Case Status : INITIATED - Initial Reviewe: [id number] - Sheyla Camilo Initial Review: 08/08/2020 Planned Disposi: 01 - Home or Self Care (Routine Discharge) Final Discharge: - Final Reviewer : : Final Review : Comments CT Entered Date Type Reviewer 08/08/20 17:00 CT Discharge Planning Sheyla Camilo Comment CM met with patient to discuss discharge planning/needs. I have received her chair time at [facility] in [place] for TTHSA at 11:15. I have gone over the information in detail. She states that she will set up [employer] transportation now. She lives with her 3 children. States she is independent with her ADL's. States her PCP is Dr. Justino Leach at [facility]. She states she has a ride home. I inform her that her nurse states because of her elevated BP, her railroad yard worker would like to keep her tonight to monitor, voiced understanding. She gets on the phone while I am still speaking with her, so I excuse myself out. IGOR provided her with a copy of the Welcome letter and she will receive a copy with her discharge packet. CM will continue to follow and assist with discharge planning/needs. Appended by Sheyla Camilo on 08/09/2020 7:19 CDT: The above comment was written on this patient in error DCP Focus Questions & Answers DCP Screen High Risk Factors: None Walking limitation: Patient stated self rated No walking limitation present? Age: 45 - 64 Prior living environment: Lives with others Disability ranking: Grade 1: No significant disability DCP Evaluation Patient's ability to cope with chronic illness a. Adequate (0-3 ED visits in 6 mos., adequate financial resources, attends scheduled appts.) Patient gives permission to discuss discharge Marilyn Carreon - mother - [phone] plans with: (name, relationship and number) Patient's current cognitive status: *Oriented to person, place, situation, time and present Physical Status: Independent with ADL's Family / Caregiver's ability to cope with chronic a. Adequate (ability to meet patient's illness: medical needs, ensures patient attends medical appts.) Does the patient have the ability to pay for or Yes attain post discharge needs / services? Living Arrangements: Home with others Baseline cognitive status: *Oriented to person, place, situation, time and present Living arrangements comments: Lives with her 3 children Patient with capacity for self-care or can be Yes cared for in same environment as prior to hospitalization? Results of this evaluation have been discussed Patient with: Does Patient have transportation to get home and Yes to follow-up medical appointments when discharged from the hospital? Would patient like to participate in any Care Not applicable Coordination programs (if applicable): Equipment in use: None Mental health screen: No mental health history DCP Re-evaluation Would patient like to participate in any Care Not applicable Coordination programs (if applicable): [facility] KONRAD ROSENBERG MR#: [id number] /Age/Sex/[id number] /64/M /D Attending Physician Name: [id number] Patient Account:[id number] [facility] Page -1 of 1 All edits/amendments must be made on the electronic document DICTATION DATE: 08/13/20 1041 LOGISTICS/SHIPPER: ANNY 08/13/20 1041 RPT#: [id number] DC DATE: STATUS: ADM IN [facility] [address] [place] [address] END OF REPORT
--- NOTE | 2020-08-13 10:58 | MORECARE ---
CASE MANAGEMENT DISCHARGE SUMMARY PATIENT: KONRAD ROSENBERG UNIT: [id number] ADM DATE: 08/03/20 AGE: 64 : 55 SEX: M ROOM/BED: D.2104 AUTHOR: ZEENAT,DOC PHYSICIAN: REFERRING PHYSICIAN: LA CARR MD DATE OF SERVICE: 08/13/20 Case Management Discharge Planning Summary CT Patient Name: KONRAD ROSENBERG Attending MD : TEENA- Medical Record: [id number] Encounter : [id number] Facility : [address] [place] [address] Admission Date : 114:11 Center Discharge Date : [address] [place] [address] Date of : DC Plan ID : [id number] Age/Sex/Martia : 64/ M/D Printed on : 08/13/20 10:57 CT DCP Review Details Anticipated D/C: Expected LOS : 0 Case Status : INITIATED - Initial Reviewe: [id number] - Sheyla Camilo Initial Review: 08/08/2020 Planned Disposi: 01 - Home or Self Care (Routine Discharge) Final Discharge: - Final Reviewer : : Final Review : Comments CT Entered Date Type Reviewer 08/13/20 10:45 CT Discharge Planning Sheyla Camilo Comment DC PLAN: Home with Life Partner ANTICIPATED DC NEEDS: No needs identified. Declines Home health and rehab CM called patient to complete initial dc planning assessment per isolation protocol. CM educated patient on the CM role and verbal consent given by patient to complete assessment. CM verified patient's address, phone number, and emergency contact phone numbers. Patient lives at home with his significant other, Carola Kim. At discharge patient plans to return and feels this is a safe discharge. Patient has one step to enter home and no steps inside. His PCP is Dr. Loja. CM discussed availability of home health, rehab services, and medical equipment. Patient denied known discharge needs at this time. I informed him that physical therapy suggest possible rehab and he declines. I encouraged home health for continued strengthening and he declines. Transportation provider at discharge will be Carola. Patient states he uses oxygen on 2 liters at HS at home and PRN during the day. He said he does have a portable tank as well. His oxygen supplies come from [facility]. 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 CM will continue to follow and will assist as needed with dc plans/needs. 08/08/20 17:00 CT Discharge Planning Sheyla Ton Comment CM met with patient to discuss discharge planning/needs. I have received her chair time at [facility] in [place] for TTHSA at 11:15. I have gone over the information in detail. She states that she will set up SCAT transportation now. She lives with her 3 children. States she is independent with her ADL's. States her PCP is Dr. Justino Leach at [facility]. She states she has a ride home. I inform her that her nurse states because of her elevated BP, her stencil maker would like to keep her tonight to monitor, voiced understanding. She gets on the phone while I am still speaking with her, so I excuse myself out. CM provided her with a copy of the Welcome letter and she will receive a copy with her discharge packet. CM will continue to follow and assist with discharge planning/needs. Appended by Sheyla Camilo on 08/09/2020 7:19 CDT: The above comment was written on this patient in error DCP Focus Questions & Answers DCP Screen High Risk Factors: None Walking limitation: Patient stated self rated No walking limitation present? Age: 45 - 64 Prior living environment: Lives with others Disability ranking: Grade 1: No significant disability DCP Evaluation Patient's ability to cope with chronic illness a. Adequate (0-3 ED visits in 6 mos., adequate financial resources, attends scheduled appts.) Patient gives permission to discuss discharge Carola Saavedraonnell - SO - [phone] plans with: (name, relationship and number) Patient's current cognitive status: *Oriented to person, place, situation, time and present Patient and/or caregiver agree upon recommended Yes discharge plan? Physical Status: Independent with ADL's Family / Caregiver's ability to cope with chronic a. Adequate (ability to meet patient's illness: medical needs, ensures patient attends medical appts.) Does the patient have the ability to pay for or Yes attain post discharge needs / services? Functional screen assessment: No issues identified Living Arrangements: Home with others Functional screen comments: Physical Therapy notes report patient able to ambulate with minimum assistance but may need rehab. Patient declines rehab when informed of this. Is there a likelihood that the patient will No require additional services to return to the preadmission environment? Equipment needed for post hospitalization: None Baseline cognitive status: *Oriented to person, place, situation, time and present Living arrangements comments: Lives with Significant other Patient with capacity for self-care or can be Yes cared for in same environment as prior to hospitalization? Results of this evaluation have been discussed Patient with: Preadmission facility can/cannot provide post Can - at same level of care as preadmission hospital level of care needs: Physical environment modification needed / No anticipated for discharge: Medication Management: Patient states can afford medications Pharmacy name(s): [facility] Does Patient have transportation to get home and Yes to follow-up medical appointments when discharged from the hospital? Would patient like to participate in any Care Not applicable Coordination programs (if applicable): Comments: Carola Kim to transport home Equipment in use: Home Oxygen with Nasal Cannula Equipment in use: Nebulizer Equipment in use: Other Equipment in use: Walker - Rollator Other Equipment comments: Portable oxygen Equipment agency name and contact information: [facility] screen: No mental health history Psychosocial status: Adult with physical limitations Resources / Services in place: None DCP Re-evaluation Would patient like to participate in any Care Not applicable Coordination programs (if applicable): [facility] KONRDA ROSENBERG MR#: [id number] /Age/Sex/Mbrymn2-Qyi-55 /64/M /D Attending Physician Name: [id number] Patient Account:[id number] [facility]1 of 1 All edits/amendments must be made on the electronic document DICTATION DATE: 08/13/201056 BLIND AIDE: ANNY 08/13/201056 RPT#: [id number] DC DATE: STATUS: ADM IN [facility] [address] [place] [address] END OF REPORT
[2020-08-13 19:00] VITALS: BP 117/68
--- NOTE | 2020-08-13 19:22 | NUR ---
REPORT RECEIVED, PT CARE ASSUMED. PT SITTING UP IN BED, RESTING WITH EYES CLOSED, NAD OBSERVED, AROUSES EASILY TO VOICE. DENIES ANY NEEDS AT THIS TIME. BED LOWEST, SRX2, CL AND URINAL WITHIN REACH. CPOC.
[2020-08-14] VITALS: BP 117/71
[2020-08-14 04:00] VITALS: BP 126/74
--- NOTE | 2020-08-14 07:20 | NUR ---
RECIEVE REPORT. ALERT AND ORIENTED X4. SITTING UP IN BED. OINTMENT APPLIED TO BACK PER PATIENT REQUEST. REQUEST PAIN MEDICATION. INITIATE PAIN MANAGEMENT ORDERED. CONTINUE PLAN OF CARE AND SAFETY PRECAUTIONS.
[2020-08-14 08:00] VITALS: BP 124/79
[2020-08-14 11:00] VITALS: BP 130/60
[2020-08-14 11:06] LABS: ALKALINE PHOSPHATASE 126 U/L (30-120); ALT (SGPT) 12 U/L (10-68); BILIRUBIN - TOTAL 0.21 mg/dL (0.2-1.3); CALC OSMOLALITY 269 mosm/kg (275-300); CALCIUM 9.6 mg/dL (8.5-10.1); CARBON DIOXIDE 27.9 mmol/L (21.0-32.0); CHLORIDE - SERUM 98 mmol/L (98-107); CREATININE - SERUM 0.7 mg/dL (0.6-1.3); GLUCOSE 152 mg/dL (74-106); POTASSIUM - SERUM 3.9 mmol/L (3.5-5.1); PROTEIN - SERUM 7.9 g/dL (6.4-8.2); SODIUM 134 mmol/L (136-145); UREA NITROGEN 10 mg/dL (7-18); eGFR NON AFRICAN AMERICAN > 90 mL/min (90-120)
[2020-08-14 12:31] LABS: BASOPHILS 0.5 % (0-2); EOSINOPHILS 1.5 % (0-7); HEMATOCRIT 33.4 % (42.0-54.0); HEMOGLOBIN 10.5 g/dL (13.5-17.5); IMMATURE GRANULOCYTES 5.1 % (0-5); LYMPHOCYTE ABS# 0.99 10x3/uL (1.32-3.57); LYMPHOCYTES 9.8 % (15-50); MCH 28.2 pg (26.0-34.0); MCHC 31.4 g/dL (31.0-37.0); MCV 89.5 fL (80.0-100.0); MEAN PLATELET VOLUME 8.5 fL (7.4-10.4); MONOCYTES 8.4 % (2-11); NEUTROPHIL ABS# 7.56 10x3/uL (1.78-5.38); NEUTROPHILS 74.7 % (40-80); RBC 3.73 10x6/uL (4.20-6.10); WBC 10.1 10x3/uL (4.8-10.8)
[2020-08-14 12:32] LABS: PLATELET COUNT 547 10x3/uL (130-400)
--- NOTE | 2020-08-14 13:25 | NUR ---
Nutrition Follow-up: Patient currently in droplet precautions. Per surgery notes, patient is wanting diet advanced to regular. He continues with abdominal pain. No nausea/vomiting. Currently tolerated full liquid diet. Diet: Full Liquid PO intake: previously (~54% average), none recorded recently Last BM: 08/13/20 x 2 (diarrhea) Wt: 180# (08/04/20)- no new weight Meds noted: abx, probiotics, lantus, SSI, miralax, NS@125, protonix Labs noted: Glu 152(H), POC Glu 165(H) Recommend continue to advance diet as tolerated. Encourage PO intake. Needs new weight. RD will follow-up 08/17/20.
--- NOTE | 2020-08-14 15:34 | NUR ---
OT NOTE: PT PERFORMED MUCH BETTER TODAY. REQUESTED ASSIST FROM [facility]OMAS DUE TO PTS DECREASED COOPERATION..FELT THAT HE WOULD BE EXTREMELY WEAK. HOWEVER, PERFORMED BED MOB WITH SPV; AMB TO TOILET WITH CGA; DONNED GOWN WITH SET UP; MIN ASSIST WITH TOILET HYGIENE. SAT UP ON EOB FOR APPROX 12 MIN. PROVIDED CLEAN LINENS WHILE PT WAS ON TOILET, HIS BACK WAS BLEEDING AND DRAINING. ZULEIKA COBURN, OTR/L 2240
--- NOTE | 2020-08-14 17:03 | NUR ---
OT NOTE: PT COMPLETED ADL MOB WITH CGA USING RW. PT COMPLETED TOILETING TASKS WITH SBA. PT DID WELL. 1-272 THANK YOU,WILLIAM FONTAINE
[2020-08-14 19:49] VITALS: BP 118/74
--- NOTE | 2020-08-14 21:10 | NUR ---
REPORT RECEIVED, WILL CONT POC. PT ASLEEP IN BED. NO S/S OF DISTRESS OBSERVED. RR EVEN & UNLABORED ON 4L. BED LOCKED AND LOWERED, CL IN REACH. ASSESSMENT COMPLETED AT THIS TIME. WILL CONT TO MONITOR.
[2020-08-15 03:46] VITALS: BP 127/76
[2020-08-15 05:34] LABS: BASOPHILS 0.5 % (0-2); EOSINOPHILS 1.1 % (0-7); HEMATOCRIT 32.5 % (42.0-54.0); HEMOGLOBIN 10.3 g/dL (13.5-17.5); IMMATURE GRANULOCYTES 5.5 % (0-5); LYMPHOCYTE ABS# 1.27 10x3/uL (1.32-3.57); MCH 28.1 pg (26.0-34.0); MCHC 31.7 g/dL (31.0-37.0); MCV 88.8 fL (80.0-100.0); MEAN PLATELET VOLUME 8.5 fL (7.4-10.4); MONOCYTES 10.5 % (2-11); NEUTROPHIL ABS# 8.25 10x3/uL (1.78-5.38); NEUTROPHILS 71.4 % (40-80); PLATELET COUNT 517 10x3/uL (130-400); RBC 3.66 10x6/uL (4.20-6.10); RDW 14.8 % (11.5-14.5); WBC 11.6 10x3/uL (4.8-10.8)
[2020-08-15 06:15] LABS: ALKALINE PHOSPHATASE 129 U/L (30-120); ALT (SGPT) 11 U/L (10-68); BILIRUBIN - TOTAL 0.17 mg/dL (0.2-1.3); CALCIUM 9.1 mg/dL (8.5-10.1); CARBON DIOXIDE 26.2 mmol/L (21.0-32.0); CHLORIDE - SERUM 99 mmol/L (98-107); CREATININE - SERUM 0.8 mg/dL (0.6-1.3); GLUCOSE 185 mg/dL (74-106); MAGNESIUM - SERUM 1.8 mg/dL (1.8-2.4); PROTEIN - SERUM 6.8 g/dL (6.4-8.2); SODIUM 134 mmol/L (136-145); eGFR NON AFRICAN AMERICAN > 90 mL/min (90-120)
[2020-08-15 06:16] LABS: CALC OSMOLALITY 274 mosm/kg (275-300); POTASSIUM - SERUM 4.5 mmol/L (3.5-5.1); UREA NITROGEN 17 mg/dL (7-18)
--- NOTE | 2020-08-15 07:20 | NUR ---
RECIEVE REPORT. ALERT AND ORIENTED X4. SITTING UP IN BED. DEMAND DOOR TO BE OPENED. EXPLAIN DROPLET PRECAUTIONS. PATIENT STATES, "I DON'T CARE, I'LL BE LEAVING THEN." NO SIGNS OF DISTRESS. CONTINUE PAIN MANAGEMENT ORDERED. CONTINUE PLAN OF CARE AND SAFETY PRECAUTIONS.
[2020-08-15 08:00] VITALS: BP 142/76
[2020-08-15 11:00] VITALS: BP 120/72
[2020-08-15] MEDS ORDERED: VIBRAMYCIN 100100 MG PO (11:34)
[2020-08-15] MEDS ORDERED: DULERA 200 MCG8.8 GM INH (11:35)
[2020-08-15] MEDS ORDERED: MIRALAX17 GM PO (11:35)
[2020-08-15] MEDS ORDERED: LANTUS INS100 UNITS/ SC (11:36)
[2020-08-15] MEDS ORDERED: HUMALOG 30100 UNITS/ SC (11:38)
--- NOTE | 2020-08-15 15:26 | NUR ---
WRITTEN SCRIPTS FOR INSULIN WITH SLIDING SCALE AND DIABETIC SUPPLIES COPIED AND HARD SCRIPT GIVEN TO PATIENT.
--- NOTE | 2020-08-15 16:09 | NUR ---
ALERT AND ORIENTED X4. SITTING UP IN BED. DC RT HAND IV TIP INTACT. DISCHARGE INSTRUCTIONS GIVEN VERBALLY AND WRITTEN. DISCHARGE PAPERS SIGNED ON CHART. PORTABLE OXYGEN FROM HOME IN ROOM. ESCORT TO RIDE VIA WHEELCHAIR. REMAINS FREE FROM INJURY.
--- NOTE | 2020-08-15 17:34 | NUR ---
OT NOTE: PT COMPLETED BED MOBILITY WITH SUPERVISION. PT COMPLETED SUPINE TO SIT WITH SPV. PT COMPLETED EOB SITTING WITH SUPERVISION. [phone] THANK YOU,WILLIAM FONTAINE
--- NOTE | 2020-08-17 04:17 | MORECARE ---
CASE MANAGEMENT DISCHARGE SUMMARY PATIENT: KONRAD ROSENBERG UNIT: [id number] ADM DATE: 08/03/20 AGE: 64 : 55 SEX: M ROOM/BED: D.2104 AUTHOR: ZEENAT,DOC PHYSICIAN: REFERRING PHYSICIAN: LA CARR MD DATE OF SERVICE: 08/17/20 Case Management Discharge Planning Summary CT Patient Name: KONRAD ROSENBERG Attending MD : TEENA- Medical Record: [id number] Encounter : [id number] Facility : [address] [place] [address] Admission Date : 114:11 Center Discharge Date : 08/15/[address] [place] [address] Date of : DC Plan ID : [id number] Age/Sex/Martia : 64/ M/D Printed on : 08/17/20 4:16 CT DCP Review Details Anticipated D/C: Expected LOS : 0 Case Status : INITIATED - Initial Reviewe: [id number] - Sheyla Camilo Initial Review: 08/08/2020 Planned Disposi: 01 - Home or Self Care (Routine Discharge) Final Discharge: - Final Reviewer : : Final Review : Comments CT Entered Date Type Reviewer 08/13/20 10:45 CT Discharge Planning hSeyla Camilo Comment DC PLAN: Home with Life Partner ANTICIPATED DC NEEDS: No needs identified. Declines Home health and rehab CM called patient to complete initial dc planning assessment per isolation protocol. CM educated patient on the CM role and verbal consent given by patient to complete assessment. CM verified patient's address, phone number, and emergency contact phone numbers. Patient lives at home with his significant other, Carola Kim. At discharge patient plans to return and feels this is a safe discharge. Patient has one step to enter home and no steps inside. His PCP is Dr. Loja. CM discussed availability of home health, rehab services, and medical equipment. Patient denied known discharge needs at this time. I informed him that physical therapy suggest possible rehab and he declines. I encouraged home health for continued strengthening and he declines. Transportation provider at discharge will be Carola. Patient states he uses oxygen on 2 liters at HS at home and PRN during the day. He said he does have a portable tank as well. His oxygen supplies come from [facility]. 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 CM will continue to follow and will assist as needed with dc plans/needs. 08/08/20 17:00 CT Discharge Planning Sheyla Ton Comment CM met with patient to discuss discharge planning/needs. I have received her chair time at [facility] in [place] for TTHSA at 11:15. I have gone over the information in detail. She states that she will set up SCAT transportation now. She lives with her 3 children. States she is independent with her ADL's. States her PCP is Dr. Justino Leach at [facility]. She states she has a ride home. I inform her that her nurse states because of her elevated BP, her career and transition teacher would like to keep her tonight to monitor, voiced understanding. She gets on the phone while I am still speaking with her, so I excuse myself out. CM provided her with a copy of the Welcome letter and she will receive a copy with her discharge packet. CM will continue to follow and assist with discharge planning/needs. Appended by Sheyla Camilo on 08/09/2020 7:19 CDT: The above comment was written on this patient in error DCP Focus Questions & Answers DCP Screen High Risk Factors: None Walking limitation: Patient stated self rated No walking limitation present? Age: 45 - 64 Prior living environment: Lives with others Disability ranking: Grade 1: No significant disability DCP Evaluation Patient's ability to cope with chronic illness a. Adequate (0-3 ED visits in 6 mos., adequate financial resources, attends scheduled appts.) Patient gives permission to discuss discharge Carola Saavedraonnell - SO - [phone] plans with: (name, relationship and number) Patient's current cognitive status: *Oriented to person, place, situation, time and present Patient and/or caregiver agree upon recommended Yes discharge plan? Physical Status: Independent with ADL's Family / Caregiver's ability to cope with chronic a. Adequate (ability to meet patient's illness: medical needs, ensures patient attends medical appts.) Does the patient have the ability to pay for or Yes attain post discharge needs / services? Functional screen assessment: No issues identified Living Arrangements: Home with others Functional screen comments: Physical Therapy notes report patient able to ambulate with minimum assistance but may need rehab. Patient declines rehab when informed of this. Is there a likelihood that the patient will No require additional services to return to the preadmission environment? Equipment needed for post hospitalization: None Baseline cognitive status: *Oriented to person, place, situation, time and present Living arrangements comments: Lives with Significant other Patient with capacity for self-care or can be Yes cared for in same environment as prior to hospitalization? Results of this evaluation have been discussed Patient with: Preadmission facility can/cannot provide post Can - at same level of care as preadmission hospital level of care needs: Physical environment modification needed / No anticipated for discharge: Medication Management: Patient states can afford medications Pharmacy name(s): [facility] Does Patient have transportation to get home and Yes to follow-up medical appointments when discharged from the hospital? Would patient like to participate in any Care Not applicable Coordination programs (if applicable): Comments: Carola Kim to transport home Equipment in use: Home Oxygen with Nasal Cannula Equipment in use: Nebulizer Equipment in use: Other Equipment in use: Walker - Rollator Other Equipment comments: Portable oxygen Equipment agency name and contact information: [facility] screen: No mental health history Psychosocial status: Adult with physical limitations Resources / Services in place: None DCP Re-evaluation Would patient like to participate in any Care Not applicable Coordination programs (if applicable): [facility] KONRAD ROSENBERG MR#: [id number] /Age/Sex/Kltecc4-Uzf-65 /64/M /D Attending Physician Name: [id number] Patient Account[facility][id number] [facility] All edits/amendments must be made on the electronic document DICTATION DATE: 08/17/20415 BOOT REPAIRER: ANNY 08/17/20415 RPT#: [id number] DC DATE:08/15/20 STATUS: DIS IN [facility] [address] [place] [address] END OF REPORT
== END 2020-08-15 16:10 | disposition home or self-care (01) | DRG 871 ==
LOC: D.ER 12:58 → D.M2 14:11 → D.MS 14:11 → D.M2 08-04 08:00
PROVIDERS: Emergency Medicine; Family Medicine; Internal Medicine Pulmonary Disease; ADMIT Family Medicine; ATTEND Family Medicine
DX: A41.9 Sepsis, unspecified organism (principal); J96.21 Acute and chronic respiratory failure with hypoxia; J15.212 Pneumonia due to Methicillin resistant Staphylococcus aureus; K57.80 Diverticulitis of intestine, part unspecified, with perforation and abscess without bleeding; J44.1 Chronic obstructive pulmonary disease with (acute) exacerbation; J44.0 Chronic obstructive pulmonary disease with (acute) lower respiratory infection; F41.8 Other specified anxiety disorders; E78.5 Hyperlipidemia, unspecified; I10 Essential (primary) hypertension; K21.9 Gastro-esophageal reflux disease without esophagitis; E86.0 Dehydration; I25.10 Atherosclerotic heart disease of native coronary artery without angina pectoris; Q82.8 Other specified congenital malformations of skin; E55.9 Vitamin D deficiency, unspecified; I34.0 Nonrheumatic mitral (valve) insufficiency; E11.65 Type 2 diabetes mellitus with hyperglycemia; D50.9 Iron deficiency anemia, unspecified

== ENCOUNTER → 2020-09-19 08:46 | Outpatient (CLI) | payer MEDICARE, MEDICAID ==
[2020-08-04 13:15] VITALS: BMI 25.8
[~2020-09-19 08:46] MED LIST changes: +DULERA 200 MCG8.8 GM INH; +HUMALOG 30100 UNITS/ SC; +LANTUS INS100 UNITS/ SC
== END | disposition home or self-care (01) ==
LOC: D.RAD 08:46
PROVIDERS: ATTEND Internal Medicine Pulmonary Disease
DX: J44.9 Chronic obstructive pulmonary disease, unspecified (principal); J18.9 Pneumonia, unspecified organism

== ENCOUNTER 2020-10-21 16:49 | Inpatient (IN) | payer MEDICARE, MEDICAID ==
[~2020-10-21] VITALS: Ht 177.8 cm; Wt 68.0 kg
[2020-10-21 18:02] LABS: APTT 32.4 SECONDS (22.8-39.4); CALC OSMOLALITY 269 mosm/kg (275-300); CALCIUM 8.4 mg/dL (8.5-10.1); CHLORIDE - SERUM 100 mmol/L (98-107); CREATININE - SERUM 1.4 mg/dL (0.6-1.3); INR 1.24 (0.85-1.17); POTASSIUM - SERUM 3.9 mmol/L (3.5-5.1); PROTIME 14.4 SECONDS (11.6-15.0); SODIUM 133 mmol/L (136-145); UREA NITROGEN 25 mg/dL (7-18); eGFR NON AFRICAN AMERICAN 54 mL/min (90-120)
[2020-10-21 18:03] LABS: GLUCOSE 100 mg/dL (74-106)
[2020-10-21 18:18] LABS: ALBUMIN 2.4 g/dL (3.4-5.0); ALKALINE PHOSPHATASE 94 U/L (30-120); ALT (SGPT) 13 U/L (10-68); CKMB 0.9 U/L (0.0-3.6); CREATINE KINASE 27 UL (21-232); LIPASE 63 U/L (73-393); PROTEIN - SERUM 7.8 g/dL (6.4-8.2); TROPONIN-I < 0.017 ng/mL (0.000-0.060)
[2020-10-21 18:24] LABS: BASOPHILS 0.6 % (0-2); EOSINOPHILS 0.1 % (0-7); HEMOGLOBIN 10.2 g/dL (13.5-17.5); LYMPHOCYTES 10.5 % (15-50); MCH 28.3 pg (26.0-34.0); MCHC 31.8 g/dL (31.0-37.0); MEAN PLATELET VOLUME 6.9 fL (7.4-10.4); MONOCYTES 8.7 % (2-11); NEUTROPHILS 80.1 % (40-80); PLATELET COUNT 562 10x3/uL (130-400); RBC 3.59 10x6/uL (4.20-6.10); RDW 16.5 % (11.5-14.5)
[2020-10-21 19:34] VITALS: BP 107/51
[2020-10-21 21:22] LABS: BILIRUBIN NEGATIVE (NEGATIVE); KETONE NEGATIVE (NEGATIVE); NITRITE NEGATIVE (NEGATIVE); UROBILINOGEN NORMAL mg/dL (< 2)
[2020-10-21 22:49] VITALS: BP 125/68
[2020-10-22] VITALS (7 sets, daily range): BP systolic 101–173; BP diastolic 43–76; BMI 21.5
[2020-10-22 07:28] LABS: BASOPHILS 0.4 % (0-2); EOSINOPHILS 0.1 % (0-7); HEMATOCRIT 28.3 % (42.0-54.0); LYMPHOCYTES 14.1 % (15-50); MCH 28.2 pg (26.0-34.0); MCV 88.1 fL (80.0-100.0); MEAN PLATELET VOLUME 6.1 fL (7.4-10.4); MONOCYTES 12.4 % (2-11); PLATELET COUNT 477 10x3/uL (130-400); RBC 3.21 10x6/uL (4.20-6.10); RDW 15.7 % (11.5-14.5); WBC 12.2 10x3/uL (4.8-10.8)
[2020-10-22 07:45] LABS: ALBUMIN 1.9 g/dL (3.4-5.0); ANION GAP 9.5 mmol/L (8-16); BILIRUBIN - TOTAL 0.43 mg/dL (0.2-1.3); CARBON DIOXIDE 25.1 mmol/L (21.0-32.0); CREATININE - SERUM 1.1 mg/dL (0.6-1.3); POTASSIUM - SERUM 3.6 mmol/L (3.5-5.1); PROTEIN - SERUM 6.7 g/dL (6.4-8.2)
[2020-10-22 07:48] LABS: MAGNESIUM - SERUM 1.5 mg/dL (1.8-2.4)
--- NOTE | 2020-10-22 07:58 | NUR ---
LAB CALLED WITH POSITIVE BLOOD CULTURE GRAM - VASU
--- NOTE | 2020-10-22 09:00 | NUR ---
ATTEMPTED TO GIVE DILAUDID .5MG FOR GENERALIZED PAIN. UNABLE TO PUSH, IV SITE FOUND TO BE INFILTRATED. D/C'D AND NEW IV PLACED TO RIGHT UPPER ARM WITH 20GA BY RN AFTER SEVERAL ATTEMPTS.
--- NOTE | 2020-10-22 09:20 | NUR ---
DILAUDID 0.5MG IVP GIVEN AT NEW IV SITE.
--- NOTE | 2020-10-22 15:00 | NUR ---
REPORT CALLED TO [facility].
--- NOTE | 2020-10-22 15:30 | NUR ---
PATIENT CLEANED OF LARGE AMOUNT OF GREEN LIQUID DIARRHEA STOOL. PATIENT HAD NOT INFORMED NURSE OF STOOLING AND LAY IN THE DIARRHEA FOR SOME TIME. SKIN CARE PROVIDED WITH BARRIER CREAM.
--- NOTE | 2020-10-22 17:00 | NUR ---
IN BED, AT BEDSIDE. BED LOW POSITION, CALL LIGHT IN REACH. DENIES NEEDS AT THIS TIME. IV INFUSING PER MAR. BED ALARM ON. 3L NASAL CANNULA IN PLACE. WILL CONTINUE TO MONITOR.
[2020-10-23] VITALS: BP 121/70
[2020-10-23 04:00] VITALS: BP 125/72
[2020-10-23 07:39] LABS: HEMATOCRIT 30.8 % (42.0-54.0); MCH 29.3 pg (26.0-34.0); MCHC 32.5 g/dL (31.0-37.0); MEAN PLATELET VOLUME 6.4 fL (7.4-10.4); PLATELET COUNT 470 10x3/uL (130-400); RBC 3.42 10x6/uL (4.20-6.10); RDW 15.8 % (11.5-14.5); WBC 10.6 10x3/uL (4.8-10.8)
[2020-10-23 07:40] LABS: MCV 90.1 fL (80.0-100.0)
[2020-10-23 07:57] LABS: ALKALINE PHOSPHATASE 94 U/L (30-120); ALT (SGPT) 10 U/L (10-68); BILIRUBIN - TOTAL 0.34 mg/dL (0.2-1.3); CALC OSMOLALITY 269 mosm/kg (275-300); CALCIUM 8.1 mg/dL (8.5-10.1); CARBON DIOXIDE 24.6 mmol/L (21.0-32.0); CHLORIDE - SERUM 101 mmol/L (98-107); CREATININE - SERUM 0.9 mg/dL (0.6-1.3); GLUCOSE 81 mg/dL (74-106); MAGNESIUM - SERUM 1.7 mg/dL (1.8-2.4); POTASSIUM - SERUM 3.2 mmol/L (3.5-5.1); PROTEIN - SERUM 6.9 g/dL (6.4-8.2); SODIUM 135 mmol/L (136-145); UREA NITROGEN 16 mg/dL (7-18); eGFR NON AFRICAN AMERICAN 90 mL/min (90-120)
[2020-10-23 10:07] VITALS: BP 110/62
[2020-10-23 12:50] VITALS: BP 119/68
[2020-10-23 12:58] VITALS: Ht 177.8 cm; Wt 68.0 kg
[2020-10-23 14:13] LABS: EOSINOPHILS 1 % (0-7); LYMPHOCYTES 14 % (15-50); MONOCYTES 13 % (2-11); NEUTROPHILS 64 % (40-80); PLATELET ESTIMATE INCREASED; ROULEAUX OCC
--- NOTE | 2020-10-23 15:09 | NUR ---
PT NOT TOLERATING IV K+, IV STOPPED, NS RUNNING AT 50mL/HR
[2020-10-23 18:13] VITALS: BP 128/76
[2020-10-23 20:00] VITALS: BP 135/68
[2020-10-24] VITALS: BP 131/69
--- NOTE | 2020-10-24 02:52 | NUR ---
I have reviewed this patient and I concur with the Shift Assessment completed by the Licensed Practical Nurse today this shift.
[2020-10-24 04:00] VITALS: BP 118/65
[2020-10-24 05:03] LABS: BASOPHILS 0.5 % (0-2); EOSINOPHILS 7.4 % (0-7); HEMATOCRIT 31.2 % (42.0-54.0); HEMOGLOBIN 9.9 g/dL (13.5-17.5); MCH 28.2 pg (26.0-34.0); MCHC 31.8 g/dL (31.0-37.0); MCV 88.5 fL (80.0-100.0); MEAN PLATELET VOLUME 6.5 fL (7.4-10.4); MONOCYTES 13.7 % (2-11); NEUTROPHILS 62.4 % (40-80); PLATELET COUNT 525 10x3/uL (130-400); RBC 3.52 10x6/uL (4.20-6.10); RDW 15.7 % (11.5-14.5); WBC 10.4 10x3/uL (4.8-10.8)
[2020-10-24 05:21] LABS: ALBUMIN 1.9 g/dL (3.4-5.0); ALKALINE PHOSPHATASE 84 U/L (30-120); ALT (SGPT) 11 U/L (10-68); BILIRUBIN - TOTAL 0.23 mg/dL (0.2-1.3); CALC OSMOLALITY 273 mosm/kg (275-300); CALCIUM 8.1 mg/dL (8.5-10.1); CARBON DIOXIDE 26.2 mmol/L (21.0-32.0); CHLORIDE - SERUM 104 mmol/L (98-107); CREATININE - SERUM 0.8 mg/dL (0.6-1.3); GLUCOSE 78 mg/dL (74-106); MAGNESIUM - SERUM 1.7 mg/dL (1.8-2.4); POTASSIUM - SERUM 3.6 mmol/L (3.5-5.1); PROTEIN - SERUM 6.5 g/dL (6.4-8.2); SODIUM 138 mmol/L (136-145); UREA NITROGEN 11 mg/dL (7-18); eGFR NON AFRICAN AMERICAN > 90 mL/min (90-120)
[2020-10-24 08:56] VITALS: BP 127/67
[2020-10-24 12:38] VITALS: BP 123/60
[2020-10-24 17:24] VITALS: BP 133/84
--- NOTE | 2020-10-24 19:45 | NUR ---
RECEIVED BEDSIDE REPORT. PT LAYING IN BED A&O X4. PIV TO RIGHT FOREARM PATENT AND INFUSING, NO REDNESS OR SWELLING. O2 SAT 96% ON 3L VIA NC. PT ABLE TO AMBUALTE WITH 2 PERSON ASSIST. EDUCATED PT ON CL AND NEEDS, VERBALIZED UNDERSTANDING. BED LOW, CL IN REACH.
[2020-10-24 20:00] VITALS: BP 108/63
[2020-10-25] VITALS: BP 111/65
[2020-10-25 04:00] VITALS: BP 105/58
[2020-10-25 06:12] LABS: BASOPHILS 0.3 % (0-2); EOSINOPHILS 8.3 % (0-7); HEMATOCRIT 30.5 % (42.0-54.0); HEMOGLOBIN 9.7 g/dL (13.5-17.5); LYMPHOCYTES 15.6 % (15-50); MCH 28.1 pg (26.0-34.0); MCHC 31.7 g/dL (31.0-37.0); MCV 88.6 fL (80.0-100.0); MEAN PLATELET VOLUME 7.1 fL (7.4-10.4); MONOCYTES 12.4 % (2-11); NEUTROPHILS 63.4 % (40-80); PLATELET COUNT 522 10x3/uL (130-400); RBC 3.44 10x6/uL (4.20-6.10); RDW 15.7 % (11.5-14.5)
[2020-10-25 06:37] LABS: ALBUMIN 2.1 g/dL (3.4-5.0); ALKALINE PHOSPHATASE 85 U/L (30-120); ALT (SGPT) 9 U/L (10-68); BILIRUBIN - TOTAL 0.15 mg/dL (0.2-1.3); CALC OSMOLALITY 270 mosm/kg (275-300); CALCIUM 8.3 mg/dL (8.5-10.1); CARBON DIOXIDE 24.3 mmol/L (21.0-32.0); CHLORIDE - SERUM 103 mmol/L (98-107); CREATININE - SERUM 0.7 mg/dL (0.6-1.3); GLUCOSE 86 mg/dL (74-106); MAGNESIUM - SERUM 1.6 mg/dL (1.8-2.4); POTASSIUM - SERUM 3.4 mmol/L (3.5-5.1); PROTEIN - SERUM 6.8 g/dL (6.4-8.2); SODIUM 137 mmol/L (136-145); eGFR NON AFRICAN AMERICAN > 90 mL/min (90-120)
[2020-10-25 06:38] LABS: UREA NITROGEN 6 mg/dL (7-18)
[2020-10-25 07:19] LABS: WBC 13.9 10x3/uL (4.8-10.8)
--- NOTE | 2020-10-25 07:32 | NUR ---
RECIEVED BEDSIDE REPORT. BED LOW POSITION, CALL LIGHT IN REACH. BED ALARM ON. IV INFUSING PER JUL. OXYGEN AT 3L NASAL CANNULA. FREE FROM SIGNS OF DISTRESS. WILL CONTINUE TO MONITOR.
[2020-10-25 09:24] VITALS: BP 110/55
[2020-10-25 11:52] VITALS: BP 110/55
[2020-10-25 16:18] VITALS: BP 112/56
[2020-10-25 20:00] VITALS: BP 106/62
[2020-10-26] VITALS: BP 106/62; BP 111/59
[2020-10-26 04:00] VITALS: BP 140/74
--- NOTE | 2020-10-26 04:14 | NUR ---
I have reviewed this patient and I concur with the Shift Assessment completed by the Licensed Practical Nurse today this shift.
[2020-10-26 06:37] LABS: BASOPHILS 0.5 % (0-2); EOSINOPHILS 4.1 % (0-7); HEMATOCRIT 29.3 % (42.0-54.0); HEMOGLOBIN 9.3 g/dL (13.5-17.5); MCH 28.1 pg (26.0-34.0); MCHC 31.8 g/dL (31.0-37.0); MCV 88.3 fL (80.0-100.0); MEAN PLATELET VOLUME 6.8 fL (7.4-10.4); MONOCYTES 12.1 % (2-11); NEUTROPHILS 69.3 % (40-80); PLATELET COUNT 492 10x3/uL (130-400); RBC 3.32 10x6/uL (4.20-6.10); RDW 16.1 % (11.5-14.5)
[2020-10-26 06:44] LABS: WBC 10.2 10x3/uL (4.8-10.8)
[2020-10-26 06:58] LABS: ALBUMIN 1.9 g/dL (3.4-5.0); ALKALINE PHOSPHATASE 75 U/L (30-120); ALT (SGPT) 8 U/L (10-68); BILIRUBIN - TOTAL 0.16 mg/dL (0.2-1.3); CALCIUM 7.9 mg/dL (8.5-10.1); CARBON DIOXIDE 28.6 mmol/L (21.0-32.0); CHLORIDE - SERUM 107 mmol/L (98-107); CREATININE - SERUM 0.7 mg/dL (0.6-1.3); GLUCOSE 128 mg/dL (74-106); PROTEIN - SERUM 6.1 g/dL (6.4-8.2); SODIUM 140 mmol/L (136-145); eGFR NON AFRICAN AMERICAN > 90 mL/min (90-120)
[2020-10-26 07:38] LABS: CALC OSMOLALITY 277 mosm/kg (275-300); UREA NITROGEN 3 mg/dL (7-18)
--- NOTE | 2020-10-26 07:38 | NUR ---
RECIEVED BEDSIDE REPORT. AROUSES TO VOICE. DENIES NEEDS AT THIS TIME. BED LOW POSITION, CALL LIGHT IN REACH. BED ALARM ON. WILL CONTINUE TO MONITOR.
[2020-10-26 07:39] LABS: POTASSIUM - SERUM 2.9 mmol/L (3.5-5.1)
[2020-10-26 08:43] VITALS: BP 123/71
[2020-10-26 13:01] VITALS: BP 123/76
--- NOTE | 2020-10-26 14:36 | NUR ---
Nutrition follow-up: Diet has advanced to regular with po intake fair at this time Labs reviewed Wt: 150# Pt being provided with selective menus and food preferences are being honored RDN will follow-up on pts progress in 5-7 days.
--- NOTE | 2020-10-26 16:40 | NUR ---
OT NOTE: ATTEMPTED EVAL BUT PT REFUSED TODAY. STATED THAT HE WAS HURTING TOO BAD AND BECAME SLIGHLTY AGITATED WITH THERAPISTS CONTINUED ATTEMPTS.. WILL TRY TO EVAL TOMMOROW. ZULEIKA COBURN, OTR/L
[2020-10-26 17:34] VITALS: BP 133/74
[2020-10-26 20:00] VITALS: BP 135/75
--- NOTE | 2020-10-26 21:46 | NUR ---
PATIENT REQUESTING KENELOG CREAM ON BACK, ADMINISTERED PRN PAIN MEDICATION WITH SCHEDULED MEDICATION, NO OTHER NEEDS VOICED, COUPLE OF SPOTS WITH BROKEN SKIN ON BACK, NO OTHER NEEDS VOICED AT THIS TIME, CONTINUE WITH PLAN OF CARE
[2020-10-27] VITALS: BP 132/72
[2020-10-27 04:00] VITALS: BP 118/75
--- NOTE | 2020-10-27 04:54 | NUR ---
I have reviewed this patient and I concur with the Shift Assessment completed by the Licensed Practical Nurse today this shift.
[2020-10-27 07:02] LABS: BASOPHILS 0.6 % (0-2); EOSINOPHILS 2.2 % (0-7); HEMATOCRIT 27.8 % (42.0-54.0); HEMOGLOBIN 9.1 g/dL (13.5-17.5); LYMPHOCYTES 18.5 % (15-50); MCH 28.6 pg (26.0-34.0); MCHC 32.8 g/dL (31.0-37.0); MCV 87.2 fL (80.0-100.0); MEAN PLATELET VOLUME 6.6 fL (7.4-10.4); MONOCYTES 10.5 % (2-11); NEUTROPHILS 68.2 % (40-80); RBC 3.19 10x6/uL (4.20-6.10); RDW 15.6 % (11.5-14.5); WBC 11.9 10x3/uL (4.8-10.8)
[2020-10-27 07:05] LABS: PLATELET COUNT 601 10x3/uL (130-400)
[2020-10-27 07:33] LABS: ALKALINE PHOSPHATASE 75 U/L (30-120); ALT (SGPT) 7 U/L (10-68); BILIRUBIN - TOTAL 0.16 mg/dL (0.2-1.3); CALC OSMOLALITY 273 mosm/kg (275-300); CALCIUM 8.2 mg/dL (8.5-10.1); CHLORIDE - SERUM 106 mmol/L (98-107); CREATININE - SERUM 0.8 mg/dL (0.6-1.3); GLUCOSE 107 mg/dL (74-106); POTASSIUM - SERUM 3.5 mmol/L (3.5-5.1); PROTEIN - SERUM 6.3 g/dL (6.4-8.2); SODIUM 139 mmol/L (136-145); eGFR NON AFRICAN AMERICAN > 90 mL/min (90-120)
[2020-10-27 07:36] LABS: UREA NITROGEN 2 mg/dL (7-18)
--- NOTE | 2020-10-27 07:45 | NUR ---
RESTING IN BED WITH EYES CLOSED, EASILY AROUSED TO SPEECH. EMPTIED 600ML OF CONCENTRATED URINE OUT OF URINAL. IV LOCATED TO LEFT THUMB CURRENTLY RUNNING D5 1/2 NS @ 100, CURRENTLY RCVING 3L VIA NC. NO CURRENT S/S OF DISTRESS, DENIES CURRENT NEEDS, WILL CONT TO MONITOR.
[2020-10-27 08:56] VITALS: BP 130/75
--- NOTE | 2020-10-27 09:25 | EC ---
PATIENT:KONRAD ROSENBERG DATE OF SERVICE: 10/21/20 SEX: M MEDICAL RECORD: [id number] DATE OF : 55 LOCATION:[facility] AGE OF PATIENT: 65 ADMISSION DATE: 10/21/20 REFERRING PHYSICIAN: INTERPRETING PHYSICIAN: LA GUTIERREZ MD ECHOCARDIOGRAM REPORT ECHO CHARGES 5 ECHO LIMITED Date: 10/25/20 CLINICAL DIAGNOSIS: + BLOOD CULTURES ECHOCARDIOGRAPHIC MEASUREMENTS (adult normal given) AC root (d.<3.7cm) 0 cm LV Septum d (<1.2 cm> 0 cm Valve Excursion 0 cm LV Septum (systole) cm Left Atria (s.<4.0cm> 0 cm LVPW d(<1.2cm) cm RV (d.<2.3cm) 0 cm LVPW (sytole) 0 cm LV diastole(<5.6CM) 0 cm MV E-F(>70mm/sec) 0 cm LV systole 0 cm LVOT Diameter 0 cm MV exc.(>10mm) cm Est.ejection fraction (50-75%) 0 % DOPPLER: LVIT cm/sec A 0 cm/sec E 0 cm/sec LA 0 cm/sec RVSP 0 mmHg LVOT 0 cm/sec AOP1/2T 0 m/s Asc. Ao 0 cm/sec RVOT 0 cm/sec RA 0 cm/sec PA 0 cm/sec AV Gradient Peak 0 mmHg AV Mean 0 mmHg AV Area 0 cm MV Gradient Peak 0 mmHg MV Mean 0 mmHg MV Area cm COMMENTS: Life [employer]: Mirela TANGBARBRA MAURICE Clean In Places Operator: 3 Dr. Tompkins TAPE# Pericardial Effusion N DATE OF SERVICE: This is limited study includes 2D, color flow only. FINDINGS: Grossly LVH appears present. LV internal dimension is normal. Wall motion is normal. EF is greater than or equal to 55%. Aortic valve appears tricuspid with good valve excursion. Left atrium grossly is normal. Mitral valve shows no prolapse and trivial MR. Right-sided chamber is grossly normal. Trivial TR. No obvious vegetation in all 4 cardiac valves. ECHOCARDIOGRAM REPORT [id number] KONRAD ROSENBERG TRANSINT:[id number] Voice Confirmation ID: [id number] DOCUMENT ID: [id number] LA GUTIERREZ MD at 0925 CC: [id number] DICTATION DATE: 10/26/201723 INVESTIGATOR CASH SHORTAGE: 10/26/201916 ADM IN [facility] [address] [id number]
--- NOTE | 2020-10-27 11:19 | NUR ---
OT NOTE: PT REFUSED THERAPY TODAY. STATED THAT HE HAD ALREADY BEEN UP TO THE BATHROOM WITH THE WALKER BUT DID NOT FEEL LIKE DOING ANYTHING ELSE.. PT REFUSED HIS BREAKFAST ALSO. ZULEIKA BAR, OTR/L
[2020-10-27 12:46] VITALS: BP 119/69
[2020-10-27 17:27] VITALS: BP 124/67
[2020-10-27 20:00] VITALS: BP 113/77
[2020-10-28 07:02] LABS: ALBUMIN 2.3 g/dL (3.4-5.0); ALKALINE PHOSPHATASE 69 U/L (30-120); BILIRUBIN - TOTAL 0.21 mg/dL (0.2-1.3); CALC OSMOLALITY 275 mosm/kg (275-300); CALCIUM 8.2 mg/dL (8.5-10.1); CARBON DIOXIDE 25.3 mmol/L (21.0-32.0); CHLORIDE - SERUM 106 mmol/L (98-107); CREATININE - SERUM 0.8 mg/dL (0.6-1.3); GLUCOSE 124 mg/dL (74-106); POTASSIUM - SERUM 3.1 mmol/L (3.5-5.1); PROTEIN - SERUM 5.9 g/dL (6.4-8.2); SODIUM 140 mmol/L (136-145); UREA NITROGEN 2 mg/dL (7-18); eGFR NON AFRICAN AMERICAN > 90 mL/min (90-120)
[2020-10-28 07:03] LABS: HEMATOCRIT 26.6 % (42.0-54.0); HEMOGLOBIN 8.7 g/dL (13.5-17.5); MCH 28.2 pg (26.0-34.0); MCHC 32.6 g/dL (31.0-37.0); MCV 86.4 fL (80.0-100.0); MEAN PLATELET VOLUME 6.4 fL (7.4-10.4); PLATELET COUNT 640 10x3/uL (130-400); RBC 3.08 10x6/uL (4.20-6.10); RDW 16.1 % (11.5-14.5); WBC 11.6 10x3/uL (4.8-10.8)
[2020-10-28 07:07] LABS: ALT (SGPT) 4 U/L (10-68)
[2020-10-28 08:14] LABS: LYMPHOCYTES 16 % (15-50); MONOCYTES 1 % (2-11); NEUTROPHILS 83 % (40-80)
[2020-10-28 08:15] LABS: PLATELET ESTIMATE INCREASED
[2020-10-28 09:19] VITALS: BP 126/80
[2020-10-28 12:51] VITALS: BP 135/76
[2020-10-28] MEDS ORDERED: AZULFIDINE500 MG PO (14:03)
[2020-10-28] MEDS ORDERED: FLAGYL500 MG PO (14:05)
[2020-10-28] MEDS ORDERED: LEVOFLOXACIN500 MG PO (14:05)
--- NOTE | 2020-10-28 16:14 | NUR ---
PATIENT RECIEVED DC INSTRUCTIONS. IV REMOVED WITH CATH TIP INTACT. NO QUESTIONS AT THIS TIME. EXPLAINED TO ASSEMBLER CARDS AND ANNOUNCEMENTS MEDS AT [facility]. VERBALIZED UNDERSTANDING. WAITING ON TRANSPORTATION FOR DC HOME.
--- NOTE | 2020-10-28 17:21 | NUR ---
PATIENT IN BED WITH IV INTACT. NO COMPLAINTS OR SIGNS OF DISTRESS. CALL LIGHT WITHIN REACH.
--- NOTE | 2020-10-28 19:45 | MORECARE ---
CASE MANAGEMENT DISCHARGE SUMMARY PATIENT: KONRAD ROSENBERG UNIT: [id number] ADM DATE: 10/21/20 AGE: 65 : 55 SEX: M ROOM/BED: D.2208 AUTHOR: ZEENAT,MIKO PHYSICIAN: REFERRING PHYSICIAN: AYAAN ANDERSON MD DATE OF SERVICE: 10/28/20 Case Management Discharge Planning Summary COMMENTS ENTERED DATE: 10/28/20 19:44 CT COMMENT TYPE: Discharge Planning REVIEWER: Brad العراقي CM met with patient to complete DC plan and to evaluate needs. Patient lives independently with his significant other, Carola Savage, . Patient stated that his home is safe and has electricity and running water. Patient stated that he is able to manage entering his home without difficulty. Patient stated that he has a walker to aid his mobility in his home. Patient stated that he has no problems paying for medications and he fills his medications at [facility]. Patient stated that his primary care physician is Dr. Loja. At discharge, the patient plans to return home and feels this is a safe discharge. CM discussed availability of home health, rehab services, and medical equipment. Patient declined HHS, SNF, IPR, and DME. Patient voiced no other needs at this time and is satisfied with DC plan. Transportation provider at discharge will be with Carola. DC IMM delivered, explained, signed by the patient, and placed in chart. Signed form also left with the patient. CM will continue to follow and will assist as needed with dc plans/needs. DCP REVIEW SUMMARY ANTICIPATED D/C DATE: 10/28/2020 EXPECTED LOS : 7 CASE STATUS: DCP Initiated INITIAL REVIEW: 10/21/2020 INITIAL REVIEWER: Brad العراقي FINAL DISCHARGE DISPOSITION: : FINAL REVIEWER: FINAL REVIEW DATE: DCP Focus Questions & Answers DCP Evaluation QUESTION: ANSWER Patient gives permission to discuss discharge plans with: (name, relationship and number) : his significant other, Carola Savage, . Patient's ability to cope with chronic illness : d. No chronic illness Patient's current cognitive status: : *Oriented to person, place, situation, time and present Family / Caregiver's ability to cope with chronic illness: : a. Adequate (ability to meet patient's medical needs, ensures patient attends medical appts.) Patient and/or caregiver agree upon recommended discharge plan? : Yes Physical Status: : Independent with ADL's Family / Caregiver's ability to cope with chronic illness: : a. Adequate (ability to meet patient's medical needs, ensures patient attends medical appts.) Functional screen assessment: : Basic needs can adequately be met by self Does the patient have the ability to pay for or attain post discharge needs / services? : Yes Living Arrangements: : Home with Spouse/Significant Other Is there a likelihood that the patient will require additional services to return to the preadmission environment? : No Equipment needed for post hospitalization: : None Baseline cognitive status: : *Oriented to person, place, situation, time and present Patient with capacity for self-care or can be cared for in same environment as prior to hospitalization? : Yes Physical environment modification needed / anticipated for discharge: : No Medication Management: : Patient states can afford medications Medication Management: : Patient states can read and understand medication labels Pharmacy name(s): : [facility]. Does Patient have transportation to get home and to follow-up medical appointments when discharged from the hospital? : Yes Would patient like to participate in any Care Coordination programs (if applicable): : Not applicable Does the patient have electricity at home? : Yes Does the patient have running water in their house? : Yes Equipment in use: : Walker - Rolling Mental health screen: : No mental health history DCP Re-evaluation QUESTION: ANSWER Would patient like to participate in any Care Coordination programs (if applicable): : Not applicable PATIENT: KONRAD ROSENBERG ENCOUNTER: [id number] MEDICAL RECORD#: [id number] ADMISSION DATE: 10/21/2020 DISCHARGE DATE: 10/28/2020 ATTENDING MD: TEREZA LOZADA : AGE: 65 MARITAL STATUS: D DC PLAN ID: [id number] FACILITY: [facility] PRINTED ON: 10/28/20 19:45 CT All edits/amendments must be made on the electronic document DICTATION DATE: 10/28/201944 LAP MACHINE TENDER: ANNY 10/28/201944 RPT#: [id number] DC DATE:10/28/20 STATUS: DIS IN [facility] [address] [place] [address] END OF REPORT
--- NOTE | 2020-10-28 19:55 | MORECARE ---
CASE MANAGEMENT DISCHARGE SUMMARY PATIENT: KONRAD ROSENBERG UNIT: [id number] ADM DATE: 10/21/20 AGE: 65 : 55 SEX: M ROOM/BED: D.2208 AUTHOR: MIKO EPPERSON PHYSICIAN: REFERRING PHYSICIAN: AYAAN ANDERSON MD DATE OF SERVICE: 10/28/20 Case Management Discharge Planning Summary COMMENTS ENTERED DATE: 10/28/20 19:44 CT COMMENT TYPE: Discharge Planning REVIEWER: Brad العراقي CM met with patient to complete DC plan and to evaluate needs. Patient lives independently with his significant other, Carola Savage, . Patient stated that his home is safe and has electricity and running water. Patient stated that he is able to manage entering his home without difficulty. Patient stated that he has a walker to aid his mobility in his home. Patient stated that he has no problems paying for medications and he fills his medications at [facility]. Patient stated that his primary care physician is Dr. Loja. At discharge, the patient plans to return home and feels this is a safe discharge. CM discussed availability of home health, rehab services, and medical equipment. Patient declined HHS, SNF, IPR, and DME. Patient voiced no other needs at this time and is satisfied with DC plan. Transportation provider at discharge will be with Carola. DC IMM delivered, explained, signed by the patient, and placed in chart. Signed form also left with the patient. CM will continue to follow and will assist as needed with dc plans/needs. Appended by Brad العراقي on 10/28/2020 19:46 CDT: Patient stated that he has home oxygen through [facility] DCP REVIEW SUMMARY ANTICIPATED D/C DATE: 10/28/2020 EXPECTED LOS : 7 CASE STATUS: DCP Initiated INITIAL REVIEW: 10/21/2020 INITIAL REVIEWER: Brad العراقي FINAL DISCHARGE DISPOSITION: : FINAL REVIEWER: FINAL REVIEW DATE: DCP Focus Questions & Answers DCP Evaluation QUESTION: ANSWER Patient gives permission to discuss discharge plans with: (name, relationship and number) : his significant other, Carola Savage, . Patient's ability to cope with chronic illness : d. No chronic illness Patient's current cognitive status: : *Oriented to person, place, situation, time and present Family / Caregiver's ability to cope with chronic illness: : a. Adequate (ability to meet patient's medical needs, ensures patient attends medical appts.) Patient and/or caregiver agree upon recommended discharge plan? : Yes Physical Status: : Independent with ADL's Family / Caregiver's ability to cope with chronic illness: : a. Adequate (ability to meet patient's medical needs, ensures patient attends medical appts.) Functional screen assessment: : Basic needs can adequately be met by self Does the patient have the ability to pay for or attain post discharge needs / services? : Yes Living Arrangements: : Home with Spouse/Significant Other Is there a likelihood that the patient will require additional services to return to the preadmission environment? : No Equipment needed for post hospitalization: : None Baseline cognitive status: : *Oriented to person, place, situation, time and present Patient with capacity for self-care or can be cared for in same environment as prior to hospitalization? : Yes Physical environment modification needed / anticipated for discharge: : No Medication Management: : Patient states can afford medications Medication Management: : Patient states can read and understand medication labels Pharmacy name(s): : [facility]. Does Patient have transportation to get home and to follow-up medical appointments when discharged from the hospital? : Yes Would patient like to participate in any Care Coordination programs (if applicable): : Not applicable Does the patient have electricity at home? : Yes Does the patient have running water in their house? : Yes Equipment in use: : Walker - [place] Mental health screen: : No mental health history DCP Re-evaluation QUESTION: ANSWER Would patient like to participate in any Care Coordination programs (if applicable): : Not applicable PATIENT: KONRAD ROSENBERG ENCOUNTER: [id number] MEDICAL RECORD#: [id number] ADMISSION DATE: 10/21/2020 DISCHARGE DATE: 10/28/2020 ATTENDING MD: TEREZA LOZADA : AGE: 65 MARITAL STATUS: D DC PLAN ID: [id number] FACILITY: [facility] PRINTED ON: 10/28/20 19:55 CT All edits/amendments must be made on the electronic document DICTATION DATE: 10/28/201954 TACTICAL AIR DEFENSE CONTROLLER: ANNY 10/28/201954 RPT#: [id number] DC DATE:10/28/20 STATUS: DIS IN [facility] [address] [place] [address] END OF REPORT
[2020-10-29 21:06] LABS: OVA + PARASITE EXAM Final report (())
--- NOTE | 2020-11-01 08:14 | MORECARE ---
CASE MANAGEMENT DISCHARGE SUMMARY PATIENT: KONRAD ROSENBERG UNIT: [id number] ADM DATE: 10/21/20 AGE: 65 : 55 SEX: M ROOM/BED: D.2208 AUTHOR: ZEENAT,DOC PHYSICIAN: REFERRING PHYSICIAN: AYAAN ANDERSON MD DATE OF SERVICE: 11/01/20 Case Management Discharge Planning Summary COMMENTS ENTERED DATE: 10/28/20 19:44 CT COMMENT TYPE: Discharge Planning REVIEWER: Brad العراقي CM met with patient to complete DC plan and to evaluate needs. Patient lives independently with his significant other, Carola Savage, . Patient stated that his home is safe and has electricity and running water. Patient stated that he is able to manage entering his home without difficulty. Patient stated that he has a walker to aid his mobility in his home. Patient stated that he has no problems paying for medications and he fills his medications at [facility]. Patient stated that his primary care physician is Dr. Loja. At discharge, the patient plans to return home and feels this is a safe discharge. CM discussed availability of home health, rehab services, and medical equipment. Patient declined HHS, SNF, IPR, and DME. Patient voiced no other needs at this time and is satisfied with DC plan. Transportation provider at discharge will be with Carola. DC IMM delivered, explained, signed by the patient, and placed in chart. Signed form also left with the patient. CM will continue to follow and will assist as needed with dc plans/needs. Appended by Brad العراقي on 10/28/2020 19:46 CDT: Patient stated that he has home oxygen through [facility] DCP REVIEW SUMMARY ANTICIPATED D/C DATE: 10/28/2020 EXPECTED LOS : 7 CASE STATUS: DCP Complete INITIAL REVIEW: 10/21/2020 INITIAL REVIEWER: Brad العراقي FINAL DISCHARGE DISPOSITION: 01 : Home or Self Care (Routine Discharge) FINAL REVIEWER: Brad العراقي FINAL REVIEW DATE: 11/01/2020 DCP Focus Questions & Answers DCP Evaluation QUESTION: ANSWER Patient and/or caregiver agree upon recommended discharge plan? : Yes Family / Caregiver's ability to cope with chronic illness: : a. Adequate (ability to meet patient's medical needs, ensures patient attends medical appts.) Patient's current cognitive status: : *Oriented to person, place, situation, time and present Patient's ability to cope with chronic illness : d. No chronic illness Patient gives permission to discuss discharge plans with: (name, relationship and number) : his significant other, Carola Savage, . Does the patient have the ability to pay for or attain post discharge needs / services? : Yes Functional screen assessment: : Basic needs can adequately be met by self Family / Caregiver's ability to cope with chronic illness: : a. Adequate (ability to meet patient's medical needs, ensures patient attends medical appts.) Physical Status: : Independent with ADL's Equipment needed for post hospitalization: : None Is there a likelihood that the patient will require additional services to return to the preadmission environment? : No Living Arrangements: : Home with Spouse/Significant Other Patient with capacity for self-care or can be cared for in same environment as prior to hospitalization? : Yes Baseline cognitive status: : *Oriented to person, place, situation, time and present Physical environment modification needed / anticipated for discharge: : No Medication Management: : Patient states can read and understand medication labels Medication Management: : Patient states can afford medications Pharmacy name(s): : [facility]. Does Patient have transportation to get home and to follow-up medical appointments when discharged from the hospital? : Yes Would patient like to participate in any Care Coordination programs (if applicable): : Not applicable Does the patient have electricity at home? : Yes Does the patient have running water in their house? : Yes Equipment in use: : Walker - [place] Mental health screen: : No mental health history DCP Re-evaluation QUESTION: ANSWER Would patient like to participate in any Care Coordination programs (if applicable): : Not applicable PATIENT: KONRAD ROSENBERG ENCOUNTER: [id number] MEDICAL RECORD#: [id number] ADMISSION DATE: 10/21/2020 DISCHARGE DATE: 10/28/2020 ATTENDING MD: TEREZA LOZADA : AGE: 65 MARITAL STATUS: D DC PLAN ID: [id number] FACILITY: [facility] PRINTED ON: 11/01/20 8:14 CT All edits/amendments must be made on the electronic document DICTATION DATE: 11/01/20813 CLINICAL DERMATOLOGIST: ANNY 11/01/20813 RPT#: [id number] DC DATE:10/28/20 STATUS: DIS IN [facility] [address] [facility] [place] [address] END OF REPORT
== END 2020-10-28 17:22 | disposition home or self-care (01) | DRG 392 ==
LOC: D.ER 16:49 → D.MS 19:32 → D.EDHOLD 19:32 → D.MS 10-22 13:36
PROVIDERS: Emergency Medicine; Family Medicine; ADMIT Emergency Medicine; ATTEND Emergency Medicine
DX: K52.9 Noninfective gastroenteritis and colitis, unspecified (principal); K50.00 Crohn's disease of small intestine without complications; J96.11 Chronic respiratory failure with hypoxia; K57.92 Diverticulitis of intestine, part unspecified, without perforation or abscess without bleeding; N17.9 Acute kidney failure, unspecified; E87.1 Hypo-osmolality and hyponatremia; R64 Cachexia; R10.9 Unspecified abdominal pain; Z79.84 Long term (current) use of oral hypoglycemic drugs; J44.9 Chronic obstructive pulmonary disease, unspecified; E87.5 Hyperkalemia; Z99.81 Dependence on supplemental oxygen; F32.9 Major depressive disorder, single episode, unspecified; F41.9 Anxiety disorder, unspecified; M19.90 Unspecified osteoarthritis, unspecified site; K21.9 Gastro-esophageal reflux disease without esophagitis; D50.9 Iron deficiency anemia, unspecified; E11.65 Type 2 diabetes mellitus with hyperglycemia; E86.0 Dehydration